=== PATIENT | male | born 1975 | race Two or more races ===

== ENCOUNTER 2020-07-19 11:21 | Outpatient (REF) | payer MEDICARE, MEDICAID, SELFPAY ==
--- NOTE | 2020-07-19 11:26 | XR_ITS ---
EXAMINATION: XR SHOULDER, RIGHT CLINICAL INFORMATION: Right shoulder pain COMPARISON: 06/04/2017 TECHNIQUE: Three views of the right shoulder. FINDINGS: There is no fracture or dislocation. The glenohumeral joint is well aligned. The joint space is maintained. The acromioclavicular joint is intact. The visualized lung is clear. The visualized ribs are intact. IMPRESSION: Normal appearance of the right shoulder.
== END 2020-07-19 11:22 | disposition home or self-care (01) ==
LOC: HO.XRAY 11:21
PROVIDERS: PCP Internal Medicine; Referring Provider Internal Medicine; Visit Provider Orthopaedic Surgery
DX: M25.511 Pain in right shoulder (principal); S43.431A Superior glenoid labrum lesion of right shoulder, initial encounter; M62.511 Muscle wasting and atrophy, not elsewhere classified, right shoulder
CPT/HCPCS: 73030; 99214

== ENCOUNTER 2020-07-30 15:11 | Outpatient (REF) | payer MEDICARE, MEDICAID, SELFPAY ==
--- NOTE | 2020-07-30 | MR_ITS ---
EXAMINATION: MR SHOULDER WITHOUT CONTRAST, RIGHT CLINICAL INFORMATION: Right shoulder muscle wasting and atrophy. COMPARISON: MRI 12/16/2017 TECHNIQUE: MRI of the shoulder without contrast was performed on a high-field scanner. FINDINGS: ROTATOR CUFF: Intact. No muscle atrophy or fatty infiltration. BICEPS: Normal. CORACOACROMIAL ARCH: The undersurface of the acromion is laterally downsloping with no subacromial spur. Moderate acromioclavicular osteoarthritis. Previously demonstrated marrow edema of the distal clavicle has resolved. LABRUM/CAPSULE: The superior labral tear demonstrated on the previous study is less conspicuous, still apparent posterosuperiorly on coronal image 7 and axial image 9. The anterior inferior capsule is slightly thickened and projects into the joint. GLENOHUMERAL JOINT/MARROW: Small degenerative cyst of the anterolateral humeral head. No joint effusion. MR/MR shoulder RT wo con IMPRESSION: No rotator cuff tear. No muscle atrophy or fatty infiltration. Moderate acromioclavicular osteoarthritis. Previously demonstrated superior labral tear is much less conspicuous.
== END 2020-07-30 15:12 | disposition home or self-care (01) ==
LOC: HO.MRI 15:11
PROVIDERS: PCP Internal Medicine; Visit Provider Orthopaedic Surgery
DX: M62.511 Muscle wasting and atrophy, not elsewhere classified, right shoulder (principal)
CPT/HCPCS: 73221

== ENCOUNTER 2020-09-10 08:36 | Outpatient (REF) | payer MEDICARE, MEDICAID, SELFPAY | END 2020-09-10 08:37 | disposition home or self-care (01) | LOC: HO.LAB 08:36 | PROVIDERS: Visit Provider Internal Medicine | DX: Z20.828 Contact with and (suspected) exposure to other viral communicable diseases (principal) | CPT/HCPCS: C9803; U0003 ==

== ENCOUNTER → 2020-10-23 11:34 | Outpatient (BNVA) | payer OTHER, SELFPAY | PROVIDERS: PCP Internal Medicine; Visit Provider Surgery | DX: K43.9 Ventral hernia without obstruction or gangrene (principal) | CPT/HCPCS: 99202 ==

== ENCOUNTER 2020-11-22 13:57 | Outpatient (REF) | payer OTHER, SELFPAY | END 2020-11-22 13:58 | disposition home or self-care (01) | LOC: HO.CT 13:57 | PROVIDERS: Visit Provider Surgery | DX: Z13.89 Encounter for screening for other disorder (principal) ==

== ENCOUNTER 2020-11-27 08:01 | Outpatient (REF) | payer OTHER, SELFPAY ==
--- NOTE | ~2020-11-27 | CT_ITS ---
EXAMINATION: CT ABDOMEN AND PELVIS WITH CONTRAST CLINICAL INFORMATION: Ventral hernia without obstruction or gangrene. COMPARISON: 11/20/2018 CT. TECHNIQUE: Multidetector volumetric images were obtained from the superior aspect of the liver through the pubic symphysis following administration 85 mL of Omnipaque 350 intravenous contrast. Sagittal and coronal reformatted images were obtained on the technologist's workstation. Oral contrast: Yes This CT examination was performed using dose optimization techniques as appropriate, variously including the following: *Automated exposure control *Adjustment of mA and/or kV according to patient size (this includes techniques or standardized protocols for targeted exams where dose is matched to indication/reason for exam; i.e. extremities or head) *Use of iterative reconstruction technique DLP: 599 mGy-cm. FINDINGS: LUNG BASES: The visualized lung bases are unremarkable. LIVER, GALLBLADDER, AND BILIARY TREE: No focal hepatic lesion or biliary ductal dilatation is present. Gallbladder appears unremarkable. PANCREAS: Unremarkable. SPLEEN: Unremarkable. Small splenule present. ADRENAL GLANDS: Unremarkable. KIDNEYS AND URETERS: Stable small hypodense lesion in the right kidney, too small to characterize. No calculi. No hydronephrosis. BLADDER: Unremarkable. GASTROINTESTINAL TRACT: Stomach and small bowel are nondistended. Nonobstructive bowel gas pattern. Colonic diverticulosis without evidence of definite diverticulitis. The large colon is nondistended, with associated limitation in evaluation for wall thickness. No pericolonic inflammatory changes are seen. Appendix is normal. No free fluid. ABDOMINAL WALL: No significant hernia is appreciated. LYMPH NODES: No lymphadenopathy seen. VASCULAR: Normal caliber aorta. Portal vein is enhancing. PELVIC VISCERA: Prostate measures 4.3 cm transverse. OSSEOUS STRUCTURES: No acute or suspicious osseous abnormality. CT/CT abdomen pelvis w con IMPRESSION: 1. No acute findings identified in the abdomen or pelvis. 2. No significant abdominal wall hernia is appreciated. 3. Colonic diverticulosis without diverticulitis.
[2020-11-27] MEDS: iohexoL 350 MG/ML 100 ML INFUS..BTL IV (10:44)
[2020-11-27] MEDS: Barium Sulfate Oral (Berry) 450 ML ORAL.SUSP 900 ML PO (10:44)
== END 2020-11-27 08:02 | disposition home or self-care (01) ==
LOC: HO.CT 08:01
PROVIDERS: Visit Provider Surgery
DX: K43.9 Ventral hernia without obstruction or gangrene (principal)
CPT/HCPCS: 74177; Q9967

== ENCOUNTER → 2020-12-04 13:43 | Outpatient (BNVA) | payer OTHER, SELFPAY | PROVIDERS: PCP Internal Medicine; Visit Provider Surgery | DX: R10.31 Right lower quadrant pain (principal) | CPT/HCPCS: 99212 ==

== ENCOUNTER 2021-02-01 12:01 | Emergency (ER) | payer OTHER, SELFPAY ==
[2021-02-01 12:52] VITALS: BP 125/83; PULSE 81; RESP 18; TEMP 36.4; O2SAT 97; BMI 32.1
--- NOTE | 2021-02-01 14:57 | ED.EYEPROB ---
HPI - Eye Problem General Chief complaint: Eye Problems Stated complaint: eye problem Time Seen by Provider: 02/01/21 14:57 History of Present Illness HPI Narrative: Complains of right eye foreign body sensation after wind blew dust in his eyes yesterday, no vision loss no photophobia no discharge from eye Related Data Home Medications Medication Instructions Recorded Confirmed olanzapine 20 mg tablet 20 mg PO DAILY 07/19/20 02/01/21 oxcarbazepine 600 mg tablet 900 mg PO BID 07/19/20 02/01/21 quetiapine 25 mg tablet 25 mg PO BID 07/19/20 02/01/21 atorvastatin 40 mg tablet 40 mg PO DAILY 09/27/20 02/01/21 Previous Rx's Medication Instructions Recorded erythromycin 0.5 inch OPHTHALMIC (EYE) TID 3 02/01/21 Days #3.5 g Allergies Allergy/AdvReac Type Severity Reaction Status Date / Time lorazepam [From ATIVAN] Allergy Unknown ANAPHYLAXIS Verified 02/01/21 12:52 milk [Milk] Allergy Unknown GI DISTRESS Verified 02/01/21 12:52 pravastatin AdvReac Unknown ?diarrhea? Verified 02/01/21 12:52 Review of Systems Review of Systems: Positive for right eye foreign body Negatives are no fever no chills no dizziness no weakness no headache no ear pain, no vision loss no photophobia no discharge from the eye, no rash Yes all other systems are reviewed and are negative [facility] Past Medical History Source: nursing notes reviewed Medical History Anterior to posterior tear of superior glenoid labrum of right shoulder Anxiety Atrophy of muscle of right shoulder Bipolar disorder Degenerative joint disease of right shoulder Elevated blood pressure reading Irritation of right eye Obesity (BMI 30-39.9) Pure hypercholesterolemia Right inguinal pain Schizophrenia Smoker Surgical History History of cataract removal with insertion of prosthetic lens History of hernia surgery (1998) History of surgery on arm Family History Family History Father Amyloidosis Mother Alive and well Maternal Uncle Prostate cancer Social History Social History Smoking Status: Current every day smoker Tobacco Type: Cigarette Years Smoked: 30yrs Current occupational status: unemployed Physical Exam Vital Signs: Vital Signs: Last Vital Signs Temp 97.6 F 02/01/21 12:52 Pulse 81 02/01/21 12:52 Resp 18 02/01/21 12:52 BP 125/83 02/01/21 12:52 Pulse Ox 97 02/01/21 12:52 Body Mass Index 32.1 General appearance is no acute distress Head is normocephalic atraumatic The eye exam pupils equal round reactive to light, extraocular motions are intact, there is no photophobia there is no discharge there is no redness Shining a light in the eye I did see a very small black speck, staining with dye showed a very small corneal abrasion with minimal dye uptake Vision was 20/30 bilaterally Neck was supple Respiratory no distress Extremities full range of motion x4 Skin no rash Neuro no focal deficit Course Course Course Narrative: After placing tetracaine eye stained with fluorescein the fluorescein showed a very small corneal abrasion As I had seen on a small speck when I examined with normal light I irrigated copiously and after irrigation did not see the spec anymore, I checked under both lids and its possible foreign body was removed with irrigation Patient will follow with eye doctor in 1-2 days if he continues to have any pain or a foreign body sensation Discharge Plan Discharge Clinical Impression: Acute foreign body of right eye Patient Disposition: Home, Self-Care Additional Instructions: I thought I saw a small speck in her eye but then did not see it again I did irrigate and it is possible a small speck came out without me being aware I am not sure if I remove the foreign body, there was also what looked like a very small corneal abrasion so we are putting you on antibiotic Follow with eye doctor tomorrow if sensation of foreign body returns as they have much better skill and equipments for finding small foreign bodies Return to ER any time for discharge, vision loss, worsening eye pain, any worse condition or any concerns Prescriptions: New erythromycin 5 mg/gram (0.5 %) ointment 0.5 inch ophthalmic (eye) TID 3 Days Qty: 3.5 RF: 0 No Action atorvastatin 40 mg tablet 40 mg PO DAILY RF: 0 quetiapine [Seroquel] 25 mg tablet 25 mg PO BID RF: 0 oxcarbazepine [Trileptal] 600 mg tablet 900 mg PO BID RF: 0 olanzapine [Zyprexa] 20 mg tablet 20 mg PO DAILY RF: 0 Referrals: Hulseberg,Michael [Physician] - 2 days (Possible retained foreign body) Interventions: ED Discharge Assessment Last Done: 02/01/21 16:17 Discharge Date/Time: 02/01/21 16:17
[2021-02-01] MEDS: Erythromycin Base 0.5% Oph Oin 1 GM TUBE 1 CM EYE-LEFT (16:08)
[2021-02-01] MEDS: Fluorescein Sodium STRIP 1 STRIP EYE-LEFT (16:08)
[2021-02-01] MEDS: Tetracaine HCl/PF 0.5% Oph Sol 4 ML DROPS 3 DROP EYE-LEFT (16:08)
== END 2021-02-01 16:17 | disposition home or self-care (01) ==
PROVIDERS: Emergency Provider Emergency Medicine; PCP Internal Medicine
DX: T15.01XA Foreign body in cornea, right eye, initial encounter (principal); X58.XXXA Exposure to other specified factors, initial encounter; Y93.01 Activity, walking, marching and hiking; Y92.480 Sidewalk as the place of occurrence of the external cause; Y99.9 Unspecified external cause status; F17.200 Nicotine dependence, unspecified, uncomplicated; F41.9 Anxiety disorder, unspecified; E78.00 Pure hypercholesterolemia, unspecified; Z79.02 Long term (current) use of antithrombotics/antiplatelets; Z79.899 Other long term (current) drug therapy
CPT/HCPCS: 99283

== ENCOUNTER 2021-02-07 06:41 | Outpatient (REF) | payer OTHER, SELFPAY ==
[2021-02-07 08:33] LABS: MANUAL DIFF FLAG NO
[2021-02-07 08:36] LABS: Glucose Urine UA NEG (NEG); Leukocyte Esterase Urine NEG (NEG); Nitrite Urine NEG (NEG); Specific Gravity - Urine >= 1.030 (1.005-1.025); Urine Blood NEG (NEG); Urine Ketones NEG (NEG); Urine Protein NEG (NEG-TRACE)
[2021-02-07 08:39] LABS: Appearance Urine CLEAR; Color Urine YELLOW
[2021-02-07 08:45] LABS: Basophils Percent Auto 0.5 % (0-2); Eosinophils Absolute Auto 0.1 X10*3/uL (0.0-0.4); Eosinophils Percent Auto 2.1 % (0-4); Hematocrit 42.1 % (42-52); Hemoglobin 14.3 g/dl (14.0-18.0); Imm Gran Abs Auto 0.02 X10*3/uL (0.00-0.03); Imm Gran Pct Auto 0.4 % (0.0-0.4); Lymphocytes Absolute Auto 1.4 X10*3/uL (1.2-4.9); Mean Corpuscular Hemoglobin 30.6 pg (27.0-33.0); Mean Platelet Volume 10.4 fL (9.4-12.4); Monocytes Absolute Auto 0.7 X10*3/uL (0.1-1.2); Monocytes Percent Auto 12.6 % (2-11); Neutrophils Absolute Auto 3.4 X10*3/uL (2.0-8.3); Neutrophils Percent Auto 60.4 % (45-73); Platelet Count 281 X10*3/uL (160-400); Red Blood Count 4.68 X10*6/uL (4.60-5.80); Red Cell Distribution Width 12.5 % (11.0-16.0); White Blood Count 5.6 X10*3/uL (4.8-10.8)
[2021-02-07 09:11] LABS: Alanine Aminotransferase 37 U/L (0-40); Albumin Level 4.5 g/dL (3.5-5.0); Alkaline Phosphatase 88 U/L (39-117); Anion Gap 13 (12-20); Aspartate Amino Transferase 50 U/L (5-37); Bilirubin Total 0.6 mg/dL (0.0-1.0); Blood Urea Nitrogen 13 mg/dL (9-16); Calcium 9.6 mg/dL (8.4-10.2); Carbon Dioxide 26 mmol/L (22-29); Chloride 107 mmol/L (96-108); Cholesterol 235 mg/dL; Estimated Glomerular Filt Rate > 60; Glucose Fasting 96 mg/dL (60-99); HDL Cholesterol 39 mg/dL; LDL Cholesterol Calculated 176 mg/dl; Potassium 4.2 mmol/L (3.3-5.1); Sodium 142 mmol/L (135-145); Total Protein 7.3 g/dL (6.5-8.0); Triglycerides 103 mg/dL
[2021-02-07 09:34] LABS: TSH reflex Free T4 1.25 uIU/mL (0.32-4.0)
[2021-02-07 09:43] LABS: Erythrocyte Sedimentation Rate 10 MM/HR (0-15)
== END 2021-02-07 06:42 | disposition home or self-care (01) ==
LOC: HO.LAB 06:41
PROVIDERS: Visit Provider Internal Medicine
DX: Z00.00 Encounter for general adult medical examination without abnormal findings (principal); E78.00 Pure hypercholesterolemia, unspecified; E66.9 Obesity, unspecified; M19.111 Post-traumatic osteoarthritis, right shoulder
CPT/HCPCS: 36415; 80053; 80061; 81003; 84443; 85025; 85652

== ENCOUNTER 2021-02-24 20:48 | Emergency (ER) | payer OTHER, SELFPAY ==
--- NOTE | 2021-02-24 | ECG_ITS ---
Test Reason : CHEST PAIN Blood Pressure : / mmHG Vent. Rate : 078 BPM Atrial Rate : 078 BPM P-R Int : 144 ms QRS Dur : 104 ms QT Int : 370 ms P-R-T Axes : 026 004 036 degrees QTc Int : 421 ms Normal sinus rhythm Normal ECG When compared with ECG of 29-JUL-2017 09:54, Vent. rate has increased BY 29 BPM Referred By: Generic ED Physician Electronically Signed By:YULY SALAZAR
--- NOTE | ~2021-02-24 | XR_ITS ---
EXAMINATION: XR CHEST CLINICAL INFORMATION: Chest pain COMPARISON: Previous chest x-ray most recent June 2019 TECHNIQUE: 2 views of the chest were obtained. FINDINGS: The cardiac and mediastinal contours are stable. The lungs are clear. There is no pleural effusion or pneumothorax. There are degenerative changes of the spine. XR/XR chest 2V IMPRESSION: No evidence for acute disease in the chest.
[2021-02-24 21:24] VITALS: BP 138/89; PULSE 78; RESP 18; TEMP 36.7; O2SAT 97; BMI 29.9
[2021-02-24 22:23] LABS: MANUAL DIFF FLAG NO
[2021-02-24 22:24] LABS: Basophils Percent Auto 0.3 % (0-2); Eosinophils Absolute Auto 0.2 X10*3/uL (0.0-0.4); Eosinophils Percent Auto 1.3 % (0-4); Hematocrit 39.5 % (42-52); Hemoglobin 13.5 g/dl (14.0-18.0); Imm Gran Abs Auto 0.05 X10*3/uL (0.00-0.03); Imm Gran Pct Auto 0.4 % (0.0-0.4); Lymphocytes Absolute Auto 2.3 X10*3/uL (1.2-4.9); Lymphocytes Percent Auto 20.1 % (20-40); Mean Corpuscular HGB Conc 34.2 g/dl (31.0-36.0); Mean Corpuscular Volume 90.8 fL (80-98); Mean Platelet Volume 9.8 fL (9.4-12.4); Monocytes Percent Auto 9.1 % (2-11); Neutrophils Absolute Auto 7.8 X10*3/uL (2.0-8.3); Neutrophils Percent Auto 68.8 % (45-73); Platelet Count 251 X10*3/uL (160-400); Red Blood Count 4.35 X10*6/uL (4.60-5.80); Red Cell Distribution Width 12.3 % (11.0-16.0); White Blood Count 11.4 X10*3/uL (4.8-10.8)
--- NOTE | 2021-02-24 22:36 | ED_ITS ---
HPI - Chest Pain General Chief Complaint: Chest Pain Stated Complaint: Chest pain Time Seen by Provider: 02/24/21 22:36 Source: patient Mode of arrival: ambulatory History of Present Illness HPI narrative: 45-year-old male without significant past medical history states that approximately 3 days ago he was helping a friend clean out an area and that the vacuum bag ?blew up scattering all sorts of unknown particles into the air?. Since that time patient describes left anterior chest wall pain at the superior lateral aspect that increases with deep inspiration otherwise does not radiate anywhere. Patient states that it is a sharp, pinching sensation that comes and goes without association of timing or exertion. He denies any associated shortness of breath, fever, chills, family history of early cardiac . Related Data Home Medications Medication Instructions Recorded Confirmed olanzapine 20 mg tablet 20 mg PO DAILY 07/19/20 02/01/21 oxcarbazepine 600 mg tablet 900 mg PO BID 07/19/20 02/01/21 quetiapine 25 mg tablet 25 mg PO BID 07/19/20 02/01/21 atorvastatin 40 mg tablet 40 mg PO DAILY 09/27/20 02/01/21 Previous Rx's Medication Instructions Recorded erythromycin 0.5 inch OPHTHALMIC (EYE) TID 3 02/01/21 Days #3.5 g Allergies Allergy/AdvReac Type Severity Reaction Status Date / Time lorazepam [From ATIVAN] Allergy Unknown ANAPHYLAXIS Verified 02/01/21 12:52 milk [Milk] Allergy Unknown GI DISTRESS Verified 02/01/21 12:52 pravastatin AdvReac Unknown ?diarrhea? Verified 02/01/21 12:52 Review of Systems Review of Systems: Pertinent positives and negatives as stated in HPI 10 point review of systems otherwise negative. [facility] Past Medical History Source: nursing notes reviewed Medical History Anterior to posterior tear of superior glenoid labrum of right shoulder Anxiety Atrophy of muscle of right shoulder Bipolar disorder Degenerative joint disease of right shoulder Elevated blood pressure reading Irritation of right eye Obesity (BMI 30-39.9) Pure hypercholesterolemia Right inguinal pain Schizophrenia Smoker Surgical History History of cataract removal with insertion of prosthetic lens History of hernia surgery (1998) History of surgery on arm Family History Family History Father Amyloidosis Mother Alive and well Maternal Uncle Prostate cancer Social History Social History Smoking Status: Current every day smoker Tobacco Type: Cigarette Years Smoked: 30yrs Advance Directives: No Advance Directives Information Provided: Yes Current occupational status: unemployed Physical Exam Vital Signs: Vital Signs: Last Vital Signs Temp 98.1 F 02/24/21 21:24 Pulse 78 02/24/21 21:24 Resp 18 02/24/21 21:24 BP 138/89 02/24/21 21:24 Pulse Ox 97 02/24/21 21:24 Body Mass Index 29.9 VITAL SIGNS: Reviewed. GENERAL: Well developed, well nourished, in no acute distress. HEAD: Normocephalic/atraumatic, EYES: PERRLA, EOMI NOSE: Nares patent bilateral OROPHARYNX: no oral lesions noted, posterior pharynx clear NECK: Supple, no adenopathy LUNGS: Normal breath sounds. No adventitious sounds or accessory muscle use. SpO2<97> CHEST WALL: Palpation over the left anterior chest wall positive for pain on palpation especially at left upper outer CARDIOVASCULAR: Regular rate and rhythm without noted murmurs ABDOMEN: Soft, non-tender, non-distended with bowel sounds. NEUROLOGIC: Alert and oriented x 4. Course Course Course Narrative: 45-year-old male with history and clinical presentation consistent with possible particulate exposure but no evidence of acute reaction in the absence of fever, chills. Combination analgesics provided. Review of all investigations negative for significant acute findings from baseline. Importantly no evidence of PE, cardiac ischemia, pneumonia, pneumothorax. Advised by nursing the patient declined combination analgesics. Patient informed of all results and discharged for further follow-up with his primary care provider. MDM - Chest Pain Lab Data Result diagrams: 02/24/21 22:16 02/24/21 22:16 Labs: Lab Results 02/24/21 02/24/21 02/24/21 Range/Units 22:16 22:16 22:16 WBC 11.4 H (4.8-10.8) X10*3/uL RBC 4.35 L (4.60-5.80) X10*6/uL Hgb 13.5 L (14.0-18.0) g/dl Hct 39.5 L (42-52) % MCV 90.8 (80-98) fL MCH 31.0 (27.0-33.0) pg MCHC 34.2 (31.0-36.0) g/dl RDW 12.3 (11.0-16.0) % Plt Count 251 (160-400) X10*3/uL MPV 9.8 (9.4-12.4) fL Immature Gran % (Auto) 0.4 (0.0-0.4) % Neut % (Auto) 68.8 (45-73) % Lymph % (Auto) 20.1 (20-40) % [place] % (Auto) 9.1 (2-11) % Eos % (Auto) 1.3 (0-4) % Baso % (Auto) 0.3 (0-2) % Lymph # (Auto) 2.3 (1.2-4.9) X10*3/uL [place] # (Auto) 1.0 (0.1-1.2) X10*3/uL Eos # (Auto) 0.2 (0.0-0.4) X10*3/uL Baso # (Auto) 0.0 (0.0-0.2) X10*3/uL Abs Immat Gran (auto) 0.05 H (0.00-0.03) X10*3/uL Absolute Neuts (auto) 7.8 (2.0-8.3) X10*3/uL Absolute Nucleated RBC 0.000 (0.0-0.012) X10*3/uL Nucleated RBC % (auto) 0.0 (0.0-0.2) /100WBC D-Dimer < 200 NG/ML Sodium 140 (135-145) mmol/L Potassium 4.0 (3.3-5.1) mmol/L Chloride 105 (96-108) mmol/L Carbon Dioxide 23 (22-29) mmol/L Anion Gap 16 (12-20) BUN 18 H (9-16) mg/dL Creatinine 0.87 (0.5-1.4) mg/dL Estim Creat Clear Calc 129.0 Estimated GFR > 60 Random Glucose 95 (60-115) mg/dL Calcium 9.7 (8.4-10.2) mg/dL Troponin I High Sens (<3.5-35.0) ng/L 02/24/ Range/Units 22:16 WBC (4.8-10.8) X10*3/uL RBC (4.60-5.80) X10*6/uL Hgb (14.0-18.0) g/dl Hct (42-52) % MCV (80-98) fL MCH (27.0-33.0) pg MCHC (31.0-36.0) g/dl RDW (11.0-16.0) % Plt Count (160-400) X10*3/uL MPV (9.4-12.4) fL Immature Gran % (Auto) (0.0-0.4) % Neut % (Auto) (45-73) % Lymph % (Auto) (20-40) % [place] % (Auto) (2-11) % Eos % (Auto) (0-4) % Baso % (Auto) (0-2) % Lymph # (Auto) (1.2-4.9) X10*3/uL [place] # (Auto) (0.1-1.2) X10*3/uL Eos # (Auto) (0.0-0.4) X10*3/uL Baso # (Auto) (0.0-0.2) X10*3/uL Abs Immat Gran (auto) (0.00-0.03) X10*3/uL Absolute Neuts (auto) (2.0-8.3) X10*3/uL Absolute Nucleated RBC (0.0-0.012) X10*3/uL Nucleated RBC % (auto) (0.0-0.2) /100WBC D-Dimer NG/ML Sodium (135-145) mmol/L Potassium (3.3-5.1) mmol/L Chloride (96-108) mmol/L Carbon Dioxide (22-29) mmol/L Anion Gap (12-20) BUN (9-16) mg/dL Creatinine (0.5-1.4) mg/dL Estim Creat Clear Calc Estimated GFR Random Glucose (60-115) mg/dL Calcium (8.4-10.2) mg/dL Troponin I High Sens < 3.5 (<3.5-35.0) ng/L ECG Data ECG #1: Attestation: I personally reviewed and interpreted this ECG as follows: Prior ECG tracings: not available for review Interpretation: Normal sinus rhythm, HR -78, no evidence of acute ischemia, AK/QTC within normal limits. Discharge Plan Discharge Clinical Impression: Atypical chest pain, Muscle strain of anterior chest wall, Costochondritis Patient Disposition: Home, Self-Care Instructions: Muscle Strain (ED), Costochondritis (ED) Additional Instructions: 1. Tylenol 1000 mg, orally, every 6 hours as needed for pain control. Do not exceed 4000 mg within 24 hours. 2. Ibuprofen 400 mg, orally with milk or food, every 6 hours as needed for pain control. 3. Lidocaine patch, these are available [id number], apply to area of maximal pain as directed on the outside packaging. 4. Follow-up with your primary care provider by calling the office in the [facility] [place] [facility] to establish an appointment for re-evaluation and further management of your symptoms. Resume home medications as prescribed. Return to the ER for any acute worsening of your symptoms. Prescriptions: No Action erythromycin 5 mg/gram (0.5 %) ointment 0.5 inch ophthalmic (eye) TID 3 Days Qty: 3.5 RF: 0 atorvastatin 40 mg tablet 40 mg PO DAILY RF: 0 quetiapine [Seroquel] 25 mg tablet 25 mg PO BID RF: 0 oxcarbazepine [Trileptal] 600 mg tablet 900 mg PO BID RF: 0 olanzapine [Zyprexa] 20 mg tablet 20 mg PO DAILY RF: 0 Referrals: Physician,Unknown [Primary Care Provider] - 2 days
[2021-02-24 22:40] LABS: D Dimer < 200 NG/ML
[2021-02-24 22:49] LABS: Anion Gap 16 (12-20); Blood Urea Nitrogen 18 mg/dL (9-16); Calcium 9.7 mg/dL (8.4-10.2); Carbon Dioxide 23 mmol/L (22-29); Chloride 105 mmol/L (96-108); Estimated Glomerular Filt Rate > 60; Glucose Random 95 mg/dL (60-115); Sodium 140 mmol/L (135-145)
[2021-02-24 22:55] LABS: Troponin-I High Sensitivity < 3.5 ng/L (<3.5-35.0)
--- NOTE | 2021-02-24 23:11 | PC.NURSE ---
pt refusing all meds. I'm here because something is my lung is popping. I dont' want any of your bullshit meds. aware.
== END 2021-02-24 23:45 | disposition home or self-care (01) ==
PROVIDERS: Emergency Provider Student in an Organized Health Care Education/Training Program
DX: R07.89 Other chest pain (principal); M94.0 Chondrocostal junction syndrome [Tietze]; F17.210 Nicotine dependence, cigarettes, uncomplicated; Z71.6 Tobacco abuse counseling; Z79.899 Other long term (current) drug therapy
CPT/HCPCS: 36415; 71046; 80048; 84484; 85025; 85379; 93005; 99283

== ENCOUNTER 2021-03-08 08:22 | Outpatient (REF) | payer OTHER, SELFPAY ==
--- NOTE | ~2021-03-08 | XR_ITS ---
EXAMINATION: XR RIBS, LEFT CLINICAL INFORMATION: Chest pain. COMPARISON: None TECHNIQUE: 3 views of the left ribs were obtained. FINDINGS: CHEST: The lungs are well-expanded and clear. The heart size and pulmonary vascularity is normal. LEFT RIBS: Multiple views of left ribs reveal no visible acute fracture or bony abnormality. The soft tissues are normal. XR/XR ribs LT min 3V w CXR1V IMPRESSION: Unremarkable chest exam. No visible left rib fractures seen.
== END 2021-03-08 08:23 | disposition home or self-care (01) ==
LOC: HO.XRAY 08:22
PROVIDERS: PCP Internal Medicine; Visit Provider Internal Medicine
DX: R07.9 Chest pain, unspecified (principal)
CPT/HCPCS: 71101

== ENCOUNTER 2021-04-04 17:02 | Emergency (ER) | payer OTHER, SELFPAY ==
--- NOTE | ~2021-04-04 | CT_ITS ---
EXAMINATION: CT ABDOMEN AND PELVIS WITHOUT CONTRAST CLINICAL INFORMATION: Abdominal pain. Elevated lipase. COMPARISON: Previous CT of the abdomen and pelvis November 2020 TECHNIQUE: Multidetector volumetric imaging was performed from the superior aspect of the liver through the pubic symphysis. Sagittal and coronal reformatted images were obtained on the technologist's workstation. This CT examination was performed using dose optimization techniques as appropriate, variously including the following: *Automated exposure control *Adjustment of mA and/or kV according to patient size (this includes techniques or standardized protocols for targeted exams where dose is matched to indication/reason for exam; i.e. extremities or head) *Use of iterative reconstruction technique DLP: 741 mGy-cm FINDINGS: LUNG BASES: The visualized lung bases are unremarkable. LIVER, GALLBLADDER, AND BILIARY TREE: The liver is normal in size, shape, and attenuation. No focal hepatic lesion or biliary ductal dilatation is present. The gallbladder is unremarkable with no evidence of radiopaque gallstones, gallbladder wall thickening, or obvious pericholecystic inflammatory changes. PANCREAS: Unremarkable. SPLEEN: Unremarkable. ADRENAL GLANDS: Unremarkable. KIDNEYS AND URETERS: The kidneys are normal in size, shape, and attenuation. No hydronephrosis, hydroureter, or calculi seen. No perinephric stranding. BLADDER: Not optimally distended. GASTROINTESTINAL TRACT: There is diverticulosis of the colon. No evidence of diverticulitis is seen. The small and large bowel are otherwise unremarkable. The appendix is unremarkable. ABDOMINAL WALL: No significant hernia is appreciated. LYMPH NODES: Normal. VASCULAR: Unremarkable. PELVIC VISCERA: Unremarkable. OSSEOUS STRUCTURES: Unremarkable. CT/CT abdomen pelvis wo con IMPRESSION: Normal-appearing pancreas. Diverticulosis of the colon. No evidence of diverticulitis.
[2021-04-04 17:27] VITALS: BP 154/90; PULSE 58; RESP 18; TEMP 36.6; O2SAT 98; BMI 29.9
[2021-04-04 18:28] LABS: Hematocrit 38.8 % (42-52); Hemoglobin 13.9 g/dl (14.0-18.0); Mean Corpuscular HGB Conc 35.8 g/dl (31.0-36.0); Mean Corpuscular Hemoglobin 31.2 pg (27.0-33.0); Mean Platelet Volume 9.7 fL (9.4-12.4); Platelet Count 239 X10*3/uL (160-400); Red Blood Count 4.46 X10*6/uL (4.60-5.80); Red Cell Distribution Width 12.3 % (11.0-16.0); White Blood Count 7.3 X10*3/uL (4.8-10.8)
[2021-04-04 18:41] VITALS: BP 131/97; PULSE 77; RESP 16; O2SAT 99
[2021-04-04 18:47] LABS: Glucose Urine UA NEG (NEG); Leukocyte Esterase Urine NEG (NEG); Nitrite Urine NEG (NEG); PH 6.5 (5.0-8.0); Specific Gravity - Urine <= 1.005 (1.005-1.025); Urine Blood NEG (NEG); Urine Ketones NEG (NEG); Urine Protein NEG (NEG-TRACE)
[2021-04-04 18:48] LABS: Appearance Urine CLEAR; Color Urine YELLOW
[2021-04-04 18:53] LABS: RBC Urine 0 /HPF (0); Squamous Epithelial Cell Urine TRACE /LPF; WBC Urine 0 /HPF (0-4)
--- NOTE | 2021-04-04 18:58 | ED_ITS ---
HPI - Abdominal Pain General Chief Complaint: Abdominal Pain Stated Complaint: Abdominap discomfort Time Seen by Provider: 04/04/21 18:58 Source: patient Mode of arrival: ambulatory Limitations: no limitations History of Present Illness HPI narrative: patient history of anxiety schizophrenia complaining chronic abd ominal pain mostly localized to left side for last 2 months was here in November had a CT scan done which was negative been to urgent care last week. No nausea no vomiting no fever no diarrhea normal bowel movements no flank pain no Related Data Home Medications Medication Instructions Recorded Confirmed olanzapine 20 mg tablet 20 mg PO DAILY 07/19/20 03/22/21 oxcarbazepine 600 mg tablet 900 mg PO BID 07/19/20 03/22/21 quetiapine 25 mg tablet 25 mg PO BID 07/19/20 03/22/21 Previous Rx's Medication Instructions Recorded atorvastatin 40 mg tablet 40 mg PO DAILY 90 Days #90 tab 02/25/21 dicyclomine 20 mg PO QID PRN #20 tab 04/04/21 Allergies Allergy/AdvReac Type Severity Reaction Status Date / Time lorazepam [From ATIVAN] Allergy Unknown ANAPHYLAXIS Verified 03/22/21 15:04 milk [Milk] Allergy Unknown GI DISTRESS Verified 03/22/21 15:04 pravastatin AdvReac Unknown ?diarrhea? Verified 03/22/21 15:04 Review of Systems Review of Systems Yes all other systems are reviewed and are negative Physical Exam Vital Signs: Vital Signs: Last Vital Signs Temp 97.8 F 04/04/21 17:27 Pulse 77 04/04/21 18:41 Resp 16 04/04/21 18:41 BP 131/97 H 04/04/21 18:41 Pulse Ox 99 04/04/21 18:41 Body Mass Index 29.9 Appearance: Alert. Oriented X3. No acute distress. Eyes: PERRLA, No Nystagmus ENT: Pharynx normal. Oral Mucosa moist Neck: Normal inspection. Neck supple. CVS: Normal heart rate and rhythm. Pulses normal. Respiratory: No respiratory distress. Equal air entry bilateral, no wheezing/rales/rhonchi Abdomen: Soft mild deep tenderness left-sided no rebound tenderness or guarding Bowel sounds are present, no mass palpable, no CVA tenderness Skin: Skin warm and dry. Normal skin color. Normal skin turgor. Extremities: No lower extremity edema. No calf tenderness Neuro: Oriented X 3. No motor deficit. No sensory deficit.No cerebellar signs , cranial nerves II-XII intact MDM - Abdominal Pain MDM Narrative Medical decision making narrative: patient nonspecific abdominal pain lab work up was normal except lipase was slightly elevated to 216 with normal LFTs etiology not very clear with do CT scan to rule out any pancreatitis CT scan negative for any acute pathology in pancreas will discharge patient home Lab Data Result diagrams: 04/04/21 18:21 04/04/21 18:21 Labs: Lab Results 04/04/21 04/04/21 04/04/21 Range/Units 18:21 18:21 18:39 WBC 7.3 (4.8-10.8) X10*3/uL RBC 4.46 L (4.60-5.80) X10*6/uL Hgb 13.9 L (14.0-18.0) g/dl Hct 38.8 L (42-52) % MCV 87.0 (80-98) fL MCH 31.2 (27.0-33.0) pg MCHC 35.8 (31.0-36.0) g/dl RDW 12.3 (11.0-16.0) % Plt Count 239 (160-400) X10*3/uL MPV 9.7 (9.4-12.4) fL Absolute Nucleated RBC 0.000 (0.0-0.012) X10*3/uL Nucleated RBC % (auto) 0.0 (0.0-0.2) /100WBC Sodium 139 (135-145) mmol/L Potassium 4.1 (3.3-5.1) mmol/L Chloride 104 (96-108) mmol/L Carbon Dioxide 26 (22-29) mmol/L Anion Gap 13 (12-20) BUN 13 (9-16) mg/dL Creatinine 0.84 (0.5-1.4) mg/dL Estim Creat Clear Calc 133.6 Estimated GFR > 60 Random Glucose 95 (60-115) mg/dL Calcium 9.9 (8.4-10.2) mg/dL Lipase 216 H (8-78) U/L Urine Color YELLOW Urine Appearance CLEAR Urine pH 6.5 (5.0-8.0) Ur Specific [place] <= 1.005 (1.005-1.025) Urine Protein NEG (NEG-TRACE) MG/DL Urine Glucose (UA) NEG (NEG) MG/DL Urine Ketones NEG (NEG) MG/DL Urine Blood NEG (NEG) Urine Nitrite NEG (NEG) Ur Leukocyte Esterase NEG (NEG) Urine RBC 0 (0) /HPF Urine WBC 0 (0-4) /HPF Ur Squamous Epith Cells TRACE /LPF Urine Bacteria NONE /LPF Discharge Plan Discharge Clinical Impression: IBS (irritable bowel syndrome) Patient Disposition: Home, Self-Care Instructions: Irritable Bowel Syndrome (ED) Additional Instructions: drink plenty of fluids take medication as prescribed follow with PCP Prescriptions: New dicyclomine 20 mg tablet 20 mg PO QID PRN (Reason: abdominal pain) Qty: 20 RF: 0 No Action atorvastatin 40 mg tablet 40 mg PO DAILY 90 Days Qty: 90 RF: 1 quetiapine [Seroquel] 25 mg tablet 25 mg PO BID RF: 0 oxcarbazepine [Trileptal] 600 mg tablet 900 mg PO BID RF: 0 olanzapine [Zyprexa] 20 mg tablet 20 mg PO DAILY RF: 0 Interventions: ED Discharge Assessment Last Done: 04/04/21 20:54 Discharge Date/Time: 04/04/21 20:55 [facility] Past Medical History Medical History Anterior to posterior tear of superior glenoid labrum of right shoulder Anxiety Atrophy of muscle of right shoulder Bipolar disorder Degenerative joint disease of right shoulder Elevated blood pressure reading Irritation of right eye Left-sided chest pain Obesity (BMI 30-39.9) Overweight (BMI 25.0-29.9) Paresthesia of right upper extremity Pleuritis Polysubstance abuse Pure hypercholesterolemia Right inguinal pain Schizophrenia Smoker Surgical History History of cataract removal with insertion of prosthetic lens History of hernia surgery (1998) History of surgery on arm Family History Family History Father Amyloidosis Mother Alive and well Maternal Uncle Prostate cancer Social History Social History Alcohol intake: current Alcohol intake frequency: holidays/special occasions only Patient Tobacco Use Status: Current everyday Tobacco user Cigarettes Per Day: 2 Years Smoked: 30yrs Advance Directives: No Advance Directives Information Provided: Yes Current occupational status: unemployed
[2021-04-04 19:12] LABS: Anion Gap 13 (12-20); Blood Urea Nitrogen 13 mg/dL (9-16); Calcium 9.9 mg/dL (8.4-10.2); Carbon Dioxide 26 mmol/L (22-29); Chloride 104 mmol/L (96-108); Creatinine Clr Calc Pharmacy 133.6; Estimated Glomerular Filt Rate > 60; Glucose Random 95 mg/dL (60-115); Lipase 216 U/L (8-78); Potassium 4.1 mmol/L (3.3-5.1); Sodium 139 mmol/L (135-145)
== END 2021-04-04 20:55 | disposition home or self-care (01) ==
PROVIDERS: Emergency Provider Internal Medicine; PCP Internal Medicine
DX: K58.9 Irritable bowel syndrome, unspecified (principal)
CPT/HCPCS: 36415; 74176; 80048; 81001; 83690; 85027; 99284

== ENCOUNTER 2021-05-06 11:50 | Outpatient (REF) | payer OTHER, SELFPAY ==
--- NOTE | ~2021-05-06 | XR_ITS ---
EXAMINATION: XR ABDOMEN WITH DECUBITUS VIEWS CLINICAL INDICATION: Abdominal distention COMPARISON: None TECHNIQUE: Supine and upright views of the abdomen and pelvis FINDINGS: The bowel gas pattern is normal. There is no free air. No calcifications are seen. There is increased density in the right upper quadrant in between the right 11th and 12th ribs which when compared with previous CT scan probably represents oral contrast in a diverticulum. Bony structures are unremarkable. XR/XR abdomen w decubitus IMPRESSION: Unremarkable examination.
[2021-05-06 13:17] LABS: MANUAL DIFF FLAG NO
[2021-05-06 13:24] LABS: Basophils Percent Auto 0.5 % (0-2); Eosinophils Absolute Auto 0.1 X10*3/uL (0.0-0.4); Eosinophils Percent Auto 1.7 % (0-4); Hematocrit 42.9 % (42-52); Hemoglobin 14.7 g/dl (14.0-18.0); Imm Gran Abs Auto 0.04 X10*3/uL (0.00-0.03); Imm Gran Pct Auto 0.6 % (0.0-0.4); Lymphocytes Absolute Auto 1.8 X10*3/uL (1.2-4.9); Lymphocytes Percent Auto 27.5 % (20-40); Mean Corpuscular HGB Conc 34.3 g/dl (31.0-36.0); Mean Corpuscular Hemoglobin 30.1 pg (27.0-33.0); Mean Corpuscular Volume 87.9 fL (80-98); Mean Platelet Volume 10.4 fL (9.4-12.4); Monocytes Absolute Auto 0.7 X10*3/uL (0.1-1.2); Monocytes Percent Auto 10.7 % (2-11); Neutrophils Absolute Auto 3.8 X10*3/uL (2.0-8.3); Platelet Count 276 X10*3/uL (160-400); Red Blood Count 4.88 X10*6/uL (4.60-5.80); Red Cell Distribution Width 12.6 % (11.0-16.0); White Blood Count 6.4 X10*3/uL (4.8-10.8)
[2021-05-06 13:50] LABS: Alanine Aminotransferase 26 U/L (0-40); Albumin Level 4.9 g/dL (3.5-5.0); Alkaline Phosphatase 93 U/L (39-117); Anion Gap 13 (12-20); Aspartate Amino Transferase 26 U/L (5-37); Bilirubin Total 0.5 mg/dL (0.0-1.0); Blood Urea Nitrogen 8 mg/dL (9-16); Carbon Dioxide 24 mmol/L (22-29); Chloride 107 mmol/L (96-108); Estimated Glomerular Filt Rate > 60; Glucose Random 91 mg/dL (60-115); Potassium 4.4 mmol/L (3.3-5.1); Sodium 140 mmol/L (135-145); Total Protein 7.9 g/dL (6.5-8.0)
[2021-05-06 14:12] LABS: Erythrocyte Sedimentation Rate 7 MM/HR (0-15)
[2021-05-06 14:49] LABS: Glucose Urine UA NEG (NEG); Leukocyte Esterase Urine NEG (NEG); Nitrite Urine NEG (NEG); Urine Blood NEG (NEG); Urine Ketones NEG (NEG); Urine Protein NEG (NEG-TRACE)
[2021-05-06 14:52] LABS: Appearance Urine CLEAR; Color Urine YELLOW
== END 2021-05-06 11:51 | disposition home or self-care (01) ==
LOC: HO.XRAY 11:50
PROVIDERS: PCP Internal Medicine; Visit Provider Internal Medicine
DX: R07.9 Chest pain, unspecified (principal); R19.5 Other fecal abnormalities; R14.0 Abdominal distension (gaseous)
CPT/HCPCS: 36415; 74021; 80053; 81003; 85025; 85652

== ENCOUNTER 2021-05-07 07:33 | Outpatient (REF) | payer OTHER, SELFPAY ==
[2021-05-07 08:49] LABS: Leukocytes Stool Qualitative NEGATIVE (NEGATIVE)
== END 2021-05-07 07:34 | disposition home or self-care (01) ==
LOC: HO.LNP 07:33
PROVIDERS: Visit Provider Internal Medicine
DX: R14.0 Abdominal distension (gaseous) (principal); R19.5 Other fecal abnormalities
CPT/HCPCS: 87045; 87046; 87177; 87209; 87329; 89055

== ENCOUNTER 2021-07-19 13:28 | Outpatient (REF) | payer OTHER, SELFPAY ==
[2021-07-19 15:30] LABS: Alanine Aminotransferase 75 U/L (0-40); Albumin Level 4.7 g/dL (3.5-5.0); Alkaline Phosphatase 92 U/L (39-117); Amylase 51 U/L (28-100); Aspartate Amino Transferase 46 U/L (5-37); Bilirubin Direct < 0.2 mg/dL (0.0-0.5); Bilirubin Total 0.5 mg/dL (0.0-1.0); Lipase 21 U/L (8-78); Total Protein 7.6 g/dL (6.5-8.0)
== END 2021-07-19 13:29 | disposition home or self-care (01) ==
LOC: HO.LAB 13:28
PROVIDERS: PCP Internal Medicine; Referring Provider Internal Medicine; Visit Provider Nurse Practitioner
DX: K58.0 Irritable bowel syndrome with diarrhea (principal); R74.8 Abnormal levels of other serum enzymes; R10.12 Left upper quadrant pain; F17.210 Nicotine dependence, cigarettes, uncomplicated
CPT/HCPCS: 36415; 80076; 82150; 83690; Q3014

== ENCOUNTER 2021-08-01 13:32 | Outpatient (REF) | payer OTHER, SELFPAY ==
[2021-08-01 13:49] LABS: MANUAL DIFF FLAG NO
[2021-08-01 14:18] LABS: Basophils Percent Auto 0.7 % (0-2); Eosinophils Absolute Auto 0.3 X10*3/uL (0.0-0.4); Eosinophils Percent Auto 4.6 % (0-4); Hematocrit 43.8 % (42-52); Hemoglobin 15.2 g/dl (14.0-18.0); Imm Gran Abs Auto 0.02 X10*3/uL (0.00-0.03); Imm Gran Pct Auto 0.3 % (0.0-0.4); Lymphocytes Absolute Auto 2.1 X10*3/uL (1.2-4.9); Lymphocytes Percent Auto 34.8 % (20-40); Mean Corpuscular HGB Conc 34.7 g/dl (31.0-36.0); Mean Corpuscular Hemoglobin 30.3 pg (27.0-33.0); Mean Corpuscular Volume 87.4 fL (80-98); Mean Platelet Volume 10.1 fL (9.4-12.4); Monocytes Absolute Auto 0.7 X10*3/uL (0.1-1.2); Monocytes Percent Auto 10.9 % (2-11); Neutrophils Percent Auto 48.7 % (45-73); Platelet Count 284 X10*3/uL (160-400); Red Blood Count 5.01 X10*6/uL (4.60-5.80); Red Cell Distribution Width 12.1 % (11.0-16.0); White Blood Count 6.1 X10*3/uL (4.8-10.8)
[2021-08-01 14:54] LABS: Alanine Aminotransferase 33 U/L (0-40); Albumin Level 4.8 g/dL (3.5-5.0); Alkaline Phosphatase 92 U/L (39-117); Anion Gap 12 (12-20); Aspartate Amino Transferase 28 U/L (5-37); Bilirubin Total 0.5 mg/dL (0.0-1.0); Blood Urea Nitrogen 11 mg/dL (9-16); Calcium 9.7 mg/dL (8.4-10.2); Carbon Dioxide 27 mmol/L (22-29); Chloride 105 mmol/L (96-108); Cholesterol 274 mg/dL; Estimated Glomerular Filt Rate > 60; Glucose Fasting 101 mg/dL (60-99); HDL Cholesterol 33 mg/dL; LDL Cholesterol Calculated 193 mg/dl; Potassium 4.1 mmol/L (3.3-5.1); Sodium 140 mmol/L (135-145); Total Protein 7.9 g/dL (6.5-8.0); Triglycerides 240 mg/dL
[2021-08-01 15:30] LABS: Erythrocyte Sedimentation Rate 9 MM/HR (0-15)
== END 2021-08-01 13:33 | disposition home or self-care (01) ==
LOC: HO.LAB 13:32
PROVIDERS: PCP Internal Medicine; Visit Provider Internal Medicine
DX: R07.9 Chest pain, unspecified (principal); E78.00 Pure hypercholesterolemia, unspecified; R14.0 Abdominal distension (gaseous); R19.5 Other fecal abnormalities; D72.829 Elevated white blood cell count, unspecified
CPT/HCPCS: 36415; 80053; 80061; 85025; 85652

== ENCOUNTER → 2021-08-12 13:30 | Outpatient (BNVA) | payer OTHER, SELFPAY | PROVIDERS: PCP Internal Medicine; Referring Provider Internal Medicine; Visit Provider Nurse Practitioner | DX: K58.0 Irritable bowel syndrome with diarrhea (principal); R14.0 Abdominal distension (gaseous) | CPT/HCPCS: 99212 ==

== ENCOUNTER 2021-10-31 13:02 | Outpatient (REF) | payer OTHER, SELFPAY ==
[2021-10-31 13:18] LABS: Binax Internal Control QC Valid; Binax Now Covid-19 Ag Negative (Negative)
== END 2021-10-31 13:03 | disposition home or self-care (01) ==
LOC: HO.LAB 13:02
PROVIDERS: Visit Provider Internal Medicine
DX: Z20.822 Contact with and (suspected) exposure to COVID-19 (principal)
CPT/HCPCS: C9803

== ENCOUNTER 2021-11-06 14:12 | Outpatient (REF) | payer OTHER, SELFPAY ==
--- NOTE | ~2021-11-06 | XR_ITS ---
EXAMINATION: X-RAY CERVICAL SPINE X-RAY THORACIC SPINE CLINICAL INFORMATION: Cervicalgia. Dorsalgia. COMPARISON: None TECHNIQUE: Cervical spine 4 views. Thoracic spine 4 views. FINDINGS: Cervical spine: There is mild reversal of the spinal curvature. Minimal anterolisthesis of C5 on C6. No evidence of acute fracture. Prevertebral soft tissues unremarkable. Cervical spondylosis present. There is moderate C6-7 disc degeneration, with sclerosis in the C6 vertebral body.. Chronic ossifications anterior to the C4-5, C5-6 disc space. Chronic ossification in the posterior soft tissues of the neck. Thoracic spine: Mild rightward curvature. Upper thoracic vertebral bodies are partially obscured on the lateral projection. In the visualized thoracic spine, no evidence of acute fracture. Posterior alignment is maintained. Mild thoracic spondylosis. Visualized lungs are clear. XR/XR cervical spine 3V IMPRESSION: Cervical spine: No evidence of acute fracture. Cervical spondylosis. Moderate C6-7 disc degeneration. Thoracic spine: Mild thoracic spondylosis. No acute fractures seen.
--- NOTE | ~2021-11-06 | XR_ITS ---
EXAMINATION: X-RAY CERVICAL SPINE X-RAY THORACIC SPINE CLINICAL INFORMATION: Cervicalgia. Dorsalgia. COMPARISON: None TECHNIQUE: Cervical spine 4 views. Thoracic spine 4 views. FINDINGS: Cervical spine: There is mild reversal of the spinal curvature. Minimal anterolisthesis of C5 on C6. No evidence of acute fracture. Prevertebral soft tissues unremarkable. Cervical spondylosis present. There is moderate C6-7 disc degeneration, with sclerosis in the C6 vertebral body.. Chronic ossifications anterior to the C4-5, C5-6 disc space. Chronic ossification in the posterior soft tissues of the neck. Thoracic spine: Mild rightward curvature. Upper thoracic vertebral bodies are partially obscured on the lateral projection. In the visualized thoracic spine, no evidence of acute fracture. Posterior alignment is maintained. Mild thoracic spondylosis. Visualized lungs are clear. XR/XR thoracic spine 3V IMPRESSION: Cervical spine: No evidence of acute fracture. Cervical spondylosis. Moderate C6-7 disc degeneration. Thoracic spine: Mild thoracic spondylosis. No acute fractures seen.
== END 2021-11-06 14:13 | disposition home or self-care (01) ==
LOC: HO.XRAY 14:12
PROVIDERS: PCP Internal Medicine; Visit Provider Internal Medicine
DX: M54.2 Cervicalgia (principal); M54.9 Dorsalgia, unspecified; I10 Essential (primary) hypertension; E78.00 Pure hypercholesterolemia, unspecified; E55.9 Vitamin D deficiency, unspecified; Z91.81 History of falling
CPT/HCPCS: 72040; 72072

== ENCOUNTER 2021-12-17 09:46 | Outpatient (REF) | payer OTHER, SELFPAY ==
[2021-12-17 10:07] LABS: MANUAL DIFF FLAG NO
[2021-12-17 10:30] LABS: Basophils Percent Auto 0.5 % (0-2); Eosinophils Absolute Auto 0.3 X10*3/uL (0.0-0.4); Eosinophils Percent Auto 4.4 % (0-4); Hematocrit 40.8 % (42.0-52.0); Hemoglobin 13.8 g/dl (14.0-18.0); Imm Gran Abs Auto 0.07 X10*3/uL (0.00-0.03); Imm Gran Pct Auto 1.1 % (0.0-0.4); Lymphocytes Absolute Auto 2.2 X10*3/uL (1.2-4.9); Lymphocytes Percent Auto 32.8 % (20-40); Mean Corpuscular HGB Conc 33.8 g/dl (31.0-36.0); Mean Corpuscular Hemoglobin 30.4 pg (27.0-33.0); Mean Corpuscular Volume 89.9 fL (80.0-98.0); Mean Platelet Volume 9.6 fL (9.4-12.4); Monocytes Absolute Auto 0.7 X10*3/uL (0.1-1.2); Monocytes Percent Auto 10.6 % (2-11); Neutrophils Absolute Auto 3.3 x10*3/uL (2.0-8.3); Neutrophils Percent Auto 50.6 % (45-73); Platelet Count 249 X10*3/uL (160-400); Red Blood Count 4.54 X10*6/uL (4.60-5.80); Red Cell Distribution Width 12.9 % (11.0-16.0); White Blood Count 6.6 X10*3/uL (4.8-10.8)
[2021-12-17 11:02] LABS: Appearance Urine CLEAR; Color Urine YELLOW; Glucose Urine UA NEG (NEG); Leukocyte Esterase Urine NEG (NEG); Nitrite Urine NEG (NEG); Urine Blood NEG (NEG); Urine Ketones NEG (NEG); Urine Protein NEG (NEG-TRACE)
[2021-12-17 11:18] LABS: Alanine Aminotransferase 68 U/L (0-40); Albumin Level 4.3 g/dL (3.5-5.0); Alkaline Phosphatase 92 U/L (39-117); Anion Gap 12 (12-20); Aspartate Amino Transferase 40 U/L (5-37); Bilirubin Total 0.3 mg/dL (0.0-1.0); Blood Urea Nitrogen 10 mg/dL (9-16); Carbon Dioxide 26 mmol/L (22-29); Chloride 106 mmol/L (96-108); Cholesterol 264 mg/dL; Estimated Glomerular Filt Rate > 60; Glucose Fasting 95 mg/dL (60-99); HDL Cholesterol 47 mg/dL; LDL Cholesterol Calculated 177 mg/dl; Potassium 4.4 mmol/L (3.3-5.1); Sodium 140 mmol/L (135-145); Total Protein 7.1 g/dL (6.5-8.0); Triglycerides 201 mg/dL
[2021-12-17 11:19] LABS: TSH reflex Free T4 2.23 uIU/mL (0.32-4.0); Vitamin D 25-OH Total 18.4 ng/mL (>30)
== END 2021-12-17 09:47 | disposition home or self-care (01) ==
LOC: HO.LAB 09:46
PROVIDERS: PCP Internal Medicine; Visit Provider Internal Medicine
DX: E55.9 Vitamin D deficiency, unspecified (principal); E78.00 Pure hypercholesterolemia, unspecified; I10 Essential (primary) hypertension
CPT/HCPCS: 36415; 80053; 80061; 81003; 82306; 84443; 85025

== ENCOUNTER → 2021-12-23 08:37 | Outpatient (BNVA) | payer OTHER, SELFPAY | PROVIDERS: PCP Internal Medicine; Visit Provider Orthopaedic Surgery | DX: M62.58 Muscle wasting and atrophy, not elsewhere classified, other site (principal); S46.111D Strain of muscle, fascia and tendon of long head of biceps, right arm, subsequent encounter | CPT/HCPCS: 99212 ==

== ENCOUNTER 2022-01-01 12:57 | Day surgery (SDC) | payer OTHER, SELFPAY ==
--- NOTE | 2021-12-31 13:16 | P.CONAN_ITS ---
Documented by User: Miranda Dempsey NP 12/31/21 13:19 HPI - Anesthesia Eval Consult details Narrative: 46yo M for Upper Endoscopy and Colonoscopy [facility] Active Problems Active Problems: All Active Problems (Updated 12/23/21 @ 09:17 by Noé Kelly MD) Atrophy of trapezius muscle (Acute) Labral tear of long head of biceps tendon (Acute) Lipoma (Acute) Benign essential hypertension (Acute) Status post fall (Acute) Back pain (Acute) Neck pain (Acute) Multiple environmental allergies (Acute) LUQ pain (Acute) Elevated lipase (Acute) Irritable bowel syndrome with diarrhea (Acute) Mucus in stool (Acute) Abdominal bloating (Acute) Abdominal pain (Acute) Adult general medical exam (Acute) Left-sided chest pain (Acute) Overweight (BMI 25.0-29.9) (Acute) Paresthesia of right upper extremity (Acute) Pleuritis (Acute) Irritation of right eye (Acute) Smoker (Acute) Anxiety (Acute) Schizophrenia (Acute) Bipolar disorder (Acute) Right inguinal pain (Acute) Obesity (BMI 30-39.9) (Acute) Degenerative joint disease of right shoulder (Acute) Pure hypercholesterolemia (Acute) Atrophy of muscle of right shoulder (Acute) Anterior to posterior tear of superior glenoid labrum of right shoulder (Acute) Past Medical History Medical History Abdominal bloating Anterior to posterior tear of superior glenoid labrum of right shoulder Anxiety Atrophy of muscle of right shoulder Benign essential hypertension Bipolar disorder Degenerative joint disease of right shoulder Irritation of right eye Left-sided chest pain Mucus in stool Obesity (BMI 30-39.9) Overweight (BMI 25.0-29.9) Paresthesia of right upper extremity Pleuritis Polysubstance abuse Pure hypercholesterolemia Right inguinal pain Schizophrenia Smoker Family History Family History Father Amyloidosis Mother Alive and well Maternal Uncle Prostate cancer Surgical History Surgical History History of cataract removal with insertion of prosthetic lens History of hernia surgery (1998) History of surgery on arm Social History Social History Housing: Apartment Alcohol intake: current Alcohol intake frequency: does not drink Patient Tobacco Use Status: Current everyday Tobacco user Cigarettes Per Day: 10 Years Smoked: 30yrs e-Cigarette/Vaping Use: Never Used Second Hand Smoke Exposure: No Advance Directives: No Advance Directives Information Provided: Yes service: No Current occupational status: unemployed Cognitive needs: No Hearing needs: No Vision needs: No Meds Allergies Allergy/AdvReac Type Severity Reaction Status Date / Time lorazepam [From ATIVAN] Allergy Unknown ANAPHYLAXIS Verified 12/26/21 16:01 milk [Milk] Allergy Unknown GI DISTRESS Verified 12/26/21 16:01 pravastatin AdvReac Unknown ?diarrhea? Verified 12/26/21 16:01 Home Medications Medication Instructions Recorded Confirmed Last Taken Type olanzapine 20 mg tablet (Zyprexa) 20 mg PO BEDTIME 07/19/20 12/26/21 Unknown History oxcarbazepine 600 mg tablet 900 mg PO BID 07/19/20 12/26/21 Unknown History (Trileptal) quetiapine 25 mg tablet (Seroquel) 25 mg PO BID 07/19/20 12/26/21 Unknown History Exam Exam Date and Time: December 31, 2021 1316 Narrative Narrative: EKG 2020 Vent. Rate : 078 BPM ? ? Atrial Rate : 078 BPM ?? P-R Int : 144 ms? QRS Dur : 104 ms ? ? QT Int : 370 ms ? ? ? P-R-T Axes : 026 004 036 degrees ?? QTc Int : 421 ms ? Normal sinus rhythm Normal ECG When compared with ECG of 29-JUL-2017 09:54, Vent. rate has increased BY? 29 BPM Assessment and Plan Assessment Anesthesia Assessment: Chart Reviewed Documented by User: Lisa Macedo MD 01/01/22 13:34 PMFSH Past Medical History Medical History Abdominal bloating Anterior to posterior tear of superior glenoid labrum of right shoulder Anxiety Atrophy of muscle of right shoulder Benign essential hypertension Bipolar disorder Degenerative joint disease of right shoulder Irritation of right eye Left-sided chest pain Mucus in stool Obesity (BMI 30-39.9) Overweight (BMI 25.0-29.9) Paresthesia of right upper extremity Pleuritis Polysubstance abuse Pure hypercholesterolemia Right inguinal pain Schizophrenia Smoker Family History Family History Father Amyloidosis Mother Alive and well Maternal Uncle Prostate cancer Family history of problems with anesthesia: No Surgical History Surgical History History of cataract removal with insertion of prosthetic lens History of hernia surgery (1998) History of surgery on arm History of Problems with Anesthesia: No Social History Social History Housing: Apartment Alcohol intake: current Alcohol intake frequency: does not drink Patient Tobacco Use Status: Current everyday Tobacco user Cigarettes Per Day: 10 Years Smoked: 30yrs e-Cigarette/Vaping Use: Never Used Second Hand Smoke Exposure: No Advance Directives: No Advance Directives Information Provided: Yes service: No Current occupational status: unemployed Cognitive needs: No Hearing needs: No Vision needs: No Meds Allergies Allergy/AdvReac Type Severity Reaction Status Date / Time lorazepam [From ATIVAN] Allergy Unknown ANAPHYLAXIS Verified 12/26/21 16:01 milk [Milk] Allergy Unknown GI DISTRESS Verified 12/26/21 16:01 pravastatin AdvReac Unknown ?diarrhea? Verified 12/26/21 16:01 Home Medications Medication Instructions Recorded Confirmed Last Taken Type olanzapine 20 mg tablet (Zyprexa) 20 mg PO BEDTIME 07/19/20 12/26/21 Unknown History oxcarbazepine 600 mg tablet 900 mg PO BID 07/19/20 12/26/21 Unknown History (Trileptal) quetiapine 25 mg tablet (Seroquel) 25 mg PO BID 07/19/20 12/26/21 Unknown History Exam Airway Mallampati Class: II TM Dist: >3cm Neck ROM: Full Partial: Upper Heart: rrr Lungs: cta Assessment and Plan Assessment Anesthesia Assessment: Anesthesia Plan Discussed and Chart Reviewed Final Anesthetic Review Family History of Problems with Anesthesia: No History of Problems with Anesthesia: No NPO: Yes ASA Class: III Final Preanesthetic Review: No Changes in Pt Med Stat, Meds/Allgs Chart Reviewed and Consent Obtained/Reviewed Patient Risk: Intermediate Procedure Risk: Intermediate Anesthetic Plan Anesthetic Plan: MAC: Disposition: Standard PACU
[2022-01-01 13:14] VITALS: BP 136/76; PULSE 67; RESP 18; TEMP 36.6; O2SAT 96; BMI 32.1
--- NOTE | 2022-01-01 13:29 | MHC.SHP ---
Pre-Procedural Eval Section A Date of Service: 01/01/22 Section B Chief Complaint: IBS with diarrhea, Abdominal bloating Details of Present Illness: father with unknown primary cancer Relevant Family History (Specify if Yes): Yes Relevant Social History: Tobacco Use Present Medications: see Short Stay Collaborative assessment Medical History: Significant History (Abdominal bloating Anterior to posterior tear of superior glenoid labrum of right shoulder Anxiety Atrophy of muscle of right shoulder Benign essential hypertension Bipolar disorder Degenerative joint disease of right shoulder Irritation of right eye Left-sided chest pain Mucus in stool Obesity (BMI) History of Previous Operations: Relevant previous surgery/procedure and date(s) (History of cataract removal with insertion of prosthetic lens History of hernia surgery (1998) History of surgery on arm) Allergies: Allergies Allergy/AdvReac Type Severity Reaction Status Date / Time lorazepam [From ATIVAN] Allergy Unknown ANAPHYLAXIS Verified 12/26/21 16:01 milk [Milk] Allergy Unknown GI DISTRESS Verified 12/26/21 16:01 pravastatin AdvReac Unknown ?diarrhea? Verified 12/26/21 16:01 Review of Systems Sugical H&P ROS: Negative: Constitution, Cardiovascular, Respiratory, Neurological, Psychiatric, Hem-Onc, Allergic/Immunologic, Gastrointestinal, Genitourinary, Musculoskeletal, Integumentary, Endocrine and Eyes/Ears/Nose/Throat Exam Surgical H&P Exam: Normal: HEENT, Normal: Heart, Normal: Lungs, Normal: Extremities, Normal: Abdomen, Normal: Skin and Normal: Neurological Plan Diagnosis/Plan: Unchanged I have reviewed the history and physical and performed a pertinent physical examination on my patient. No changes have occurred unless specified.
[2022-01-01] MEDS: Lactated Ringers 1,000 ML 100 ML IVCONT (13:35)
--- NOTE | 2022-01-01 14:07 | PM.OP ---
Brief Operative Note Date of Service: 01/01/22 Pre-op diagnosis: IBS, abdominal bloating Post-op diagnosis: same Procedure: see op note Surgeon: Domi Molina MD Anesthesia: MAC Was an [employer] Machin[employer] used for this Procedure?: No Estimated blood loss (mL): 0 Condition: stable Disposition: PACU
--- NOTE | 2022-01-01 14:08 | W.PM.OPN ---
Operative Note Operative Note Date of Service: 01/01/22 Narrative: Operative Information Procedure Description: EGD, Colonoscopy Indication: IBS with diarrhea and abdominal bloating, symptoms have recently improved Anesthesia: MAC FLEXIBLE TRANSORAL UPPER GASTROINTESTINAL ENDOSCOPY AND COLONOSCOPY PROCEDURE NOTE UPPER ENDOSCOPY Consent: Indications for the procedure and potential complications of bleeding, perforation, reaction to medications and missed diagnosis were discussed with the patient and informed consent was obtained. Instrument: Olympus GIF H 190 J mid size upper endoscope Monitoring: Vital signs and clinical assessment, continuous EKG monitoring, Pulse oximetry, Carbon Dioxide monitoring and blood pressure monitoring were done throughout the procedure. Procedure: The patient was placed in the left lateral decubitis position and pre-procedure medications were administered and a bite block was placed. The endoscope was inserted into the mouth and advanced under direct vision to the third part of duodenum. A careful inspection was made as the upper endoscope was withdrawn including a retroflexed examination of the proximal stomach; Findings and interventions are described below. Findings: Larynx:normal Esophagus: GE junction at 40 cm, diaphragm hiatus at 40 cm, boggy, erythematous GEj, bx taken from gEJ and random esophagus Stomach: Patchy erythema at antrum. Biopsies were obtained. Grade 2 flap valve on retroflexed examination of the cardia. Duodenum: Mild bulbar duodenal erythema, bx taken Intervention: Biopsies as noted above COLONOSCOPY Instrument: Olympus variable stiffness adult scope 190L Colonoscopy Monitoring: Vital signs and clinical assessment, continuous EKG monitoring, Pulse oximetry, Carbon Dioxide monitoring and blood pressure monitoring were done throughout the procedure. Colon withdrawal time was 11 minutes. Procedure: The patient was placed in the left lateral decubitis position and pre-procedure medications were administered. After a digital rectal examination of the ano-rectum, the video colonoscope was inserted into the rectum and advanced through the colon to the cecum/TI. The colonoscope was slowly withdrawn in a retrograde panoramic fashion and the colon mucosa was carefully examined including a retroflexed view of the rectum. Findings and interventions are described below. Procedure Difficulty: easy Findings: Terminal Ileum- mild apatchy erythema, bx taken Cecum:normal, bx taken due to ileal erythema to r/o crohns Ascending Colon: normal, bx taken due to ileal erythema to r/o crohns Transverse Colon -normal Descending Colon:normal Sigmoid Colon: scattered small diverticula with patchy erythema, and mild mucosal edema, bx taken Rectum: Retroflexion with small internal hemorrhoids, grade I Anorectum - normal Colon preparation: [place] Bowel Preparation Scale Right colon; 3 Transverse colon: 3 Left colon; 3 (0 = Unprepared colon segment with mucosa not seen due to solid stool that cannot be cleared. 1 = Portion of mucosa of the colon segment seen, but other areas of the colon segment not well seen due to staining, residual stool and/or opaque liquid. 2 = Minor amount of residual staining, small fragments of stool and/or opaque liquid, but mucosa of colon segment seen well. 3 = Entire mucosa of colon segment seen well with no residual staining, small fragments of stool or opaque liquid) Impression and Post Procedure Diagnosis: Endoscopy Findings: esophagitis duodenitis gastritis Colonoscopy Findings: ileitis mild colitis internal hemorrhoids diverticular disease Plan: Await Pathology results Repeat Colonoscopy in 10 years or earlier if clinically indicated High fiber diet leaflet avoid straining at stool, epsom salts and sitz bath, anusol supps or cream if bx suggest crohns then CTe, check nsaid hx if H pylori pos then treat Above findings were reviewed with the patient and relevant handouts were provided if indicated.
[2022-01-01 14:57] VITALS: BP 126/79; PULSE 68; RESP 16; TEMP 36.1; O2SAT 96
[2022-01-01 15:12] VITALS: BP 130/76; PULSE 67; RESP 18; TEMP 36.1; O2SAT 96
== END 2022-01-01 15:41 ==
LOC: HO.SSS 12:58
PROVIDERS: PCP Internal Medicine; Visit Provider Internal Medicine Gastroenterology
PROC: (CPT 45380; principal; 2022-01-01 14:30)
DX: K52.9 Noninfective gastroenteritis and colitis, unspecified (principal); R14.0 Abdominal distension (gaseous); K57.30 Diverticulosis of large intestine without perforation or abscess without bleeding; K64.0 First degree hemorrhoids; K29.80 Duodenitis without bleeding; K29.50 Unspecified chronic gastritis without bleeding; K20.80 Other esophagitis without bleeding; K44.9 Diaphragmatic hernia without obstruction or gangrene; E66.9 Obesity, unspecified; Z68.31 Body mass index [BMI] 31.0-31.9, adult; E78.00 Pure hypercholesterolemia, unspecified; I10 Essential (primary) hypertension; F20.9 Schizophrenia, unspecified; M19.011 Primary osteoarthritis, right shoulder; Z79.899 Other long term (current) drug therapy; Z88.0 Allergy status to penicillin; F17.210 Nicotine dependence, cigarettes, uncomplicated
CPT/HCPCS: 45380; 43239; 88305; 88342

== ENCOUNTER → 2022-01-17 10:28 | Outpatient (BNVA) | payer OTHER, SELFPAY | PROVIDERS: PCP Internal Medicine; Referring Provider Internal Medicine; Visit Provider Nurse Practitioner | DX: Z12.11 Encounter for screening for malignant neoplasm of colon (principal); K22.70 Barrett's esophagus without dysplasia | CPT/HCPCS: 99212 ==

== ENCOUNTER 2022-02-03 16:39 | Outpatient (RCR) | payer OTHER, SELFPAY | END 2022-03-14 10:35 | disposition home or self-care (01) | LOC: HO.PT 16:39 | PROVIDERS: PCP Internal Medicine; Visit Provider Orthopaedic Surgery | DX: M62.58 Muscle wasting and atrophy, not elsewhere classified, other site (principal); S46.119A Strain of muscle, fascia and tendon of long head of biceps, unspecified arm, initial encounter ==

== ENCOUNTER 2022-04-18 12:37 | Outpatient (REF) | payer OTHER, SELFPAY ==
[2022-04-18 15:11] LABS: Alanine Aminotransferase 51 U/L (0-40); Albumin Level 4.7 g/dL (3.5-5.0); Alkaline Phosphatase 100 U/L (39-117); Anion Gap 14 (12-20); Aspartate Amino Transferase 36 U/L (5-37); Bilirubin Total 0.6 mg/dL (0.0-1.0); Blood Urea Nitrogen 11 mg/dL (9-16); Calcium 9.7 mg/dL (8.4-10.2); Carbon Dioxide 27 mmol/L (22-29); Chloride 105 mmol/L (96-108); Cholesterol 288 mg/dL; Estimated Glomerular Filt Rate > 60; Glucose Fasting 90 mg/dL (60-99); HDL Cholesterol 34 mg/dL; LDL Cholesterol Calculated 209 mg/dl; Potassium 4.6 mmol/L (3.3-5.1); Sodium 141 mmol/L (135-145); Total Protein 7.7 g/dL (6.5-8.0); Triglycerides 227 mg/dL
== END 2022-04-18 12:38 | disposition home or self-care (01) ==
LOC: HO.LAB 12:37
PROVIDERS: PCP Internal Medicine; Visit Provider Internal Medicine
DX: E78.00 Pure hypercholesterolemia, unspecified (principal)
CPT/HCPCS: 36415; 80053; 80061

== ENCOUNTER 2022-04-28 14:21 | Emergency (ER) | payer OTHER, SELFPAY ==
--- NOTE | ~2022-04-28 | CT_ITS ---
EXAMINATION: CT ABDOMEN AND PELVIS WITHOUT CONTRAST CLINICAL INFORMATION: Left flank pain COMPARISON: 04/04/2021 TECHNIQUE: Multidetector volumetric imaging was performed from the superior aspect of the liver through the pubic symphysis. Sagittal and coronal reformatted images were obtained on the technologist's workstation. This CT examination was performed using dose optimization techniques as appropriate, variously including the following: *Automated exposure control *Adjustment of mA and/or kV according to patient size (this includes techniques or standardized protocols for targeted exams where dose is matched to indication/reason for exam; i.e. extremities or head) *Use of iterative reconstruction technique DLP: 842 mGy-cm FINDINGS: LUNG BASES: The visualized lung bases are unremarkable. LIVER, GALLBLADDER, AND BILIARY TREE: The liver is normal in size, shape, and attenuation. No focal hepatic lesion or biliary ductal dilatation is present. The gallbladder is unremarkable with no evidence of radiopaque gallstones, gallbladder wall thickening, or obvious pericholecystic inflammatory changes. PANCREAS: Unremarkable. SPLEEN: Unremarkable. ADRENAL GLANDS: Unremarkable. KIDNEYS AND URETERS: The kidneys are normal in size, shape, and attenuation. No hydronephrosis, hydroureter, or calculi seen. No perinephric stranding. BLADDER: Unremarkable. GASTROINTESTINAL TRACT: The stomach is unremarkable. Normal caliber small bowel. There is no obstruction. Normal appendix. There is diffuse colonic diverticulosis present. No diverticulitis. No free air or free fluid. ABDOMINAL WALL: No significant hernia is appreciated. LYMPH NODES: Normal. VASCULAR: Normal caliber aorta with mild atherosclerotic calcification noted. The mild stranding in the retroperitoneal fat at the level of the superior mesenteric artery is unchanged from previous imaging. PELVIC VISCERA: The prostate and seminal vesicles are unremarkable. OSSEOUS STRUCTURES: No acute or suspicious osseous abnormality. CT/CT abdomen pelvis wo con IMPRESSION: No acute finding in the abdomen or pelvis. Diffuse colonic diverticulosis noted without diverticulitis. No acute inflammatory changes are present. Fleischner guidelines were followed.
--- NOTE | ~2022-04-28 | XR_ITS ---
EXAMINATION: XR CHEST CLINICAL INFORMATION: Lung pain COMPARISON: Prior chest radiograph, most recently 03/08/2021 TECHNIQUE: Frontal view of the chest was obtained. FINDINGS: No significant abnormality is noted involving the heart, lungs, mediastinum, bony thorax or soft tissues. XR/XR chest 1V IMPRESSION: Unremarkable examination.
--- NOTE | 2022-04-28 14:29 | PC.NURSE ---
called to triage no answer
[2022-04-28 14:35] VITALS: BP 131/78; PULSE 72; RESP 18; TEMP 36.1; O2SAT 95; BMI 32.1
--- NOTE | 2022-04-28 14:39 | ECG_ITS ---
Test Reason : chest pain Blood Pressure : / mmHG Vent. Rate : 056 BPM Atrial Rate : 056 BPM P-R Int : 164 ms QRS Dur : 104 ms QT Int : 438 ms P-R-T Axes : 021 005 031 degrees QTc Int : 422 ms Sinus bradycardia Otherwise normal ECG When compared with ECG of 24-FEB-2021 20:54, No significant change was found Referred By: Generic ED Physician Electronically Signed By:YULY SALAZAR
[2022-04-28 15:09] LABS: MANUAL DIFF FLAG NO
[2022-04-28 15:11] LABS: Basophils Percent Auto 0.3 % (0-2); Eosinophils Absolute Auto 0.2 X10*3/uL (0.0-0.4); Eosinophils Percent Auto 2.4 % (0-4); Hematocrit 37.2 % (42.0-52.0); Hemoglobin 12.9 g/dl (14.0-18.0); Imm Gran Abs Auto 0.03 X10*3/uL (0.00-0.03); Imm Gran Pct Auto 0.4 % (0.0-0.4); Lymphocytes Absolute Auto 2.1 X10*3/uL (1.2-4.9); Mean Corpuscular HGB Conc 34.7 g/dl (31.0-36.0); Mean Corpuscular Hemoglobin 30.2 pg (27.0-33.0); Mean Corpuscular Volume 87.1 fL (80.0-98.0); Mean Platelet Volume 9.6 fL (9.4-12.4); Monocytes Absolute Auto 0.5 X10*3/uL (0.1-1.2); Monocytes Percent Auto 7.8 % (2-11); Neutrophils Absolute Auto 3.9 x10*3/uL (2.0-8.3); Neutrophils Percent Auto 58.1 % (45-73); Platelet Count 236 X10*3/uL (160-400); Red Blood Count 4.27 X10*6/uL (4.60-5.80); Red Cell Distribution Width 12.3 % (11.0-16.0); White Blood Count 6.8 X10*3/uL (4.8-10.8)
[2022-04-28 15:29] LABS: Alanine Aminotransferase 25 U/L (0-40); Albumin Level 4.4 g/dL (3.5-5.0); Alkaline Phosphatase 96 U/L (39-117); Anion Gap 11 (12-20); Aspartate Amino Transferase 22 U/L (5-37); Bilirubin Total < 0.2 mg/dL (0.0-1.0); Blood Urea Nitrogen 11 mg/dL (9-16); Calcium 9.3 mg/dL (8.4-10.2); Carbon Dioxide 29 mmol/L (22-29); Chloride 105 mmol/L (96-108); Estimated Glomerular Filt Rate > 60; Glucose Random 109 mg/dL (60-115); Potassium 4.1 mmol/L (3.3-5.1); Sodium 141 mmol/L (135-145); Total Protein 7.2 g/dL (6.5-8.0)
[2022-04-28 15:34] LABS: Troponin-I High Sensitivity < 3.5 ng/L (<3.5-35.0)
--- NOTE | 2022-04-28 20:18 | ED_ITS ---
HPI - General Adult General Chief complaint: Dyspnea Stated complaint: L flank pain Time Seen by Provider: 04/28/22 20:03 Source: patient Mode of arrival: ambulatory Limitations: no limitations History of Present Illness HPI narrative: 46-year-old male came in for evaluation of left flank pain. Pain started about 2 weeks ago described as a dull aching pain constant located in left upper quadrant/left flank area, worsening with movement or bending down nothing improves the pain, patient also been having pinching in the left side of chest, no shortness of breath, no blood in the urine, no history of kidney ston es in the past, patient was seen and evaluated by his PCP suggested could be a pulled muscle but patient is concerned because he did not do any strenuous activity he did not pull his muscle. Patient has no nausea, no vomiting, no diarrhea, no fever, no chills. Related Data Home Medications Medication Instructions Recorded Confirmed olanzapine 20 mg tablet (Zyprexa) 20 mg PO BEDTIME 07/19/20 04/22/22 oxcarbazepine 600 mg tablet 900 mg PO BID 07/19/20 04/22/22 (Trileptal) quetiapine 25 mg tablet (Seroquel) 25 mg PO BID 07/19/20 04/22/22 Previous Rx's Medication Instructions Recorded peg 3350-electrolytes 236 240 ml PO Q10M 1 day #4,000 mL 08/15/21 gram-22.74 gram-6.74 gram-5.86 gram solution (Golytely) atorvastatin 40 mg tablet 40 mg PO DAILY #90 tabs 09/26/21 lisinopril 5 mg tablet 5 mg PO DAILY #90 tabs 11/06/21 dicyclomine 20 mg tablet 20 mg PO QIDACHS abdominal pain 01/15/22 90 days #120 tabs pantoprazole 20 mg tablet,delayed 20 mg PO DAILY #30 tabs 01/17/22 release (Protonix) Allergies Allergy/AdvReac Type Severity Reaction Status Date / Time lorazepam [From ATIVAN] Allergy Unknown ANAPHYLAXIS Verified 04/22/22 14:54 milk [Milk] Allergy Unknown GI DISTRESS Verified 04/22/22 14:54 pravastatin AdvReac Unknown ?diarrhea? Verified 04/22/22 14:54 Review of Systems Review of Systems: All other systems are reviewed and are negative Constitutional: Reports as per HPI and Reports no additional constitutional complaints Eyes: Reports as per HPI and Reports no additional eye complaints Reports system reviewed and no additional complaints, except as documented Cardiovascular: Reports as per HPI and Reports no additional cardiovascular complaints Respiratory: Reports as per HPI and Reports no additional respiratory complaints Gastrointestinal: Reports as per HPI and Reports no additional gastrointestinal complaints Genitourinary: Reports no additional female genitourinary complaints Musculoskeletal: Reports no additional musculoskeletal complaints Skin/Breast: Reports system reviewed and no additional complaints, except as docu Psychiatric: Reports no additional psychiatric complaints Endocrine: Reports no additional endocrine complaints Hematologic/Lymphatic: Reports no additional hematologic/lymphatic complaints Allergic/Immunologic: Reports no additional allergic/immunologic complaints Reports system reviewed and no additional complaints, except as documented and Reports Abnormal speech present [facility] Past Medical History Medical History Abdominal bloating Anterior to posterior tear of superior glenoid labrum of right shoulder Anxiety Atrophy of muscle of right shoulder Benign essential hypertension Bipolar disorder Degenerative joint disease of right shoulder Irritation of right eye Left-sided chest pain Mucus in stool Obesity (BMI 30-39.9) Overweight (BMI 25.0-29.9) Paresthesia of right upper extremity Pleuritis Polysubstance abuse Pure hypercholesterolemia Right inguinal pain Schizophrenia Smoker Surgical History H/O colonoscopy History of cataract removal with insertion of prosthetic lens History of hernia surgery (1998) History of surgery on arm Family History Family History Father Amyloidosis Mother Alive and well Maternal Uncle Prostate cancer Social History Social History Housing: Apartment Alcohol intake: current Alcohol intake frequency: does not drink Patient Tobacco Use Status: Current everyday Tobacco user Tobacco use type: Cigarette Cigarette Packs Per Day: 0.5 Cigarettes Per Day: 10.0 Years Smoked: 30yrs e-Cigarette/Vaping Use: Never Used Second Hand Smoke Exposure: No Advance Directives: No Advance Directives Information Provided: No service: No Current occupational status: unemployed Cognitive needs: No Hearing needs: No Vision needs: No Physical Exam ED Vital Signs: Vital Signs - 24 hr 04/28/22 14:35 Temperature 96.9 F Pulse Rate 72 Respiratory Rate 18 Blood Pressure 131/78 Pulse Oximetry 95 Oxygen Delivery Method Room Air BMI result Body Mass Index 32.1 Vital signs have been reviewed as appeared to be correct. Blood pressure normal. Heart rate normal. Respiration rate normal. Temperature normal. Oxygen saturation normal. Appearance: Alert. Oriented X3. No acute distress. Head: Normal external exam. Normocephalic. Atraumatic. No Alicia signs noted. No raccoon eyes noted Eyes: PERRLA. EOMI. Conjunctiva and sclera normal. Eyelids normal. ENT: TM's Normal. Pharynx normal. Uvula midline. Moist mucous membranes. No trismus noted. No drooling noted. No muffled voice noted. Neck: Normal inspection. Neck supple. FROM. No adenopathy. Thyroid Normal. No meningeal signs. No neck mass noted. CVS: Normal heart rate and rhythm. Heart sound normal. No murmurs noted. Pulses normal throughout. Respiratory: No respiratory distress. Painless inspiration. Breath sounds normal. No wheezes/rales/rhonchi noted. Chest nontender. No accessory muscle usage noted or decreased air movement noted. Abdomen: Soft, left upper quadrant tenderness, no rebound tenderness,. Bowel sounds normal in all 4 quadrants. No distention noted. No organomegaly noted. No visible injury noted. Back: No CVA tenderness. Full range of motion noted. Skin: Skin warm and dry. Normal skin color. Normal skin turgor. No rashes/lesions/lacerations noted. Extremities: No lower extremity edema. Extremities exhibit normal range of motion. Extremities nontender. Neuro: Oriented X 3. Cranial nerve exam: II-XII are grossly intact No motor deficit. No sensory deficit. Reflexes normal. Course Course Course Narrative: Left flank pain for 2 weeks. Labs are unremarkable awaiting for UA/CT/ trop/ d-dimer of the abdomen and pelvis case signed out to Dr. Foss. Expect to be discharged after negative CT abdomen and pelvis and follow-up with PCP. Medical Decision Making Lab Data Lab results reviewed: Yes I reviewed the patient's lab results. Result diagrams: 04/28/22 15:05 04/28/22 15:05 Labs: Lab Results 04/28/22 04/28/22 04/28/22 Range/Units 15:05 15:05 15:05 WBC 6.8 (4.8-10.8) X10*3/uL RBC 4.27 L (4.60-5.80) X10*6/uL Hgb 12.9 L (14.0-18.0) g/dl Hct 37.2 L (42.0-52.0) % MCV 87.1 (80.0-98.0) fL MCH 30.2 (27.0-33.0) pg MCHC 34.7 (31.0-36.0) g/dl RDW 12.3 (11.0-16.0) % Plt Count 236 (160-400) X10*3/uL MPV 9.6 (9.4-12.4) fL Immature Gran % (Auto) 0.4 (0.0-0.4) % Neut % (Auto) 58.1 (45-73) % Lymph % (Auto) 31.0 (20-40) % [place] % (Auto) 7.8 (2-11) % Eos % (Auto) 2.4 (0-4) % Baso % (Auto) 0.3 (0-2) % Lymph # (Auto) 2.1 (1.2-4.9) X10*3/uL [place] # (Auto) 0.5 (0.1-1.2) X10*3/uL Eos # (Auto) 0.2 (0.0-0.4) X10*3/uL Baso # (Auto) 0.0 (0.0-0.2) X10*3/uL Abs Immat Gran (auto) 0.03 (0.00-0.03) X10*3/uL Absolute Neuts (auto) 3.9 (2.0-8.3) x10*3/uL Absolute Nucleated RBC 0.000 (0.0-0.012) X10*3/uL Nucleated RBC % (auto) 0.0 (0.0-0.2) /100WBC Sodium 141 (135-145) mmol/L Potassium 4.1 (3.3-5.1) mmol/L Chloride 105 (96-108) mmol/L Carbon Dioxide 29 (22-29) mmol/L Anion Gap 11 L (12-20) BUN 11 (9-16) mg/dL Creatinine 0.85 (0.5-1.4) mg/dL Estim Creat Clear Calc 135.0 Estimated GFR > 60 Random Glucose 109 (60-115) mg/dL Calcium 9.3 (8.4-10.2) mg/dL Total Bilirubin < 0.2 (0.0-1.0) mg/dL AST 22 (5-37) U/L ALT 25 (0-40) U/L Alkaline Phosphatase 96 (39-117) U/L Troponin I High Sens < 3.5 (<3.5-35.0) ng/L Total Protein 7.2 (6.5-8.0) g/dL Albumin 4.4 (3.5-5.0) g/dL Discharge Plan Discharge Clinical Impression: Abdominal pain Patient Disposition: Still a Patient Instructions: Abdominal Pain (ED) Prescriptions: No Action peg 3350-electrolytes [Golytely] 236-22.74-6.74 -5.86 gram recon soln 240 ml PO Q10M 1 Days Qty: 4000 0RF Rx Instructions: until fecal effluent is clear; do not exceed a total volume of 2,000 mL atorvastatin 40 mg tablet 40 mg PO DAILY Qty: 90 1RF lisinopril 5 mg tablet 5 mg PO DAILY Qty: 90 1RF dicyclomine 20 mg tablet 20 mg PO QIDACHS 90 Days Qty: 120 0RF quetiapine [Seroquel] 25 mg tablet 25 mg PO BID oxcarbazepine [Trileptal] 600 mg tablet 900 mg PO BID olanzapine [Zyprexa] 20 mg tablet 20 mg PO BEDTIME pantoprazole [Protonix] 20 mg tablet,delayed release (DR/EC) 20 mg PO DAILY Qty: 30 6RF Referrals: Gonzalez Roman MD [Primary Care Provider] - Stand Alone Forms: Work/School Release
[2022-04-28 20:36] LABS: Appearance Urine CLEAR; Color Urine YELLOW; Glucose Urine UA NEG (NEG); Leukocyte Esterase Urine NEG (NEG); Nitrite Urine NEG (NEG); Urine Blood NEG (NEG); Urine Ketones NEG (NEG); Urine Protein NEG (NEG-TRACE)
[2022-04-28 20:43] LABS: D Dimer High Sensitivity < 150 NG/ML
[2022-04-28 21:02] LABS: Troponin-I High Sensitivity 3.7 ng/L (<3.5-35.0)
== END 2022-04-28 23:24 | disposition home or self-care (01) ==
PROVIDERS: Emergency Provider Emergency Medicine; PCP Internal Medicine
DX: R07.89 Other chest pain (principal); R06.02 Shortness of breath; R10.9 Unspecified abdominal pain; Z79.899 Other long term (current) drug therapy
CPT/HCPCS: 36415; 71045; 74176; 80053; 81003; 84484; 85025; 85379; 93005; 99283; 99284

== ENCOUNTER → 2022-07-03 13:28 | Outpatient (BNVA) | payer OTHER, SELFPAY | PROVIDERS: PCP Internal Medicine; Visit Provider Orthopaedic Surgery | DX: M24.812 Other specific joint derangements of left shoulder, not elsewhere classified (principal); M62.58 Muscle wasting and atrophy, not elsewhere classified, other site | CPT/HCPCS: 99212 ==

== ENCOUNTER → 2022-08-08 14:45 | Outpatient (BNVA) | payer OTHER, SELFPAY | PROVIDERS: PCP Internal Medicine; Visit Provider Nurse Practitioner | DX: K22.70 Barrett's esophagus without dysplasia (principal) | CPT/HCPCS: 99212 ==

== ENCOUNTER 2022-09-17 16:33 | Outpatient (REF) | payer OTHER, SELFPAY ==
--- NOTE | ~2022-09-17 | XR_ITS ---
EXAMINATION: XR CHEST CLINICAL INFORMATION: Abnormal weight loss. COMPARISON: None TECHNIQUE: 2 views of the chest were obtained. FINDINGS: No significant abnormality is noted involving the heart, lungs, mediastinum, bony thorax or soft tissues. XR/XR chest 2V IMPRESSION: Unremarkable chest examination.
[2022-09-17 16:52] LABS: MANUAL DIFF FLAG NO
[2022-09-17 17:33] LABS: Basophils Percent Auto 0.4 % (0-2); Eosinophils Absolute Auto 0.1 X10*3/uL (0.0-0.4); Eosinophils Percent Auto 1.2 % (0-4); Hematocrit 39.8 % (42.0-52.0); Hemoglobin 13.9 g/dl (14.0-18.0); Imm Gran Abs Auto 0.02 X10*3/uL (0.00-0.03); Imm Gran Pct Auto 0.2 % (0.0-0.4); Lymphocytes Absolute Auto 2.6 X10*3/uL (1.2-4.9); Lymphocytes Percent Auto 28.5 % (20-40); Mean Corpuscular HGB Conc 34.9 g/dl (31.0-36.0); Mean Corpuscular Hemoglobin 30.2 pg (27.0-33.0); Mean Corpuscular Volume 86.5 fL (80.0-98.0); Mean Platelet Volume 10.1 fL (9.4-12.4); Monocytes Absolute Auto 0.9 X10*3/uL (0.1-1.2); Monocytes Percent Auto 9.8 % (2-11); Neutrophils Absolute Auto 5.4 x10*3/uL (2.0-8.3); Neutrophils Percent Auto 59.9 % (45-73); Platelet Count 273 X10*3/uL (160-400); Red Cell Distribution Width 12.2 % (11.0-16.0)
[2022-09-17 18:41] LABS: Alanine Aminotransferase 39 U/L (0-40); Albumin Level 4.9 g/dL (3.5-5.0); Alkaline Phosphatase 97 U/L (39-117); Anion Gap 16 (12-20); Aspartate Amino Transferase 36 U/L (5-37); Bilirubin Total 0.5 mg/dL (0.0-1.0); Blood Urea Nitrogen 17 mg/dL (9-16); Calcium 10.2 mg/dL (8.4-10.2); Carbon Dioxide 27 mmol/L (22-29); Chloride 104 mmol/L (96-108); Cholesterol 198 mg/dL; Estimated Glomerular Filt Rate > 60; Glucose Fasting 93 mg/dL (60-99); Glucose Random 92 mg/dL (60-115); HDL Cholesterol 35 mg/dL; LDL Cholesterol Calculated 143 mg/dl; Potassium 4.7 mmol/L (3.3-5.1); Sodium 142 mmol/L (135-145); TSH reflex Free T4 1.61 uIU/mL (0.32-4.0); Total Protein 7.6 g/dL (6.5-8.0); Triglycerides 102 mg/dL; Vitamin D 25-OH Total 26.7 ng/mL (>30)
== END 2022-09-17 16:34 | disposition home or self-care (01) ==
LOC: HO.LAB 16:33
PROVIDERS: Nurse Practitioner Family; PCP Internal Medicine; Visit Provider Nurse Practitioner
DX: R13.10 Dysphagia, unspecified (principal); R63.4 Abnormal weight loss; E78.00 Pure hypercholesterolemia, unspecified; I10 Essential (primary) hypertension; E55.9 Vitamin D deficiency, unspecified
CPT/HCPCS: 36415; 71046; 80053; 80061; 82306; 84443; 85025; 87070; 99212

== ENCOUNTER → 2022-10-01 09:28 | Outpatient (BNVA) | payer OTHER, SELFPAY | PROVIDERS: PCP Internal Medicine; Visit Provider Nurse Practitioner | DX: R13.10 Dysphagia, unspecified (principal); K22.70 Barrett's esophagus without dysplasia; R06.00 Dyspnea, unspecified; R63.4 Abnormal weight loss; F20.9 Schizophrenia, unspecified | CPT/HCPCS: 99212 ==

== ENCOUNTER 2022-10-03 11:15 | Emergency (ER) | payer OTHER, SELFPAY ==
[2022-10-03 11:22] VITALS: BP 134/86; PULSE 55; RESP 17; TEMP 36.1; O2SAT 99; BMI 30.4
--- NOTE | 2022-10-03 11:23 | ED_ITS ---
HPI - Eye Problem General Chief complaint: Eye Problems <Josseline Allen CNP - Last Filed: 10/03/22 11:25> Stated complaint: FB L Eye <Josseline Allen CNP - Last Filed: 10/03/22 11:25> Time Seen by Provider: 10/03/22 12:29 <Josseline Allen CNP - Last Filed: 10/03/22 11:25> Source: patient <ISSA Seo - Last Filed: 10/03/22 15:14> Mode of arrival: ambulatory <ISSA Seo - Last Filed: 10/03/22 15:14> History of Present Illness HPI Narrative: 47-year-old male with past medical history of anxiety, bipolar, obesity, polysubstance abuse, HLD, schizophrenia, smoker, presenting to the ED c/o sudden onset left eye pain/swelling since 03:00AM, admits awoke with the symptoms, described as feeling like something is behind my eyeball with associated blurry vision. Admits swelling and pain has resolved, now describes blurry vision and seeing silhouette around objects. Was seen at urgent care this morning and sent to the emergency department. Denies wearing glasses or contacts, is supposed to be wearing glasses. Denies eye injury/trauma, pain, vision loss, floaters, black spots, fever, headache <ISSA Seo - Last Filed: 10/03/22 15:14> chief complaint: eye pain and vision change <ISSA Seo - Last Filed: 10/03/22 15:14> Onset (ago): hour(s) <ISSA Seo - Last Filed: 10/03/22 15:14> Onset description: sudden <ISSA Seo Last Filed: 10/03/22 15:14> Duration: constant <ISSA Seo - Last Filed: 10/03/22 15:14> Location: left eye <ISSA Seo - Last Filed: 10/03/22 15:14> Related Data Home medications: Home Medications Medication Instructions Recorded Confirmed oxcarbazepine 600 mg tablet 900 mg PO BID 07/19/20 08/18/22 (Trileptal) lurasidone 20 mg tablet (Latuda) 20 mg PO DAILY PRN 08/08/22 08/18/22 Previous Rx's Medication Instructions Recorded lisinopril 5 mg tablet 5 mg PO DAILY #90 tabs 05/19/22 atorvastatin 40 mg tablet 40 mg PO DAILY #90 tabs 06/02/22 valacyclovir 1 gram tablet 1,000 mg PO BID PRN hsv outbreak 08/27/22 #30 tabs pantoprazole 40 mg tablet,delayed 40 mg PO DAILY 30 days #30 tabs 09/17/22 release (Protonix) cholecalciferol (vitamin D3) 25 25 mcg PO DAILY #90 tabs 09/19/22 mcg (1,000 unit) tablet nystatin 100,000 unit/mL oral 1 ml PO TID #473 mL 10/01/22 suspension <Josseline Allen CNP - Last Filed: 10/03/22 11:25> Allergies/adverse reactions: Allergies Allergy/AdvReac Type Severity Reaction Status Date / Time lorazepam [From ATIVAN] Allergy Unknown ANAPHYLAXIS Verified 10/03/22 09:20 milk [Milk] Allergy Unknown GI DISTRESS Verified 10/03/22 09:20 pravastatin AdvReac Unknown ?diarrhea? Verified 10/03/22 09:20 <Josseline Allen CNP - Last Filed: 10/03/22 11:25> Review of Systems Review of Systems: Constitutional: No Fever, No Chills, No Fatigue, No Malaise ENT/Mouth: No Ear Pain, No Nasal Congestion, No sore throat, No Rhinorrhea, No Swallowing Difficulty Eyes: + Eye Pain (resolved), No Swelling, No Redness, No Foreign Body, No Discharge, + Vision Changes Cardiovascular: No Chest Pain, No SOB, No Palpitations Respiratory: No Cough, No Sputum, No Dyspnea Gastrointestinal: No Nausea, No Vomiting, No Abdominal pain Musculoskeletal: No joint pain, No Myalgias, No Joint Swelling Skin: No Skin Lesions, No rash Neuro: No Weakness, No Numbness, No Dizziness, No Headache <ISSA Seo - Last Filed: 10/03/22 15:14> Yes all other systems are reviewed and are negative <ISSA Seo - Last Filed: 10/03/22 15:14> Constitutional: Constitutional: Reports as per HPI <ISSA Seo - Last Filed: 10/03/22 15:14> [facility] Past Medical History Attestation statement: The following information was validated with the patient. <ISSA Seo - Last Filed: 10/03/22 15:14> Medical History: Medical History Abdominal bloating Anterior to posterior tear of superior glenoid labrum of right shoulder Anxiety Atrophy of muscle of right shoulder Benign essential hypertension Bipolar disorder Degenerative joint disease of right shoulder Irritation of right eye Left-sided chest pain Mucus in stool Obesity (BMI 30-39.9) Overweight (BMI 25.0-29.9) Paresthesia of right upper extremity Pleuritis Polysubstance abuse Pure hypercholesterolemia Right inguinal pain Schizophrenia Smoker <Josseline Allen CNP - Last Filed: 10/03/22 11:25> Surgical History: Surgical History H/O colonoscopy History of cataract removal with insertion of prosthetic lens History of esophagogastroduodenoscopy (EGD) History of hernia surgery (1998) History of surgery on arm <Josseline Allen CNP - Last Filed: 10/03/22 11:25> Family History Family History: Family History Father Amyloidosis Mother Alive and well Maternal Uncle Prostate cancer <Josseline Allen CNP - Last Filed: 10/03/22 11:25> Social History Social History: Social History Housing: Apartment Alcohol intake: current Alcohol intake frequency: does not drink Patient Tobacco Use Status: Current everyday Tobacco user Tobacco use type: Cigarette Cigarette Packs Per Day: 0.5 Cigarettes Per Day: 10.0 Years Smoked: 30yrs e-Cigarette/Vaping Use: Never Used Second Hand Smoke Exposure: No Advance Directives: No Advance Directives Information Provided: No service: No Current occupational status: unemployed Cognitive needs: No Hearing needs: No Vision needs: No <Josseline Allen CNP - Last Filed: 10/03/22 11:25> Physical Exam Vital Signs: Vital Signs: Last Vital Signs Temp 97.0 F 10/03/22 11:22 Pulse 55 10/03/22 11:22 Resp 17 10/03/22 11:22 BP 134/86 10/03/22 11:22 Pulse Ox 99 10/03/22 11:22 O2 Del Method 10/03/22 11:22 BMI result Body Mass Index 30.4 <Josseline Allen CNP - Last Filed: 10/03/22 11:25> Vital Signs: Last Vital Signs Temp 97.0 F 10/03/22 11:22 Pulse 55 10/03/22 11:22 Resp 17 10/03/22 11:22 BP 134/86 10/03/22 11:22 Pulse Ox 99 10/03/22 11:22 O2 Del Method 10/03/22 11:22 BMI result Body Mass Index 30.4 <ISSA Seo - Last Filed: 10/03/22 15:14> Const: General: cooperative, healthy appearing and no acute distress <ISSA Seo - Last Filed: 10/03/22 15:14> Orientation/consciousness: patient oriented x3 <ISSA Seo - Last Filed: 10/03/22 15:14> Limitations: no limitations <ISSA Seo - Last Filed: 10/03/22 15:14> HEENT: Head: Yes normal to inspection and Yes atraumatic <ISSA Seo - Last Filed: 10/03/22 15:14> Ears: hearing grossly normal bilaterally <ISSA Seo - Last Filed: 10/03/22 15:14> General nose exam: Normal external nose present <ISSA Seo - Last Filed: 10/03/22 15:14> Face and sinus: Yes normal facial exam <ISSA Seo - Last Filed: 10/03/22 15:14> Eyes: Other: No fluorescein uptake or appreciable abrasions/ulcerations to left eye. <ISSA Seo - Last Filed: 10/03/22 15:14> General: appearance normal, both eyes and all related structures <ISSA Seo - Last Filed: 10/03/22 15:14> Eyelids: Yes eyelid abnormality (Mild left upper and lower eyelid erythema/puffiness) <Bella Pouljurgent, PA - Last Filed: 10/03/22 15:14> Conjunctivae: conjunctivae normal <Bella Pouliot, PA - Last Filed: 10/03/22 15:14> Sclerae: sclerae normal <Bella Pouliot, PA - Last Filed: 10/03/22 15:14> Corneas: corneas normal and fluorescein used <Bella Pouljurgent, PA - Last Filed: 10/03/22 15:14> Pupils: Equal, round and reactive pupils present <Bella Pouliot, PA - Last Filed: 10/03/22 15:14> EOM: EOMs intact bilaterally (Without pain) <Bella Pouljurgent, PA - Last Filed: 10/03/22 15:14> Direct Ophthalmoscopy: normal light reflex and no photophobia <Bella Pouljurgent, PA - Last Filed: 10/03/22 15:14> Neck: Neck: Yes normal visual inspection and Yes no meningeal signs <Bella Pouljurgent, PA - Last Filed: 10/03/22 15:14> Resp: Effort & Inspection: normal respiratory effort and no respiratory distress <Bella Pouljurgent, PA - Last Filed: 10/03/22 15:14> Cardio: Rate: regular rate <Bella Pouljurgent, PA - Last Filed: 10/03/22 15:14> Skin: Rashes: no rashes <Bella Pouljurgent, PA - Last Filed: 10/03/22 15:14> Wounds: no wounds <Bella Poulankit PA - Last Filed: 10/03/22 15:14> Neuro: General: patient oriented x3, tone normal and no meningeal signs <Bella Pouljurgent, PA - Last Filed: 10/03/22 15:14> Cranial nerves: Yes Equal, round and reactive pupils present <Bella Pouljurgent PA - Last Filed: 10/03/22 15:14> Gait exam (Neuro): Normal gait present <Bella Pouljurgent PA - Last Filed: 10/03/22 15:14> Extrem: General: Yes normal to inspection <Bella Louis PA - Last Filed: 10/03/22 15:14> Course Course Course Narrative: RME: Patient believes something got into his eye last night, uncertain of what. reports 00:00 went to sleep after shower without issue, 03:00 awoke with pain to the left eye, it is very watery. Blurry vision. He presented to Urgent care this morning and was referred to the ED. Denies wearing contact lenses. Denies headache a/w eye pain. Will defer additional HPI, ROS, PE to primary provider. <Josseline Allen CNP - Last Filed: 10/03/22 11:25> Medications Administered Discontinued Medications Generic Name Dose Route Start Last Admin Trade Name Freq PRN Reason Stop Dose Admin Fluorescein Sodium 1 strip 10/03/22 12:32 10/03/22 13:54 Fluorescein Sodium Strip EYE-RIGHT 10/03/22 12:33 1 strip ONCE ONE Administration Tetracaine HCl 3 drop 10/03/22 12:32 10/03/22 13:54 Tetracaine Hcl/Pf 0.5% Oph Payton 4 Ml Drops EYE-BOTH 10/03/22 12:33 3 drop ONCE ONE Administration <Josseline Allen CNP - Last Filed: 10/03/22 11:25> Medications Administered Discontinued Medications Generic Name Dose Route Start Last Admin Trade Name Freq PRN Reason Stop Dose Admin Fluorescein Sodium 1 strip 10/03/22 12:32 10/03/22 13:54 Fluorescein Sodium Strip EYE-RIGHT 10/03/22 12:33 1 strip ONCE ONE Administration Tetracaine HCl 3 drop 10/03/22 12:32 10/03/22 13:54 Tetracaine Hcl/Pf 0.5% Oph Payton 4 Ml Drops EYE-BOTH 10/03/22 12:33 3 drop ONCE ONE Administration <ISSA Seo - Last Filed: 10/03/22 15:14> Medical Decision Making Medical Decision Making MDM Narrative: 47-year-old male with past medical history of anxiety, bipolar, obesity, polysubstance abuse, HLD, schizophrenia, smoker, presenting to the ED c/o sudden onset left eye pain/swelling since 03:00AM, admits awoke with the symptoms, described as feeling like something is behind my eyeball with associated blurry vision. On exam vital signs stable, NAD, nontoxic appearing, physical exam as above, visual acuity 20/50 to affected eye, 20/25 to non affected eye, no appreciable corneal abrasion on staining, on bedside ultrasound no appreciable vitreous hemorrhage or retinal detachment. Low suspicion for retinal detachment/no evidence of ruptured globe Case d/w Dr. Le who also evaluated patient Spoke with Ophthalmology Dr. Isaac as we have no ophthalmology coverage today, recommended patient have close Ophthalmology follow-up next week, no recommended prescriptions at this time <ISSA Seo - Last Filed: 10/03/22 15:14> Differential Diagnosis Differential Diagnoses: The differential diagnosis associated with the presentation includes <ISSA Seo - Last Filed: 10/03/22 15:14> As above <ISSA Seo - Last Filed: 10/03/22 15:14> Discharge Plan Discharge Clinical Impression: Blurred vision <Josseline Allen CNP - Last Filed: 10/03/22 11:25> Patient Disposition: Home, Self-Care <Josseline Allen CNP - Last Filed: 10/03/22 11:25> Instructions: Blurred Vision (ED) <Josseline Allen CNP - Last Filed: 10/03/22 11:25> Additional Instructions: We do not appreciate any scratches on her eye. We spoke with the group program manager who wants to see you in the office early next week If symptoms persist or worsen, he developed pain in her eye, vision loss return to the emergency department. Please call the group program manager today <Josseline Allen CNP - Last Filed: 10/03/22 11:25> Prescriptions: No Action lisinopril 5 mg tablet 5 mg PO DAILY Qty: 90 1RF atorvastatin 40 mg tablet 40 mg PO DAILY Qty: 90 1RF cholecalciferol (vitamin D3) 25 mcg (1,000 unit) tablet 25 mcg PO DAILY Qty: 90 0RF valacyclovir 1 gram tablet 1,000 mg PO BID PRN (Reason: hsv outbreak) Qty: 30 2RF oxcarbazepine [Trileptal] 600 mg tablet 900 mg PO BID Latuda 20 mg tablet 20 mg PO DAILY PRN pantoprazole [Protonix] 40 mg tablet,delayed release (DR/EC) 40 mg PO DAILY 30 Days Qty: 30 1RF nystatin 100,000 unit/mL suspension 1 ml PO TID Qty: 473 2RF Rx Instructions: swish and swallow <Josseline Allen CNP - Last Filed: 10/03/22 11:25> Referrals: Justin Isaac MD [Physician] - (Call to make an appointment for early next year) <Josseline Allen CNP - Last Filed: 10/03/22 11:25> Interventions: ED Discharge Assessment Last Done: 10/03/22 14:38 <Josseline Allen CNP - Last Filed: 10/03/22 11:25> Discharge Date/Time: 10/03/22 14:38 <Josseline Allen CNP - Last Filed: 10/03/22 11:25>
[2022-10-03] MEDS: Fluorescein Sodium STRIP 1 STRIP EYE-RIGHT (13:54)
[2022-10-03] MEDS: Tetracaine HCl/PF 0.5% Oph Sol 4 ML DROPS 3 DROP EYE-BOTH (13:54)
== END 2022-10-03 14:38 | disposition home or self-care (01) ==
PROVIDERS: Emergency Provider Student in an Organized Health Care Education/Training Program; PCP Internal Medicine
DX: H53.8 Other visual disturbances (principal); H57.12 Ocular pain, left eye; F17.210 Nicotine dependence, cigarettes, uncomplicated; Z71.6 Tobacco abuse counseling; Z79.899 Other long term (current) drug therapy
CPT/HCPCS: 99282; 99283

== ENCOUNTER 2022-10-10 07:25 | Outpatient (REF) | payer OTHER, SELFPAY ==
--- NOTE | ~2022-10-10 | CT_ITS ---
EXAMINATION: CT CHEST WITHOUT CONTRAST CLINICAL INFORMATION: Dyspnea COMPARISON: Chest x-ray 09/17/2022 TECHNIQUE: Multidetector volumetric CT imaging of the chest was done. Axial MIP volume rendering provided. Sagittal and coronal reformatted images were obtained. This CT examination was performed using dose optimization techniques as appropriate, variously including the following: *Automated exposure control *Adjustment of mA and/or kV according to patient size (this includes techniques or standardized protocols for targeted exams where dose is matched to indication/reason for exam; i.e. extremities or head) *Use of iterative reconstruction technique DLP: 199 mGy-cm FINDINGS: PLANETARIUM TECHNICIAN: Symmetrically expanded lungs. LUNGS: 6 x 4 mm right upper lobe nodule, image [id number]. 5 x 3 mm polygonal nodule along the right minor fissure in image 238, likely an intrafissural lymph node. Similarly there is a 5 x 3 mm polygonal nodule adjacent the left major fissure in image 298. MEDIASTINUM: The mediastinum is normal. CORONARY ARTERY CALCIFICATION: Three-vessel coronary artery calcifications are present. PLEURA: There is no pleural effusion. No pleural mass or thickening. AXILLA: No lymphadenopathy. UPPER ABDOMEN: No adrenal mass. OSSEOUS STRUCTURES: Unremarkable. CT/CT chest wo IV con IMPRESSION: No acute pulmonary disease. In addition to likely perifissural lymph nodes there is a 6 x 4 mm right upper lobe nodule, nonspecific. According to the UPDATED 2017 Fleischner Society recommendations, the advised follow-up imaging for solid nodules < 6 mm is: LOW RISK PATIENT: No routine follow-up. HIGH RISK PATIENT: Optional CT at 12 months. Three-vessel coronary artery calcifications are present, unusual for the patient's age. Fleischner guidelines were followed.
== END 2022-10-10 07:26 | disposition home or self-care (01) ==
LOC: HO.CT 07:25
PROVIDERS: Visit Provider Nurse Practitioner
DX: R06.00 Dyspnea, unspecified (principal)
CPT/HCPCS: 71250

== ENCOUNTER → 2022-11-06 14:24 | Outpatient (BNVA) | payer OTHER, SELFPAY | PROVIDERS: PCP Internal Medicine; Visit Provider Nurse Practitioner | DX: R13.10 Dysphagia, unspecified (principal); K22.70 Barrett's esophagus without dysplasia; K58.0 Irritable bowel syndrome with diarrhea; R06.00 Dyspnea, unspecified; R63.4 Abnormal weight loss; R91.1 Solitary pulmonary nodule; J31.2 Chronic pharyngitis | CPT/HCPCS: 99212 ==

== ENCOUNTER 2022-11-15 10:40 | Outpatient (REF) | payer OTHER, SELFPAY ==
[2022-11-15 10:49] LABS: MANUAL DIFF FLAG NO
[2022-11-15 11:22] LABS: Basophils Percent Auto 0.6 % (0-2); Eosinophils Absolute Auto 0.2 X10*3/uL (0.0-0.4); Eosinophils Percent Auto 2.9 % (0-4); Hemoglobin 14.2 g/dl (14.0-18.0); Imm Gran Abs Auto 0.03 X10*3/uL (0.00-0.03); Imm Gran Pct Auto 0.5 % (0.0-0.4); Lymphocytes Percent Auto 30.2 % (20-40); Mean Corpuscular HGB Conc 34.6 g/dl (31.0-36.0); Mean Corpuscular Volume 86.5 fL (80.0-98.0); Mean Platelet Volume 9.9 fL (9.4-12.4); Monocytes Absolute Auto 0.7 X10*3/uL (0.1-1.2); Monocytes Percent Auto 11.1 % (2-11); Neutrophils Absolute Auto 3.6 x10*3/uL (2.0-8.3); Neutrophils Percent Auto 54.7 % (45-73); Platelet Count 257 X10*3/uL (160-400); Red Blood Count 4.74 X10*6/uL (4.60-5.80); Red Cell Distribution Width 11.9 % (11.0-16.0); White Blood Count 6.6 X10*3/uL (4.8-10.8)
[2022-11-15 11:54] LABS: Alanine Aminotransferase 53 U/L (0-40); Albumin Level 4.6 g/dL (3.5-5.0); Alkaline Phosphatase 109 U/L (39-117); Anion Gap 14 (12-20); Aspartate Amino Transferase 37 U/L (5-37); Bilirubin Total 0.5 mg/dL (0.0-1.0); Blood Urea Nitrogen 10 mg/dL (9-16); Calcium 9.9 mg/dL (8.4-10.2); Carbon Dioxide 28 mmol/L (22-29); Chloride 104 mmol/L (96-108); Cholesterol 209 mg/dL; Estimated Glomerular Filt Rate > 60; Glucose Fasting 89 mg/dL (60-99); HDL Cholesterol 45 mg/dL; LDL Cholesterol Calculated 137 mg/dl; Potassium 4.8 mmol/L (3.3-5.1); Sodium 141 mmol/L (135-145); Total Protein 7.3 g/dL (6.5-8.0); Triglycerides 139 mg/dL
== END 2022-11-15 10:41 | disposition home or self-care (01) ==
LOC: HO.LAB 10:40
PROVIDERS: PCP Internal Medicine; Visit Provider Internal Medicine
DX: E78.00 Pure hypercholesterolemia, unspecified (principal); I10 Essential (primary) hypertension
CPT/HCPCS: 36415; 80053; 80061; 85025

== ENCOUNTER 2023-02-13 09:29 | Outpatient (REF) | payer OTHER, SELFPAY ==
[2023-02-13 09:52] LABS: MANUAL DIFF FLAG NO
[2023-02-13 10:26] LABS: Appearance Urine Clear; Color Urine Yellow; Glucose Urine UA Negative (Negative); Leukocyte Esterase Urine Negative (Negative); Nitrite Urine Negative (Negative); PH 5.5 (5.0-9.0); Urine Blood Negative (Negative); Urine Ketones Negative (Negative); Urine Protein Negative (Neg-Trace)
[2023-02-13 10:32] LABS: Basophils Absolute Auto 0.1 X10*3/uL (0.0-0.2); Basophils Percent Auto 0.9 % (0-2); Eosinophils Absolute Auto 0.1 X10*3/uL (0.0-0.4); Eosinophils Percent Auto 1.5 % (0-4); Hematocrit 38.4 % (42.0-52.0); Hemoglobin 13.3 g/dl (14.0-18.0); Imm Gran Abs Auto 0.02 X10*3/uL (0.00-0.03); Imm Gran Pct Auto 0.4 % (0.0-0.4); Lymphocytes Absolute Auto 1.8 X10*3/uL (1.2-4.9); Lymphocytes Percent Auto 33.8 % (20-40); Mean Corpuscular HGB Conc 34.6 g/dl (31.0-36.0); Mean Corpuscular Hemoglobin 29.8 pg (27.0-33.0); Mean Corpuscular Volume 86.1 fL (80.0-98.0); Mean Platelet Volume 9.8 fL (9.4-12.4); Monocytes Absolute Auto 0.6 X10*3/uL (0.1-1.2); Monocytes Percent Auto 10.6 % (2-11); Neutrophils Absolute Auto 2.8 x10*3/uL (2.0-8.3); Neutrophils Percent Auto 52.8 % (45-73); Platelet Count 278 X10*3/uL (160-400); Red Blood Count 4.46 X10*6/uL (4.60-5.80); Red Cell Distribution Width 12.5 % (11.0-16.0); White Blood Count 5.3 X10*3/uL (4.8-10.8)
[2023-02-13 11:05] LABS: Alanine Aminotransferase 43 U/L (0-40); Albumin Level 4.6 g/dL (3.5-5.0); Alkaline Phosphatase 100 U/L (39-117); Anion Gap 11 (12-20); Aspartate Amino Transferase 53 U/L (5-37); Blood Urea Nitrogen 15 mg/dL (9-16); Calcium 9.8 mg/dL (8.4-10.2); Carbon Dioxide 29 mmol/L (22-29); Chloride 104 mmol/L (96-108); Cholesterol 189 mg/dL; Estimated Glomerular Filt Rate > 60; Glucose Fasting 88 mg/dL (60-99); HDL Cholesterol 38 mg/dL; LDL Cholesterol Calculated 131 mg/dl; Potassium 4.5 mmol/L (3.3-5.1); Sodium 139 mmol/L (135-145); Total Protein 7.4 g/dL (6.5-8.0); Triglycerides 104 mg/dL
[2023-02-13 11:12] LABS: Vitamin D 25-OH Total 26.1 ng/mL (>30)
== END 2023-02-13 09:30 | disposition home or self-care (01) ==
LOC: HO.LAB 09:29
PROVIDERS: PCP Internal Medicine; Visit Provider Internal Medicine
DX: R30.0 Dysuria (principal); I10 Essential (primary) hypertension; E55.9 Vitamin D deficiency, unspecified; E78.00 Pure hypercholesterolemia, unspecified
CPT/HCPCS: 36415; 80053; 80061; 81003; 82306; 84443; 85025

== ENCOUNTER 2023-03-26 08:25 | Day surgery (SDC) | payer OTHER, SELFPAY ==
[2023-03-23 13:26] VITALS: BMI 32.8
--- NOTE | 2023-03-25 10:21 | HO.ANESPROP2 ---
Documented by User: Miranda Dempsey NP 03/25/23 10:24 HPI - Anesthesia Eval Consult details Narrative: 47yo M for Upper Endoscopy Hx polysub abuse PMFSH Active Problems Active Problems: All Active Problems (Updated 03/06/23 @ 12:28 by VARSHA Roa) Right renal mass (Acute) Lumbar back pain (Acute) Elevated LFTs (Acute) Lower abdominal pain (Acute) Inguinal pain of both sides (Acute) Coronary artery calcification seen on computed tomography (Acute) Pulmonary nodule (Acute) Chronic sore throat (Acute) Foreign body of left eye (Acute) Dyspnea (Acute) Odynophagia (Acute) Weight loss (Acute) Internal derangement of left shoulder (Acute) Toenail fungus (Acute) Low vitamin D level (Acute) Colon cancer screening (Acute) 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 (Acute) Atrophy of trapezius muscle (Acute) Labral tear of long head of biceps tendon (Acute) Lipoma (Acute) Benign essential hypertension (Acute) Status post fall (Acute) Back pain (Acute) Neck pain (Acute) Multiple environmental allergies (Acute) LUQ pain (Acute) Elevated lipase (Acute) Irritable bowel syndrome with diarrhea (Acute) Mucus in stool (Acute) Abdominal bloating (Acute) Abdominal pain (Acute) Adult general medical exam (Acute) Left-sided chest pain (Acute) Overweight (BMI 25.0-29.9) (Acute) Paresthesia of right upper extremity (Acute) Pleuritis (Acute) Irritation of right eye (Acute) Smoker (Acute) Anxiety (Acute) Schizophrenia (Acute) Bipolar disorder (Acute) Right inguinal pain (Acute) Obesity (BMI 30-39.9) (Acute) Degenerative joint disease of right shoulder (Acute) Pure hypercholesterolemia (Acute) Atrophy of muscle of right shoulder (Acute) Anterior to posterior tear of superior glenoid labrum of right shoulder (Acute) Past Medical History Medical History Abdominal bloating Anterior to posterior tear of superior glenoid labrum of right shoulder Anxiety Atrophy of muscle of right shoulder Benign essential hypertension Bipolar disorder Degenerative joint disease of right shoulder Elevated LFTs Irritation of right eye Left-sided chest pain Mucus in stool Obesity (BMI 30-39.9) Overweight (BMI 25.0-29.9) Paresthesia of right upper extremity Pleuritis Polysubstance abuse Pure hypercholesterolemia Right inguinal pain Schizophrenia Smoker Family History Family History Father Amyloidosis Mother Alive and well Maternal Uncle Prostate cancer Family history of problems with anesthesia: No Surgical History Surgical History H/O colonoscopy History of cataract removal with insertion of prosthetic lens History of esophagogastroduodenoscopy (EGD) History of hernia surgery (1998) History of surgery on arm History of Problems with Anesthesia: No Social History Social History Household Members Other:: roomates/friends Housing: Apartment Are you a primary career development coordinator to a significant other at home: No Do you presently have visiting nurse or other home services: No Alcohol intake: current Alcohol intake frequency: does not drink Patient Tobacco Use Status: Former Tobacco user Tobacco use type: Cigarette Cigarette Packs Per Day: 0.5 Cigarettes Per Day: 10.0 Years Smoked: 30yrs, Quit 08/2022. e-Cigarette/Vaping Use: Never Used Second Hand Smoke Exposure: No Use of substances other than those prescribed or required for medical reasons: No Advance Directives: No Advance Directives Information Provided: Yes Advance Directives on File: No Recently lost weight without trying: No Eating poorly because of decreased appetite: No Nutrition Risks: No Nutritional Risk Poor oral hygiene: No service: No Current occupational status: unemployed Cognitive needs: No Hearing needs: No Vision needs: No Meds Allergies Allergy/AdvReac Type Severity Reaction Status Date / Time Peanut Butter Allergy Intermediate sore Verified 02/23/23 16:47 throat, hoarsensss lorazepam [From ATIVAN] Allergy Unknown ANAPHYLAXIS Verified 02/23/23 16:23 milk [Milk] Allergy Unknown GI DISTRESS Verified 02/23/23 16:23 pravastatin AdvReac Unknown ?diarrhea? Verified 02/23/23 16:23 Home Medications Medication Instructions Recorded Confirmed Last Taken Type oxcarbazepine 600 mg tablet 600 mg PO BID 07/19/20 03/23/23 Unknown History (Trileptal) lurasidone 20 mg tablet (Latuda) 20 mg PO DAILY 08/08/22 03/23/23 Unknown History Exam Exam Date and Time: March 25, 2023 1021 Height,Weight and Vital Signs: Height 5 ft 11 in Weight 106.594 kg Pertinent Lab Results Pertinent Lab Results: Laboratory Tests 02/13/23 02/13/23 09:51 09:51 WBC 5.3 Hgb 13.3 L Hct 38.4 L Plt Count 278 Sodium 139 Potassium 4.5 Chloride 104 Carbon Dioxide 29 BUN 15 Creatinine 0.84 Narrative Narrative: EKG 2021 Vent. Rate : 056 BPM ? ? Atrial Rate : 056 BPM ?? P-R Int : 164 ms? QRS Dur : 104 ms ? ? QT Int : 438 ms ? ? ? P-R-T Axes : 021 005 031 degrees ?? QTc Int : 422 ms ? Sinus bradycardia Otherwise normal ECG When compared with ECG of 24-FEB-2021 20:54, No significant change was found Assessment and Plan Assessment Anesthesia Assessment: Chart Reviewed Final Anesthetic Review Family History of Problems with Anesthesia: No History of Problems with Anesthesia: No Documented by User: Geeta Hernandez MD 03/26/23 09:23 PMFSH Past Medical History Medical History Abdominal bloating Anterior to posterior tear of superior glenoid labrum of right shoulder Anxiety Atrophy of muscle of right shoulder Benign essential hypertension Bipolar disorder Degenerative joint disease of right shoulder Elevated LFTs Irritation of right eye Left-sided chest pain Mucus in stool Obesity (BMI 30-39.9) Overweight (BMI 25.0-29.9) Paresthesia of right upper extremity Pleuritis Polysubstance abuse Pure hypercholesterolemia Right inguinal pain Schizophrenia Smoker Family History Family History Father Amyloidosis Mother Alive and well Maternal Uncle Prostate cancer Surgical History Surgical History H/O colonoscopy History of cataract removal with insertion of prosthetic lens History of esophagogastroduodenoscopy (EGD) History of hernia surgery (1998) History of surgery on arm Social History Social History Household Members Other:: roomates/friends Housing: Apartment Are you a primary career development coordinator to a significant other at home: No Do you presently have visiting nurse or other home services: No Alcohol intake: current Alcohol intake frequency: does not drink Patient Tobacco Use Status: Former Tobacco user Tobacco use type: Cigarette Cigarette Packs Per Day: 0.5 Cigarettes Per Day: 10.0 Years Smoked: 30yrs, Quit 08/2022. e-Cigarette/Vaping Use: Never Used Second Hand Smoke Exposure: No Use of substances other than those prescribed or required for medical reasons: No Advance Directives: No Advance Directives Information Provided: Yes Advance Directives on File: No Recently lost weight without trying: No Eating poorly because of decreased appetite: No Nutrition Risks: No Nutritional Risk Poor oral hygiene: No service: No Current occupational status: unemployed Cognitive needs: No Hearing needs: No Vision needs: No Meds Allergies Allergy/AdvReac Type Severity Reaction Status Date / Time Peanut Butter Allergy Intermediate sore Verified 02/23/23 16:47 throat, hoarsensss lorazepam [From ATIVAN] Allergy Unknown ANAPHYLAXIS Verified 02/23/23 16:23 milk [Milk] Allergy Unknown GI DISTRESS Verified 02/23/23 16:23 pravastatin AdvReac Unknown ?diarrhea? Verified 02/23/23 16:23 Home Medications Medication Instructions Recorded Confirmed Last Taken Type oxcarbazepine 600 mg tablet 600 mg PO BID 07/19/20 03/23/23 Unknown History (Trileptal) lurasidone 20 mg tablet (Latuda) 20 mg PO DAILY 08/08/22 03/23/23 Unknown History Exam Airway Mallampati Class: III TM Dist: >3cm Neck ROM: Full Partial: Upper Loose/Missing/Broken Teeth: Yes (missing 2 upper central incisors) Heart: RRR Lungs: CTA Assessment and Plan Assessment Anesthesia Assessment: Anesthesia Plan Discussed Final Anesthetic Review ASA Class: II Final Preanesthetic Review: Meds/Allgs Chart Reviewed, Consent Obtained/Reviewed and Anes Risks/Benef Reviewed Patient Risk: Low Procedure Risk: Intermediate Anesthetic Plan Anesthetic Plan: MAC: Disposition: Standard PACU
--- NOTE | 2023-03-26 08:48 | MHC.SHP ---
Pre-Procedural Eval Section A Date of Service: 03/26/23 Section B Chief Complaint: Vigil's esophagus with dysplasia, dysphagia Details of Present Illness: Difficulty swallowing has in fact resolved, since avoiding peanut butter PMH: Abdominal bloating Anterior to posterior tear of superior glenoid labrum of right shoulder Anxiety Atrophy of muscle of right shoulder Benign essential hypertension Bipolar disorder Degenerative joint disease of right shoulder Irritation of right eye Left-sided chest pain Mucus in stool Obesity (BMI 30-39.9) Overweight (BMI 25.0-29.9) Paresthesia of right upper extremity Pleuritis Polysubstance abuse Pure hypercholesterolemia Right inguinal pain Schizophrenia Smoker Surgical History H/O colonoscopy History of cataract removal with insertion of prosthetic lens History of esophagogastroduodenoscopy (EGD) History of hernia surgery (1998) History of surgery on arm Present Medications: see Short Stay Collaborative assessment Allergies: Allergies Allergy/AdvReac Type Severity Reaction Status Date / Time Peanut Butter Allergy Intermediate sore Verified 02/23/23 16:47 throat, hoarsensss lorazepam [From ATIVAN] Allergy Unknown ANAPHYLAXIS Verified 02/23/23 16:23 milk [Milk] Allergy Unknown GI DISTRESS Verified 02/23/23 16:23 pravastatin AdvReac Unknown ?diarrhea? Verified 02/23/23 16:23 Review of Systems Review of Systems Comment: Ten point ROS negative except as above Exam Exam Comment: Gen appear: No acute distress HEENT: no icterus Chest: No overt resp distress Abd: soft, nontender, nondistended Psych: Stable affect, answering questions appropriately Neuro: A/Ox3 noted to move all extremities spontaneously Ext: no peripheral edema Plan Diagnosis/Plan: Unchanged I have reviewed the history and physical and performed a pertinent physical examination on my patient. No changes have occurred unless specified. Time Spent With Patient Time: Total time managing care of this patient today ____ minutes.
[2023-03-26 08:58] VITALS: BP 147/94; PULSE 59; RESP 16; TEMP 36.2; O2SAT 98
[2023-03-26] MEDS: Lactated Ringers 1,000 ML 100 ML IVCONT (09:03)
--- NOTE | 2023-03-26 09:59 | P.OP_ITS ---
Operative Note Operative Note Date of Service: 03/26/23 Narrative: Procedure: Esophagogastroduodenoscopy Endoscopist: Aminta Stephens MD Indication: Dysphagia, ? alvarado's Anesthesia Provider: Johana Castro CRNA Anesthesia Type: MAC ?? EGD Procedure:?? The procedure, indications, preparation and potential complications were reviewed with the patient, who indicated understanding and gave written informed consent to proceed. A physical exam was performed. The endoscope was introduced through the mouth, and advanced to the second part of duodenum. The mucosa was carefully examined on slow withdrawal of the endoscope. The patient tolerated the procedure well. There were no immediate complications.? ? EGD Findings:? * Esophagus:? Normal mucosa noted in the entire esophagus. The Z line was at 40 and not irregular. No overt stricture or narrowing noted. * Stomach:? Normal mucosa was noted in the stomach. * Duodenum:? Erythema and erosions in the duodenal bulb. Normal mucosa was noted in the remaining duodenum. Biopsies were taken from duodenal bulb. EGD Impressions:? * Normal esophagus * Normal stomach * Bulbar duodenitis (biopsy) ?? Recommendations:?? * Follow biopsy results. Our office will call or send a letter with results within 7-10 days. * Continue PPI therapy. * Avoid NSAIDs. Above has been reviewed with the patient.
[2023-03-26 10:04] VITALS: BP 115/76; PULSE 70; RESP 16; TEMP 36.2; O2SAT 97
[2023-03-26 10:19] VITALS: BP 139/86; PULSE 65; RESP 16; TEMP 522.2; TEMP 972; O2SAT 96
== END 2023-03-26 11:11 | disposition home or self-care (01) ==
PROVIDERS: PCP Internal Medicine; Visit Provider Internal Medicine
PROC: 0DJ08ZZ Inspection of Upper Intestinal Tract, Via Natural or Artificial Opening Endoscopic (ICD-10-PCS; CPT 43235; principal; 2023-03-26 10:00)
DX: K29.80 Duodenitis without bleeding (principal); K22.70 Barrett's esophagus without dysplasia; R14.0 Abdominal distension (gaseous); I10 Essential (primary) hypertension; E78.00 Pure hypercholesterolemia, unspecified; E66.9 Obesity, unspecified; Z68.30 Body mass index [BMI] 30.0-30.9, adult; R91.1 Solitary pulmonary nodule; R06.00 Dyspnea, unspecified; R63.4 Abnormal weight loss; F20.9 Schizophrenia, unspecified; F31.9 Bipolar disorder, unspecified; F19.11 Other psychoactive substance abuse, in remission; Z79.899 Other long term (current) drug therapy; Z88.8 Allergy status to other drugs, medicaments and biological substances; Z87.891 Personal history of nicotine dependence
CPT/HCPCS: 43239; 88305

== ENCOUNTER 2023-04-10 12:40 | Outpatient (AMB) | payer OTHER, SELFPAY ==
--- NOTE | 2023-04-10 12:42 | A.OFFVIS_ITS ---
Intake Vital Signs 04/10/23 12:50 Height 5 ft 11 in Weight 374 lb 12.573 oz BMI 52.3 BP 154/96 H Blood Pressure Location Lt brachial Position Sitting Pulse 99 Intake Visit Reasons: Follow up colo Intake Note: Rajeev presents today for a f/u appointment for colonoscopy. Patient would like to speak with doctor about concerns. 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 HPI Follow up colo HPI Details Assessment & Plan (1) 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: ?Comment: EGD 12/2021 - repeat in 3 years ?Code(s): K22.70 - Vigil's esophagus without dysplasia ?Plan: We reviewed the labs and a chest CT and I find no concerning pathology to explain his symptoms.? Explaining this to him takes a great deal of time in terms of Education and I have to be very careful how I explained things because Rajeev seems to be prone to miss interpretation that borders on delusional and perseverating behavior.? I have done a thorough workup and unless we find a problem on his EGD I believe that his symptoms are attributable more to health anxiety or problem in some other area than to any GI source. He is still c/o the same sx. I will get and EGD to be thorough, but really doubt there is anything other than GERD. He is taking protonix 40mg qd. He has a poor understanding of his SSBE, thinking he needs surgery and that he will inevitably get cancer, and this is not so as long as he takes his PPI and gets his EGD checkups. ROV after EGD (2) Chronic sore throat: ?Code(s): J31.2 - Chronic pharyngitis (3) Irritable bowel syndrome with diarrhea: ?Code(s): K58.0 - Irritable bowel syndrome with diarrhea (4) Schizophrenia: ?Code(s): F20.9 - Schizophrenia, unspecified ?Qualifiers: ?Schizophrenia type:?unspecified? Qualified Code(s):?F20.9 - Schizophrenia, unspecified ? ? ? Medications: Refilled pantoprazole (Prot hailey) 40 mg PO DAILY 30 tabs 6RF 30 days K22.70 - Vigil's esophagus without dysplasia ? EGD 03/26/23 EGD Findings:? * Esophagus:? Normal mucosa noted in the entire esophagus. The Z line was at 40 and not irregular. No overt stricture or narrowing noted. * Stomach:? Normal mucosa was noted in the stomach.? * Duodenum:? Erythema and erosions in the duodenal bulb. Normal mucosa was noted in the remaining duodenum. Biopsies were taken from duodenal bulb. EGD Impressions:? * Normal esophagus * Normal stomach * Bulbar duodenitis (biopsy)?? Recommendations:?? * Follow biopsy results. Our office will call or send a letter with results within 7-10 days. * Continue PPI therapy. * Avoid NSAIDs. Received: 03/26/23 Diagnosis Duodenal bulb, biopsy:? Duodenal mucosa with predominantly preserved villi, reactive changes, and features compatible with non-specific/peptic duodenitis. Laboratory Tests 02/13/23 02/13/23 04/13/23 09:51 09:51 10:28 Plt Count 278 Estimated GFR > 60 Ferritin 182 Total Bilirubin 1.0 GGT 43 AST 53 H ALT 43 H Alkaline Phosphata se 100 TODAY'S VISIT The we review the results and I strongly feel that and once lapse in his pantoprazole therapy has caused his duodenal ulcer. I explained this to him and explained that he is not the kind of personal be able to control his ulcer disease by diet and he really needs lifelong acid reducing therapy.. He has been feeling better on pantoprazole 40 mg daily and he admits that he has been gaining some weight. With this it seems he has had some increasing transaminitis so will get an ultrasound to fully explore this. Will also get basic lab workup to exclude any severe liver pathology in terms of the usual blood work. He definitely did have a problem in his stomach but this did not correlate well to his described symptoms of a funny feeling in his throat. Return office visit after the ultrasound. [facility] Medical History Abdominal bloating Anterior to posterior tear of superior glenoid labrum of right shoulder Anxiety Atrophy of muscle of right shoulder Benign essential hypertension Bipolar disorder Degenerative joint disease of right shoulder Elevated LFTs Irritation of right eye Left-sided chest pain Mucus in stool Obesity (BMI 30-39.9) Overweight (BMI 25.0-29.9) Paresthesia of right upper extremity Pleuritis Polysubstance abuse Pure hypercholesterolemia Right inguinal pain Schizophrenia Smoker Surgical History H/O colonoscopy History of cataract removal with insertion of prosthetic lens History of esophagogastroduodenoscopy (EGD) History of hernia surgery (1998) History of surgery on arm Family History Father Amyloidosis Mother Alive and well Maternal Uncle Prostate cancer Social History Household Members Other:: roomates/friends Housing: Apartment Are you a primary health care aide to a significant other at home: No Do you presently have visiting nurse or other home services: No Alcohol intake: current Alcohol intake frequency: does not drink Patient Tobacco Use Status: Former Tobacco user Tobacco use type: Cigarette Cigarette Packs Per Day: 0.5 Cigarettes Per Day: 10.0 Years Smoked: 30yrs, Quit 08/2022. e-Cigarette/Vaping Use: Never Used Second Hand Smoke Exposure: No service: No Current occupational status: unemployed Cognitive needs: No Hearing needs: No Vision needs: No Review of Systems Const Denies fatigue, Denies fever(s), Denies night sweats, Denies poor appetite, Reports weight gain and Denies weight loss ENT Reports Normal hearing present, Denies dental pain, Denies dysphagia, Denies hearing loss, Denies mouth pain, Denies odynophagia, Denies throat swelling, Denies tongue swelling and Reports other (Dentition adequate) Card Reports no additional complaints Resp Reports no additional complaints GI Details: globus sensation Denies abdominal pain, Denies melena, Denies bloating, Denies hematochezia, Denies constipation, Denies GI cramping, Denies dysphagia, Denies excessive flatus, Denies early satiety, Reports heartburn, Denies diarrhea, Denies nausea, Denies odynophagia, Denies vomiting and Denies hematemesis Skin/Breast Denies pruritus, Denies lesions, Denies rash and Denies jaundice Neuro Reports Normal hearing present and Denies Abnormal speech present Endo Denies fatigue Aller/Immun Denies throat swelling and Denies tongue swelling Physical Exam Vital Signs: Last Vital Signs Pulse 99 04/10/23 12:50 BP 154/96 H 04/10/23 12:50 BMI result Body Mass Index 52.3 Const General: cooperative, no acute distress, well developed and well groomed Nutritional Appearance: well nourished, obese and overweight Orientation/consciousness: oriented to person, oriented to place and oriented to time Limitations: No language barrier, ambulation with cane, ambulation with walker and wheelchair HEENT Head: Yes normocephalic and Yes atraumatic Eyes General: appearance normal, both eyes and all related structures Pupils: Equal, round and reactive pupils present Neck Neck: Yes normal visual inspection and Yes no lymphadenopathy Thyroid: Thyroid normal Resp Effort & Inspection: normal respiratory effort and able to speak in complete sentences Auscultation: clear to auscultation bilaterally Cardio Rate: regular rate Rhythm: regular rhythm Heart sounds: Normal, physiologic split S2 sound present Peripheral pulses: radial pulses present and posterior tibial pulses present GI Inspection: No distended and No Abdominal panniculus present Palpation (GI): Soft to palpation, nontender, no guarding, not rigid, No hepatosplenomegaly present and Hepatosplenomegaly present Percussion: Yes normal to percussion Auscultation: normal bowel sounds Rectal Exam - Male: Yes deferred Skin General skin exam: no rashes or lesions noted, turgor normal, skin not dry, no jaundice, No spider nevi and no striae Rashes: no rashes Nails: normal Neuro General: oriented to person, oriented to place and oriented to time Cranial nerves: Yes Equal, round and reactive pupils present and Yes Normal hearing present Speech: No Abnormal speech present Extrem General: Yes normal to inspection, No clubbing, No cyanosis and No edema Psych Thought process: Normal thought process present and not confabulating Thought content: Normal thought content present Insight: Good insight present (Psych) Judgement: Good judgement present (Psych) Results Reviewed Results Reviewed: EGD 03/26/23 EGD Findings:? * Esophagus:? Normal mucosa noted in the entire esophagus. The Z line was at 40 and not irregular. No overt stricture or narrowing noted. * Stomach:? Normal mucosa was noted in the stomach.? * Duodenum:? Erythema and erosions in the duodenal bulb. Normal mucosa was noted in the remaining duodenum. Biopsies were taken from duodenal bulb. EGD Impressions:? * Normal esophagus * Normal stomach * Bulbar duodenitis (biopsy)?? Recommendations:?? * Follow biopsy results. Our office will call or send a letter with results within 7-10 days. * Continue PPI therapy. * Avoid NSAIDs. Received: 03/26/23 Diagnosis Duodenal bulb, biopsy:? Duodenal mucosa with predominantly preserved villi, reactive changes, and features compatible with non-specific/peptic duodenitis. Laboratory Tests 02/13/23 02/13/23 04/13/23 09:51 09:51 10:28 Plt Count 278 Estimated GFR > 60 Ferritin 182 Total Bilirubin 1.0 GGT 43 AST 53 H ALT 43 H Alkaline Phosphatase 100 Assessment & Plan Assessment & Plan (1) Erosive gastritis: Code(s): K29.60 - Other gastritis without bleeding Plan: The we review the results and I strongly feel that and once lapse in his pantoprazole therapy has caused his duodenal ulcer. I explained this to him and explained that he is not the kind of personal be able to control his ulcer disease by diet and he really needs lifelong acid reducing therapy.. He has been feeling better on pantoprazole 40 mg daily and he admits that he has been gaining some weight. With this it seems he has had some increasing transaminitis so will get an ultrasound to fully explore this. Will also get basic lab workup to exclude any severe liver pathology in terms of the usual blood work. He definitely did have a problem in his stomach but this did not correlate well to his described symptoms of a funny feeling in his throat. Return office visit after the ultrasound. (2) Odynophagia: Code(s): R13.10 - Dysphagia, unspecified (3) 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: Comment: EGD 12/2021 - repeat in 3 years Code(s): K22.70 - Vigil's esophagus without dysplasia (4) Irritable bowel syndrome with diarrhea: Code(s): K58.0 - Irritable bowel syndrome with diarrhea (5) Transaminitis: Code(s): R74.01 - Elevation of levels of liver transaminase levels Orders: Orders TINO Reflex Titer and Pattern 04/13/23 R74.01 - Elevation of levels of liver transaminase levels Ferritin 04/13/23 R74.01 - Elevation of levels of liver transaminase levels Gamma Glutamyl Transpeptidase 04/13/23 R74.01 - Elevation of levels of liver transaminase levels Mitochondrial Antibody 04/13/23 R74.01 - Elevation of levels of liver trans aminase levels Smooth Muscle Antibody 04/13/23 R74.01 - Elevation of levels of liver transaminase levels Hepatitis A,B,C Profile 04/13/23 R74.01 - Elevation of levels of liver transaminase levels HIV Ab/Ag 04/13/23 R74.01 - Elevation of levels of liver transaminase levels Alpha Fetoprotein 04/13/23 R74.01 - Elevation of levels of liver transaminase levels Ceruloplasmin 04/13/23 R74.01 - Elevation of levels of liver transaminase levels Hemoglobin A1c 04/13/23 R74.01 - Elevation of levels of liver transaminase levels US abdomen comp w elastography 04/10/23 R74.01 - Elevation of levels of liver transaminase levels Coding Level of Care Code Est Pt Level 4 (02468) Diagnoses Erosive gastritis K29.60 Odynophagia R13.10 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 K22.70 Irritable bowel syndrome with diarrhea K58.0 Transaminitis R74.01
[2023-04-10 12:50] VITALS: BP 154/96; PULSE 99; BMI 52.3
== END 2023-04-10 13:26 | disposition home or self-care (01) ==
PROVIDERS: PCP Internal Medicine; Visit Provider Nurse Practitioner
DX: K29.60 Other gastritis without bleeding (principal); R13.10 Dysphagia, unspecified; K22.70 Barrett's esophagus without dysplasia; K58.0 Irritable bowel syndrome with diarrhea; R74.01 Elevation of levels of liver transaminase levels
CPT/HCPCS: 99214

== ENCOUNTER → 2023-04-10 12:40 | Outpatient (BNVA) | payer OTHER, SELFPAY | PROVIDERS: PCP Internal Medicine; Visit Provider Nurse Practitioner | DX: K22.70 Barrett's esophagus without dysplasia (principal); R13.10 Dysphagia, unspecified; K58.0 Irritable bowel syndrome with diarrhea; R74.01 Elevation of levels of liver transaminase levels; I10 Essential (primary) hypertension; E78.00 Pure hypercholesterolemia, unspecified; E55.9 Vitamin D deficiency, unspecified; Z68.43 Body mass index [BMI] 50.0-59.9, adult | CPT/HCPCS: 99212 ==

== ENCOUNTER 2023-04-13 10:12 | Outpatient (REF) | payer OTHER, SELFPAY ==
[2023-04-16 16:58] LABS: Mitochondrial Antibodies NEGATIVE (NEGATIVE)
[2023-04-17 11:57] LABS: Ceruloplasmin 21 mg/dL (18-36)
[2023-04-17 13:13] LABS: Alpha Fetoprotein 3.4 ng/mL (<6.1)
[2023-04-18 04:13] LABS: Smooth Muscle Antibody <20 U (<20)
[2023-04-19 14:32] LABS: Anti Nuclear Antibody Screen NEGATIVE (NEGATIVE)
== END 2023-04-13 10:13 | disposition home or self-care (01) ==
LOC: HO.LAB 10:12
PROVIDERS: Absent Provider Nurse Practitioner; PCP Internal Medicine; Visit Provider Internal Medicine
DX: Z11.4 Encounter for screening for human immunodeficiency virus [HIV] (principal); R74.01 Elevation of levels of liver transaminase levels; K75.81 Nonalcoholic steatohepatitis (NASH)
CPT/HCPCS: 36415; 82105; 82390; 82728; 82977; 83036; 86015; 86038; 86255; 86256; 86704; 86706; 86709; 86803; 87340; 87389

== ENCOUNTER 2023-04-30 05:57 | Outpatient (REF) | payer OTHER, SELFPAY ==
--- NOTE | ~2023-04-30 | CT_ITS ---
EXAMINATION: CT ABDOMEN AND PELVIS WITH CONTRAST CLINICAL INFORMATION: Right lower quadrant pain COMPARISON: Multiple prior studies including CT abdomen and pelvis with contrast 11/27/[address] examinations 04/04/2021 and 04/28/2022 TECHNIQUE: Multidetector volumetric images were obtained from the superior aspect of the liver through the pubic symphysis following administration 85 mL of Omnipaque 350 intravenous contrast. Sagittal and coronal reformatted images were obtained on the technologist's workstation. Oral contrast: Administered This CT examination was performed using dose optimization techniques as appropriate, variously including the following: *Automated exposure control *Adjustment of mA and/or kV according to patient size (this includes techniques or standardized protocols for targeted exams where dose is matched to indication/reason for exam; i.e. extremities or head) *Use of iterative reconstruction technique DLP: 651 mGy-cm FINDINGS: LUNG BASES: The visualized lung bases are unremarkable. LIVER, GALLBLADDER, AND BILIARY TREE: The liver is normal in size, shape, and attenuation. No focal hepatic lesion or biliary ductal dilatation is present. The gallbladder is unremarkable with no evidence of radiopaque gallstones, gallbladder wall thickening, or obvious pericholecystic inflammatory changes. PANCREAS: Unremarkable. SPLEEN: The spleen is normal in appearance with a small accessory splenule identified. ADRENAL GLANDS: Unremarkable. KIDNEYS AND URETERS: A slightly lobular low attenuating masslike region is seen in the interpolar region of the right kidney laterally measuring approximately 2.6 x 2.7 x 3.4 cm in size. This finding has become more obvious compared to prior. No right calculus or right hydronephrosis. The left kidney is normal in appearance. BLADDER: Decompressed and unremarkable. GASTROINTESTINAL TRACT: Nonobstructive bowel gas pattern. Diverticulosis is seen in the colon without CT signs of diverticulitis. The terminal ileum is normal in appearance. The appendix is normal in appearance without evidence of appendicitis. ABDOMINAL WALL: No significant hernia is appreciated. LYMPH NODES: Normal. VASCULAR: Unremarkable. PELVIC VISCERA: The prostate is mildly enlarged. OSSEOUS STRUCTURES: No acute osseous abnormalities seen. CT/CT abdomen pelvis w IV con IMPRESSION: 1. Small lobular masslike region is seen in the interpolar region of the right kidney. In the presence of pain, this could reflect pyelonephritis. However, this area of abnormality has become more prominent when compared to prior and a small renal cell neoplasm is a consideration. Consider evaluation of the urine for infection. An MRI of the kidneys is suggested without and with contrast for further evaluation. 2. No evidence of bowel obstruction. No evidence of appendicitis or other acute findings to explain the patient's symptomatology.
[2023-04-30 06:27] LABS: MANUAL DIFF FLAG NO
[2023-04-30 07:30] LABS: Basophils Percent Auto 0.5 % (0-2); Eosinophils Absolute Auto 0.1 X10*3/uL (0.0-0.4); Eosinophils Percent Auto 1.8 % (0-4); Hematocrit 38.4 % (42.0-52.0); Hemoglobin 13.1 g/dl (14.0-18.0); Imm Gran Abs Auto 0.02 X10*3/uL (0.00-0.03); Imm Gran Pct Auto 0.4 % (0.0-0.4); Lymphocytes Absolute Auto 1.7 X10*3/uL (1.2-4.9); Lymphocytes Percent Auto 29.9 % (20-40); Mean Corpuscular HGB Conc 34.1 g/dl (31.0-36.0); Mean Corpuscular Hemoglobin 29.5 pg (27.0-33.0); Mean Corpuscular Volume 86.5 fL (80.0-98.0); Mean Platelet Volume 9.8 fL (9.4-12.4); Monocytes Absolute Auto 0.6 X10*3/uL (0.1-1.2); Monocytes Percent Auto 10.8 % (2-11); Neutrophils Absolute Auto 3.1 x10*3/uL (2.0-8.3); Neutrophils Percent Auto 56.6 % (45-73); Platelet Count 262 X10*3/uL (160-400); Red Blood Count 4.44 X10*6/uL (4.60-5.80); Red Cell Distribution Width 12.2 % (11.0-16.0); White Blood Count 5.6 X10*3/uL (4.8-10.8)
[2023-04-30 07:46] LABS: Appearance Urine Clear; Color Urine Yellow; Glucose Urine UA Negative (Negative); Leukocyte Esterase Urine Negative (Negative); Nitrite Urine Negative (Negative); PH 5.5 (5.0-9.0); Specific Gravity - Urine 1.025 (1.005-1.025); Urine Blood Negative (Negative); Urine Ketones Negative (Negative); Urine Protein Negative (Neg-Trace)
[2023-04-30 08:24] LABS: Alanine Aminotransferase 87 U/L (0-40); Albumin Level 4.4 g/dL (3.5-5.0); Alkaline Phosphatase 89 U/L (39-117); Anion Gap 15 (12-20); Aspartate Amino Transferase 267 U/L (5-37); Bilirubin Total 0.7 mg/dL (0.0-1.0); Blood Urea Nitrogen 11 mg/dL (9-16); Calcium 9.6 mg/dL (8.4-10.2); Carbon Dioxide 24 mmol/L (22-29); Chloride 105 mmol/L (96-108); Cholesterol 168 mg/dL; Estimated Glomerular Filt Rate > 60; Glucose Fasting 97 mg/dL (60-99); HDL Cholesterol 38 mg/dL; LDL Cholesterol Calculated 109 mg/dl; Sodium 140 mmol/L (135-145); Total Protein 7.4 g/dL (6.5-8.0); Triglycerides 107 mg/dL
[2023-04-30] MEDS: iohexoL 350 MG/ML 100 ML INFUS..BTL 85 ML IV (08:39)
[2023-04-30 08:44] LABS: Vitamin D 25-OH Total 31.8 ng/mL (>30)
[2023-04-30] MEDS: Barium Sulfate Oral (Mocha) 450 ML ORAL.SUSP 900 ML PO (08:59)
== END 2023-04-30 05:58 | disposition home or self-care (01) ==
LOC: HO.CT 05:57
PROVIDERS: PCP Internal Medicine; Visit Provider Internal Medicine
DX: R10.31 Right lower quadrant pain (principal); R10.32 Left lower quadrant pain; I10 Essential (primary) hypertension; R30.0 Dysuria; E78.00 Pure hypercholesterolemia, unspecified; E55.9 Vitamin D deficiency, unspecified
CPT/HCPCS: 36415; 74177; 80053; 80061; 81003; 82306; 84443; 85025; Q9967

== ENCOUNTER 2023-05-12 08:07 | Outpatient (REF) | payer OTHER, SELFPAY ==
--- NOTE | ~2023-05-12 | US_ITS ---
EXAMINATION: US COMPLETE ABDOMEN WITH LIVER ELASTOGRAPHY CLINICAL INFORMATION: Elevated liver transaminase COMPARISON: Previous CT of the abdomen and pelvis most recent April 2023 TECHNIQUE: Real-time imaging of the abdominal viscera. Noninvasive ultrasound liver fibrosis assessment is performed using Jame ElastPQ point quantification shear wave elastography (2D-SWE) with a C5-2 MHz transducer. Multiple elastography samples are obtained. FINDINGS: PANCREAS: Normal. The visualized pancreatic head and body are normal in appearance. ABDOMINAL AORTA: The proximal abdominal aorta is not well visualized due to bowel gas. The middle, and distal aortic segments are normal in caliber. INFERIOR VENA CAVA: Visualized portions are normal. LIVER: Echogenic liver suggestive of fatty infiltration. Focal fatty sparing adjacent to the gallbladder. The liver is normal in size and contour. No focal lesion or intrahepatic biliary duct dilatation. The right lobe measures 15 cm in length. The left lobe measures 10 cm in length. Portal flow is normal/hepatopedal Shear wave liver elastography median stiffness is 1.7 m/s (reference: normal median stiffness is 1.3 m/s or less). IQR/median stiffness to assess sampling precision is 0.1 (reference: good quality data set is IQR/median stiffness of 0.15 or less). GALLBLADDER: Normal. The gallbladder is physiologically distended without evidence of stones, sludge, polyps, wall thickening or pericholecystic fluid. COMMON BILE DUCT: Normal in caliber measuring 0.3 cm in diameter. RIGHT KIDNEY: There is a 2.5 x 2.4 x 2.5 cm isoechoic mass midpole of the right kidney. This demonstrates some vascularity. Appearance is concerning for a neoplasm. Is similar to recent CT of the abdomen and pelvis 04/30/2023. No hydronephrosis. No renal calculi or focal parenchymal lesions. The kidney measures 13 cm in maximum dimension. LEFT KIDNEY: Normal. No hydronephrosis. No renal calculi or focal parenchymal lesions. The kidney measures 13.6 cm in maximum dimension. SPLEEN: Normal. The spleen measures 10 cm in maximum dimension. FREE FLUID: None. US/US abdomen comp w elastography IMPRESSION: 1. Impression: Echogenic liver suggestive of fatty infiltration. 2.5 cm right renal mass suspicious for neoplasm. Urology consultation recommended. Nonvisualization of the upper abdominal aorta. 2. Liver elastography: Adequate liver sampling. Borderline elevated liver stiffness. REFERENCE: Society of Radiologists in Ultrasound Liver Stiffness Thresholds (2020): LIVER STIFFNESS THRESHOLDS: *Liver Stiffness equal or less than 1.3 m/s: High probability of being normal. *Liver Stiffness less than 1.7 m/s: In the absence of other known clinical signs, rules out compensated advanced chronic liver disease. *Liver Stiffness 1.7-2.1 m/s: *Liver Stiffness over 2.1 m/s: Rules in compensated advanced chronic liver disease. *Liver Stiffness over 2.4 m/s: Suggestive of clinically significant portal hypertension. QUALITY OF DATA SET: *IQR/Median value equal or less than 0.15 implies a quality data set. *IQR/Median value over 0.15 implies a poor quality data set. SIGNIFICANT CHANGE FROM PRIOR EXAM: Significant change if liver stiffness measurement is 10% or greater from prior exam. OTHER CONSIDERATIONS: The stage of liver fibrosis may be overestimated in the setting of acute hepatitis, liver inflammation, elevated liver function tests, hepatic vascular congestion, obstructive cholestasis, non-fasting state, and infiltrative diseases such as amyloidosis and lymphoma. In some patients with NAFLD, the liver stiffness thresholds for compensated advanced chronic liver disease may be lower. In causes other than viral hepatitis and NAFLD, liver stiffness thresholds are not well established.
== END 2023-05-12 08:08 | disposition home or self-care (01) ==
LOC: HO.US 08:07
PROVIDERS: PCP Internal Medicine; Visit Provider Nurse Practitioner
DX: R74.01 Elevation of levels of liver transaminase levels (principal)
CPT/HCPCS: 76705; 76981

== ENCOUNTER 2023-05-12 10:53 | Outpatient (AMB) | payer OTHER, SELFPAY ==
--- NOTE | 2023-05-12 11:37 | MHC.OFFWIV ---
Intake Vital Signs 05/12/23 11:40 Height 5 ft 11 in BP 132/72 Blood Pressure Location Rt brachial Position Sitting Pulse 68 Pulse Source Pulse Oximeter Temp 97.7 F Temp Source Temporal Artery Scan Pulse Oximetry (%) 97 Oxygen Delivery Method Room Air Intake Visit Reasons: EST/left ankle pain on going months Intake Note: Pt is here c/o left ankle pain. Pt states he has had pain in his ankle for months now. Pt states no falls or injuries. Patient Tobacco Use Status: Former Tobacco user Allergies Peanut Butter Allergy (Intermediate, Verified 05/12/23 11:55) sore throat, hoarsensss lorazepam [From ATIVAN] Allergy (Unknown, Verified 05/12/23 11:55) ANAPHYLAXIS milk [Milk] Allergy (Unknown, Verified 05/12/23 11:55) GI DISTRESS pravastatin Adverse Reaction (Unknown, Verified 05/12/23 11:55) ?diarrhea? Medication List - Last Reconciled 05/12/23 by Joe Montes MD atorvastatin 40 mg PO DAILY cholecalciferol (vitamin D3) 25 mcg PO DAILY 90 days lisinopril 5 mg PO DAILY lurasidone (Latuda) 20 mg PO DAILY oxcarbazepine (Trileptal) 600 mg PO BID pantoprazole 40 mg PO DAILY Do you need a note to return to daycare/school/sports/work: No HPI EST/left ankle pain on going months HPI Details 47-year-old male presents to the office for a sick visit. Patient is complaining of pain in the ankle for the past few months. Does not recall any fall or injury. Pain is specifically behind in the tendon. He is able to walk but with pain. PFSH Medical History Abdominal bloating Anterior to posterior tear of superior glenoid labrum of right shoulder Anxiety Atrophy of muscle of right shoulder Benign essential hypertension Bipolar disorder Degenerative joint disease of right shoulder Elevated LFTs Irritation of right eye Left-sided chest pain Mucus in stool Obesity (BMI 30-39.9) Overweight (BMI 25.0-29.9) Paresthesia of right upper extremity Pleuritis Polysubstance abuse Pure hypercholesterolemia Right inguinal pain Schizophrenia Smoker Surgical History H/O colonoscopy History of cataract removal with insertion of prosthetic lens History of esophagogastroduodenoscopy (EGD) History of hernia surgery (1998) History of surgery on arm Family History Father Amyloidosis Mother Alive and well Maternal Uncle Prostate cancer Social History Household Members Other:: roomates/friends Housing: Apartment Are you a primary childcare center director to a significant other at home: No Do you presently have visiting nurse or other home services: No Alcohol intake: current Alcohol intake frequency: does not drink Patient Tobacco Use Status: Former Tobacco user Tobacco use type: Cigarette Cigarette Packs Per Day: 0.5 Cigarettes Per Day: 10.0 Years Smoked: 30yrs, Quit 08/2022. e-Cigarette/Vaping Use: Never Used Second Hand Smoke Exposure: No service: No Current occupational status: unemployed Cognitive needs: No Hearing needs: No Vision needs: No Physical Exam Vital Signs: Last Vital Signs Temp 97.7 F 05/12/23 11:40 Pulse 68 05/12/23 11:40 BP 132/72 05/12/23 11:40 Pulse Ox 97 05/12/23 11:40 Oxygen Delivery Method Room Air 05/12/23 11:40 Extrem Other: Left ankle: Mild discomfort over the tendo calcaneus. Full range of flexion and extension. Patient is able to stand on his toes and heels. Assessment & Plan Assessment & Plan (1) Tendinitis: Code(s): M77.9 - Enthesopathy, unspecified Plan X-ray images were reviewed by me. Most likely patient has mild tendinitis. Patient was instructed to follow-up with his primary care provider. He would benefit from an evaluation by sports physician. Orders: Orders XR ankle LT min 3V Today S93.402A - Sprain of unspecified ligament of left ankle, initial encounter Coding Level of Care Code Est Pt Level 4 (67526) Diagnoses Tendinitis M77.9
[2023-05-12 11:40] VITALS: BP 132/72; PULSE 68; TEMP 36.5; O2SAT 97
== END 2023-05-12 12:56 | disposition home or self-care (01) ==
PROVIDERS: PCP Internal Medicine; Visit Provider Internal Medicine
DX: M77.9 Enthesopathy, unspecified (principal)
CPT/HCPCS: 99214

== ENCOUNTER 2023-05-12 11:52 | Outpatient (REF) | payer OTHER, SELFPAY ==
--- NOTE | ~2023-05-12 | XR_ITS ---
EXAMINATION: XR ANKLE, LEFT CLINICAL INFORMATION: Sprain of unspecified ligament of left ankle, initial encounter COMPARISON: None available. TECHNIQUE: AP, lateral, and mortise views of the left ankle. FINDINGS: No fracture. Alignment is anatomic. No erosions. Joint spaces are maintained. Minimal soft tissue swelling over the lateral malleolus. XR/XR ankle LT min 3V IMPRESSION: No acute bony abnormality.
== END 2023-05-12 11:53 | disposition home or self-care (01) ==
LOC: HO.HMGCX 11:52
PROVIDERS: PCP Internal Medicine; Visit Provider Internal Medicine
DX: S93.402A Sprain of unspecified ligament of left ankle, initial encounter (principal); X58.XXXA Exposure to other specified factors, initial encounter; Y93.9 Activity, unspecified; Y92.9 Unspecified place or not applicable; Y99.9 Unspecified external cause status
CPT/HCPCS: 73610

== ENCOUNTER 2023-05-18 15:41 | Outpatient (AMB) | payer OTHER, SELFPAY ==
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
[2023-05-18 15:43] VITALS: BP 132/80; PULSE 87; O2SAT 98; BMI 33.1
== END 2023-05-18 16:38 | disposition home or self-care (01) ==
PROVIDERS: Visit Provider Internal Medicine
DX: I10 Essential (primary) hypertension (principal); K22.70 Barrett's esophagus without dysplasia; F31.30 Bipolar disorder, current episode depressed, mild or moderate severity, unspecified; F41.9 Anxiety disorder, unspecified; C64.1 Malignant neoplasm of right kidney, except renal pelvis; R79.89 Other specified abnormal findings of blood chemistry; E78.00 Pure hypercholesterolemia, unspecified; I25.10 Atherosclerotic heart disease of native coronary artery without angina pectoris; R91.1 Solitary pulmonary nodule; M54.2 Cervicalgia; M54.6 Pain in thoracic spine; M19.111 Post-traumatic osteoarthritis, right shoulder
CPT/HCPCS: 99214

== ENCOUNTER 2023-05-27 12:01 | Outpatient (REF) | payer OTHER, SELFPAY ==
[2023-05-27 12:16] LABS: MANUAL DIFF FLAG NO
[2023-05-27 12:27] LABS: Basophils Percent Auto 0.6 % (0-2); Eosinophils Absolute Auto 0.1 X10*3/uL (0.0-0.4); Eosinophils Percent Auto 2.3 % (0-4); Hematocrit 38.9 % (42.0-52.0); Hemoglobin 13.7 g/dl (14.0-18.0); Imm Gran Abs Auto 0.01 X10*3/uL (0.00-0.03); Imm Gran Pct Auto 0.2 % (0.0-0.4); Lymphocytes Absolute Auto 1.9 X10*3/uL (1.2-4.9); Lymphocytes Percent Auto 35.2 % (20-40); Mean Corpuscular HGB Conc 35.2 g/dl (31.0-36.0); Mean Corpuscular Volume 85.3 fL (80.0-98.0); Mean Platelet Volume 9.5 fL (9.4-12.4); Monocytes Absolute Auto 0.6 X10*3/uL (0.1-1.2); Monocytes Percent Auto 10.8 % (2-11); Neutrophils Absolute Auto 2.7 x10*3/uL (2.0-8.3); Neutrophils Percent Auto 50.9 % (45-73); Platelet Count 261 X10*3/uL (160-400); Red Blood Count 4.56 X10*6/uL (4.60-5.80); Red Cell Distribution Width 12.5 % (11.0-16.0); White Blood Count 5.3 X10*3/uL (4.8-10.8)
[2023-05-27 13:10] LABS: Alanine Aminotransferase 40 U/L (0-40); Albumin Level 4.7 g/dL (3.5-5.0); Alkaline Phosphatase 96 U/L (39-117); Anion Gap 12 (12-20); Aspartate Amino Transferase 45 U/L (5-37); Bilirubin Total 0.5 mg/dL (0.0-1.0); Blood Urea Nitrogen 14 mg/dL (9-16); Calcium 10.3 mg/dL (8.4-10.2); Carbon Dioxide 28 mmol/L (22-29); Chloride 105 mmol/L (96-108); Cholesterol 238 mg/dL (<200); Estimated Glomerular Filt Rate > 60; Glucose Fasting 94 mg/dL (60-99); HDL Cholesterol 42 mg/dL (>40); LDL Cholesterol Calculated 169 mg/dL (<100); Potassium 4.4 mmol/L (3.3-5.1); Sodium 141 mmol/L (135-145); Triglycerides 138 mg/dL (<150)
[2023-05-27 13:31] LABS: Vitamin D 25-OH Total 33.5 ng/mL (>30)
== END 2023-05-27 12:02 | disposition home or self-care (01) ==
LOC: HO.LAB 12:01
PROVIDERS: Nurse Practitioner Family; PCP Internal Medicine; Visit Provider Internal Medicine
DX: C64.9 Malignant neoplasm of unspecified kidney, except renal pelvis (principal); E78.00 Pure hypercholesterolemia, unspecified; E55.9 Vitamin D deficiency, unspecified
CPT/HCPCS: 36415; 80053; 80061; 82306; 85025

== ENCOUNTER 2023-07-20 10:37 | Outpatient (AMB) | payer OTHER, SELFPAY ==
[2023-07-20 10:50] VITALS: BP 142/86; PULSE 71; O2SAT 99; BMI 33.1
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
== END 2023-07-20 11:33 | disposition home or self-care (01) ==
PROVIDERS: PCP Internal Medicine; Visit Provider Internal Medicine
DX: Z23 Encounter for immunization (principal)
CPT/HCPCS: 90471; 90686; 99214

== ENCOUNTER 2023-10-29 10:21 | Outpatient (AMB) | payer OTHER, SELFPAY ==
[2023-10-29 10:25] VITALS: BP 134/88; PULSE 58; O2SAT 99; BMI 32.3
--- NOTE | 2023-10-29 10:25 | A.OFFPC_ITS ---
Vital Signs 10/29/23 10:25 Height 5 ft 11 in Weight 231 lb 6 oz BMI 32.3 BP 134/88 Blood Pressure Location Lt brachial Position Sitting Pulse 58 Pulse Source Pulse Oximeter Pulse Oximetry (%) 99 Oxygen Delivery Method Room Air Intake Visit Reasons: hyperlipidemia Stenotype Operator Required: No Accompanied by: Self / Same As Patient Allergies Peanut Butter Allergy (Intermediate, Verified 10/29/23 11:19) sore throat, hoarsensss lorazepam [From ATIVAN] Allergy (Unknown, Verified 10/29/23 11:19) ANAPHYLAXIS milk [Milk] Allergy (Unknown, Verified 10/29/23 11:19) GI DISTRESS pravastatin Adverse Reaction (Unknown, Verified 10/29/23 11:19) ?diarrhea? Medication List - Last Reconciled 10/29/23 by Gonzalez Roman MD atorvastatin 40 mg PO DAILY cholecalciferol (vitamin D3) 25 mcg PO DAILY 90 days lisinopril 5 mg PO DAILY lurasidone (Latuda) 20 mg PO DAILY oxcarbazepine (Trileptal) 600 mg PO BID pantoprazole 40 mg PO DAILY Tobacco use date assessed: 10/29/23 Dental Screening Dental Screen Date: 10/29/23 Did you have a dental visit in the last 12 months?: Yes Did you have a dental problem in the last 6 months where you did not have access to dental care?: No Was dental information given to patient?: Patient has dentist HPI hyperlipidemia HPI Details Patient comes in today for his follow up visit States that he has multiple issues that he is currently concerned about Reports that he has been spitting up some blood in his mucus at times Is concerned about the pulmonary nodules that were seen in imaging last year and he would like to get a repeat chest CT done to follow up on these He also had a laparoscopic partial nephrectomy done a couple of months ago for his renal cell cancer and is worried that he still has on and off pain his flank area as well as his abdomen States that he had a repeat renal US done last month on 09/22/2023 at [facility] and is wondering if it shows any recurrence of his cancer He denies any fever, headaches or dizziness Denies any chest pains, no shortness of breath No nausea/ vomiting and no change in bowel habits noted Adds that he has a thick and discolored toenail on his right big toe that he would like to have checked out and addressed Patient had some previous orders for labs that he was not able to get done yet - states that he will try to get them [facility] Medical History (Updated 10/30/23 @ 05:48 by Gonzalez Roman MD) Thoracic spondylosis Cervical spondylosis Renal cell carcinoma of right kidney Elevated LFTs Benign essential hypertension Mucus in stool Abdominal bloating Left-sided chest pain Overweight (BMI 25.0-29.9) Paresthesia of right upper extremity Pleuritis Polysubstance abuse Irritation of right eye Smoker Anxiety Schizophrenia Bipolar disorder Right inguinal pain Obesity (BMI 30-39.9) Degenerative joint disease of right shoulder Pure hypercholesterolemia Atrophy of muscle of right shoulder Anterior to posterior tear of superior glenoid labrum of right shoulder Surgical History History of esophagogastroduodenoscopy (EGD) H/O colonoscopy History of surgery on arm History of cataract removal with insertion of prosthetic lens History of hernia surgery (1998) Family History Father Amyloidosis Mother Alive and well Maternal Uncle Prostate cancer Social History Household Members Other:: roomates/friends Housing: Apartment Are you a primary healthcare administration intern to a significant other at home: No Do you presently have visiting nurse or other home services: No Alcohol intake: current Alcohol intake frequency: does not drink Patient Tobacco Use Status: Former Tobacco user Tobacco use type: Cigarette Cigarette Packs Per Day: 0.5 Cigarettes Per Day: 10.0 Years Smoked: 30yrs, Quit 08/2022. e-Cigarette/Vaping Use: Never Used Second Hand Smoke Exposure: No service: No Current occupational status: unemployed Cognitive needs: No Hearing needs: No Vision needs: No Questionnaire PHQ-9 Over the last 2 weeks, how often have you been bothered by any of the following problems? 1. Little interest or pleasure in doing things: not at all 2. Feeling down, depressed, or hopeless: not at all 3. Trouble falling or staying asleep, or sleeping too much: not at all 4. Feeling tired or having little energy: not at all 5. Poor appetite or overeating: not at all 6. Feeling bad about yourself - or that you are a failure or have let yourself or your family down: not at all 7. Trouble concentrating on things, such as reading the newspaper or watching television: not at all 8. Moving or speaking so slowly that other people could have noticed. Or the opposite - being so fidgety or restless that you have been moving around a lot more than usual: not at all 9. Thoughts that you would be better off or of hurting yourself in some way: not at all Total score: 0 Depression Screening Interpretation: Negative (is on Rx) Depression Screening Done: Yes 27250 - PHQ-9 Billing: Yes Source: Developed by Drs. Jp Oropeza, Poly Infante, Brayden De La Fuente and colleagues, with an educational sera from [employer]. Thrive Questionnaire Date Thrive assessed: 10/29/23 I am a: Patient What is your living situation today?: I have a steady place to live Within the past 12 months, did the food you bought not last and you didn't have the money to get more?: Never true Within the past 12 months, did you worry whether your food would run out before you got money to buy more?: Never true Do you have trouble paying for medicines?: No Do you have trouble getting transportation to medical appointments?: No Do you have trouble paying your heating and electricity bill?: No Do you have trouble taking care of your child, family member or friend?: No Do you have trouble with day-to-day activities such as bathing, preparing meals, shopping, managing finances, etc.?: No Are you currently unemployed and looking for a job?: No Are you interested in more education?: No Please select the resources that you would like help with: None Currently or been in a relationship where the following occur: no concerns reported THRIVE Score: 0 AUDIT C Alcohol Use Questionnaire (AUDIT-C) 1. How often do you have a drink containing alcohol?: Never 3. How often do you have six or more drinks on one occasion?: Never Total Score: 0 Score Reviewed/Action Taken: Yes PORTER-7 AMB Questionnaire PORTER-7 Date PORTER - 7 assessed: 10/29/23 Feeling nervous, anxious, or on edge: 0 = Not at all Not being able to stop or control worryin = Not at all Worrying too much about different things: 0 = Not at all Trouble relaxin = Not at all Being so restless that it is hard to sit still: 0 = Not at all Becoming easily annoyed or irritable: 0 = Not at all Feeling afraid as if something awful might happen: 0 = Not at all Total PORTER-7 score (0-4 normal; 5-9 mild; 10-14 moderate; 15-21 severe): 0 Source: Developed by Drs. Jp Oropeza, Poly Infante, Brayden De La Fuente and colleagues, with an educational sera from [employer]. Review of Systems Const Denies chills, Reports fatigue, Denies fever(s) and Denies headache(s) ENT Denies dysphagia, Denies dizziness, Denies otalgia, Denies headache(s), Denies hoarseness, Denies neck pain, Denies odynophagia and Denies sore throat Card Denies chest pain, Denies palpitations and Denies dyspnea Resp Denies cough, Reports hemoptysis (occasionally, per patient), Denies dyspnea and Denies wheezing GI Reports abdominal pain (soreness over the abdomen diffusely), Denies constipation, Denies dysphagia, Denies heartburn, Denies diarrhea, Denies nausea, Denies odynophagia and Denies vomiting Denies dysuria, Denies nocturia and Denies urinary frequency Musc Reports arthralgias (right shoulder, on and off) and Denies neck pain Skin/Breast Details: (+) thick, discolored and disfigured toenail on the right big toe Denies rash Neuro Denies dizziness and Denies headache(s) Psych Reports anxiety Endo Reports fatigue and Denies palpitations Aller/Immun Denies wheezing Physical exam (Primary Care) Vital Signs: Last Vital Signs Pulse 58 10/29/23 10:25 BP 134/88 10/29/23 10:25 Pulse Ox 99 10/29/23 10:25 Oxygen Delivery Method Room Air 10/29/23 10:25 BMI result Body Mass Index 32.3 Tobacco/Smoking Status: Tobacco use Status Tobacco use date assessed 10/29/23 10/29/23 10:26 Patient Tobacco Use Status Former Tobacco user 10/29/23 10:26 Tobacco use type Cigarette 10/29/23 10:26 e-Cigarette/Vaping Use Never Used 10/29/23 10:26 PHQ-9: PHQ-9 Score PHQ-9: Total score 0 10/30/23 00:05 Depression Screening Interpretation: Negative (is on Rx) Thrive Assessment: Date of Thrive Assessment Date Thrive assessed 10/29/23 10/29/23 10:26 Currently or been in a relationship where the following occur: no concerns reported Const General: no acute distress and alert HENMT Ears: TM's normal bilaterally and EAC's normal Throat: Yes posterior oropharynx normal and Yes tonsils normal (no TP congestion) Neck Neck: Yes no lymphadenopathy and Yes supple Resp Auscultation: clear to auscultation bilaterally, no rales and no wheezes Cardio Rate: regular rate Rhythm: regular rhythm Heart sounds: no murmurs GI Other: (+) multiple healed small incisional wounds over the abdomen (S/P right laparoscopic nephrectomy a few weeks ago) Palpation (GI): Tenderness to palpation present (GI) (mild, diffusely), no guarding and No Rebound tenderness present Auscultation: normal bowel sounds General: Yes CVA tenderness (mild) on the right Back/Spine/Pelvis Back: CVA tenderness (mild) Skin Other: (+) onycholysis of the right big toenail Rashes: no rashes Extrem General: Yes no clubbing, cyanosis or edema Assessment and Plan Assessment & Plan (1) Renal cell carcinoma of right kidney: Code(s): C64.1 - Malignant neoplasm of right kidney, except renal pelvis Plan: A right renal mass was seen incidentally on abdominal CT done last year; abdominal MRI done confirmed renal cell carcinoma of the right kidney Patient recently has nuclear imaging/whole body bone scan done that showed no evidence of osteoblastic metastatic disease S/P laparoscopic right partial nephrectomy by urology (Dr. Paez) a couple of months ago at [facility] Is advised that most of his current abdominal pain and right flank pain are likely residual post-op pain related to his recent surgery Follow up with urology as scheduled for continuing management (2) Elevated LFTs: Code(s): R79.89 - Other specified abnormal findings of blood chemistry Plan: His LFTs last done in May 2023 have improved significantly from a month before Abdominal US with liver elastography done back on 05/12/23 revealed (+) echogenic liver suggestive of fatty infiltration and borderline elevated liver stiffness Patient states that he does not drink alcohol; is reminded to avoid taking medications containing Tylenol or Acetaminophen (3) Pure hypercholesterolemia: Code(s): E78.00 - Pure hypercholesterolemia, unspecified Plan: Reinforced low-cholesterol diet He was taken off Atorvastatin last year when his LFTs went up significantly and his total cholesterol increased to 238 mg/dl and LDL cholesterol to 169 mg/dl when last checked in late May 2023 He was not able to get his follow up labs done prior to his appointment today - states that he will try to get them done [facility] (4) Coronary artery calcification seen on computed tomography: Code(s): I25.10 - Atherosclerotic heart disease of [place] coronary artery without angina pectoris Plan: Three-vessel coronary artery calcifications were noted on his chest CT done last year, which (per cardiology) was unusual for his age Reinforced that he should continue working on lowering his cholesterol level and reducing his risks for cardiac disease May need additional cardiac workup if he starts experiencing symptoms of recurrent dyspnea and/or chest pains Follow up with cardiology as scheduled (5) Benign essential hypertension: Code(s): I10 - Essential (primary) hypertension Plan: Reinforced low sodium diet - goal is systolic BP of at least 120 mm or less Continue Lisinopril 5 mg QD (6) Pulmonary nodule: Code(s): R91.1 - Solitary pulmonary nodule Plan: His chest CT done in October 2022 revealed a 5 x 3 mm polyclonal nodule along the right minor fissure - is likely an intra fissural lymph node; chest CT is otherwise normal with no acute pulmonary disease According to the updated 2017 Fleischner Society recommendations, due to patient's significant history of smoking, optional CT can be done in 12 months for follow-up and he requests to have this ordered [facility] He did have a repeat chest CT done back on 05/04/2023 that showed the presence of bilateral nonspecific pulmonary nodules measuring up to 5 mm with no adenopathy in the chest Follow-up with pulmonary as scheduled (7) 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: Comment: EGD 12/2021 - repeat in 3 years Code(s): K22.70 - Vigil's esophagus without dysplasia Plan: Dietary restrictions reinforced Continue Pantoprazole 40 mg QD Follow up with GI as scheduled for continuing surveillance - will need repeat EGD in 2 to 3 years (2024) (8) Cervical spondylosis: Code(s): M47.812 - Spondylosis without myelopathy or radiculopathy, cervical region Plan: Cervical spine x-rays done last year in November 2021 revealed (+) cervical spondylosis with moderate C6-C7 disc degeneration Will refer to pain management and/or physical therapy if his neck symptoms get worse (9) Thoracic spondylosis: Code(s): M47.814 - Spondylosis without myelopathy or radiculopathy, thoracic region Plan: Thoracic spine x-rays done back in November 2021 revealed (+) mild thoracic spondylosis Will consider referral to physical therapy if his back pain gets worse (10) Degenerative joint disease of right shoulder: Comment: MRI of the shoulder done in July 2020 revealed (+) moderate acromioclavicular osteoarthritis; the previously demostrated superior labral tear is much less conspicuous on this MRI Code(s): M19.011 - Primary osteoarthritis, right shoulder Qualifiers: Osteoarthritis type: post-traumatic Qualified Code(s): M19.111 - Post- traumatic osteoarthritis, right shoulder Plan: Advised again that we will consider referring him to orthopedics for further evaluation and management if his shoulder symptoms get worse Patient states that his shoulder pains have been mostly tolerable and his shoulder ROM is grossly normal - would like to continue to hold off on referral at this time or any surgical intervention for his shoulder (11) Toenail fungus: Code(s): B35.1 - Tinea unguium Plan: Will refer to podiatry for further evaluation and management (12) Anxiety: Code(s): F41.9 - Anxiety disorder, unspecified Plan: Continue Latuda 20 mg QD and Hydroxyzine 25 mg TID PRN (13) Bipolar disorder: Code(s): F31.9 - Bipolar disorder, unspecified Qualifiers: Active/Remission status: currently active Current bipolar episode type: depressed Current episode severity: unspecified Qualified Code(s): F31.30 - Bipolar disorder, current episode depressed, mild or moderate severity, unspecified Plan: Continue Latuda 20 mg QD and Oxcarbazepine 600 mg BID Follow up with psychiatry as scheduled (14) Obesity (BMI 30-39.9): Code(s): E66.9 - Obesity, unspecified Plan: Reinforced diet/exercise as tolerated/lose weight Plan Follow up in 3 months Orders: Orders TSH reflex Free T4 10/29/23 E78.00 - Pure hypercholesterolemia, unspecified UA CC w/rflx Micro + Cult 10/29/23 R30.0 - Dysuria CT chest wo IV con 10/29/23 C64.1 - Malignant neoplasm of right kidney, except renal pelvis, R04.2 - Hemoptysis, R91.1 - Solitary pulmonary nodule Complete Blood Count Auto Diff 10/29/23 D64.9 - Anemia, unspecified Referrals Podiatry Referral B35.1 - Tinea unguium Coding Level of Care Code Est Pt Level 4 (49597) Diagnoses Renal cell carcinoma of right kidney C64.1 Elevated LFTs R79.89 Pure hypercholesterolemia E78.00 Coronary artery calcification seen on computed tomography I25.10 Benign essential hypertension I10 Pulmonary nodule R91.1 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 K22.70 Cervical spondylosis M47.812 Thoracic spondylosis M47.814 Post-traumatic osteoarthritis of right shoulder M19.111 Osteoarthritis type: post-traumatic Toenail fungus B35.1 Anxiety F41.9 Bipolar affective disorder, current episode depressed, current episode severity unspecified F31.30 Active/Remission status: currently active Current bipolar episode type: depressed Current episode severity: unspecified Obesity (BMI 30-39.9) E66.9
== END 2023-10-29 11:42 | disposition home or self-care (01) ==
PROVIDERS: PCP Internal Medicine; Visit Provider Internal Medicine
DX: E78.00 Pure hypercholesterolemia, unspecified (principal); C64.1 Malignant neoplasm of right kidney, except renal pelvis; F31.30 Bipolar disorder, current episode depressed, mild or moderate severity, unspecified; R79.89 Other specified abnormal findings of blood chemistry; I25.10 Atherosclerotic heart disease of native coronary artery without angina pectoris; I10 Essential (primary) hypertension; R91.1 Solitary pulmonary nodule; K22.70 Barrett's esophagus without dysplasia; M47.812 Spondylosis without myelopathy or radiculopathy, cervical region; M47.814 Spondylosis without myelopathy or radiculopathy, thoracic region; M19.111 Post-traumatic osteoarthritis, right shoulder; B35.1 Tinea unguium
CPT/HCPCS: 99214

== ENCOUNTER 2023-11-09 09:17 | Outpatient (REF) | payer OTHER, SELFPAY ==
[2023-11-09 09:36] LABS: MANUAL DIFF FLAG NO
[2023-11-09 10:10] LABS: Appearance Urine Clear; Color Urine Yellow; Glucose Urine UA Negative (Negative); Leukocyte Esterase Urine Negative (Negative); Nitrite Urine Negative (Negative); PH 5.5 (5.0-9.0); Urine Blood Negative (Negative); Urine Ketones Negative (Negative); Urine Protein Negative (Neg-Trace)
[2023-11-09 10:18] LABS: Basophils Percent Auto 0.7 % (0-2); Eosinophils Absolute Auto 0.1 X10*3/uL (0.0-0.4); Eosinophils Percent Auto 1.8 % (0-4); Hematocrit 39.6 % (42.0-52.0); Hemoglobin 13.9 g/dl (14.0-18.0); Imm Gran Abs Auto 0.04 X10*3/uL (0.00-0.03); Imm Gran Pct Auto 0.7 % (0.0-0.4); Lymphocytes Absolute Auto 1.6 X10*3/uL (1.2-4.9); Lymphocytes Percent Auto 26.1 % (20-40); Mean Corpuscular HGB Conc 35.1 g/dl (31.0-36.0); Mean Corpuscular Volume 82.5 fL (80.0-98.0); Mean Platelet Volume 9.7 fL (9.4-12.4); Monocytes Absolute Auto 0.6 X10*3/uL (0.1-1.2); Monocytes Percent Auto 9.2 % (2-11); Neutrophils Absolute Auto 3.8 x10*3/uL (2.0-8.3); Neutrophils Percent Auto 61.5 % (45-73); Platelet Count 271 X10*3/uL (160-400); Red Cell Distribution Width 12.5 % (11.0-16.0); White Blood Count 6.1 X10*3/uL (4.8-10.8)
[2023-11-09 10:56] LABS: Alanine Aminotransferase 27 U/L (0-40); Albumin Level 4.5 g/dL (3.5-5.0); Alkaline Phosphatase 109 U/L (39-117); Anion Gap 13 (12-20); Aspartate Amino Transferase 25 U/L (5-37); Bilirubin Total 0.3 mg/dL (0.0-1.0); Blood Urea Nitrogen 17 mg/dL (9-16); Calcium 9.6 mg/dL (8.4-10.2); Carbon Dioxide 24 mmol/L (22-29); Chloride 105 mmol/L (96-108); Cholesterol 269 mg/dL (<200); Estimated Glomerular Filt Rate > 60; Glucose Fasting 95 mg/dL (60-99); HDL Cholesterol 49 mg/dL (>40); LDL Cholesterol Calculated 200 mg/dL (<100); Potassium 4.2 mmol/L (3.3-5.1); Sodium 138 mmol/L (135-145); Total Protein 8.1 g/dL (6.5-8.0); Triglycerides 103 mg/dL (<150)
[2023-11-09 11:11] LABS: TSH reflex Free T4 3.79 uIU/mL (0.32-4.0)
== END 2023-11-09 09:18 | disposition home or self-care (01) ==
LOC: HO.LAB 09:17
PROVIDERS: PCP Internal Medicine; Visit Provider Internal Medicine
DX: R39.9 Unspecified symptoms and signs involving the genitourinary system (principal); E78.00 Pure hypercholesterolemia, unspecified; D64.9 Anemia, unspecified
CPT/HCPCS: 36415; 80053; 80061; 81003; 84443; 85025

== ENCOUNTER 2023-11-16 11:38 | Outpatient (REF) | payer OTHER, SELFPAY ==
[2023-11-16 13:46] LABS: Appearance Urine Clear; Color Urine Yellow; Glucose Urine UA Negative (Negative); Leukocyte Esterase Urine Negative (Negative); Nitrite Urine Negative (Negative); Urine Blood Negative (Negative); Urine Ketones Negative (Negative); Urine Protein Trace mg/dL (Neg-Trace)
[2023-11-18 10:38] LABS: Prot Elec - Albumin 4.7 g/dL (3.8-4.8); Prot Elec - Alpha1 0.3 g/dL (0.2-0.3); Prot Elec - Alpha2 0.6 g/dL (0.5-0.9); Prot Elec - Beta 1 0.5 g/dL (0.4-0.6); Prot Elec - Beta 2 0.4 g/dL (0.2-0.5); Prot Elec - Gamma 1.1 g/dL (0.8-1.7); Prot Elec - Total Protein 7.5 g/dL (6.1-8.1)
== END 2023-11-16 11:39 | disposition home or self-care (01) ==
LOC: HO.LAB 11:38
PROVIDERS: PCP Internal Medicine; Visit Provider Internal Medicine
DX: N28.89 Other specified disorders of kidney and ureter (principal); R30.0 Dysuria; R53.83 Other fatigue; K44.9 Diaphragmatic hernia without obstruction or gangrene; K29.60 Other gastritis without bleeding
CPT/HCPCS: 36415; 81003; 84165

== ENCOUNTER 2023-12-08 07:31 | Outpatient (REF) | payer OTHER, SELFPAY ==
[2023-12-10 09:54] LABS: PEU-Protein Creat Ratio Rand 0.077 (0.025-0.148); PEU-Rand. Prot/Creat Ratio 77 mg/g creat (25-148); PEU-Random Ur. Gamma Globulin 0 %; PEU-Random Urine A1 Globulin 0 %; PEU-Random Urine A2 Globulin 0 %; PEU-Random Urine Albumin 100 %; PEU-Random Urine Beta Globulin 0 %; PEU-Random Urine Creatinine 156 mg/dL (20-320); PEU-Random Urine Protein 12 mg/dL (5-25)
== END 2023-12-08 07:32 | disposition home or self-care (01) ==
LOC: HO.LAB 07:31
PROVIDERS: PCP Internal Medicine; Visit Provider Internal Medicine
DX: N28.89 Other specified disorders of kidney and ureter (principal); R53.83 Other fatigue; C64.1 Malignant neoplasm of right kidney, except renal pelvis
CPT/HCPCS: 82570; 84156; 84166

== ENCOUNTER 2023-12-29 15:17 | Outpatient (AMB) | payer OTHER, SELFPAY ==
--- NOTE | 2023-12-29 15:18 | HO.NEPHOV ---
Vital Signs 12/29/23 15:20 Height 5 ft 11 in Weight 239 lb 2 oz BMI 33.3 BP 140/100 H Blood Pressure Location Lt brachial Position Sitting Pulse 71 Pulse Source Pulse Oximeter Pulse Oximetry (%) 97 Oxygen Delivery Method Room Air Intake Visit Reasons: Partial Nephrectomy /Second opinion/ No answer Coupling Machine Operator Required: No Accompanied by: Self / Same As Patient Allergies Peanut Butter Allergy (Intermediate, Verified 12/29/23 15:23) sore throat, hoarsensss lorazepam [From ATIVAN] Allergy (Unknown, Verified 12/29/23 15:23) ANAPHYLAXIS milk [Milk] Allergy (Unknown, Verified 12/29/23 15:23) GI DISTRESS pravastatin Adverse Reaction (Unknown, Verified 12/29/23 15:23) ?diarrhea? HPI Comments Details: I had the privilege of seeing Rajeev in consultation for H/O renal cell cancer . He has H/O hypertension. He is on ACEI. He has been having on and off flank pain which he thinks could be his renal cell cancer. He is concerned about the pulmonary nodules that were seen in imaging last year and he would like to get a repeat chest CT done as he thinks it could be associated with his renal cell cancer. He had a laparoscopic partial nephrectomy done in the past for his renal cell cancer and is worried that he still has on and off pain his flank area as well as his abdomen. He had a repeat renal US done on 09/22/2023 at [facility]. He denies any fever, headaches or dizziness, night sweats, weight loss, fever, hematuria, chest pains, no shortness of breath, nausea/ vomiting. He has no PND, orthopnea, pedal edema or orthostatic symptoms. He has no new bone or back pain. He takes Trileptal. He avoids excessive NSAID's and tries to maintain good hydration. He has H/O cocaine use but claims that he has not used it for a few years. [facility] Medical History (Updated 10/30/23 @ 05:48 by Gonzalez Roman MD) Thoracic spondylosis Cervical spondylosis Renal cell carcinoma of right kidney Elevated LFTs Benign essential hypertension Mucus in stool Abdominal bloating Left-sided chest pain Overweight (BMI 25.0-29.9) Paresthesia of right upper extremity Pleuritis Polysubstance abuse Irritation of right eye Smoker Anxiety Schizophrenia Bipolar disorder Right inguinal pain Obesity (BMI 30-39.9) Degenerative joint disease of right shoulder Pure hypercholesterolemia Atrophy of muscle of right shoulder Anterior to posterior tear of superior glenoid labrum of right shoulder Surgical History (Updated 12/29/23 @ 15:30 by Pamella Gan MA) History of partial nephrectomy History of esophagogastroduodenoscopy (EGD) H/O colonoscopy History of surgery on arm History of cataract removal with insertion of prosthetic lens History of hernia surgery (1998) Family History Father Amyloidosis Mother Alive and well Maternal Uncle Prostate cancer Social History Household Members Other:: roomates/friends Housing: Apartment Are you a primary neonatal intensive care nurse to a significant other at home: No Do you presently have visiting nurse or other home services: No Alcohol intake: current Alcohol intake frequency: does not drink Patient Tobacco Use Status: Former Tobacco user Tobacco use type: Cigarette Cigarette Packs Per Day: 0.5 Cigarettes Per Day: 10.0 Years Smoked: 30yrs, Quit 08/2022. e-Cigarette/Vaping Use: Never Used Second Hand Smoke Exposure: No service: No Current occupational status: unemployed Cognitive needs: No Hearing needs: No Vision needs: No Physical Exam Vital Signs: Last Vital Signs Pulse 71 12/29/23 15:20 BP 140/100 H 12/29/23 15:20 Pulse Ox 97 12/29/23 15:20 Oxygen Delivery Method Room Air 12/29/23 15:20 BMI result Body Mass Index 33.3 Const General: comfortable and no acute distress Orientation/consciousness: patient oriented x3 HEENT Head: Yes normocephalic Mouth: Normal oral and palatal mucosa present Eyes EOM: EOMs intact bilaterally Neck Neck: Yes supple Resp Auscultation: clear to auscultation bilaterally Cardio Jugular venous distension: no JVD Rate: regular rate GI Palpation (GI): Soft to palpation Auscultation: normal bowel sounds General: Yes no CVA tenderness Back/Spine/Pelvis Back: no CVA tenderness Skin General skin exam: no rashes or lesions noted Neuro General: patient oriented x3 and moves all extremities Extrem General: Yes no pedal edema Results Reviewed Nephrology Results: Hgb 13.9 g/dl (14.0-18.0) L 11/09/23 WBC 6.1 X10*3/uL (4.8-10.8) 11/09/23 Plt Count 271 X10*3/uL (160-400) 11/09/23 Sodium 138 mmol/L (135-145) 11/09/23 Potassium 4.2 mmol/L (3.3-5.1) 11/09/23 Chloride 105 mmol/L (96-108) 11/09/23 Carbon Dioxide 24 mmol/L (22-29) 11/09/23 BUN 17 mg/dL (9-16) H 11/09/23 Creatinine 0.91 mg/dL (0.5-1.4) 11/09/23 Calcium 9.6 mg/dL (8.4-10.2) 11/09/23 Urine Protein Trace mg/dL (Neg-Trace) 11/16/23 Protein/Creatinin Ratio 77 mg/g creat (25-148) 12/08/23 Assessment & Plan Assessment & Plan (1) Benign essential hypertension: Code(s): I10 - Essential (primary) hypertension Category: Medical (2) Renal cell carcinoma of right kidney: Code(s): C64.1 - Malignant neoplasm of right kidney, except renal pelvis Category: Medical Plan His renal functions are at baseline. He had H/O partial nephrectomy and had follow up USS / CT. He has no hematuria, night sweats , fever or weight loss. He has no significant proteinuria. His BP has been at goal. He is tolerating ACEI. He should avoid NSAID's and maintain good hydration. He claims that he has not used any cocaine for couple of years. He takes PPI regularly. He needs regular follow up with Urology. More than 50 % of time during this visit was utilized to discuss about the above medical issues. Follow up labs ordered. Answered all questions. Follow up appointment given. Orders: Orders Creatinine 12/29/23 I10 - Essential (primary) hypertension Blood Urea Nitrogen 12/29/23 I10 - Essential (primary) hypertension Electrolytes 12/29/23 I10 - Essential (primary) hypertension Calcium 12/29/23 I10 - Essential (primary) hypertension UA and rflx microscopic 12/29/23 I10 - Essential (primary) hypertension Protein Creatinine Ratio, Ur 12/29/23 I10 - Essential (primary) hypertension
[2023-12-29 15:20] VITALS: BP 140/100; PULSE 71; O2SAT 97; BMI 33.3
== END 2023-12-29 16:05 | disposition home or self-care (01) ==
PROVIDERS: PCP Internal Medicine; Visit Provider Internal Medicine Nephrology
DX: I10 Essential (primary) hypertension (principal); C64.1 Malignant neoplasm of right kidney, except renal pelvis
CPT/HCPCS: 99204

== ENCOUNTER → 2023-12-29 15:17 | Outpatient (BNVA) | payer OTHER, SELFPAY | PROVIDERS: PCP Internal Medicine; Visit Provider Internal Medicine Nephrology | DX: C64.1 Malignant neoplasm of right kidney, except renal pelvis (principal); I10 Essential (primary) hypertension | CPT/HCPCS: 99202 ==

== ENCOUNTER 2024-01-14 10:49 | Outpatient (REF) | payer OTHER, SELFPAY ==
--- NOTE | ~2024-01-14 | CT_ITS ---
EXAMINATION: CT CHEST WITH CONTRAST CLINICAL INFORMATION: Solitary pulmonary nodule. COMPARISON: 10/10/2022 TECHNIQUE: Multidetector volumetric CT imaging of the chest was obtained after the administration of 65 mL of Omnipaque 350 intravenous contrast without immediate adverse reactions. Axial MIP volume rendering provided. Sagittal and coronal reformatted images were obtained. This CT examination was performed using dose optimization techniques as appropriate, variously including the following: *Automated exposure control *Adjustment of mA and/or kV according to patient size (this includes techniques or standardized protocols for targeted exams where dose is matched to indication/reason for exam; i.e. extremities or head) *Use of iterative reconstruction technique DLP: 183 mGy-cm FINDINGS: LUNGS: 5 mm nodule right upper lobe on image 45. 5 mm nodule along the right minor fissure on image 82. 5 mm subpleural nodule left lower lobe on image 92. No focal consolidation. Central airways are patent. MEDIASTINUM: No bulky axillary, hilar or mediastinal lymphadenopathy. Great vessels are of normal caliber. This is normal. No pericardial effusion. Moderate coronary artery calcifications. PLEURA: No pleural effusion. UPPER ABDOMEN:. Hepatic steatosis. No adrenal mass. OSSEOUS STRUCTURES: No destructive bone lesions. CT/CT chest w IV con IMPRESSION: Stable bilateral pulmonary nodules measuring up to 5 mm. These nodules have been stable since 10/10/2022. No new or enlarging pulmonary nodules.
[2024-01-14] MEDS: iohexoL 350 MG/ML 100 ML INFUS..BTL 65 ML IV (11:56)
== END 2024-01-14 10:50 | disposition home or self-care (01) ==
LOC: HO.CT 10:49
PROVIDERS: PCP Internal Medicine; Visit Provider Internal Medicine
DX: R91.1 Solitary pulmonary nodule (principal); C64.1 Malignant neoplasm of right kidney, except renal pelvis; R04.2 Hemoptysis
CPT/HCPCS: 71260; Q9967

== ENCOUNTER 2024-01-19 08:31 | Outpatient (REF) | payer OTHER, SELFPAY ==
--- NOTE | ~2024-01-19 | FL_ITS ---
EXAMINATION: XR FLUOROSCOPY UPPER GI WITH AIR CLINICAL INFORMATION: Reflux. History of Vigil's esophagus COMPARISON: None TECHNIQUE: Fluoroscopic air contrast upper GI examination was performed utilizing standard techniques with thin and thick barium and effervescent granules. Numerous spot images were obtained. FINDINGS: Dual and single contrast images of the esophagus demonstrate normal caliber, contour, and mucosal pattern. No evidence of stricture, mass, or ulcerations identified. Esophageal peristalsis is mildly disorganized. No evidence of hiatus hernia identified. No significant gastroesophageal reflux was seen during the course of the examination and on reflux views. Dual contrast and single contrast images of the stomach demonstrated normal contour and mucosal pattern without evidence of mass, ulceration, or other abnormality. Contrast freely passed into the gastric antrum and duodenal bulb without delay. Single and air-contrast images of the duodenal bulb demonstrate no abnormality. The duodenal sweep has a normal appearance, course, and mucosal fold appearance. No malrotation. The imaged proximal jejunum has a normal fold pattern and caliber. FLUOROSCOPY TIME: 3 minutes 22 seconds Number of Spot Images: 11 Number of Cine: 11 DOSE AREA PRODUCT: [id number] uGy-m2 (microgray-meter squared) FL/FL upper GI series IMPRESSION: 1. Mildly disorganized esophageal peristalsis. No esophageal mucosal abnormality appreciated. 2. No evidence of hiatus hernia, and no definite reflux seen during the course of the exam. 3. Normal stomach, and duodenum. This procedure was performed by Surinder Nelson PA-C, and supervised by Dr. Cabral
== END 2024-01-19 08:32 | disposition home or self-care (01) ==
LOC: HO.XRAY 08:31
PROVIDERS: PCP Internal Medicine; Visit Provider Internal Medicine
DX: K44.9 Diaphragmatic hernia without obstruction or gangrene (principal); K29.60 Other gastritis without bleeding
CPT/HCPCS: 74240

== ENCOUNTER → 2024-01-19 08:31 | Outpatient (BNV) | payer OTHER, SELFPAY | PROVIDERS: PCP Internal Medicine; Visit Provider Physician Assistant Surgical | DX: K22.70 Barrett's esophagus without dysplasia (principal); K44.9 Diaphragmatic hernia without obstruction or gangrene | CPT/HCPCS: 74246 ==

== ENCOUNTER 2024-02-04 10:41 | Outpatient (AMB) | payer OTHER, SELFPAY ==
[2024-02-04 10:42] VITALS: BP 138/96; PULSE 69; O2SAT 96; BMI 32.6
--- NOTE | 2024-02-04 10:42 | A.OFFPC_ITS ---
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 Medication List - Last Reconciled 02/04/24 by Gonzalez Roman MD lisinopril 5 mg PO DAILY lurasidone (Latuda) 20 mg PO DAILY oxcarbazepine (Trileptal) 600 mg PO BID pantoprazole 40 mg PO DAILY Tobacco use date assessed: 02/04/24 Dental Screening Dental Screen Date: 10/29/23 HPI hyperlipidemia, renal cell carcinoma, gastritis HPI Details Patient comes in today for his follow up visit He continues to complain of increased pain all over, including over his lower back and flank areas bilaterally - is concerned that his back pain may be from his kidneys and he is concerned about his renal cell cancer recurring and is requesting to get some imaging studies done [facility] He also still has on and off joint pains and continues to worry about his pulmonary nodules, for which he just had chest CT done last month (January 2024) that showed stable nodules since October 2022 He recalls that his father was diagnosed with amyloidosis but by the time he was diagnosed, the disease has spread all over and it was too late to do anything for him and he somehow now thinks that he also has amyloidosis due to majority of the symptoms and problems that he's had and is insisting that he be checked for this, including testing for [place] We have discussed with him before that for testing for amyloidosis to be done, we have to have a definite organ or tissue to start with as we will likely need to have a tissue biopsy done to perform the testing for amyloidosis on but he just kept repeating and rambling on and on about his symptoms and insists that he needs to be checked and it is difficult to otherwise get to talk to him and explain things to him as he tends to keep talking over me and interrupting me while I am in the process of explaining things to him States that he has mentioned this to his other doctors but they all just seem to ignore him and trivialize / minimalize his symptoms and that he keeps being told that a lot of these are due to his anxiety, which he adamantly disagrees with even though his symptoms are typically what one would see in patients with poorly-controlled anxiety He is also requesting for a referral to see a different urologist for his kidneys (Hx of renal cell carcinoma) - states that he was seeing Dr. Justin Interiano in [place] before but feels that Dr. Interiano is arrogant and does not listen to his complaints Dr. Interiano has reached out to me over the phone a few months ago and indicated that he has the same issues during the patient's visit as what we are going through today - that he has a hard time explaining things to patient and felt that it was impossible to get any word in as patient kept on rambling on and on about his issues and refused to listen to anything other than what he wanted or was asking for He denies any recent headaches or dizziness Denies any chest pains, no increased SOB No nausea/vomiting, no abdominal pain No change in bowel habits noted [facility] Medical History (Updated 02/08/24 @ 04:10 by Gonzalez Roman MD) Thoracic spondylosis Cervical spondylosis Renal cell carcinoma of right kidney Elevated LFTs Benign essential hypertension Mucus in stool Abdominal bloating Left-sided chest pain Overweight (BMI 25.0-29.9) Paresthesia of right upper extremity Pleuritis Polysubstance abuse Irritation of right eye Smoker Anxiety Schizophrenia Bipolar disorder Right inguinal pain Obesity (BMI 30-39.9) Degenerative joint disease of right shoulder Pure hypercholesterolemia Atrophy of muscle of right shoulder Anterior to posterior tear of superior glenoid labrum of right shoulder Surgical History (Updated 02/08/24 @ 03:54 by Gonzalez Roman MD) History of partial nephrectomy History of esophagogastroduodenoscopy (EGD) H/O colonoscopy History of surgery on arm History of cataract removal with insertion of prosthetic lens History of hernia surgery (1998) Family History Father Amyloidosis Mother Alive and well Maternal Uncle Prostate cancer Social History Household Members Other:: roomates/friends Housing: Apartment Are you a primary pet care worker to a significant other at home: No Do you presently have visiting nurse or other home services: No Alcohol intake: current Alcohol intake frequency: does not drink Patient Tobacco Use Status: Former Tobacco user Tobacco use type: Cigarette Cigarette Packs Per Day: 0.5 Cigarettes Per Day: 10.0 Years Smoked: 30yrs, Quit 08/2022. e-Cigarette/Vaping Use: Never Used Second Hand Smoke Exposure: No service: No Current occupational status: unemployed Cognitive needs: No Hearing needs: No Vision needs: No Questionnaire Thrive Questionnaire Date Thrive assessed: 10/29/23 I am a: Patient What is your living situation today?: I have a steady place to live Within the past 12 months, did the food you bought not last and you didn't have the money to get more?: Never true Within the past 12 months, did you worry whether your food would run out before you got money to buy more?: Never true Do you have trouble paying for medicines?: No Do you have trouble getting transportation to medical appointments?: No Do you have trouble paying your heating and electricity bill?: No Do you have trouble taking care of your child, family member or friend?: No Do you have trouble with day-to-day activities such as bathing, preparing meals, shopping, managing finances, etc.?: No Are you currently unemployed and looking for a job?: No Are you interested in more education?: No Please select the resources that you would like help with: None Currently or been in a relationship where the following occur: no concerns reported THRIVE Score: 0 AUDIT C Alcohol Use Questionnaire (AUDIT-C) 1. How often do you have a drink containing alcohol?: Never 3. How often do you have six or more drinks on one occasion?: Never Total Score: 0 Score Reviewed/Action Taken: Yes PORTER-7 AMB Questionnaire PORTER-7 Date PORTER - 7 assessed: 10/29/23 Source: Developed by Drs. Jp Oropeza, Poly BBrayden Jones and colleagues, with an educational sera from [employer]. Review of Systems Const Denies chills, Reports fatigue, Denies fever(s) and Denies headache(s) ENT Denies dysphagia, Denies dizziness, Denies otalgia, Denies headache(s), Denies neck pain, Denies odynophagia and Denies sore throat Card Denies chest pain, Denies palpitations and Denies dyspnea Resp Denies cough, Reports hemoptysis (occasionally, per patient), Denies dyspnea and Denies wheezing GI Denies abdominal pain, Denies constipation, Denies dysphagia, Denies heartburn, Denies diarrhea, Denies nausea, Denies odynophagia and Denies vomiting Denies dysuria, Denies nocturia and Denies urinary frequency Musc Reports back pain (over his lower back and bilateral flank areas), Reports arthralgias (right shoulder, on and off) and Denies neck pain Skin/Breast Denies rash Neuro Denies dizziness and Denies headache(s) Psych Reports anxiety Endo Reports fatigue and Denies palpitations Aller/Immun Denies wheezing Physical exam (Primary Care) Vital Signs: Last Vital Signs Pulse 69 02/04/24 10:42 BP 138/96 H 02/04/24 10:42 Pulse Ox 96 02/04/24 10:42 Oxygen Delivery Method Room Air 02/04/24 10:42 BMI result Body Mass Index 32.6 Tobacco/Smoking Status: Tobacco use Status Tobacco use date assessed 02/04/24 02/04/24 10:43 Patient Tobacco Use Status Former Tobacco user 02/04/24 10:43 Tobacco use type Cigarette 02/04/24 10:43 e-Cigarette/Vaping Use Never Used 02/04/24 10:43 Thrive Assessment: Date of Thrive Assessment Date Thrive assessed 10/29/23 02/04/24 10:43 Currently or been in a relationship where the following occur: no concerns reported Const General: no acute distress, alert and anxious HENMT Throat: Yes posterior oropharynx normal and Yes tonsils normal (no TP congestion) Neck Neck: Yes no lymphadenopathy and Yes supple Thyroid: Thyroid normal Resp Auscultation: clear to auscultation bilaterally, no rales and no wheezes Cardio Rate: regular rate Rhythm: regular rhythm Heart sounds: no murmurs GI Other: (+) multiple healed small incisional wounds over the abdomen (S/P right laparoscopic nephrectomy) Palpation (GI): Soft to palpation, nontender and no guarding Auscultation: normal bowel sounds General: Yes CVA tenderness (mild) bilateral Back/Spine/Pelvis Back: CVA tenderness (mild) Thoracic/Lumbar Spine: lumbar spinal tenderness Skin Rashes: no rashes Extrem General: Yes no clubbing, cyanosis or edema Assessment and Plan Assessment & Plan (1) Renal cell carcinoma of right kidney: Code(s): C64.1 - Malignant neoplasm of right kidney, except renal pelvis Plan: S/P laparoscopic right partial nephrectomy by urology (Dr. Paez) at [facility] in August 2023 Patient had nuclear imaging/whole body bone scan done prior to his surgery that revealed NO evidence of osteoblastic metastatic disease He has been experiencing increased pain over his lower back and bilateral flank areas lately and is concerned about his symptoms - is requesting for some imaging studies to be done to look into this Bilateral renal US ordered for further evaluation, per request He used to see urology in [place] but is now requesting for a referral to see another urology group as he felt that the current urologist he is seeing is arrogant and does not listen to his complaints (see HPI for details) States that he does NOT want to go to [facility] U[facility] as well Urology referral done to Dr. Mario Alberto Johansen in [place], per patient's request (2) Low back pain: Code(s): M54.50 - Low back pain, unspecified Qualifiers: Chronicity: unspecified Back pain laterality: bilateral Sciatica presence: without sciatica Qualified Code(s): M54.50 - Low back pain, unspecified Plan: Due to his recent low back pain and flank pains, will send him as well for lumbar spine x-rays for further evaluation (3) Elevated LFTs: Code(s): R79.89 - Other specified abnormal findings of blood chemistry Plan: His LFTs were elevated in the past although they were back to normal when last checked in November 2023 Abdominal US with liver elastography done back on 05/12/23 revealed (+) echogenic liver suggestive of fatty infiltration and borderline elevated liver stiffness Patient states that he does not drink alcohol; is again reminded to avoid taking medications containing Tylenol or Acetaminophen Will recheck his LFTs and labs [facility] for follow up (4) Pure hypercholesterolemia: Code(s): E78.00 - Pure hypercholesterolemia, unspecified Plan: Reinforced low-cholesterol diet He was taken off Atorvastatin last year when his LFTs went up significantly and his total cholesterol increased to 238 mg/dl and LDL cholesterol to 169 mg/dl when last checked in late May 2023 He was not able to get his follow up labs done prior to his appointment today - states that he will try to get them done [facility] Advised that if his cholesterol levels are still elevated and his LFTs remain normal, will consider starting him on Rosuvastatin instead (5) Coronary artery calcification seen on computed tomography: Code(s): I25.10 - Atherosclerotic heart disease of [place] coronary artery without angina pectoris Plan: Three-vessel coronary artery calcifications were noted on his chest CT done last year, which (per cardiology) was unusual for his age Reinforced that he should continue working on lowering his cholesterol level and reducing his risks for cardiac disease May need additional cardiac workup if he starts experiencing symptoms of recurrent dyspnea and/or chest pains Follow up with cardiology as scheduled (6) Benign essential hypertension: Code(s): I10 - Essential (primary) hypertension Plan: Reinforced low sodium diet - goal is systolic BP of at least 120 mm or less Continue Lisinopril 5 mg QD (7) Pulmonary nodule: Code(s): R91.1 - Solitary pulmonary nodule Plan: His chest CT done in October 2022 revealed a 5 x 3 mm polyclonal nodule along the right minor fissure - is likely an intra fissural lymph node; chest CT is otherwise normal with no acute pulmonary disease According to the updated 2017 Fleischner Society recommendations, due to patient's significant history of smoking, optional CT can be done in 12 months for follow-up and he requests to have this ordered [facility] He did have a repeat chest CT done back on 05/04/2023 that showed the presence of bilateral nonspecific pulmonary nodules measuring up to 5 mm with no adenopathy in the chest Chest CT was again repeated last month (January 2024)m which showed stable pulmonary nodules with no significant interval change Follow-up with pulmonary as scheduled (8) 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: Comment: EGD 12/2021 - repeat in 3 years Code(s): K22.70 - Vigil's esophagus without dysplasia Plan: Dietary restrictions reinforced Continue Pantoprazole 40 mg QD Follow up with GI as scheduled for continuing surveillance - will need repeat EGD in 2 to 3 years (2024) (9) Family history of amyloidosis: Code(s): Z83.49 - Family history of other endocrine, nutritional and metabolic diseases Plan: Patient has expressed his concerns/fears that a lot of his recent symptoms (back pain, joint pains) as well as his renal cell carcinoma last year are due to amyloidosis and he is requesting testing for this, including specifying that he wants Congo Red staining done on his tests He recalls that his father was diagnosed with amyloidosis years ago but by the time he was diagnosed, the disease has spread all over and it was too late to do anything for him He is somehow now convinced that he also has amyloidosis due to majority of the symptoms and is insisting that he be checked for this States that I do not want to wait until it gets worse. No one found amyloidosis in my father until he was . I do not want that to be me We have discussed with him before and are now repeating and explaining again to him that for testing for amyloidosis to be done, we have to have a particular organ or tissue to start with as we will likely need to have a tissue biopsy done to perform the testing for amyloidosis on and it is not something as simple as just ordering a blood test or imaging study but patient just kept repeating and rambling on and on about his symptoms and insists that he needs to be checked and it is difficult to otherwise get a word in and talk to him as he t ends to keep talking over me and interrupting me while I am in the process of explaining things to him I have advised him to get the previously ordered labs done first - these included both serum and urine electrophoresis and if they at least show any abnormalities, then we can have some reason to start looking into his requested tests We have also tried to refer him to oncology but was advised that they do not see patients for the referred reason (10) Cervical spondylosis: Code(s): M47.812 - Spondylosis without myelopathy or radiculopathy, cervical region Plan: Cervical spine x-rays done last year in November 2021 revealed (+) cervical spondylosis with moderate C6-C7 disc degeneration Will refer to pain management and/or physical therapy if his neck symptoms get worse (11) Thoracic spondylosis: Code(s): M47.814 - Spondylosis without myelopathy or radiculopathy, thoracic region Plan: Thoracic spine x-rays done back in November 2021 revealed (+) mild thoracic spondylosis Will consider referral to physical therapy if his back pain gets worse (12) Degenerative joint disease of right shoulder: Comment: MRI of the shoulder done in July 2020 revealed (+) moderate acromioclavicular osteoarthritis; the previously demostrated superior labral tear is much less conspicuous on this MRI Code(s): M19.011 - Primary osteoarthritis, right shoulder Qualifiers: Osteoarthritis type: post-traumatic Qualified Code(s): M19.111 - Post- traumatic osteoarthritis, right shoulder Plan: Advised again that we will consider referring him to orthopedics for further evaluation and management if his shoulder symptoms get worse Patient states that his shoulder pains have been mostly tolerable and his shoul shaun ROM is grossly normal - would like to continue to hold off on referral at this time or any surgical intervention for his shoulder (13) Anxiety: Code(s): F41.9 - Anxiety disorder, unspecified Plan: Continue Latuda 20 mg QD and Hydroxyzine 25 mg TID PRN (14) Bipolar disorder: Code(s): F31.9 - Bipolar disorder, unspecified Qualifiers: Active/Remission status: currently active Current bipolar episode type: depressed Current episode severity: unspecified Qualified Code(s): F31.30 - Bipolar disorder, current episode depressed, mild or moderate severity, unspecified Plan: Continue Latuda 20 mg QD and Oxcarbazepine 600 mg BID Follow up with psychiatry as scheduled (15) Obesity (BMI 30-39.9): Code(s): E66.9 - Obesity, unspecified Plan: Reinforced diet/exercise as tolerated/lose weight Plan Follow up in 4 months Orders: Orders Comprehensive [place]. Panel Fast 02/05/24 E78.00 - Pure hypercholesterolemia, unspecified Lipid Panel 02/05/24 E78.00 - Pure hypercholesterolemia, unspecified US renal BI 02/04/24 R10.9 - Unspecified abdominal pain, Z85.528 - Personal history of other malignant neoplasm of kidney XR lumbar spine 2-3V 02/04/24 M54.50 - Low back pain, unspecified Complete Blood Count Auto Diff 02/05/24 D64.9 - Anemia, unspecified Referrals Urology Referral Z83.49 - Family history of other endocrine, nutritional and metabolic diseases, Z85.528 - Personal history of other malignant neoplasm of kidney Coding Level of Care Code Est Pt Level 4 (25772) Diagnoses Renal cell carcinoma of right kidney C64.1 Bilateral low back pain without sciatica, unspecified chronicity M54.50 Chronicity: unspecified Back pain laterality: bilateral Sciatica presence: without sciatica Elevated LFTs R79.89 Pure hypercholesterolemia E78.00 Coronary artery calcification seen on computed tomography I25.10 Benign essential hypertension I10 Pulmonary nodule R91.1 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 K22.70 Family history of amyloidosis Z83.49 Cervical spondylosis M47.812 Thoracic spondylosis M47.814 Post-traumatic osteoarthritis of right shoulder M19.111 Osteoarthritis type: post-traumatic Anxiety F41.9 Bipolar affective disorder, current episode depressed, current episode severity unspecified F31.30 Active/Remission status: currently active Current bipolar episode type: depressed Current episode severity: unspecified Obesity (BMI 30-39.9) E66.9
== END 2024-02-04 11:43 | disposition home or self-care (01) ==
LOC: HO.HMGH 10:41
PROVIDERS: PCP Internal Medicine; Visit Provider Internal Medicine
DX: C64.1 Malignant neoplasm of right kidney, except renal pelvis (principal); M54.50 Low back pain, unspecified; R79.89 Other specified abnormal findings of blood chemistry; E78.00 Pure hypercholesterolemia, unspecified; I25.10 Atherosclerotic heart disease of native coronary artery without angina pectoris; I10 Essential (primary) hypertension; R91.1 Solitary pulmonary nodule; K22.70 Barrett's esophagus without dysplasia; Z83.49 Family history of other endocrine, nutritional and metabolic diseases; M47.812 Spondylosis without myelopathy or radiculopathy, cervical region; M47.814 Spondylosis without myelopathy or radiculopathy, thoracic region; M19.111 Post-traumatic osteoarthritis, right shoulder
CPT/HCPCS: 99214

== ENCOUNTER 2024-02-05 08:28 | Outpatient (REF) | payer OTHER, SELFPAY ==
[2024-02-05 08:43] LABS: MANUAL DIFF FLAG NO
[2024-02-05 09:14] LABS: Basophils Percent Auto 0.4 % (0-2); Eosinophils Absolute Auto 0.1 X10*3/uL (0.0-0.4); Hematocrit 38.8 % (42.0-52.0); Hemoglobin 13.5 g/dl (14.0-18.0); Imm Gran Abs Auto 0.02 X10*3/uL (0.00-0.03); Imm Gran Pct Auto 0.4 % (0.0-0.4); Lymphocytes Absolute Auto 1.4 X10*3/uL (1.2-4.9); Lymphocytes Percent Auto 30.9 % (20-40); Mean Corpuscular HGB Conc 34.8 g/dl (31.0-36.0); Mean Corpuscular Hemoglobin 29.5 pg (27.0-33.0); Mean Corpuscular Volume 84.9 fL (80.0-98.0); Mean Platelet Volume 9.5 fL (9.4-12.4); Monocytes Absolute Auto 0.4 X10*3/uL (0.1-1.2); Monocytes Percent Auto 8.5 % (2-11); Neutrophils Absolute Auto 2.7 x10*3/uL (2.0-8.3); Neutrophils Percent Auto 57.8 % (45-73); Platelet Count 250 X10*3/uL (160-400); Red Blood Count 4.57 X10*6/uL (4.60-5.80); Red Cell Distribution Width 12.6 % (11.0-16.0); White Blood Count 4.6 X10*3/uL (4.8-10.8)
[2024-02-05 09:54] LABS: Alanine Aminotransferase 40 U/L (0-40); Albumin Level 4.5 g/dL (3.5-5.0); Alkaline Phosphatase 75 U/L (39-117); Anion Gap 13 (12-20); Aspartate Amino Transferase 35 U/L (5-37); Bilirubin Total 0.4 mg/dL (0.0-1.0); Blood Urea Nitrogen 18 mg/dL (9-16); Calcium 10.2 mg/dL (8.4-10.2); Carbon Dioxide 25 mmol/L (22-29); Chloride 106 mmol/L (96-108); Cholesterol 263 mg/dL (<200); Estimated Glomerular Filt Rate > 60; Glucose Fasting 98 mg/dL (60-99); Glucose Random 99 mg/dL (60-115); HDL Cholesterol 45 mg/dL (>40); LDL Cholesterol Calculated 196 mg/dL (<100); Potassium 3.9 mmol/L (3.3-5.1); Sodium 140 mmol/L (135-145); Total Protein 7.9 g/dL (6.5-8.0); Triglycerides 114 mg/dL (<150)
== END 2024-02-05 08:29 | disposition home or self-care (01) ==
LOC: HO.LAB 08:28
PROVIDERS: PCP Internal Medicine; Visit Provider Internal Medicine
DX: D64.9 Anemia, unspecified (principal); E78.00 Pure hypercholesterolemia, unspecified
CPT/HCPCS: 36415; 80048; 80053; 80061; 85025

== ENCOUNTER 2024-02-12 15:17 | Outpatient (REF) | payer OTHER, SELFPAY ==
--- NOTE | ~2024-02-12 | US_ITS ---
EXAMINATION: US RETROPERITONEAL LIMITED (RENAL ONLY) CLINICAL INFORMATION: Unspecified abdominal pain. COMPARISON: Ultrasound abdomen complete 05/12/2023. CT abdomen and pelvis 04/30/2023. X-ray abdomen 05/06/2021. Ultrasound abdomen limited and x-ray KUB 06/14/2016. TECHNIQUE: Real-time imaging of the kidneys. FINDINGS: RIGHT KIDNEY: 12.6 x 5.2 x 5.1 cm (SAG x AP x TRV). The kidney is normal in size, contour, and echogenicity. Mild cortical irregularity involving the midpole of the right kidney with adjacent poorly visualized 1.8 cm hypoechoic lesion, nonspecific. No renal calculi or hydronephrosis LEFT KIDNEY: 12.6 x 5.5 x 5.0 cm (SAG x AP x TRV). The kidney is normal in size, contour, and echogenicity. Renal cortical thickness is normal. No calculi or focal parenchymal lesions. No hydronephrosis. US/US renal BI IMPRESSION: 1. No renal calculi or hydronephrosis of either kidney. 2. Mild cortical irregularity involving the midpole of the right kidney with adjacent 1.8 cm hypoechoic lesion, nonspecific. Symmetrically represent postoperative changes, however, an underlying mass is also be within the differential. Further evaluation can be obtained with cross-sectional imaging, preferably MRI without and with gadolinium.
== END 2024-02-12 15:18 | disposition home or self-care (01) ==
LOC: HO.US 15:17
PROVIDERS: PCP Internal Medicine; Visit Provider Internal Medicine
DX: R10.9 Unspecified abdominal pain (principal); Z85.528 Personal history of other malignant neoplasm of kidney
CPT/HCPCS: 76775

== ENCOUNTER 2024-03-09 12:05 | Outpatient (REF) | payer OTHER, SELFPAY ==
--- NOTE | ~2024-03-09 | XR_ITS ---
EXAMINATION: XR lumbar spine 2-3V CLINICAL INFORMATION: Reason for Exam M54.50 - Low back pain, unspecified COMPARISON: None TECHNIQUE: 3 views of the lumbar spine FINDINGS: 5 nonrib-bearing lumbar-type vertebral bodies. Vertebral body heights are maintained. Alignment is maintained. Minimal degenerative change and small anterior disc osteophyte complexes. Disc space heights are maintained. Paravertebral soft tissues are unremarkable. XR/XR lumbar spine 2-3V IMPRESSION: Mild spondylosis of the lumbar spine, as above detailed.
== END 2024-03-09 12:06 | disposition home or self-care (01) ==
LOC: HO.XRAY 12:05
PROVIDERS: PCP Internal Medicine; Visit Provider Internal Medicine
DX: M54.50 Low back pain, unspecified (principal)
CPT/HCPCS: 72100

== ENCOUNTER 2024-03-28 13:25 | Outpatient (REF) | payer OTHER, SELFPAY ==
--- NOTE | ~2024-03-28 | MR_ITS ---
EXAMINATION: MR ABDOMEN WITHOUT AND WITH CONTRAST CLINICAL INFORMATION: Prior abnormal imaging. COMPARISON: Renal ultrasound 02/12/2024 CT abdomen/pelvis 04/30/2023 TECHNIQUE: MR abdomen was performed without and with use of 10 mL intravenous Gadavist gadolinium contrast. Postcontrast images are performed in multiphase dynamic sequences. Imaging was performed in 3 planes. FINDINGS: LUNG BASES: No pleural or pericardial effusion. LIVER, GALLBLADDER, AND BILIARY TREE: The liver is normal in size and contour. Hepatic steatosis. No focal hepatic lesion or biliary ductal dilatation is present. The gallbladder is contracted. PANCREAS: No ductal dilatation. SPLEEN: Not enlarged. ADRENAL GLANDS: No adrenal mass. KIDNEYS AND URETERS: Status post right partial nephrectomy with expected postsurgical changes/scarring at the midpole. No evidence of abnormal enhancement or soft tissue mass. GASTROINTESTINAL TRACT: No bowel obstruction. No ascites or fluid collection. LYMPH NODES: No bulky lymphadenopathy. VASCULAR: Normal caliber abdominal aorta. MR/MR abdomen wo/w con IMPRESSION: Status post partial right nephrectomy with expected postsurgical changes. There is no evidence of recurrent/residual disease. Hepatic steatosis.
[2024-03-28] MEDS: gadobutroL 10 ML VIAL IVPUSH (15:07)
== END 2024-03-28 13:26 | disposition home or self-care (01) ==
LOC: HO.MRI 13:25
PROVIDERS: PCP Internal Medicine; Visit Provider Internal Medicine Nephrology
DX: N28.89 Other specified disorders of kidney and ureter (principal)
CPT/HCPCS: 74183; A9585

== ENCOUNTER 2024-03-29 14:34 | Outpatient (AMB) | payer OTHER, SELFPAY ==
--- NOTE | 2024-03-29 14:50 | HO.NEPHOV_ITS ---
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 HPI Comments Details: I had the privilege of seeing Rajeev in follow up for H/O renal cell cancer . He has been having flank pain and had MRI yesterday, results of which is pending. He has been having on and off flank pain which he thinks could be his renal cell cancer. He has H/O hypertension. He is on ACEI. He is concerned about the pulmonary nodules that were seen in imaging last year and he would like to get a repeat chest CT done as he thinks it could be associated with his renal cell cancer. He had a laparoscopic partial nephrectomy done in the past for his renal cell cancer and is worried that he still has on and off pain his flank area as well as his abdomen. He denies any fever, headaches or dizziness, night sweats, weight loss, fever, hematuria, chest pains, no shortness of breath, nausea/ vomiting. He has no PND, orthopnea, pedal edema or orthostatic symptoms. He has no new bone or back pain. He takes Trileptal. He avoids excessive NSAID's and tries to maintain good hydration. He has H/O cocaine use but claims that he has not used it for a few years. He had USS last month which showed mild cortical irregularity involving the midpole of the right kidney with adjacent 1.8 cm hypoechoic lesion, nonspecific. Symmetrically represent postoperative changes, however, an underlying nmass is also be within the differential. So he underwent MRI yesterday, results of which are pending. PFSH Medical History (Updated 03/23/24 @ 11:23 by Jamey Cadena MD) Thoracic spondylosis Cervical spondylosis Renal cell carcinoma of right kidney Elevated LFTs Benign essential hypertension Mucus in stool Abdominal bloating Left-sided chest pain Overweight (BMI 25.0-29.9) Paresthesia of right upper extremity Pleuritis Polysubstance abuse Irritation of right eye Smoker Anxiety Schizophrenia Bipolar disorder Right inguinal pain Obesity (BMI 30-39.9) Degenerative joint disease of right shoulder Pure hypercholesterolemia Atrophy of muscle of right shoulder Anterior to posterior tear of superior glenoid labrum of right shoulder Surgical History History of partial nephrectomy History of esophagogastroduodenoscopy (EGD) H/O colonoscopy History of surgery on arm History of cataract removal with insertion of prosthetic lens History of hernia surgery (1998) Family History Father Amyloidosis Mother Alive and well Maternal Uncle Prostate cancer Social History Household Members Other:: roomates/friends Housing: Apartment Are you a primary respiratory care assistant to a significant other at home: No Do you presently have visiting nurse or other home services: No Alcohol intake: current Alcohol intake frequency: does not drink Patient Tobacco Use Status: Former Tobacco user Tobacco use type: Cigarette Cigarette Packs Per Day: 0.5 Cigarettes Per Day: 10.0 Years Smoked: 30yrs, Quit 08/2022. e-Cigarette/Vaping Use: Never Used Second Hand Smoke Exposure: No service: No Current occupational status: unemployed Cognitive needs: No Hearing needs: No Vision needs: No Physical Exam Vital Signs: Last Vital Signs Pulse 67 03/29/24 14:51 BP 130/86 03/29/24 14:51 Pulse Ox 98 03/29/24 14:51 Oxygen Delivery Method Room Air 03/29/24 14:51 BMI result Body Mass Index 32.4 Const General: comfortable and no acute distress Orientation/consciousness: patient oriented x3 HEENT Head: Yes normocephalic Mouth: Normal oral and palatal mucosa present Eyes EOM: EOMs intact bilaterally Neck Neck: Yes supple Resp Auscultation: clear to auscultation bilaterally Cardio Jugular venous distension: no JVD Rate: regular rate GI Palpation (GI): Soft to palpation Auscultation: normal bowel sounds General: Yes no CVA tenderness Back/Spine/Pelvis Back: no CVA tenderness Skin General skin exam: no rashes or lesions noted Neuro General: patient oriented x3 and moves all extremities Extrem General: Yes no pedal edema Results Reviewed Nephrology Results: Hgb 13.5 g/dl (14.0-18.0) L 02/05/24 WBC 4.6 X10*3/uL (4.8-10.8) L 02/05/24 Plt Count 250 X10*3/uL (160-400) 02/05/24 Sodium 140 mmol/L (135-145) 02/05/24 Potassium 3.9 mmol/L (3.3-5.1) 02/05/24 Chloride 106 mmol/L (96-108) 02/05/24 Carbon Dioxide 25 mmol/L (22-29) 02/05/24 BUN 18 mg/dL (9-16) H 02/05/24 Creatinine 0.92 mg/dL (0.5-1.4) 02/05/24 Calcium 10.2 mg/dL (8.4-10.2) 02/05/24 Urine Protein Trace mg/dL (Neg-Trace) 11/16/23 Protein/Creatinin Ratio 77 mg/g creat (25-148) 12/08/23 Renal US 02/12/24 Assessment & Plan Assessment & Plan (1) Benign essential hypertension: Code(s): I10 - Essential (primary) hypertension Category: Medical Plan His renal functions are at baseline. He had H/O partial nephrectomy and had follow up USS / CT. He has no hematuria, night sweats , fever or weight loss. He has no significant proteinuria. His BP has been at goal. He is tolerating ACEI. He should avoid NSAID's and maintain good hydration. He claims that he has not used any cocaine for couple of years. He takes PPI regularly. He needs regular follow up with Urology. Had MRI , results of which is pending. Follow up labs ordered. Answered all questions. Follow up appointment given. Coding Level of Care Code Est Pt Level 4 (23283) Diagnoses Benign essential hypertension I10
[2024-03-29 14:51] VITALS: BP 130/86; PULSE 67; O2SAT 98; BMI 32.4
== END 2024-03-29 15:14 | disposition home or self-care (01) ==
PROVIDERS: PCP Internal Medicine; Visit Provider Internal Medicine Nephrology
DX: I10 Essential (primary) hypertension (principal)
CPT/HCPCS: 99214

== ENCOUNTER → 2024-03-29 14:34 | Outpatient (BNVA) | payer OTHER, SELFPAY | PROVIDERS: PCP Internal Medicine; Visit Provider Internal Medicine Nephrology | DX: I10 Essential (primary) hypertension (principal) | CPT/HCPCS: 99212 ==

== ENCOUNTER 2024-04-06 14:43 | Outpatient (AMB) | payer OTHER, SELFPAY ==
[2024-04-06 14:45] VITALS: BMI 32.4
--- NOTE | 2024-04-06 14:45 | MHC.OFFVIS ---
Vital Signs 04/06/24 14:45 Height 5 ft 11 in Weight 232 lb 6.016 oz BMI 32.4 Intake Visit Reasons: hernia around belly button Intake Note: This patient presents for an assessment for periumbilical hernia. Patient c/o; reducible, bulge navel, reports several weeks ago had lower back pain and he felt a bulge in his navel which he pushed back in and his back pain went away. Occupational Therapy Co Director Required: No Accompanied by: Self / Same As Patient Allergies Peanut Butter Allergy (Intermediate, Verified 04/06/24 15:05) sore throat, hoarsensss lorazepam [From ATIVAN] Allergy (Unknown, Verified 04/06/24 15:05) ANAPHYLAXIS milk [Milk] Allergy (Unknown, Verified 04/06/24 15:05) GI DISTRESS atorvastatin Adverse Reaction (Severe, Verified 04/06/24 15:05) elevated LFTs pravastatin Adverse Reaction (Unknown, Verified 04/06/24 15:05) ?diarrhea? Medication List - Last Reconciled 04/06/24 by Sonido Paulino MD lisinopril 5 mg PO DAILY lurasidone (Latuda) 20 mg PO DAILY oxcarbazepine (Trileptal) 600 mg PO BID pantoprazole 40 mg PO DAILY HPI HPI hernia around belly button: Details: 48-year-old male referred for a periumbilical hernia. He has noticed this reducible lump on the area just above his umbilicus for several months. He says that he has been becoming increasingly uncomfortable with pain as well. The lump reduces on its own He did have laparoscopic partial nephrectomy for kidney cancer on the right side in August,. One of the port sites appeared to be on this same area of the hernia. This was because of renal cell carcinoma of the right kidney. He denies significant GI complaints. He says he feels well overall. He says he has remained active and is into martial arts. [facility], [facility] Medical History (Updated 04/06/24 @ 15:22 by Sonido Paulino MD) Supraumbilical hernia Thoracic spondylosis Cervical spondylosis Renal cell carcinoma of right kidney Elevated LFTs Benign essential hypertension Mucus in stool Abdominal bloating Left-sided chest pain Overweight (BMI 25.0-29.9) Paresthesia of right upper extremity Pleuritis Polysubstance abuse Irritation of right eye Smoker Anxiety Schizophrenia Bipolar disorder Right inguinal pain Obesity (BMI 30-39.9) Degenerative joint disease of right shoulder Pure hypercholesterolemia Atrophy of muscle of right shoulder Anterior to posterior tear of superior glenoid labrum of right shoulder Surgical History History of partial nephrectomy History of esophagogastroduodenoscopy (EGD) H/O colonoscopy History of surgery on arm History of cataract removal with insertion of prosthetic lens History of hernia surgery (1998) Family History Father Amyloidosis Mother Alive and well Maternal Uncle Prostate cancer Social History Household Members Other:: roomates/friends Housing: Apartment Are you a primary healthcare applications analyst to a significant other at home: No Do you presently have visiting nurse or other home services: No Alcohol intake: current Alcohol intake frequency: does not drink Patient Tobacco Use Status: Former Tobacco user Tobacco use type: Cigarette Cigarette Packs Per Day: 0.5 Cigarettes Per Day: 10.0 Years Smoked: 30yrs, Quit 08/2022. e-Cigarette/Vaping Use: Never Used Second Hand Smoke Exposure: No service: No Current occupational status: unemployed Cognitive needs: No Hearing needs: No Vision needs: No Review of Systems Const Denies chills and Denies fever(s) Card Denies chest pain, Denies dyspnea and Denies dyspnea on exertion Resp Denies cough, Denies dyspnea and Denies dyspnea on exertion GI Denies hematochezia and Denies change in bowel habits Denies hematuria and Denies difficulty urinating Musc Denies back pain and Denies limited range of motion Neuro Denies focal weakness and Denies convulsions Psych Details: Admits to anxiety Denies depression and Denies mood swings Physical Exam Vital Signs: BMI result Body Mass Index 32.4 Const General: comfortable and no acute distress Orientation/consciousness: patient oriented x3 Neck Neck: Yes no lymphadenopathy Resp Auscultation: clear to auscultation bilaterally Cardio Rhythm: regular rhythm GI Other: On the supraumbilical area on a port site is reducible mass, as seen especially with Valsalva with some tenderness, about 1.5 cm in diameter Palpation (GI): Soft to palpation, nontender and no guarding Neuro General: patient oriented x3 Assessment & Plan Assessment & Plan (1) Supraumbilical hernia: Code(s): K43.9 - Ventral hernia without obstruction or gangrene Category: Medical Plan He has this reducible mass on the supraumbilical area from a likely previous port site consistent with a supraumbilical hernia. He describes discomfort and pain. He wants this repaired. I had a long discussion with him about the technique of repair of this supra umbilical hernia with possible mesh placement. I explained the risks including but not limited to bleeding, infections, injury to other organs including bowel, recurrence, postop pain, as well as the benefits and alternatives. I also explained to him what to expect postoperatively. He wants to proceed with surgery. Coding Level of Care Code New Pt Level 3 (76545) Diagnoses Supraumbilical hernia K43.9
== END 2024-04-06 15:18 | disposition home or self-care (01) ==
PROVIDERS: PCP Internal Medicine; Visit Provider Surgery
DX: K43.9 Ventral hernia without obstruction or gangrene (principal)
CPT/HCPCS: 99204

== ENCOUNTER → 2024-04-06 14:43 | Outpatient (BNVA) | payer OTHER, SELFPAY | PROVIDERS: PCP Internal Medicine; Visit Provider Surgery | DX: K43.9 Ventral hernia without obstruction or gangrene (principal) | CPT/HCPCS: 99202 ==

== ENCOUNTER 2024-04-23 12:20 | Outpatient (AMB) | payer OTHER, SELFPAY ==
[2024-04-23 12:28] VITALS: BP 130/90; PULSE 62; TEMP 36.7; O2SAT 98; BMI 33.5
--- NOTE | 2024-04-23 12:28 | MHC.OFFWIV ---
Intake Vital Signs 04/23/24 12:28 Height 5 ft 11 in Weight 240 lb BMI 33.5 BP 130/90 H Blood Pressure Location Rt brachial Position Sitting Pulse 62 Pulse Source Pulse Oximeter Temp 98.0 F Temp Source Oral Pulse Oximetry (%) 98 Oxygen Delivery Method Room Air Intake Visit Reasons: EP rt arm inner elbow pain Intake Note: Pt is here today c/o Lt and Rt forearm and bicep pain Patient Tobacco Use Status: Former Tobacco user Allergies Peanut Butter Allergy (Intermediate, Verified 04/23/24 12:38) sore throat, hoarsensss lorazepam [From ATIVAN] Allergy (Unknown, Verified 04/23/24 12:38) ANAPHYLAXIS milk [Milk] Allergy (Unknown, Verified 04/23/24 12:38) GI DISTRESS atorvastatin Adverse Reaction (Severe, Verified 04/23/24 12:38) elevated LFTs pravastatin Adverse Reaction (Unknown, Verified 04/23/24 12:38) ?diarrhea? Medication List - Last Reconciled 04/23/24 by Jayna Kown, [facility]- lisinopril 5 mg PO DAILY lurasidone (Latuda) 20 mg PO DAILY oxcarbazepine (Trileptal) 600 mg PO BID pantoprazole 40 mg PO DAILY HPI HPI Comments History of Present Illness Details 48-year-old male here today with bilat arm pain that started on the 05 of April. He reports that he went to the emergency room for this and he was not evaluated as he knew the physicians from the streets and therefore there was a conflict of interest so he left. Be that as it may he denies any overt injury. Does admit to lifting boxes however he is active in martial arts and other gym activities regularly. He has not been able to work out because of this pain. He reports that the pain is in the crease of his arms bilat. He reports a history of cancer that is in remission along with a concern for blood clots. He also reports he has had reconstructive surgery of his left forearm and he wonders if there is a complication there ?if something came loose . ?I am here for some imaging. Mentioned several times that he is not here for pain medications. Mentions pain medications even when the question I am asking him is not about pain medication. 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 Reports he has been using some topical analgesic that is more natural that has not provided him any relief. Physical exam Bilat upper extremities are neurovascularly intact, strong regular pulses bilaterally, well-healed surgical scar to left forearm, skin is intact without rashes, no erythema, no edema. Complains of pain with active and passive bending of arm, reports the pain is in the AC region bilat. Worse on the left I attemped to review ED records but i could not find any from 04/2024. Plan He was adamant on imaging when he 1st arrived. Made aware I only have access to x-ray of which could be done today. Asked several questions related to x-ray. Mentioned concern today again about blood clots. Advised unlikely to be a blood clot given that he has great neurovascular exam bilaterally. Requesting an ultrasound. Made aware that we do not have ultrasound. Then asked for a CT scan or something like that. Advised again that I do not have access to this at a walk-in clinic. He was upset, grabbed his things and said he did not want to waste this time. I apologized that I was unable to meet his needs today and advised that he should follow up with his primary care provider. I will send this note to the primary care provider to have him follow up. This note is constructed using voice recognition software. While every effort has been made to ensure accuracy in upholstered goods crafter, still errors may have been included Sometimes, these errors may affect the content or meaning of the given sentence . Total time spent caring for the patient today was 30 minutes. This includes time spent before the visit reviewing the chart, time spent during the visit, and time spent after the visit on documentation FOR[facility]LY [facility] Medical History (Updated 04/23/24 @ 12:50 by Jayna Kwon, [facility]) Bilateral arm pain Supraumbilical hernia Thoracic spondylosis Cervical spondylosis Renal cell carcinoma of right kidney Elevated LFTs Benign essential hypertension Mucus in stool Abdominal bloating Left-sided chest pain Overweight (BMI 25.0-29.9) Paresthesia of right upper extremity Pleuritis Polysubstance abuse Irritation of right eye Smoker Anxiety Schizophrenia Bipolar disorder Right inguinal pain Obesity (BMI 30-39.9) Degenerative joint disease of right shoulder Pure hypercholesterolemia Atrophy of muscle of right shoulder Anterior to posterior tear of superior glenoid labrum of right shoulder Surgical History (Updated 04/18/24 @ 11:38 by Fe Ramires, [facility]) H/O hand surgery History of partial nephrectomy History of esophagogastroduodenoscopy (EGD) H/O colonoscopy History of surgery on arm History of cataract removal with insertion of prosthetic lens History of hernia surgery (1998) Family History Father Amyloidosis Mother Alive and well Maternal Uncle Prostate cancer Social History (Updated 04/18/24 @ 16:33 by Fe Ramires, RN) Household Members: Friend(s) Household Members Other:: roomates/friends Housing: Apartment Are you a primary manager medicare to a significant other at home: No Do you presently have visiting nurse or other home services: No Alcohol intake: current Alcohol intake frequency: does not drink Patient Tobacco Use Status: Former Tobacco user Tobacco use type: Cigarette Cigarette Packs Per Day: 0.5 Cigarettes Per Day: 10.0 Years Smoked: 30yrs, Quit 08/2022. e-Cigarette/Vaping Use: Never Used Second Hand Smoke Exposure: No service: No Current occupational status: unemployed Cognitive needs: No Hearing needs: No Vision needs: No Physical Exam Vital Signs: Last Vital Signs Temp 98.0 F 04/23/24 12:28 Pulse 62 04/23/24 12:28 BP 130/90 H 04/23/24 12:28 Pulse Ox 98 04/23/24 12:28 Oxygen Delivery Method Room Air 04/23/24 12:28 BMI result Body Mass Index 33.5 Assessment & Plan Assessment & Plan (1) Bilateral arm pain: Code(s): M79.601 - Pain in right arm; M79.602 - Pain in left arm Plan: . Coding Level of Care Code Est Pt Level 4 (88920) Diagnoses Bilateral arm pain M79.601; M79.602
== END 2024-04-23 12:58 | disposition home or self-care (01) ==
PROVIDERS: PCP Internal Medicine; Visit Provider Nurse Practitioner Family
DX: M79.601 Pain in right arm (principal); M79.602 Pain in left arm
CPT/HCPCS: 99214

== ENCOUNTER 2024-04-25 10:31 | Outpatient (AMB) | payer OTHER, SELFPAY ==
--- NOTE | 2024-04-25 10:40 | MHC.PC.OV ---
Vital Signs 04/25/24 10:41 Height 5 ft 11 in Weight 237 lb 8 oz BMI 33.1 BP 130/74 Blood Pressure Location Rt brachial Position Sitting Pulse 61 Pulse Source Pulse Oximeter Pulse Oximetry (%) 98 Oxygen Delivery Method Room Air Intake Visit Reasons: Arm pain Intake Note: Patient is here to follow up on Both arm pain. Crutch Maker Required: No Nursing Service Director: Not Required per policy Accompanied by: Self / Same As Patient Allergies Peanut Butter Allergy (Intermediate, Verified 04/25/24 12:21) sore throat, hoarsensss lorazepam [From ATIVAN] Allergy (Unknown, Verified 04/25/24 12:21) ANAPHYLAXIS milk [Milk] Allergy (Unknown, Verified 04/25/24 12:21) GI DISTRESS atorvastatin Adverse Reaction (Severe, Verified 04/25/24 12:21) elevated LFTs pravastatin Adverse Reaction (Unknown, Verified 04/25/24 12:21) ?diarrhea? Medication List - Last Reconciled 04/25/24 by Gonzalez Roman MD lisinopril 5 mg PO DAILY lurasidone (Latuda) 20 mg PO DAILY oxcarbazepine (Trileptal) 600 mg PO BID pantoprazole 40 mg PO DAILY Tobacco use date assessed: 04/25/24 Dental Screening Dental Screen Date: 10/29/23 HPI Arm pain HPI Details Patient comes in today for further evaluation of bilateral elbow and left forearm pain, which he states have been bothering him for over a month now He went to the ER earlier this month for the same complaints but states that they did not even do any tests to look into his elbow issues He went to the walk-in clinic at [place] but as he supposedly wanted something more than a x-ray to be done on his elbows, he eventually left as he did not want to waste his time there States that he started doing some martial arts and training a couple of months ago and thinks that this is the main reason for his current symptoms but is concerned as to whether he has blood clots in his arms or some significant injury to his tendons and that is why he is looking for some ultrasound or CT/MRI for his upper extremities He denies any weakness of his hands or arms No other acute complaints or symptoms are noted [facility] Medical History (Updated 04/25/24 @ 11:36 by Gonzalez Roman MD) Bilateral arm pain Supraumbilical hernia Thoracic spondylosis Cervical spondylosis Renal cell carcinoma of right kidney Elevated LFTs Benign essential hypertension Mucus in stool Abdominal bloating Left-sided chest pain Overweight (BMI 25.0-29.9) Paresthesia of right upper extremity Pleuritis Polysubstance abuse Irritation of right eye Smoker Anxiety Schizophrenia Bipolar disorder Right inguinal pain Obesity (BMI 30-39.9) Degenerative joint disease of right shoulder Pure hypercholesterolemia Atrophy of muscle of right shoulder Anterior to posterior tear of superior glenoid labrum of right shoulder Surgical History H/O hand surgery History of partial nephrectomy History of esophagogastroduodenoscopy (EGD) H/O colonoscopy History of surgery on arm History of cataract removal with insertion of prosthetic lens History of hernia surgery (1998) Family History Father Amyloidosis Mother Alive and well Maternal Uncle Prostate cancer Social History Household Members: Friend(s) Household Members Other:: roomates/friends Housing: Apartment Are you a primary child care attendant school to a significant other at home: No Do you presently have visiting nurse or other home services: No Alcohol intake: current Alcohol intake frequency: does not drink Patient Tobacco Use Status: Former Tobacco user Tobacco use type: Cigarette Cigarette Packs Per Day: 0.5 Cigarettes Per Day: 10.0 Years Smoked: 30yrs, Quit 08/2022. e-Cigarette/Vaping Use: Never Used Second Hand Smoke Exposure: No service: No Current occupational status: unemployed Cognitive needs: No Hearing needs: No Vision needs: No Questionnaire Thrive Questionnaire Date Thrive assessed: 10/29/23 PORTER-7 AMB Questionnaire PORTER-7 Date PORTER - 7 assessed: 10/29/23 Source: Developed by Drs. Jp Oropeza, Poly Infante, Brayden De La Fuente and colleagues, with an educational sera from [employer]. Review of Systems Const Denies chills, Reports fatigue, Denies fever(s) and Denies headache(s) ENT Denies dysphagia, Denies dizziness, Denies otalgia, Denies headache(s), Denies neck pain, Denies odynophagia and Denies sore throat Card Denies chest pain, Denies palpitations and Denies dyspnea Resp Denies cough, Denies dyspnea and Denies wheezing GI Denies abdominal pain, Denies constipation, Denies dysphagia, Denies heartburn, Denies diarrhea, Denies nausea, Denies odynophagia and Denies vomiting Denies dysuria, Denies nocturia and Denies urinary frequency Musc Reports back pain (over his lower back and bilateral flank areas), Reports arthralgias (right shoulder, on and off; over both elbows and left forearm lately) and Denies neck pain Skin/Breast Denies rash Neuro Denies dizziness and Denies headache(s) Psych Reports anxiety Endo Reports fatigue and Denies palpitations Aller/Immun Denies wheezing Physical exam (Primary Care) Vital Signs: Last Vital Signs Pulse 61 04/25/24 10:41 BP 130/74 04/25/24 10:41 Pulse Ox 98 04/25/24 10:41 Oxygen Delivery Method Room Air 04/25/24 10:41 BMI result Body Mass Index 33.1 Tobacco/Smoking Status: Tobacco use Status Tobacco use date assessed 04/25/24 04/25/24 10:46 Patient Tobacco Use Status Former Tobacco user 04/25/24 10:46 Tobacco use type Cigarette 04/25/24 10:46 e-Cigarette/Vaping Use Never Used 04/25/24 10:46 Thrive Assessment: Date of Thrive Assessment Date Thrive assessed 10/29/23 04/25/24 10:46 Const General: no acute distress, alert and anxious HENMT Throat: Yes posterior oropharynx normal and Yes tonsils normal (no TP congestion) Neck Neck: Yes no lymphadenopathy and Yes supple Thyroid: Thyroid normal Resp Auscultation: clear to auscultation bilaterally, no rales and no wheezes Cardio Rate: regular rate Rhythm: regular rhythm Heart sounds: no murmurs GI Palpation (GI): Soft to palpation, nontender and no guarding Auscultation: normal bowel sounds General: Yes CVA tenderness (mild) bilateral Back/Spine/Pelvis Back: CVA tenderness (mild) Thoracic/Lumbar Spine: lumbar spinal tenderness Skin Rashes: no rashes Extrem General: Yes no clubbing, cyanosis or edema Results Reviewed Results Reviewed: Laboratory Tests 11/09/23 02/05/24 09:36 08:42 WBC 4.6 L Hgb 13.5 L Hct 38.8 L Plt Count 250 Sodium 140 Potassium 3.9 Creatinine 0.92 Estimated GFR > 60 Fasting Glucose 98 Calcium 10.2 D AST 35 ALT 40 Triglycerides 103 114 Cholesterol 269 H 263 H LDL Cholesterol, Calc 200 H 196 H HDL Cholesterol 49 45 Assessment and Plan Assessment & Plan (1) Pain of both elbows: Code(s): M25.521 - Pain in right elbow; M25.522 - Pain in left elbow Plan: Will send him for x-rays of both elbows for further evaluation (2) Left forearm pain: Code(s): M79.632 - Pain in left forearm Plan: Will send him for x-rays of the left forearm for further evaluation (3) Low back pain: Code(s): M54.50 - Low back pain, unspecified Qualifiers: Chronicity: unspecified Back pain laterality: bilateral Sciatica presence: without sciatica Qualified Code(s): M54.50 - Low back pain, unspecified Plan: Lumbar spine x-rays done last month (March 2024) revealed (+) mild spondylosis of the lumbar spine, similar to findings in his cervical and thoracic spine previously Will consider referring him to PT if his back pain progresses or persists (4) Renal cell carcinoma of right kidney: Code(s): C64.1 - Malignant neoplasm of right kidney, except renal pelvis Plan: S/P laparoscopic right partial nephrectomy by urology (Dr. Paez) at [facility] in August 2023 Patient had nuclear imaging/whole body bone scan done prior to his surgery that revealed NO evidence of osteoblastic metastatic disease He has been experiencing increased pain over his lower back and bilateral flank areas lately and is concerned about his symptoms - is requesting for some imaging studies to be done to look into this Bilateral renal US ordered for further evaluation, per request He used to see urology in [place] but is now requesting for a referral to see another urology group as he felt that the current urologist he is seeing is arrogant and does not listen to his complaints (see HPI for details) States that he does NOT want to go to [facility] as well Urology referral was done to Dr. Mario Alberto Johansen in [place] previously, per patient's request (5) Elevated LFTs: Code(s): R79.89 - Other specified abnormal findings of blood chemistry Plan: His LFTs were elevated in the past although they were back to normal when last checked in November 2023 Abdominal US with liver elastography done back on 05/12/23 revealed (+) echogenic liver suggestive of fatty infiltration and borderline elevated liver stiffness Patient states that he does not drink alcohol; is again reminded to avoid taking medications containing Tylenol or Acetaminophen Will recheck his LFTs and labs in a couple of months for follow up (6) Pure hypercholesterolemia: Code(s): E78.00 - Pure hypercholesterolemia, unspecified Plan: Reinforced low-cholesterol diet He was taken off Atorvastatin last year when his LFTs went up significantly and his total cholesterol increased to 238 mg/dl and LDL cholesterol to 169 mg/dl when last checked in late May 2023 Will have patient recheck his labs and fasting lipids in a couple of months for follow up Advised that if his cholesterol levels are still elevated and his LFTs remain normal, will consider starting him on Rosuvastatin instead (7) Coronary artery calcification seen on computed tomography: Code(s): I25.10 - Atherosclerotic heart disease of [place] coronary artery without angina pectoris Plan: Three-vessel coronary artery calcifications were noted on his chest CT done last year, which (per cardiology) was unusual for his age Reinforced that he should continue working on lowering his cholesterol level and reducing his risks for cardiac disease May need additional cardiac workup if he starts experiencing symptoms of recurrent dyspnea and/or chest pains Follow up with cardiology as scheduled (8) Benign essential hypertension: Code(s): I10 - Essential (primary) hypertension Plan: Reinforced low sodium diet - goal is systolic BP of at least 120 mm or less Continue Lisinopril 5 mg QD (9) Pulmonary nodule: Code(s): R91.1 - Solitary pulmonary nodule Plan: His chest CT done in October 2022 revealed a 5 x 3 mm polyclonal nodule along the right minor fissure - is likely an intra fissural lymph node; chest CT is otherwise normal with no acute pulmonary disease According to the updated 2017 Fleischner Society recommendations, due to patient's significant history of smoking, optional CT can be done in 12 months for follow-up and he requests to have this ordered [facility] He did have a repeat chest CT done back on 05/04/2023 that showed the presence of bilateral nonspecific pulmonary nodules measuring up to 5 mm with no adenopathy in the chest Chest CT was again repeated in January 2024, which showed stable pulmonary nodules with no significant interval change Follow-up with pulmonary as scheduled (10) 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: Comment: EGD 12/2021 - repeat in 3 years Code(s): K22.70 - Vigil's esophagus without dysplasia Plan: Dietary restrictions reinforced Continue Pantoprazole 40 mg QD Follow up with GI as scheduled for continuing surveillance - will need repeat EGD in 2 to 3 years (2024) (11) Cervical spondylosis: Code(s): M47.812 - Spondylosis without myelopathy or radiculopathy, cervical region Plan: Cervical spine x-rays done last year in November 2021 revealed (+) cervical spondylosis with moderate C6-C7 disc degeneration Will refer to pain management and/or physical therapy if his neck symptoms get worse (12) Thoracic spondylosis: Code(s): M47.814 - Spondylosis without myelopathy or radiculopathy, thoracic region Plan: Thoracic spine x-rays done back in November 2021 revealed (+) mild thoracic spondylosis Will consider referral to physical therapy if his back pain gets worse (13) Degenerative joint disease of right shoulder: Comment: MRI of the shoulder done in July 2020 revealed (+) moderate acromioclavicular osteoarthritis; the previously demostrated superior labral tear is much less conspicuous on this MRI Code(s): M19.011 - Primary osteoarthritis, right shoulder Qualifiers: Osteoarthritis type: post-traumatic Qualified Code(s): M19.111 - Post-traumatic osteoarthritis, right shoulder Plan: Advised again that we will consider referring him to orthopedics for further evaluation and management if his shoulder symptoms get worse Patient states that his shoulder pains have been mostly tolerable and his shoulder ROM is grossly normal - would like to continue to hold off on referral at this time or any surgical intervention for his shoulder (14) Anxiety: Code(s): F41.9 - Anxiety disorder, unspecified Plan: Continue Latuda 20 mg QD and Hydroxyzine 25 mg TID PRN (15) Bipolar disorder: Code(s): F31.9 - Bipolar disorder, unspecified Qualifiers: Active/Remission status: currently active Current bipolar episode type: depressed Current episode severity: unspecified Qualified Code(s): F31.30 - Bipolar disorder, current episode depressed, mild or moderate severity, unspecified Plan: Continue Latuda 20 mg QD and Oxcarbazepine 600 mg BID Follow up with psychiatry as scheduled (16) Obesity (BMI 30-39.9): Code(s): E66.9 - Obesity, unspecified Plan: Reinforced diet/exercise as tolerated/lose weight Plan Follow up as scheduled in June 2024 Orders: Orders XR forearm LT 2V 04/27/24 M25.521 - Pain in right elbow, M25.522 - Pain in left elbow, M79.632 - Pain in left forearm Comprehensive [place]. Panel Fast 06/05/24 E78.00 - Pure hypercholesterolemia, unspecified Lipid Panel 06/05/24 E78.00 - Pure hypercholesterolemia, unspecified UA CC w/rflx Micro + Cult 06/05/24 R30.0 - Dysuria XR elbow LT min 3V 04/27/24 M25.521 - Pain in right elbow, M25.522 - Pain in left elbow, M79.632 - Pain in left forearm XR elbow RT min 3V 04/27/24 M25.521 - Pain in right elbow, M25.522 - Pain in left elbow, M79.632 - Pain in left forearm Complete Blood Count Auto Diff 06/05/24 D64.9 - Anemia, unspecified TSH reflex Free T4 06/05/24 E78.00 - Pure hypercholesterolemia, unspecified Coding Level of Care Code Est Pt Level 4 (62614) Diagnoses Pain of both elbows M25.521; M25.522 Left forearm pain M79.632 Bilateral low back pain without sciatica, unspecified chronicity M54.50 Chronicity: unspecified Back pain laterality: bilateral Sciatica presence: without sciatica Renal cell carcinoma of right kidney C64.1 Elevated LFTs R79.89 Pure hypercholesterolemia E78.00 Coronary artery calcification seen on computed tomography I25.10 Benign essential hypertension I10 Pulmonary nodule R91.1 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 K22.70 Cervical spondylosis M47.812 Thoracic spondylosis M47.814 Post-traumatic osteoarthritis of right shoulder M19.111 Osteoarthritis type: post-traumatic Anxiety F41.9 Bipolar affective disorder, current episode depressed, current episode severity unspecified F31.30 Active/Remission status: currently active Current bipolar episode type: depressed Current episode severity: unspecified Obesity (BMI 30-39.9) E66.9
[2024-04-25 10:41] VITALS: BP 130/74; PULSE 61; O2SAT 98; BMI 33.1
== END 2024-04-25 11:42 | disposition home or self-care (01) ==
PROVIDERS: PCP Internal Medicine; Visit Provider Internal Medicine
DX: M25.521 Pain in right elbow (principal); M25.522 Pain in left elbow; M79.632 Pain in left forearm; M54.50 Low back pain, unspecified; R79.89 Other specified abnormal findings of blood chemistry; E78.00 Pure hypercholesterolemia, unspecified; I25.10 Atherosclerotic heart disease of native coronary artery without angina pectoris; I10 Essential (primary) hypertension; R91.1 Solitary pulmonary nodule; K22.70 Barrett's esophagus without dysplasia; M47.812 Spondylosis without myelopathy or radiculopathy, cervical region; M47.814 Spondylosis without myelopathy or radiculopathy, thoracic region; M19.111 Post-traumatic osteoarthritis, right shoulder; F41.9 Anxiety disorder, unspecified; E66.9 Obesity, unspecified
CPT/HCPCS: 99214

== ENCOUNTER 2024-04-27 15:49 | Outpatient (REF) | payer OTHER, SELFPAY ==
--- NOTE | ~2024-04-27 | XR_ITS ---
EXAMINATION: XR ELBOW, LEFT CLINICAL INFORMATION: Right elbow pain. COMPARISON: Left forearm x-rays of 09/15/2013. TECHNIQUE: AP, lateral, and oblique views of the left elbow. FINDINGS: There is no evidence of acute fracture or dislocation. No elbow joint effusion. Osseous mineralization is normal. Minimal olecranon hypertrophic spurring is a stable finding. Small calcification is noted at the superior aspect of the olecranon process. The bones are otherwise unremarkable. XR/XR elbow LT min 3V IMPRESSION: A small calcification at the superior aspect of the olecranon process may reflect changes of calcific tendinitis or bursitis. No acute or other significant osseous abnormality noted.
--- NOTE | ~2024-04-27 | XR_ITS ---
EXAMINATION: XR ELBOW, RIGHT CLINICAL INFORMATION: Right elbow pain. COMPARISON: None available. TECHNIQUE: AP, lateral, and oblique views of the right elbow. FINDINGS: Normal osseous mineralization. No evidence of acute fracture or dislocation. No joint effusion. Small hypertrophic spurring is noted from the olecranon process with small calcification at the superior aspect of the olecranon process. The bones are otherwise unremarkable. XR/XR elbow RT min 3V IMPRESSION: No acute osseous abnormality. Minimal right olecranon hypertrophic spurring. Small calcification at the superior aspect of the olecranon process may reflect changes of calcific tendinitis or bursitis.
--- NOTE | ~2024-04-27 | XR_ITS ---
EXAMINATION: XR FOREARM, LEFT CLINICAL INFORMATION: Left forearm pain and pain in the left elbow. COMPARISON: Left elbow x-rays of 04/27/2024, left forearm x-rays of 09/15/2013. TECHNIQUE: AP and lateral views of the left forearm were obtained. FINDINGS: Elbow joint and wrist joint alignments are maintained. There is no evidence of acute fracture or dislocation. Surgical clips in the soft tissues of the distal forearm on the anterior and ulnar aspect are again noted. Small olecranon spur and adjacent small calcification are again noted. XR/XR forearm LT 2V IMPRESSION: No acute osseous abnormality. Small calcification adjacent to the olecranon process may reflect sequela of calcific tendinitis or bursitis.
== END 2024-04-27 15:50 | disposition home or self-care (01) ==
LOC: HO.XRAY 15:49
PROVIDERS: PCP Internal Medicine; Visit Provider Internal Medicine
DX: M25.521 Pain in right elbow (principal); M25.522 Pain in left elbow; M79.632 Pain in left forearm
CPT/HCPCS: 73080; 73090

== ENCOUNTER 2024-05-06 09:00 | Day surgery (SDC) | payer OTHER, SELFPAY ==
[2024-04-18 11:39] VITALS: BMI 32.1
[2024-04-18 16:34] VITALS: BMI 32.1
[2024-05-06] VITALS (7 sets, daily range): BP systolic 135–151; BP diastolic 79–92; PULSE 52–63; RESP 14–18; TEMP 36.4–36.8; O2SAT 96–99; BMI 32.7
--- NOTE | 2024-05-06 10:00 | P.CONAN_ITS ---
Documented by User: Miranda Dempsey NP 05/04/24 14:32 HPI - Anesthesia Eval Consult details Narrative: 48yo M for Supraumbilical Hernia Repair,with possible mesh Renal ca s/p partial nephrectomy PMFSH Active Problems Active Problems: All Active Problems Bilateral arm pain (Acute) Renal mass (Acute) Low back pain (Acute) Family history of amyloidosis (Acute) History of transitional cell carcinoma of kidney (Acute) Flank pain (Acute) Tendinitis (Acute) Transaminitis (Acute) Erosive gastritis (Acute) Right renal mass (Acute) Lumbar back pain (Acute) Lower abdominal pain (Acute) Inguinal pain of both sides (Acute) Coronary artery calcification seen on computed tomography (Acute) Pulmonary nodule (Acute) Chronic sore throat (Acute) Foreign body of left eye (Acute) Dyspnea (Acute) Odynophagia (Acute) Weight loss (Acute) Internal derangement of left shoulder (Acute) Toenail fungus (Acute) Low vitamin D level (Acute) Colon cancer screening (Acute) 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 (Acute) Atrophy of trapezius muscle (Acute) Labral tear of long head of biceps tendon (Acute) Lipoma (Acute) Status post fall (Acute) Back pain (Acute) Neck pain (Acute) Multiple environmental allergies (Acute) LUQ pain (Acute) Elevated lipase (Acute) Irritable bowel syndrome with diarrhea (Acute) Abdominal pain (Acute) Adult general medical exam (Acute) Supraumbilical hernia (Acute) Thoracic spondylosis (Acute) Cervical spondylosis (Acute) Renal cell carcinoma of right kidney (Acute) Elevated LFTs (Acute) Benign essential hypertension (Acute) Mucus in stool (Acute) Abdominal bloating (Acute) Left-sided chest pain (Acute) Overweight (BMI 25.0-29.9) (Acute) Paresthesia of right upper extremity (Acute) Pleuritis (Acute) Irritation of right eye (Acute) Smoker (Acute) Anxiety (Acute) Schizophrenia (Acute) Bipolar disorder (Acute) Right inguinal pain (Acute) Obesity (BMI 30-39.9) (Acute) Degenerative joint disease of right shoulder (Acute) Pure hypercholesterolemia (Acute) Atrophy of muscle of right shoulder (Acute) Anterior to posterior tear of superior glenoid labrum of right shoulder (Acute) Past Medical History Medical History (Updated 04/25/24 @ 11:36 by Gonzalez Roman MD) Bilateral arm pain Supraumbilical hernia Thoracic spondylosis Cervical spondylosis Renal cell carcinoma of right kidney Elevated LFTs Benign essential hypertension Mucus in stool Abdominal bloating Left-sided chest pain Overweight (BMI 25.0-29.9) Paresthesia of right upper extremity Pleuritis Polysubstance abuse Irritation of right eye Smoker Anxiety Schizophrenia Bipolar disorder Right inguinal pain Obesity (BMI 30-39.9) Degenerative joint disease of right shoulder Pure hypercholesterolemia Atrophy of muscle of right shoulder Anterior to posterior tear of superior glenoid labrum of right shoulder Family History Family History Father Amyloidosis Mother Alive and well Maternal Uncle Prostate cancer Family history of problems with anesthesia: No Surgical History Surgical History H/O hand surgery History of partial nephrectomy History of esophagogastroduodenoscopy (EGD) H/O colonoscopy History of surgery on arm History of cataract removal with insertion of prosthetic lens History of hernia surgery (1998) History of Problems with Anesthesia: No Social History Social History Household Members: Friend(s) Household Members Other:: roomates/friends Housing: Apartment Are you a primary home care and home health aides teacher to a significant other at home: No Do you presently have visiting nurse or other home services: No Alcohol intake: current Alcohol intake frequency: does not drink Patient Tobacco Use Status: Former Tobacco user Tobacco use type: Cigarette Cigarette Packs Per Day: 0.5 Cigarettes Per Day: 10.0 Years Smoked: 30yrs, Quit 08/2022. Smoked in Last 30 Days: No e-Cigarette/Vaping Use: Never Used Second Hand Smoke Exposure: No Substance Use Type Other:: last used cocaine 3 years ago Other Past Substance Use Problem:: last used cocaine 2020 Have you been hit, kicked, punched, or otherwise hurt by someone within the past year? If so, by whom?: No Are you DNR?: No Advance Directives: No Advance Directives Information Provided: Yes Advance Directives on File: No Recently lost weight without trying: No service: No Current occupational status: unemployed Cognitive needs: No Hearing needs: No Vision needs: No Meds Allergies Allergy/AdvReac Type Severity Reaction Status Date / Time lorazepam [From ATIVAN] Allergy Severe ANAPHYLAXIS Verified 05/06/24 09:31 milk [Milk] Allergy Intermediate GI DISTRESS Verified 05/06/24 09:31 Peanut Butter Allergy Intermediate sore Verified 05/06/24 09:31 throat, hoarsensss atorvastatin AdvReac Severe elevated Verified 05/06/24 09:31 LFTs pravastatin AdvReac Intermediate ?diarrhea? Verified 05/06/24 09:31 Home Medications ?Medication ?Instructions ?Recorded ?Confirmed ?Last Taken ?Type oxcarbazepine 600 mg tablet 600 mg PO BID 07/19/20 05/06/24 05/05/24 History (Trileptal) lurasidone 20 mg tablet (Latuda) 20 mg PO DAILY 08/08/22 05/06/24 05/05/24 History Exam Height,Weight and Vital Signs: Height 5 ft 11 in Weight 104.326 kg Pertinent Lab Results Pertinent Lab Results: Laboratory Tests 02/05/24 08:42 WBC 4.6 L Hgb 13.5 L Hct 38.8 L Plt Count 250 Sodium 140 Potassium 3.9 Chloride 106 Carbon Dioxide 25 BUN 18 H Creatinine 0.92 Assessment and Plan Assessment Anesthesia Assessment: Chart Reviewed Final Anesthetic Review Family History of Problems with Anesthesia: No History of Problems with Anesthesia: No Documented by User: Kaylie Desouza DO 05/06/24 10:21 [facility] Past Medical History Medical History (Updated 04/25/24 @ 11:36 by Gonzalez Roman MD) Bilateral arm pain Supraumbilical hernia Thoracic spondylosis Cervical spondylosis Renal cell carcinoma of right kidney Elevated LFTs Benign essential hypertension Mucus in stool Abdominal bloating Left-sided chest pain Overweight (BMI 25.0-29.9) Paresthesia of right upper extremity Pleuritis Polysubstance abuse Irritation of right eye Smoker Anxiety Schizophrenia Bipolar disorder Right inguinal pain Obesity (BMI 30-39.9) Degenerative joint disease of right shoulder Pure hypercholesterolemia Atrophy of muscle of right shoulder Anterior to posterior tear of superior glenoid labrum of right shoulder Family History Family History Father Amyloidosis Mother Alive and well Maternal Uncle Prostate cancer Family history of problems with anesthesia: No Surgical History Surgical History H/O hand surgery History of partial nephrectomy History of esophagogastroduodenoscopy (EGD) H/O colonoscopy History of surgery on arm History of cataract removal with insertion of prosthetic lens History of hernia surgery (1998) History of Problems with Anesthesia: No Social History Social History Household Members: Friend(s) Household Members Other:: roomates/friends Housing: Apartment Are you a primary home care and home health aides teacher to a significant other at home: No Do you presently have visiting nurse or other home services: No Alcohol intake: current Alcohol intake frequency: does not drink Patient Tobacco Use Status: Former Tobacco user Tobacco use type: Cigarette Cigarette Packs Per Day: 0.5 Cigarettes Per Day: 10.0 Years Smoked: 30yrs, Quit 08/2022. Smoked in Last 30 Days: No e-Cigarette/Vaping Use: Never Used Second Hand Smoke Exposure: No Substance Use Type Other:: last used cocaine 3 years ago Other Past Substance Use Problem:: last used cocaine 2020 Have you been hit, kicked, punched, or otherwise hurt by someone within the past year? If so, by whom?: No Are you DNR?: No Advance Directives: No Advance Directives Information Provided: Yes Advance Directives on File: No Recently lost weight without trying: No service: No Current occupational status: unemployed Cognitive needs: No Hearing needs: No Vision needs: No Meds Allergies Allergy/AdvReac Type Severity Reaction Status Date / Time lorazepam [From ATIVAN] Allergy Severe ANAPHYLAXIS Verified 05/06/24 09:31 milk [Milk] Allergy Intermediate GI DISTRESS Verified 05/06/24 09:31 Peanut Butter Allergy Intermediate sore Verified 05/06/24 09:31 throat, hoarsensss atorvastatin AdvReac Severe elevated Verified 05/06/24 09:31 LFTs pravastatin AdvReac Intermediate ?diarrhea? Verified 05/06/24 09:31 Home Medications ?Medication ?Instructions ?Recorded ?Confirmed ?Last Taken ?Type oxcarbazepine 600 mg tablet 600 mg PO BID 07/19/20 05/06/24 05/05/24 History (Trileptal) lurasidone 20 mg tablet (Latuda) 20 mg PO DAILY 08/08/22 05/06/24 05/05/24 History Exam Exam Date and Time: May 06, 2024 1000 Height,Weight and Vital Signs: Height 5 ft 11 in Weight 104.326 kg Vital Signs Temperature 97.7 F 05/06/24 09:35 Pulse Rate 59 05/06/24 09:35 Respiratory Rate 16 05/06/24 09:35 Blood Pressure 149/86 H 05/06/24 09:35 Pulse Oximetry 97 05/06/24 09:35 Oxygen Delivery Method Room Air 05/06/24 09:35 Temperature 97.7 F 05/06/24 09:35 Pulse Rate 59 05/06/24 09:35 Respiratory Rate 16 05/06/24 09:35 Blood Pressure 149/86 H 05/06/24 09:35 Pulse Oximetry 97 05/06/24 09:35 Oxygen Delivery Method Room Air 05/06/24 09:35 Airway Mallampati Class: I TM Dist: >3cm Neck ROM: Full Partial: Upper Heart: S1S2 Lungs: CTAB Assessment and Plan Assessment Anesthesia Assessment: Anesthesia Plan Discussed and Chart Reviewed Final Anesthetic Review Family History of Problems with Anesthesia: No History of Problems with Anesthesia: No NPO: Yes ASA Class: III Final Preanesthetic Review: No Changes in Pt Med Stat, Meds/Allgs Chart Reviewed, Consent Obtained/Reviewed and Anes Risks/Benef Reviewed Patient Risk: Low Procedure Risk: Low Anesthetic Plan Anesthetic Plan: GA and Agree w/ Assess. and Plan Disposition: Standard PACU
[2024-05-06] MEDS: Lactated Ringers 1,000 ML 100 ML IVCONT (10:05)
--- NOTE | 2024-05-06 10:33 | MHC.SHP ---
Pre-Procedural Eval Section A - 24 Hr Update-Section A only Date of Service: 05/06/24 Section B - Complete if H&P > 30 days Chief Complaint: Ventral hernia without obstruction or gangrene Details of Present Illness: Has supraumbilical hernia, reducible Relevant Family History (Specify if Yes): No Relevant Social History: None Present Medications: see Short Stay Collaborative assessment Medical History: Significant History (History of transitional cell cancer of the kidney, Vigil's esophagus, chronic back pain) History of Previous Operations: No relevant previous surgery Allergies: Allergies Allergy/AdvReac Type Severity Reaction Status Date / Time lorazepam [From ATIVAN] Allergy Severe ANAPHYLAXIS Verified 05/06/24 09:31 milk [Milk] Allergy Intermediate GI DISTRESS Verified 05/06/24 09:31 Peanut Butter Allergy Intermediate sore Verified 05/06/24 09:31 throat, hoarsensss atorvastatin AdvReac Severe elevated Verified 05/06/24 09:31 LFTs pravastatin AdvReac Intermediate ?diarrhea? Verified 05/06/24 09:31 Review of Systems Sugical H&P ROS: Negative: Constitution, Cardiovascular, Respiratory, Neurological, Psychiatric, Hem-Onc, Allergic/Immunologic, Gastrointestinal, Genitourinary, Musculoskeletal, Integumentary, Endocrine and Eyes/Ears/Nose/Throat Exam Surgical H&P Exam: Normal: HEENT, Normal: Heart, Normal: Lungs, Normal: Extremities, Normal: Abdomen, Normal: Skin and Normal: Neurological Exam Comment: Supraumbilical hernia Plan Diagnosis/Plan: Unchanged I have reviewed the history and physical and performed a pertinent physical examination on my patient. No changes have occurred unless specified. Time Spent With Patient Time: Total time managing care of this patient today ____ minutes.
--- NOTE | 2024-05-06 11:22 | W.PM.OPN ---
Operative Note Operative Note Date of Service: 05/06/24 Narrative: Preop Diagnosis: Supraumbilical hernia Postop diagnosis: Supraumbilical hernia, about 7 mm in defect Procedure: Repair of umbilical hernia Surgeon: Sonido Paulino MD commercial lending assistant: ISSA Alas Patient is a 48 male with note of reducible mass on the area above the umbilicus consistent with a supraumbilical hernia. He wanted to proceed with repair in view of symptoms. He understood the technique of the planned procedure as well as the risks, benefits, and alternatives He was brought to the operating room he was placed supine under general anesthesia via laryngeal mask airway. The abdomen was prepped draped in the usual sterile fashion. A surgical time-out was done. The patient received cefazolin 2 g IV preoperatively I infiltrated the planned line of incision with lidocaine 1%. I made a short incision on the skin overlying the hernia using blade 15. This carried down through the full-thickness of the skin subcutaneous fat with electrocautery. I then proceeded to blunt dissection of the thick subcutaneous fat. I expose the fascia. Eventually was able to identify the hernia just above the umbilicus. I sharp dissected the hernia contents off of the fascial defect with Metzenbaum scissors until was able to reduce this completely. The fascial defect measured about 7 mm in diameter. In view of the very small size, I decided to repair this primarily without mesh I closed this fascial defect with a [id number] Maxon 1 stitch. I made sure that there were no bowel loops 80 fascial edge The deep subcutaneous layer was reapposed with Polysorb 3-0 interrupted sutures. Skin closure was achieved with Polysorb 4-0 subcuticular running stitch The area was infiltrated with Marcaine 5% postop analgesia. Dressings were applied. The procedure was completed The patient tolerated the procedure well. There were no immediate complications. Initial and final counts of sponges and instruments correct. Estimated blood loss about 5 cc. The patient was extubated without difficulty and transferred to the recovery room with stable vital signs.
== END 2024-05-06 12:55 | disposition home or self-care (01) ==
PROVIDERS: PCP Internal Medicine; Visit Provider Surgery
PROC: (CPT 49591; principal; 2024-05-06 10:50)
DX: K43.9 Ventral hernia without obstruction or gangrene (principal); Z90.5 Acquired absence of kidney; Z85.528 Personal history of other malignant neoplasm of kidney; I10 Essential (primary) hypertension; E78.00 Pure hypercholesterolemia, unspecified; R79.89 Other specified abnormal findings of blood chemistry; E66.9 Obesity, unspecified; Z68.32 Body mass index [BMI] 32.0-32.9, adult; F20.9 Schizophrenia, unspecified; F31.9 Bipolar disorder, unspecified; F19.11 Other psychoactive substance abuse, in remission; Z79.1 Long term (current) use of non-steroidal anti-inflammatories (NSAID); Z79.899 Other long term (current) drug therapy; Z88.8 Allergy status to other drugs, medicaments and biological substances; Z98.890 Other specified postprocedural states; Z91.011 Allergy to milk products; Z91.010 Allergy to peanuts; Z87.891 Personal history of nicotine dependence; Z56.0 Unemployment, unspecified
CPT/HCPCS: 49591; J0690; J2704; J2795; J3010

== ENCOUNTER → 2024-05-06 09:00 | Outpatient (BNV) | payer OTHER, SELFPAY | PROVIDERS: PCP Internal Medicine; Visit Provider Surgery | DX: K43.9 Ventral hernia without obstruction or gangrene (principal) | CPT/HCPCS: 49591 ==

== ENCOUNTER 2024-05-12 13:41 | Outpatient (AMB) | payer OTHER, SELFPAY ==
--- NOTE | 2024-05-12 13:56 | A.OFFVIS_ITS ---
Intake Visit Reasons: check incision (pt req) Intake Note: This patient presents or incision check. Patient c/o: reports no complaints. 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 HPI HPI check incision (pt req): Details: He had undergone repair of a small supraumbilical hernia mesh last 05/06/2024. He was worried about some induration on the incision so he called to have a wound check He denies significant pain. Otherwise he says he feels well [facility] Medical History Bilateral arm pain Supraumbilical hernia Thoracic spondylosis Cervical spondylosis Renal cell carcinoma of right kidney Elevated LFTs Benign essential hypertension Mucus in stool Abdominal bloating Left-sided chest pain Overweight (BMI 25.0-29.9) Paresthesia of right upper extremity Pleuritis Polysubstance abuse Irritation of right eye Smoker Anxiety Schizophrenia Bipolar disorder Right inguinal pain Obesity (BMI 30-39.9) Degenerative joint disease of right shoulder Pure hypercholesterolemia Atrophy of muscle of right shoulder Anterior to posterior tear of superior glenoid labrum of right shoulder Surgical History H/O hand surgery History of partial nephrectomy History of esophagogastroduodenoscopy (EGD) H/O colonoscopy History of surgery on arm History of cataract removal with insertion of prosthetic lens History of hernia surgery (1998) Family History Father Amyloidosis Mother Alive and well Maternal Uncle Prostate cancer Social History Household Members: Friend(s) Household Members Other:: roomates/friends Housing: Apartment Are you a primary field care coordinator to a significant other at home: No Do you presently have visiting nurse or other home services: No Alcohol intake: current Alcohol intake frequency: does not drink Patient Tobacco Use Status: Former Tobacco user Tobacco use type: Cigarette Cigarette Packs Per Day: 0.5 Cigarettes Per Day: 10.0 Years Smoked: 30yrs, Quit 08/2022. e-Cigarette/Vaping Use: Never Used Second Hand Smoke Exposure: No service: No Current occupational status: unemployed Cognitive needs: No Hearing needs: No Vision needs: No Review of Systems Const Denies chills and Denies fever(s) Card Denies chest pain, Denies dyspnea and Denies dyspnea on exertion Resp Denies cough, Denies dyspnea and Denies dyspnea on exertion GI Denies hematochezia and Denies change in bowel habits Denies hematuria and Denies difficulty urinating Musc Denies back pain and Denies limited range of motion Neuro Denies focal weakness and Denies convulsions Psych Denies depression and Denies mood swings Physical Exam Const General: comfortable and no acute distress Resp Effort & Inspection: normal respiratory effort GI Other: Supraumbilical incision is dry, well healing, not infected, induration along the incision itself from immediate postop changes Palpation (GI): Soft to palpation, not firm and nontender Assessment & Plan Assessment & Plan (1) Supraumbilical hernia: Code(s): K43.9 - Ventral hernia without obstruction or gangrene Category: Medical Plan: Status post repair without mesh. He is doing well actually. The incision is healing well. I assured him that the induration that he feels is likely just from postop changes with edema. I expect this to resolve with time I will see him again in the office on his follow-up next week. I advised him to avoid lifting more than 20 lb. Coding Level of Care Code Global (46876) Diagnoses Supraumbilical hernia K43.9
== END 2024-05-12 13:59 | disposition home or self-care (01) ==
PROVIDERS: PCP Internal Medicine; Visit Provider Surgery
DX: K43.9 Ventral hernia without obstruction or gangrene (principal)
CPT/HCPCS: 99212

== ENCOUNTER → 2024-05-12 13:41 | Outpatient (BNVA) | payer OTHER, SELFPAY | PROVIDERS: PCP Internal Medicine; Visit Provider Surgery | DX: K43.9 Ventral hernia without obstruction or gangrene (principal) | CPT/HCPCS: 99212 ==

== ENCOUNTER 2024-05-30 15:15 | Outpatient (AMB) | payer OTHER, SELFPAY ==
--- NOTE | 2024-05-30 15:25 | MHC.OFFVIS ---
Intake Visit Reasons: s/p supraumbilical hernia repair Intake Note: This patient presents for a follow-up assessment status post supraumbilical hernia repair. Pt c/o;reports no complaints. 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 HPI HPI s/p supraumbilical hernia repair: Details: He is here for follow-up after repair of a supraumbilical hernia last 05/06/2024 He feels well. He denies any complaints at this time. He denies any pain. [facility] Medical History Bilateral arm pain Supraumbilical hernia Thoracic spondylosis Cervical spondylosis Renal cell carcinoma of right kidney Elevated LFTs Benign essential hypertension Mucus in stool Abdominal bloating Left-sided chest pain Overweight (BMI 25.0-29.9) Paresthesia of right upper extremity Pleuritis Polysubstance abuse Irritation of right eye Smoker Anxiety Schizophrenia Bipolar disorder Right inguinal pain Obesity (BMI 30-39.9) Degenerative joint disease of right shoulder Pure hypercholesterolemia Atrophy of muscle of right shoulder Anterior to posterior tear of superior glenoid labrum of right shoulder Surgical History History of umbilical hernia repair (~05/06/24) H/O hand surgery History of partial nephrectomy History of esophagogastroduodenoscopy (EGD) H/O colonoscopy History of surgery on arm History of cataract removal with insertion of prosthetic lens History of hernia surgery (1998) Family History Father Amyloidosis Mother Alive and well Maternal Uncle Prostate cancer Social History Household Members: Friend(s) Household Members Other:: roomates/friends Housing: Apartment Are you a primary pharmacy customer care specialist to a significant other at home: No Do you presently have visiting nurse or other home services: No Alcohol intake: current Alcohol intake frequency: does not drink Patient Tobacco Use Status: Former Tobacco user Tobacco use type: Cigarette Cigarette Packs Per Day: 0.5 Cigarettes Per Day: 10.0 Years Smoked: 30yrs, Quit 08/2022. e-Cigarette/Vaping Use: Never Used Second Hand Smoke Exposure: No service: No Current occupational status: unemployed Cognitive needs: No Hearing needs: No Vision needs: No Review of Systems Const Denies chills and Denies fever(s) Card Denies chest pain, Denies dyspnea and Denies dyspnea on exertion Resp Denies cough, Denies dyspnea and Denies dyspnea on exertion GI Denies hematochezia and Denies change in bowel habits Denies hematuria and Denies difficulty urinating Musc Denies back pain and Denies limited range of motion Neuro Denies focal weakness and Denies convulsions Psych Denies depression and Denies mood swings Physical Exam Const General: comfortable and no acute distress Resp Effort & Inspection: normal respiratory effort GI Other: Supraumbilical hernia repair site is well healed, not infected, repair intact Palpation (GI): Soft to palpation, not firm and nontender Assessment & Plan Assessment & Plan (1) Supraumbilical hernia: Code(s): K43.9 - Ventral hernia without obstruction or gangrene Category: Medical Plan: Status post repair. He is doing very well. The incision is well healed. I advised him to avoid lifting anything more than 20 lb for about 2 more weeks. Can otherwise follow up on a p.r.n. basis. Coding Level of Care Code Global (63663) Diagnoses Supraumbilical hernia K43.9
== END 2024-05-30 15:40 | disposition home or self-care (01) ==
PROVIDERS: PCP Internal Medicine; Visit Provider Surgery
DX: K43.9 Ventral hernia without obstruction or gangrene (principal); Z09 Encounter for follow-up examination after completed treatment for conditions other than malignant neoplasm
CPT/HCPCS: 99212

== ENCOUNTER → 2024-05-30 15:15 | Outpatient (BNVA) | payer OTHER, SELFPAY | PROVIDERS: PCP Internal Medicine; Visit Provider Surgery | DX: Z09 Encounter for follow-up examination after completed treatment for conditions other than malignant neoplasm (principal); K43.9 Ventral hernia without obstruction or gangrene | CPT/HCPCS: 99212 ==

== ENCOUNTER 2024-06-04 10:28 | Outpatient (REF) | payer OTHER, SELFPAY ==
[2024-06-04 11:16] LABS: MANUAL DIFF FLAG NO
[2024-06-04 11:33] LABS: Basophils Percent Auto 0.5 % (0-2); Eosinophils Absolute Auto 0.1 X10*3/uL (0.0-0.4); Imm Gran Abs Auto 0.03 X10*3/uL (0.00-0.03); Imm Gran Pct Auto 0.5 % (0.0-0.4); Lymphocytes Absolute Auto 1.9 X10*3/uL (1.2-4.9); Lymphocytes Percent Auto 34.2 % (20-40); Mean Corpuscular HGB Conc 35.9 g/dl (31.0-36.0); Mean Corpuscular Hemoglobin 29.8 pg (27.0-33.0); Mean Platelet Volume 9.4 fL (9.4-12.4); Monocytes Absolute Auto 0.6 X10*3/uL (0.1-1.2); Monocytes Percent Auto 10.5 % (2-11); Neutrophils Absolute Auto 2.9 x10*3/uL (2.0-8.3); Neutrophils Percent Auto 52.3 % (45-73); Platelet Count 245 X10*3/uL (160-400); Red Cell Distribution Width 12.4 % (11.0-16.0); White Blood Count 5.5 X10*3/uL (4.8-10.8)
[2024-06-04 11:43] LABS: Appearance Urine Clear; Color Urine Yellow; Glucose Urine UA Negative (Negative); Leukocyte Esterase Urine Negative (Negative); Nitrite Urine Negative (Negative); PH 5.5 (5.0-9.0); Urine Blood Negative (Negative); Urine Ketones Negative (Negative); Urine Protein Negative (Neg-Trace)
[2024-06-04 12:09] LABS: Alanine Aminotransferase 37 U/L (0-40); Albumin Level 4.4 g/dL (3.5-5.0); Alkaline Phosphatase 84 U/L (39-117); Anion Gap 13 (12-20); Aspartate Amino Transferase 26 U/L (5-37); Bilirubin Total 0.4 mg/dL (0.0-1.0); Blood Urea Nitrogen 16 mg/dL (9-16); Calcium 9.9 mg/dL (8.4-10.2); Carbon Dioxide 26 mmol/L (22-29); Chloride 108 mmol/L (96-108); Cholesterol 285 mg/dL (<200); Estimated Glomerular Filt Rate > 60; Glucose Fasting 92 mg/dL (60-99); HDL Cholesterol 48 mg/dL (>40); LDL Cholesterol Calculated 208 mg/dL (<100); Potassium 3.9 mmol/L (3.3-5.1); Sodium 143 mmol/L (135-145); Total Protein 7.6 g/dL (6.5-8.0); Triglycerides 146 mg/dL (<150)
[2024-06-04 12:25] LABS: TSH reflex Free T4 2.25 uIU/mL (0.32-4.0)
== END 2024-06-04 10:29 | disposition home or self-care (01) ==
LOC: HO.LAB 10:28
PROVIDERS: PCP Internal Medicine; Visit Provider Internal Medicine
DX: E78.00 Pure hypercholesterolemia, unspecified (principal); R30.0 Dysuria; D64.9 Anemia, unspecified
CPT/HCPCS: 36415; 80053; 80061; 81003; 84443; 85025

== ENCOUNTER 2024-06-13 14:00 | Outpatient (AMB) | payer OTHER, SELFPAY ==
[2024-06-13 14:07] VITALS: BP 136/82; PULSE 79; O2SAT 97; BMI 33.1
--- NOTE | 2024-06-13 14:07 | MHC.PC.OV ---
Vital Signs 06/13/24 14:07 Height 5 ft 11 in Weight 237 lb BMI 33.1 BP 136/82 Blood Pressure Location Lt brachial Position Sitting Pulse 79 Pulse Source Pulse Oximeter Pulse Oximetry (%) 97 Oxygen Delivery Method Room Air Intake Visit Reasons: [facility] f/u Occupational Rehabilitation Aide Required: No Accompanied by: Self / Same As Patient Allergies lorazepam [From ATIVAN] Allergy (Severe, Verified 06/13/24 14:37) ANAPHYLAXIS milk [Milk] Allergy (Intermediate, Verified 06/13/24 14:37) GI DISTRESS Peanut Butter Allergy (Intermediate, Verified 06/13/24 14:37) sore throat, hoarsensss atorvastatin Adverse Reaction (Severe, Verified 06/13/24 14:37) elevated LFTs pravastatin Adverse Reaction (Intermediate, Verified 06/13/24 14:37) ?diarrhea? Medication List - Last Reconciled 06/13/24 by Gonzalez Roman MD lisinopril 5 mg PO DAILY lurasidone (Latuda) 20 mg PO DAILY oxcarbazepine (Trileptal) 600 mg PO BID pantoprazole 40 mg PO DAILY Tobacco use date assessed: 06/13/24 Dental Screening Dental Screen Date: 06/13/24 Did you have a dental visit in the last 12 months?: Yes Did you have a dental problem in the last 6 months where you did not have access to dental care?: No Was dental information given to patient?: Patient has dentist HPI [facility] f/u HPI Details Patient comes in today for his follow up visit States that he currently has a metallic taste in mouth despite having some dental work done recently States that he feels okay otherwise Still has anxiety but he has been trying to manage it by staying active and thinking positive States that he is starting to go back to the gym again and trying to get back to exercising regularly He denies any headaches or dizziness Denies any chest pains, no SOB No nausea/vomiting, no abdominal pain No change in bowel habits noted Thinks that he will be needing to update his tetanus booster again soon, if not now - have advised him that he will be due for his booster dose next year (2024) He had his follow up labs done about a week ago - to discuss his results He would also like to go over his MRI report done in March 2024 and wants to be sure that his scans came out clean with no evidence of recurrence of his kidney cancer [facility] Medical History Bilateral arm pain Supraumbilical hernia Thoracic spondylosis Cervical spondylosis Renal cell carcinoma of right kidney Elevated LFTs Benign essential hypertension Mucus in stool Abdominal bloating Left-sided chest pain Overweight (BMI 25.0-29.9) Paresthesia of right upper extremity Pleuritis Polysubstance abuse Irritation of right eye Smoker Anxiety Schizophrenia Bipolar disorder Right inguinal pain Obesity (BMI 30-39.9) Degenerative joint disease of right shoulder Pure hypercholesterolemia Atrophy of muscle of right shoulder Anterior to posterior tear of superior glenoid labrum of right shoulder Surgical History History of umbilical hernia repair (~05/06/24) H/O hand surgery History of partial nephrectomy History of esophagogastroduodenoscopy (EGD) H/O colonoscopy History of surgery on arm History of cataract removal with insertion of prosthetic lens History of hernia surgery (1998) Family History Father Amyloidosis Mother Alive and well Maternal Uncle Prostate cancer Social History Household Members: Friend(s) Household Members Other:: roomates/friends Housing: Apartment Are you a primary career development counselor to a significant other at home: No Do you presently have visiting nurse or other home services: No Alcohol intake: current Alcohol intake frequency: does not drink Patient Tobacco Use Status: Former Tobacco user Tobacco use type: Cigarette Cigarette Packs Per Day: 0.5 Cigarettes Per Day: 10.0 Years Smoked: 30yrs, Quit 08/2022. e-Cigarette/Vaping Use: Never Used Second Hand Smoke Exposure: No service: No Current occupational status: unemployed Cognitive needs: No Hearing needs: No Vision needs: No Questionnaire PHQ-9 Over the last 2 weeks, how often have you been bothered by any of the following problems? 1. Little interest or pleasure in doing things: not at all 2. Feeling down, depressed, or hopeless: not at all 3. Trouble falling or staying asleep, or sleeping too much: not at all 4. Feeling tired or having little energy: not at all 5. Poor appetite or overeating: not at all 6. Feeling bad about yourself - or that you are a failure or have let yourself or your family down: not at all 7. Trouble concentrating on things, such as reading the newspaper or watching television: not at all 8. Moving or speaking so slowly that other people could have noticed. Or the opposite - being so fidgety or restless that you have been moving around a lot more than usual: not at all 9. Thoughts that you would be better off or of hurting yourself in some way: not at all Total score: 0 Depression Screening Interpretation: Negative (is on Rx) Depression Screening Done: Yes 43644 - PHQ-9 Billing: Yes Source: Developed by Drs. Jp Oropeza, Poly Infante, Brayden De La Fuente and colleagues, with an educational sera from [employer]. Thrive Questionnaire Date Thrive assessed: 06/13/24 I am a: Patient What is your living situation today?: I have a steady place to live Within the past 12 months, did the food you bought not last and you didn't have the money to get more?: Never true Within the past 12 months, did you worry whether your food would run out before you got money to buy more?: Never true Do you have trouble paying for medicines?: No Do you have trouble getting transportation to medical appointments?: No Do you have trouble paying your heating and electricity bill?: No Do you have trouble taking care of your child, family member or friend?: No Do you have trouble with day-to-day activities such as bathing, preparing meals, shopping, managing finances, etc.?: No Are you currently unemployed and looking for a job?: No Are you interested in more education?: No Please select the resources that you would like help with: None Currently or been in a relationship where the following occur: No concerns reported THRIVE Score: 0 AUDIT C Alcohol Use Questionnaire (AUDIT-C) 1. How often do you have a drink containing alcohol?: Never 3. How often do you have six or more drinks on one occasion?: Never Total Score: 0 Score Reviewed/Action Taken: Yes PORTER-7 AMB Questionnaire PORTER-7 Date PORTER - 7 assessed: 06/13/24 Feeling nervous, anxious, or on edge: 0 = Not at all Not being able to stop or control worryin = Not at all Worrying too much about different things: 0 = Not at all Trouble relaxin = Not at all Being so restless that it is hard to sit still: 0 = Not at all Becoming easily annoyed or irritable: 0 = Not at all Feeling afraid as if something awful might happen: 0 = Not at all Total PORTER-7 score (0-4 normal; 5-9 mild; 10-14 moderate; 15-21 severe): 0 Source: Developed by Drs. Jp Oropeza, Poly Infante, Brayden De La Fuente and colleagues, with an educational sera from [employer]. Review of Systems Const Denies chills, Denies fatigue, Denies fever(s) and Denies headache(s) ENT Reports as per HPI, Denies dysphagia, Denies dizziness, Denies otalgia, Denies headache(s), Denies neck pain, Denies odynophagia and Denies sore throat Card Denies chest pain, Denies palpitations and Denies dyspnea Resp Denies cough, Denies dyspnea and Denies wheezing GI Denies abdominal pain, Denies constipation, Denies dysphagia, Denies heartburn, Denies diarrhea, Denies nausea, Denies odynophagia and Denies vomiting Denies dysuria, Denies nocturia and Denies urinary frequency Musc Reports back pain (over his lower back and bilateral flank areas), Reports arthralgias (right shoulder, on and off; over both elbows and left forearm ) and Denies neck pain Skin/Breast Denies rash Neuro Denies dizziness and Denies headache(s) Psych Reports anxiety Endo Denies fatigue and Denies palpitations Aller/Immun Denies wheezing Physical exam (Primary Care) Vital Signs: Last Vital Signs Pulse 79 06/13/24 14:07 BP 136/82 06/13/24 14:07 Pulse Ox 97 06/13/24 14:07 Oxygen Delivery Method Room Air 06/13/24 14:07 BMI result Body Mass Index 33.1 Tobacco/Smoking Status: Tobacco use Status Tobacco use date assessed 06/13/24 06/13/24 14:16 Patient Tobacco Use Status Former Tobacco user 06/13/24 14:16 Tobacco use type Cigarette 06/13/24 14:16 e-Cigarette/Vaping Use Never Used 06/13/24 14:16 PHQ-9: PHQ-9 Score PHQ-9: Total score 0 06/13/24 14:41 Depression Screening Interpretation: Negative (is on Rx) Thrive Assessment: Date of Thrive Assessment Date Thrive assessed 06/13/24 06/13/24 14:16 Currently or been in a relationship where the following occur: No concerns reported Const General: no acute distress, alert and anxious HENMT Ears: TM's normal bilaterally and EAC's normal Throat: Yes posterior oropharynx normal and Yes tonsils normal (no TP congestion) Neck Neck: Yes no lymphadenopathy and Yes supple Thyroid: Thyroid normal Resp Auscultation: clear to auscultation bilaterally, no rales and no wheezes Cardio Rate: regular rate Rhythm: regular rhythm Heart sounds: no murmurs GI Palpation (GI): Soft to palpation, nontender and no guarding Auscultation: normal bowel sounds General: Yes CVA tenderness (mild) bilateral Back/Spine/Pelvis Back: CVA tenderness (mild) Thoracic/Lumbar Spine: lumbar spinal tenderness Skin Rashes: no rashes Extrem General: Yes no clubbing, cyanosis or edema Results Reviewed Results Reviewed: Laboratory Tests 06/04/24 11:11 WBC 5.5 Hgb 14.0 Hct 39.0 L Plt Count 245 Sodium 143 Potassium 3.9 Creatinine 0.88 Estimated GFR > 60 Fasting Glucose 92 AST 26 ALT 37 Triglycerides 146 Cholesterol 285 H LDL Cholesterol, Calc 208 H HDL Cholesterol 48 TSH 2.25 Ur Specific [place] 1.020 Urine Protein Negative Urine Glucose (UA) Negative Urine Blood Negative Urine Nitrite Negative Ur Leukocyte Esterase Negative Assessment and Plan Assessment & Plan (1) Renal cell carcinoma of right kidney: Code(s): C64.1 - Malignant neoplasm of right kidney, except renal pelvis Plan: S/P laparoscopic right partial nephrectomy by urology (Dr. Paez) at [facility] in August 2023 Patient had nuclear imaging/whole body bone scan done prior to his surgery that revealed NO evidence of osteoblastic metastatic disease He used to see urology in [place] but has since requested for a referral to go to another urology group as he felt that the urologist he used to see was arrogant and will not listen to his complaints He has stated that he also does NOT want to go [place] [facility] A urology referral was done to Dr. Mario Alberto Johansen in [place] previously, per patient's request, and he was eventually seen by one of his colleagues, Dr. Soto, who patient will now be following up with Have also discussed with patient his most recent abdominal MRI findings and have again reassured him that his cancer was cured by his previous surgery and he currently has no evidence of any recurrence or metastasis, to which patient expressed significant relief (2) Pure hypercholesterolemia: Code(s): E78.00 - Pure hypercholesterolemia, unspecified Plan: Results of his labs done about a week ago reviewed and discussed with patient - have advised him again that his cholesterol levels are significantly elevated, with his total cholesterol at 285 mg/dl and his LDL cholesterol now at 208 mg/dl Have advised him that these have increased slightly from his previous numbers in February 2024, which were 263 mg/dl and 196 mg/dl respectively Reinforced low-cholesterol diet He was taken off Atorvastatin last year when his LFTs went up significantly and he currently still does not wish to be started on any other cholesterol-lowering medication yet States that he would like one more shot at getting his numbers down with diet and exercise and if he is not able to do so over the next few months, then he will agree to try taking some Rx again Will have him recheck his labs and fasting lipids in 3 months for follow up (3) Coronary artery calcification seen on computed tomography: Code(s): I25.10 - Atherosclerotic heart disease of [place] coronary artery without angina pectoris Plan: Three-vessel coronary artery calcifications were noted on his chest CT done last year, which (per cardiology) was unusual for his age Reinforced that he should continue working on lowering his cholesterol level and reducing his risks for cardiac disease He may need additional cardiac workup if he starts experiencing symptoms of recurrent dyspnea and/or chest pains Follow up with cardiology as scheduled (4) Elevated LFTs: Code(s): R79.89 - Other specified abnormal findings of blood chemistry Plan: His LFTs were elevated in the past although they have been back to normal since November 2023 and have remained normal on his recent labs Abdominal US with liver elastography done back on 05/12/23 revealed (+) echogenic liver suggestive of fatty infiltration and borderline elevated liver stiffness Patient states that he does not drink alcohol; is again reminded to avoid taking medications containing Tylenol or Acetaminophen Will continue to monitor his LFTs regularly (5) Benign essential hypertension: Code(s): I10 - Essential (primary) hypertension Plan: Reinforced low sodium diet - goal is systolic BP of at least 120 mm or less Continue Lisinopril 5 mg QD (6) 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: Comment: EGD 12/2021 - repeat in 3 years Code(s): K22.70 - Vigil's esophagus without dysplasia Plan: Dietary restrictions reinforced Continue Pantoprazole 40 mg QD Follow up with GI as scheduled for continuing surveillance - will need repeat EGD in 2 to 3 years (2024) for follow up (7) Pulmonary nodule: Code(s): R91.1 - Solitary pulmonary nodule Plan: His chest CT done in October 2022 revealed a 5 x 3 mm polyclonal nodule along the right minor fissure - this was likely an intra fissural lymph node Chest CT was otherwise normal with no acute pulmonary disease According to the updated 2017 Fleischner Society recommendations, due to patient's significant history of smoking, optional CT can be done in 12 months for follow-up and he requests to have this ordered He did have a repeat chest CT done back on 05/04/2023 that showed the presence of bilateral nonspecific pulmonary nodules measuring up to 5 mm with no adenopathy in the chest Chest CT was again repeated in January 2024, which showed stable pulmonary nodules with no significant interval change Follow-up with pulmonary as scheduled (8) Pain of both elbows: Code(s): M25.521 - Pain in right elbow; M25.522 - Pain in left elbow Plan: X-rays of both elbows done back in April 2024 revealed (+) findings suggestive of calcific tendinitis or bursitis in BOTH elbow. There is also minimal right olecranon hypertrophics spurring seen in x-rays of the right elbow Patient states that his elbow symptoms have actually calmed down a lot recently Will consder referral to orthopedics if his elbows continue to bother him His left forearm x-rays came back normal (9) Low back pain: Code(s): M54.50 - Low back pain, unspecified Qualifiers: Back pain laterality: bilateral Chronicity: unspecified Sciatica presence: without sciatica Qualified Code(s): M54.50 - Low back pain, unspecified Plan: Lumbar spine x-rays done in March 2024 revealed (+) mild spondylosis of the lumbar spine, similar to findings in his cervical and thoracic spine previously Will consider referring him to PT if his back pain progresses or persists (10) Cervical spondylosis: Code(s): M47.812 - Spondylosis without myelopathy or radiculopathy, cervical region Plan: Cervical spine x-rays done in November 2021 revealed (+) cervical spondylosis with moderate C6-C7 disc degeneration Will refer him to pain management and/or physical therapy if his neck symptoms get worse (11) Thoracic spondylosis: Code(s): M47.814 - Spondylosis without myelopathy or radiculopathy, thoracic region Plan: Thoracic spine x-rays done back in November 2021 revealed (+) mild thoracic spondylosis Will consider referral to physical therapy if his back pain gets worse (12) Degenerative joint disease of right shoulder: Comment: MRI of the shoulder done in July 2020 revealed (+) moderate acromioclavicular osteoarthritis; the previously demostrated superior labral tear is much less conspicuous on this MRI Code(s): M19.011 - Primary osteoarthritis, right shoulder Qualifiers: Osteoarthritis type: post-traumatic Qualified Code(s): M19.111 - Post-traumatic osteoarthritis, right shoulder Plan: Advised again that we will consider referring him to orthopedics for further evaluation and management if his shoulder symptoms get worse Patient states that his shoulder pains have been mostly tolerable and his shoulder ROM is grossly normal - he would like to continue to hold off on referral or any surgical intervention for his shoulder at this time (13) Anxiety: Code(s): F41.9 - Anxiety disorder, unspecified Plan: Continue Latuda 20 mg QD and Hydroxyzine 25 mg TID PRN (14) Bipolar disorder: Code(s): F31.9 - Bipolar disorder, unspecified Qualifiers: Active/Remission status: currently active Current bipolar episode type: depressed Current episode severity: unspecified Qualified Code(s): F31.30 - Bipolar disorder, current episode depressed, mild or moderate severity, unspecified Plan: Continue Latuda 20 mg QD and Oxcarbazepine 600 mg BID Follow up with psychiatry as scheduled (15) Obesity (BMI 30-39.9): Code(s): E66.9 - Obesity, unspecified Plan: Reinforced diet/exercise as tolerated/lose weight Plan Follow up in 3 months Orders: Orders Lipid Panel 3 Months E78.00 - Pure hypercholesterolemia, unspecified Comprehensive [place]. Panel Fast 3 Months E78.00 - Pure hypercholesterolemia, unspecified Complete Blood Count Auto Diff 3 Months D64.9 - Anemia, unspecified Coding Level of Care Code Est Pt Level 4 (03153) Complex EM visit Add On G2211 Diagnoses Renal cell carcinoma of right kidney C64.1 Pure hypercholesterolemia E78.00 Coronary artery calcification seen on computed tomography I25.10 Elevated LFTs R79.89 Benign essential hypertension I10 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 K22.70 Pulmonary nodule R91.1 Pain of both elbows M25.521; M25.522 Bilateral low back pain without sciatica, unspecified chronicity M54.50 Back pain laterality: bilateral Chronicity: unspecified Sciatica presence: without sciatica Cervical spondylosis M47.812 Thoracic spondylosis M47.814 Post-traumatic osteoarthritis of right shoulder M19.111 Osteoarthritis type: post-traumatic Anxiety F41.9 Bipolar affective disorder, current episode depressed, current episode severity unspecified F31.30 Active/Remission status: currently active Current bipolar episode type: depressed Current episode severity: unspecified Obesity (BMI 30-39.9) E66.9
== END 2024-06-13 14:51 | disposition home or self-care (01) ==
PROVIDERS: PCP Internal Medicine; Visit Provider Internal Medicine
DX: C64.1 Malignant neoplasm of right kidney, except renal pelvis (principal); F31.30 Bipolar disorder, current episode depressed, mild or moderate severity, unspecified; E78.00 Pure hypercholesterolemia, unspecified; I25.10 Atherosclerotic heart disease of native coronary artery without angina pectoris; R79.89 Other specified abnormal findings of blood chemistry; I10 Essential (primary) hypertension; K22.70 Barrett's esophagus without dysplasia; R91.1 Solitary pulmonary nodule; M25.521 Pain in right elbow; M25.522 Pain in left elbow; M54.50 Low back pain, unspecified; M47.812 Spondylosis without myelopathy or radiculopathy, cervical region
CPT/HCPCS: 99214; G2211

== ENCOUNTER 2024-09-21 09:47 | Outpatient (AMB) | payer OTHER, SELFPAY ==
--- NOTE | 2024-09-21 10:05 | HO.NEPHOV_ITS ---
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 HPI Comments Details: Rajeev in follow up for H/O renal cell cancer . His last MRI did not show any malignancy. He has not seen an Oncologist and has not had a PET sacn. He has H/O hypertension. He is on ACEI. He is concerned about the pulmonary nodules that were seen in imaging last year and he would like to get a repeat chest CT done as he thinks it could be associated with his renal cell cancer. He had a laparoscopic partial nephrectomy done in the past for his renal cell cancer . He denies any fever, headaches or dizziness, night sweats, weight loss, fever, hematuria, chest pains, no shortness of breath, nausea/ vomiting. He has no PND, orthopnea, pedal edema or orthostatic symptoms. He has no new bone or back pain. He takes Trileptal. He avoids excessive NSAID's and tries to maintain good hydration. He has H/O cocaine use but claims that he has not used it for a few years. His renal functions are normal [facility] Medical History Bilateral arm pain Supraumbilical hernia Thoracic spondylosis Cervical spondylosis Renal cell carcinoma of right kidney Elevated LFTs Benign essential hypertension Mucus in stool Abdominal bloating Left-sided chest pain Overweight (BMI 25.0-29.9) Paresthesia of right upper extremity Pleuritis Polysubstance abuse Irritation of right eye Smoker Anxiety Schizophrenia Bipolar disorder Right inguinal pain Obesity (BMI 30-39.9) Degenerative joint disease of right shoulder Pure hypercholesterolemia Atrophy of muscle of right shoulder Anterior to posterior tear of superior glenoid labrum of right shoulder Surgical History History of umbilical hernia repair (~05/06/24) H/O hand surgery History of partial nephrectomy History of esophagogastroduodenoscopy (EGD) H/O colonoscopy History of surgery on arm History of cataract removal with insertion of prosthetic lens History of hernia surgery (1998) Family History Father Amyloidosis Mother Alive and well Maternal Uncle Prostate cancer Social History Household Members: Friend(s) Household Members Other:: roomates/friends Housing: Apartment Are you a primary ostomy care nurse to a significant other at home: No Do you presently have visiting nurse or other home services: No Alcohol intake: current Alcohol intake frequency: does not drink Patient Tobacco Use Status: Former Tobacco user Tobacco use type: Cigarette Cigarette Packs Per Day: 0.5 Cigarettes Per Day: 10.0 Years Smoked: 30yrs, Quit 08/2022. e-Cigarette/Vaping Use: Never Used Second Hand Smoke Exposure: No service: No Current occupational status: unemployed Cognitive needs: No Hearing needs: No Vision needs: No Review of Systems Const All systems reviewed & are unremarkable except as noted in HPI and below Physical Exam Vital Signs: Last Vital Signs Pulse 60 09/21/24 10:07 BP 130/90 H 09/21/24 10:07 Pulse Ox 98 09/21/24 10:07 Oxygen Delivery Method Room Air 09/21/24 10:07 BMI result Body Mass Index 32.8 Const General: comfortable and no acute distress Orientation/consciousness: patient oriented x3 HEENT Head: Yes normocephalic Mouth: Normal oral and palatal mucosa present Eyes EOM: EOMs intact bilaterally Neck Neck: Yes supple Resp Auscultation: clear to auscultation bilaterally Cardio Jugular venous distension: no JVD Rate: regular rate GI Palpation (GI): Soft to palpation Auscultation: normal bowel sounds General: Yes no CVA tenderness Back/Spine/Pelvis Back: no CVA tenderness Skin General skin exam: no rashes or lesions noted Neuro General: patient oriented x3 and moves all extremities Extrem General: Yes no pedal edema Results Reviewed Nephrology Results: Hgb 14.0 g/dl (14.0-18.0) 06/04/24 WBC 5.5 X10*3/uL (4.8-10.8) 06/04/24 Plt Count 245 X10*3/uL (160-400) 06/04/24 Sodium 143 mmol/L (135-145) 06/04/24 Potassium 3.9 mmol/L (3.3-5.1) 06/04/24 Chloride 108 mmol/L (96-108) 06/04/24 Carbon Dioxide 26 mmol/L (22-29) 06/04/24 BUN 16 mg/dL (9-16) 06/04/24 Creatinine 0.88 mg/dL (0.5-1.4) 06/04/24 Calcium 9.9 mg/dL (8.4-10.2) 06/04/24 Urine Protein Negative mg/dL (Neg-Trace) 06/04/24 Assessment & Plan Assessment & Plan (1) Benign essential hypertension: Code(s): I10 - Essential (primary) hypertension Category: Medical (2) Renal cell carcinoma of right kidney: Code(s): C64.1 - Malignant neoplasm of right kidney, except renal pelvis Category: Medical Plan His renal functions are at baseline. He had H/O partial nephrectomy and had follow up USS / CT/ MRI. He has no hematuria, night sweats , fever or weight loss. He has no significant proteinuria. His BP has been at goal. He is tolerating ACEI. He should avoid NSAID's and maintain good hydration. He claims that he has not used any cocaine for couple of years. He takes PPI regularly. He needs regular follow up with Urology. He wants to see an Oncologist and PET scan.Answered all questions. Orders: Orders Protein Creatinine Ratio, Ur 7 Months C64.1 - Malignant neoplasm of right kidney, except renal pelvis, I10 - Essential (primary) hypertension Electrolytes 7 Months C64.1 - Malignant neoplasm of right kidney, except renal pelvis, I10 - Essential (primary) hypertension Calcium 7 Months C64.1 - Malignant neoplasm of right kidney, except renal pelvis, I10 - Essential (primary) hypertension Creatinine 7 Months C64.1 - Malignant neoplasm of right kidney, except renal pelvis, I10 - Essential (primary) hypertension Blood Urea Nitrogen 7 Months C64.1 - Malignant neoplasm of right kidney, except renal pelvis, I10 - Essential (primary) hypertension Referrals Hematology & Oncology Referral C64.1 - Malignant neoplasm of right kidney, except renal pelvis, I10 - Essential (primary) hypertension Coding Level of Care Code Est Pt Level 4 (88610) Diagnoses Benign essential hypertension I10 Renal cell carcinoma of right kidney C64.1
[2024-09-21 10:07] VITALS: BP 130/80; PULSE 60; O2SAT 98; BMI 32.8
== END 2024-09-21 10:43 | disposition home or self-care (01) ==
PROVIDERS: PCP Internal Medicine; Visit Provider Internal Medicine Nephrology
DX: I10 Essential (primary) hypertension (principal); C64.1 Malignant neoplasm of right kidney, except renal pelvis
CPT/HCPCS: 99214

== ENCOUNTER → 2024-09-21 09:47 | Outpatient (BNVA) | payer OTHER, SELFPAY | PROVIDERS: PCP Internal Medicine; Visit Provider Internal Medicine Nephrology | DX: C64.1 Malignant neoplasm of right kidney, except renal pelvis (principal); I10 Essential (primary) hypertension | CPT/HCPCS: 99212 ==

== ENCOUNTER 2024-10-03 10:10 | Outpatient (REF) | payer OTHER, SELFPAY ==
[2024-10-03 10:34] LABS: MANUAL DIFF FLAG NO
[2024-10-03 10:50] LABS: Basophils Percent Auto 0.4 % (0-2); Eosinophils Absolute Auto 0.2 X10*3/uL (0.0-0.4); Hematocrit 39.8 % (42.0-52.0); Hemoglobin 13.9 g/dl (14.0-18.0); Imm Gran Abs Auto 0.01 X10*3/uL (0.00-0.03); Imm Gran Pct Auto 0.2 % (0.0-0.4); Lymphocytes Absolute Auto 1.6 X10*3/uL (1.2-4.9); Lymphocytes Percent Auto 31.3 % (20-40); Mean Corpuscular HGB Conc 34.9 g/dl (31.0-36.0); Mean Corpuscular Hemoglobin 29.2 pg (27.0-33.0); Mean Corpuscular Volume 83.6 fL (80.0-98.0); Mean Platelet Volume 9.3 fL (9.4-12.4); Monocytes Absolute Auto 0.5 X10*3/uL (0.1-1.2); Monocytes Percent Auto 10.3 % (2-11); Neutrophils Absolute Auto 2.8 x10*3/uL (2.0-8.3); Neutrophils Percent Auto 54.8 % (45-73); Platelet Count 242 X10*3/uL (160-400); Red Blood Count 4.76 X10*6/uL (4.60-5.80); Red Cell Distribution Width 12.3 % (11.0-16.0); White Blood Count 5.1 X10*3/uL (4.8-10.8)
[2024-10-03 11:20] LABS: Alanine Aminotransferase 47 U/L (0-40); Albumin Level 4.4 g/dL (3.5-5.0); Alkaline Phosphatase 85 U/L (39-117); Anion Gap 10 (12-20); Aspartate Amino Transferase 45 U/L (5-37); Bilirubin Total 0.4 mg/dL (0.0-1.0); Blood Urea Nitrogen 16 mg/dL (9-16); Carbon Dioxide 22 mmol/L (22-29); Chloride 107 mmol/L (96-108); Cholesterol 270 mg/dL (<200); Estimated Glomerular Filt Rate > 60; Glucose Fasting 99 mg/dL (60-99); HDL Cholesterol 42 mg/dL (>40); LDL Cholesterol Calculated 199 mg/dL (<100); Potassium 4.2 mmol/L (3.3-5.1); Sodium 135 mmol/L (135-145); Total Protein 7.5 g/dL (6.5-8.0); Triglycerides 146 mg/dL (<150)
== END 2024-10-03 10:11 | disposition home or self-care (01) ==
LOC: HO.LAB 10:10
PROVIDERS: PCP Internal Medicine; Visit Provider Internal Medicine
DX: E78.00 Pure hypercholesterolemia, unspecified (principal); D64.9 Anemia, unspecified
CPT/HCPCS: 36415; 80053; 80061; 85025

== ENCOUNTER 2025-01-06 09:48 | Outpatient (AMB) | payer OTHER, SELFPAY ==
--- NOTE | 2025-01-06 09:49 | A.OFFVIS_ITS ---
Vital Signs 01/06/25 09:50 Height 5 ft 11 in Weight 264 lb 1.82 oz BMI 36.8 BP 160/104 H Blood Pressure Location Lt brachial Position Sitting Intake Visit Reasons: Vigil's esophagus r/s from 11/04 Intake Note: Patient in office today for Barett's esophagus. CC: Patient reports epigastric burning sometimes. Denies having other GI symptoms. 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 HPI HPI Vigil's esophagus r/s from 11/04: Details: Assessment & Plan (1) Erosive gastritis: Code(s): K29.60 - Other gastritis without bleeding Plan: The we review the results and I strongly feel that and once lapse in his pantoprazole therapy has caused his duodenal ulcer. I explained this to him and explained that he is not the kind of personal be able to control his ulcer disease by diet and he really needs lifelong acid reducing therapy.. He has been feeling better on pantoprazole 40 mg daily and he admits that he has been gaining some weight. With this it seems he has had some increasing transaminitis so will get an ultrasound to fully explore this. Will also get basic lab workup to exclude any severe liver pathology in terms of the usual blood work. He definitely did have a problem in his stomach but this did not correlate well to his described symptoms of a funny feeling in his throat. Return office visit after the ultrasound. (2) Odynophagia: Code(s): R13.10 - Dysphagia, unspecified (3) 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: Comment: EGD 12/2021 - repeat in 3 years Code(s): K22.70 - Vigil's esophagus without dysplasia (4) Irritable bowel syndrome with diarrhea: Code(s): K58.0 - Irritable bowel syndrome with diarrhea (5) Transaminitis: Code(s): R74.01 - Elevation of levels of liver transaminase levels Orders: Orders TINO Reflex Titer and Pattern 04/13/23 R7. - Elevation of levels of liver transaminase levels Ferritin 04/13/23 R74. - Elevation of levels of liver transaminase levels Gamma Glutamyl Transpeptidase 04/13/23 R74. - Elevation of levels of liver transaminase levels Mitochondrial Antibody 04/13/23 R74.01 - Elevation of levels of liver transaminase levels Smooth Muscle Antibody 04/13/23 R74. - Elevation of levels of liver transaminase levels Hepatitis A,B,C Profile 04/13/23 R74. - Elevation of levels of liver transaminase levels HIV Ab/Ag 04/13/23 R7. - Elevation of levels of liver transaminase levels Alpha Fetoprotein 04/13/23. - Elevation of levels of liver transaminase levels Ceruloplasmin 04/13/23 R7. - Elevation of levels of liver transaminase levels Hemoglobin A1c 04/13/23 R74. - Elevation of levels of liver transaminase levels US abdomen comp w elastography 04/10/23. - Elevation of levels of liver transaminase levels LABS: Laboratory Tests 04/13/23 10:28 TINO Screen NEGATIVE Anti-Mitochondrial Ab NEGATIVE Anti-Smooth Muscle Ab <20 Hepatitis A IgM Ab Nonreactive Hep Bs Antigen Negative Hep Bs Antibody NONREACTIVE Hep B Core Total Ab Nonreactive Hepatitis C Ab (EIA) Nonreactive HIV 1&2 Ab/P24 Ag 4thGn Nonreactive THE FERRITIN, CERULOPLASMIN, AND HEMOGLOBIN A1C WERE NOT PERFORMED. ULTRASOUND OF THE ABDOMEN WITH ELASTOGRAPHY 05/12/2023 (F0-F1) FINDINGS: PANCREAS: Normal. The visualized pancreatic head and body are normal in appearance. ABDOMINAL AORTA: The proximal abdominal aorta is not well visualized due to bowel gas. The middle, and distal aortic segments are normal in caliber. INFERIOR VENA CAVA: Visualized portions are normal. LIVER: Echogenic liver suggestive of fatty infiltration. Focal fatty sparing adjacent to the gallbladder. The liver is normal in size and contour. No focal lesion or intrahepatic biliary duct dilatation. The right lobe measures 15 cm in length. The left lobe measures 10 cm in length. Portal flow is normal/hepatopedal Shear wave liver elastography median stiffness is 1.7 m/s (reference: normal median stiffness is 1.3 m/s or less). IQR/median stiffness to assess sampling precision is 0.1 (reference: good quality data set is IQR/median stiffness of 0.15 or less). GALLBLADDER: Normal. The gallbladder is physiologically distended without evidence of stones, sludge, polyps, wall thickening or pericholecystic fluid. COMMON BILE DUCT: Normal in caliber measuring 0.3 cm in diameter. RIGHT KIDNEY: There is a 2.5 x 2.4 x 2.5 cm isoechoic mass midpole of the right kidney. This demonstrates some vascularity. Appearance is concerning for a neoplasm. Is similar to recent CT of the abdomen and pelvis 04/30/2023. No hydronephrosis. No renal calculi or focal parenchymal lesions. The kidney measures 13 cm in maximum dimension. LEFT KIDNEY: Normal. No hydronephrosis. No renal calculi or focal parenchymal lesions. The kidney measures 13.6 cm in maximum dimension. SPLEEN: Normal. The spleen measures 10 cm in maximum dimension. FREE FLUID: None. US/US abdomen comp w elastography IMPRESSION: 1. Impression: Echogenic liver suggestive of fatty infiltration. 2.5 cm right renal mass suspicious for neoplasm. Urology consultation recommended. Nonvisualization of the upper abdominal aorta. 2. Liver elastography: Adequate liver sampling. Borderline elevated liver stiffness. TODAY'S VISIT The patient has been lost to follow-up since 04/2023 He has not follow-up because he was battling with renal cancer! He had to have surgery and then chemotherapy. Fortunately he has come out of this extremely well, he has gained weight, goes to the gym regularly and has found that his energy has returned to him. 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 He says he has 60 lb overweight but he also works out an this is a combination of both fat and muscle. I reviewed the liver labs since he had some elevated transaminases last time I saw him fortunately does not appear to have autoimmune liver disease or any hepatitis. However there was some labs not obtained so I will get a ferritin and try to get a hemoglobin A1c. We will also get another ultrasound to monitor this condition. He was educated that slow steady weight loss and/or avoiding severe weight gain as he ages will best protect his liver. He asks about taking baking soda as an adjunct to his pantoprazole and I tell him this is absolutely fine. He is agreeable to a repeat EGD for surveillance of his Barretts esophagus. He admits that he sometimes forgets take his pantoprazole and when he does he will have a globus sensation and a feeling like his throat is closing. He also tells me that an ear nose throat doctor recently said he had cobblestoning in his throat and that should be checked by Gastroenterology. There are no prior problems with anesthesia or sedation. He denies any cardiac or respiratory problems. There are no infectious disease problems. Return office visit in 3 months and of course after the EGD [facility] Medical History (Updated 01/06/25 @ 10:26 by CRUZITO Allan) Pain of both elbows Renal mass Low back pain Lumbar back pain Lower abdominal pain Odynophagia Status post fall Back pain Neck pain LUQ pain Abdominal pain Mucus in stool Irritation of right eye Right inguinal pain Pleuritis Left-sided chest pain Abdominal bloating Elevated LFTs Foreign body of left eye Right renal mass Tendinitis Family history of amyloidosis History of transitional cell carcinoma of kidney Adult general medical exam Bilateral arm pain Supraumbilical hernia Thoracic spondylosis Cervical spondylosis Renal cell carcinoma of right kidney Benign essential hypertension Overweight (BMI 25.0-29.9) Paresthesia of right upper extremity Polysubstance abuse Smoker Anxiety Schizophrenia Bipolar disorder Obesity (BMI 30-39.9) Degenerative joint disease of right shoulder Pure hypercholesterolemia Atrophy of muscle of right shoulder Anterior to posterior tear of superior glenoid labrum of right shoulder Surgical History History of umbilical hernia repair (~05/06/24) H/O hand surgery History of partial nephrectomy History of esophagogastroduodenoscopy (EGD) H/O colonoscopy History of surgery on arm History of cataract removal with insertion of prosthetic lens History of hernia surgery (1998) Family History Father Amyloidosis Mother Alive and well Maternal Uncle Prostate cancer Social History Household Members: Friend(s) Household Members Other:: roomates/friends Housing: Apartment Are you a primary patient care director to a significant other at home: No Do you presently have visiting nurse or other home services: No Alcohol intake: current Alcohol intake frequency: does not drink Patient Tobacco Use Status: Former Tobacco user Tobacco use type: Cigarette Cigarette Packs Per Day: 0.5 Cigarettes Per Day: 10.0 Years Smoked: 30yrs, Quit 08/2022. e-Cigarette/Vaping Use: Never Used Second Hand Smoke Exposure: No service: No Current occupational status: unemployed Cognitive needs: No Hearing needs: No Vision needs: No Review of Systems Const Denies fatigue, Denies fever(s), Denies night sweats, Denies poor appetite, Reports weight gain and Denies weight loss ENT Reports Normal hearing present, Denies dental pain, Denies dysphagia, Denies hearing loss, Denies mouth pain, Denies odynophagia, Denies throat swelling, Denies tongue swelling and Reports other (Dentition adequate) Card Reports no additional complaints Resp Reports no additional complaints GI Details: Denies abdominal pain, Denies melena, Denies bloating, Denies hematochezia, Denies constipation, Denies GI cramping, Denies dysphagia, Denies excessive flatus, Denies early satiety, Reports heartburn, Denies diarrhea, Denies nausea, Denies odynophagia, Denies vomiting and Denies hematemesis Musc Reports arthralgias (Shoulders) Skin/Breast Denies pruritus, Denies lesions, Denies rash and Denies jaundice Neuro Reports Normal hearing present and Denies Abnormal speech present Endo Denies fatigue Aller/Immun Denies throat swelling and Denies tongue swelling Physical Exam Vital Signs: Last Vital Signs BP 160/104 H 01/06/25 09:50 BMI result Body Mass Index 36.8 Const General: cooperative, no acute distress, well developed and well groomed Nutritional Appearance: well nourished and overweight Orientation/consciousness: oriented to person, oriented to place and oriented to time Limitations: No language barrier and other limitations HEENT Head: Yes normocephalic and Yes atraumatic Eyes General: appearance normal, both eyes and all related structures Pupils: Equal, round and reactive pupils present Neck Neck: Yes normal visual inspection and Yes no lymphadenopathy Thyroid: Thyroid normal Resp Effort & Inspection: normal respiratory effort and able to speak in complete sentences Auscultation: clear to auscultation bilaterally Cardio Rate: regular rate Rhythm: regular rhythm Heart sounds: Normal, physiologic split S2 sound present Peripheral pulses: radial pulses present and posterior tibial pulses present GI Inspection: No distended, No Abdominal panniculus present and Yes obesity Palpation (GI): Soft to palpation, nontender, no guarding, not rigid and No hepatosplenomegaly present Percussion: Yes normal to percussion Auscultation: normal bowel sounds Rectal Exam - Male: Yes deferred Skin General skin exam: no rashes or lesions noted, turgor normal, skin not dry, no jaundice, No spider nevi and no striae Rashes: no rashes Nails: normal Neuro General: oriented to person, oriented to place and oriented to time Cranial nerves: Yes Equal, round and reactive pupils present and Yes Normal hearing present Speech: No Abnormal speech present Extrem General: Yes normal to inspection, No clubbing, No cyanosis and No edema Psych Appearance: grossly normal and well kempt Mental Status: mental status grossly normal Speech and movement: Pressured speech present Affect: Animated affect present Attitude: cooperative Thought process: Normal thought process present and not confabulating Thought content: Normal thought content present Insight: Limited insight present (Psych) Judgement: Limited judgement present (Psych) Results Reviewed Results Reviewed: Laboratory Tests 04/13/23 10:28 TINO Screen NEGATIVE Anti-Mitochondrial Ab NEGATIVE Anti-Smooth Muscle Ab <20 Hepatitis A IgM Ab Nonreactive Hep Bs Antigen Negative Hep Bs Antibody NONREACTIVE Hep B Core Total Ab Nonreactive Hepatitis C Ab (EIA) Nonreactive HIV 1&2 Ab/P24 Ag 4thGn Nonreactive THE FERRITIN, CERULOPLASMIN, AND HEMOGLOBIN A1C WERE NOT PERFORMED. ULTRASOUND OF THE ABDOMEN WITH ELASTOGRAPHY 05/12/2023 (F0-F1) FINDINGS: PANCREAS: Normal. The visualized pancreatic head and body are normal in appearance. ABDOMINAL AORTA: The proximal abdominal aorta is not well visualized due to bowel gas. The middle, and distal aortic segments are normal in caliber. INFERIOR VENA CAVA: Visualized portions are normal. LIVER: Echogenic liver suggestive of fatty infiltration. Focal fatty sparing adjacent to the gallbladder. The liver is normal in size and contour. No focal lesion or intrahepatic biliary duct dilatation. The right lobe measures 15 cm in length. The left lobe measures 10 cm in length. Portal flow is normal/hepatopedal Shear wave liver elastography median stiffness is 1.7 m/s (reference: normal median stiffness is 1.3 m/s or less). IQR/median stiffness to assess sampling precision is 0.1 (reference: good quality data set is IQR/median stiffness of 0.15 or less). GALLBLADDER: Normal. The gallbladder is physiologically distended without evidence of stones, sludge, polyps, wall thickening or pericholecystic fluid. COMMON BILE DUCT: Normal in caliber measuring 0.3 cm in diameter. RIGHT KIDNEY: There is a 2.5 x 2.4 x 2.5 cm isoechoic mass midpole of the right kidney. This demonstrates some vascularity. Appearance is concerning for a neoplasm. Is similar to recent CT of the abdomen and pelvis 04/30/2023. No hydronephrosis. No renal calculi or focal parenchymal lesions. The kidney measures 13 cm in maximum dimension. LEFT KIDNEY: Normal. No hydronephrosis. No renal calculi or focal parenchymal lesions. The kidney measures 13.6 cm in maximum dimension. SPLEEN: Normal. The spleen measures 10 cm in maximum dimension. FREE FLUID: None. US/US abdomen comp w elastography IMPRESSION: 1. Impression: Echogenic liver suggestive of fatty infiltration. 2.5 cm right renal mass suspicious for neoplasm. Urology consultation recommended. Nonvisualization of the upper abdominal aorta. 2. Liver elastography: Adequate liver sampling. Borderline elevated liver stiffness. Assessment & Plan Assessment & Plan (1) Erosive gastritis: Code(s): K29.60 - Other gastritis without bleeding Category: Medical (2) 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: Comment: EGD 12/2021 - repeat in 3 years Code(s): K22.70 - Vigil's esophagus without dysplasia Category: Medical (3) Irritable bowel syndrome with diarrhea: Code(s): K58.0 - Irritable bowel syndrome with diarrhea Category: Medical (4) Transaminitis: Code(s): R74.01 - Elevation of levels of liver transaminase levels Category: Medical (5) Pre-op examination: Code(s): Z01.818 - Encounter for other preprocedural examination Category: Medical Plan The patient has been lost to follow-up since 04/2023 He has not follow-up because he was battling with renal cancer! He had to have surgery and then chemotherapy. Fortunately he has come out of this extremely well, he has gained weight, goes to the gym regularly and has found that his energy has returned to him. 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 He says he has 60 lb overweight but he also works out an this is a combination of both fat and muscle. I reviewed the liver labs since he had some elevated transaminases last time I saw him fortunately does not appear to have autoimmune liver disease or any hepatitis. However there was some labs not obtained so I will get a ferritin and try to get a hemoglobin A1c. We will also get another ultrasound to monitor this condition. He was educated that slow steady weight loss and/or avoiding severe weight gain as he ages will best protect his liver. He asks about taking baking soda as an adjunct to his pantoprazole and I tell him this is absolutely fine. He is agreeable to a repeat EGD for surveillance of his Barretts esophagus. He admits that he sometimes forgets take his pantoprazole and when he does he will have a globus sensation and a feeling like his throat is closing. He also tells me that an ear nose throat doctor recently said he had cobblestoning in his throat and that should be checked by Gastroenterology. There are no prior problems with anesthesia or sedation. He denies any cardiac or respiratory problems. There are no infectious disease problems. Return office visit in 3 months and of course after the EGD Orders: Orders Comprehensive Met. Panel Today R74.01 - Elevation of levels of liver transaminase levels, Z01.818 - Encounter for other preprocedural examination Hemoglobin A1c Today R74.01 - Elevation of levels of liver transaminase levels, Z01.818 - Encounter for other preprocedural examination US abdomen complete Today R74.01 - Elevation of levels of liver transaminase levels, Z01.818 - Encounter for other preprocedural examination Complete Blood Count Auto Diff Today R74.01 - Elevation of levels of liver t ransaminase levels, Z01.818 - Encounter for other preprocedural examination Ferritin Today R74.01 - Elevation of levels of liver transaminase levels, Z01.818 - Encounter for other preprocedural examination EGD - GI Use Only Today K22.70 - Vigil's esophagus without dysplasia, R74.01 - Elevation of levels of liver transaminase levels, Z01.818 - Encounter for other preprocedural examination Medications: Refilled pantoprazole 40 mg PO DAILY 90 tabs 2RF K22.70 - Vigil's esophagus without dysplasia Coding Level of Care Code Est Pt Level 4 (11333) Diagnoses Erosive gastritis K29.60 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 K22.70 Irritable bowel syndrome with diarrhea K58.0 Transaminitis R74.01 Pre-op examination Z01.818 Time Spent (min) 38
[2025-01-06 09:50] VITALS: BP 160/104; BMI 36.8
--- OUTSIDE RECORDS SUMMARY | 2025-01-06 10:58 | XMS_ITS | Continuity of Care Document ---
Author Organization [place] - [facility], [facility] Address [address] [place] [address] Care Team Providers Care Emergency Detail Driver Name Role Phone CONY HAIR Primary Care Provider [phone] Assessment Encounter Date Assessment Date Assessment LastModified by Organization Details LastModified Time 01/05/2025 01/05/2025 49 year old male with phantom smell of cigarette smoke for the past month. No polyps or purulence on nasal endoscopy. I have ordered MRI brain with contrast for further evaluation. Discussed that he may benefit from smell retraining therapy in the future. [email or web address] Not available 01/05/2025 12:16:00 Plan of Treatment Reminders Order Date Submit Date Provider Last Modified By Organization Details Last Modified Time Details Appointments None recorded. Lab None recorded. Referral None recorded. Procedures None recorded. Surgeries None recorded. Imaging MRI, brain, w/wo contrast 2024 025 [email or web address] [facility] ([facility]), [address] [place], [address], 5 15:52:06 Medication Orders None recorded. Patient TargetsNo targets recorded. Patient InstructionsNo instructions recorded. Reason for Referral None Reported. 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 Procedures Surgical History Date Name Laterality Status Provider Name and Address Organization Details Recorded Time 01/05/2025 NasalEndos copy_DP completed HANDY HWANG PA-C [address] [facility],[place] [address], [place], [address], [facility] 01/05/2025 12:12:00 Imaging Results None recorded. Procedure Notes None recorded. Medical Equipment None Reported. Medications Name Sig Start Date Stop Date Status Note LastModified by Organization Details LastModified Time atorvasta tin 40 mg tablet 01/05 completed Medicati on ID: [id number] B rand Name: atorvast atin Sen d Method: E-Prescr ibed Sub s Allowed: subs OK Medic ationGen ericName : atorvast atin Not Available Not Available Not Available methocarb lupe 500 mg tablet 01/05 completed Medicati on ID: [id number] B rand Name: methocar bamol Se nd Method: E-Prescr ibed Sub s Allowed: subs OK Medic ationGen ericName : methocar bamol Not Available Not Available Not Available nystatin 100,000 unit/mL oral suspensio n 01/05 completed Medicati on ID: [id number] B rand Name: nystatin Send Method: E-Prescr ibed Sub s Allowed: subs OK Medic ationGen ericName : nystatin Not Available Not Available Not Available valacyclo vir 1 gram tablet 01/05 completed Medicati on ID: [id number] B rand Name: valacycl ovir Sen d Method: E-Prescr ibed Sub s Allowed: subs OK Medic ationGen ericName : valacycl ovir Not Available Not Available Not Available amoxicill in 500 mg tablet TAKE 1 TABLET BY MOUTH EVERY 8 HOURS FOR 7 DAYS active Not Available Not Available No t Available pantopraz ole 20 mg tablet,de layed release active Medicati on ID: [id number] B rand Name: pantopra zole Sen d Method: E-Prescr ibed Sub s Allowed: subs OK Medic ationGen ericName : pantopra zole Not Available Not Available Not Available amoxicill in 875 mg tablet 01/05 completed Medicati on ID: [id number] B rand Name: amoxicil gayla Send Method: E-Prescr ibed Sub s Allowed: subs OK Medic ationGen ericName : amoxicil gayla Not Available Not Available Not Available prednisol one acetate 1 % eye drops,mellissa pension 01/05 completed Medicati on ID: [id number] B rand Name: predniso lone acetate Send Method: E-Prescr ibed Sub s Allowed: subs OK Medic ationGen ericName : predniso lone acetate Not Available Not Available Not Available tamsulosi n 0.4 mg capsule TAKE 1 CAPSULE BY MOUTH EVERY DAY active Not Available Not Available No t Available pantopraz ole 40 mg tablet,de layed release TAKE 1 TABLET BY MOUTH EVERY DAY active Not Available Not Available No t Available prednison e 50 mg tablet 01/05 completed Medicati on ID: [id number] B rand Name: predniso ne Send Method: E-Prescr ibed Sub s Allowed: subs OK Medic ationGen ericName : predniso ne Not Available Not Available Not Available oxcarbaze pine 600 mg tablet TAKE 1 TABLET BY MOUTH EVERYDAY AT BEDTIME active Not Available Not Available No t Available hydroxyzi ne HCl 25 mg tablet 01/05 completed Medicati on ID: [id number] B rand Name: hydroxyz ine HCl Send Method: E-Prescr ibed Sub s Allowed: subs OK Medic ationGen ericName : hydroxyz ine HCl Not Available Not Available Not Available lisinopri l 5 mg tablet TAKE 1 TABLET BY MOUTH EVERY DAY active Not Available Not Available No t Available mupirocin 2 % topical ointment Apply 1 a small amount twice a day 01/05 completed Medicati on ID: [id number] D uration Value: 14 Brand Name: mupiroci n Send Method: E-Prescr ibed Sub s Allowed: subs OK Medic ationGen ericName : mupiroci n Not Available Not Available Not Available olanzapin e 20 mg tablet 01/05 completed Medicati on ID: [id number] B rand Name: olanzapi ne Send Method: E-Prescr ibed Sub s Allowed: subs OK Medic ationGen ericName : olanzapi ne Not Available Not Available Not Available amoxicill in 875 mg-potass ium clavulana te 125 mg tablet 01/05 completed Medicati on ID: [id number] B rand Name: amoxicil gayla-pot clavulan ate Send Method: E-Prescr ibed Sub s Allowed: subs OK Medic ationGen ericName : amoxicil gayla-pot clavulan ate Not Available Not Available Not Available cholecalc iferol (vitamin D3) 25 mcg (1,000 unit) tablet 01/05 completed Medicati on ID: [id number] B rand Name: cholecal ciferol (vitamin D3) Send Method: E-Prescr ibed Sub s Allowed: subs OK Medic ationGen ericName : cholecal ciferol (vitamin D3) Not Available Not Available Not Available lurasidon e 20 mg tablet TAKE 1 TABLET BY MOUTH EVERY MORNING AFTER A MEAL active Not Available Not Available No t Available Vitals Date Recorded Body height Body mass index (BMI) Body weight Provider Name and Address Organization Details Last Updated DateTime 01/05/2025 180.34 cm 33.5 kg/m2 236858.17 g Winnie Gutierrez [place] - [facility] 01/05/2025 11:08:35 Social History None recorded. Functional Status None recorded. Mental Status None recorded. Family History Nothing Reported. Medical History No medical history recorded. Past Encounters Encounter ID Performer Location Encounter Start Date Encounter Closed Date Diagnosis/Indication Diagnosis SNOMED-CT Code Diagnosis ICD10 Code Diagnosis Note [id number] ONOFRE WAN MD [facility] on [address] [place] [address] 01/05/2025 09:44:26 01/05/2025 15:52:05 Unusual smell in nose 730035993 R43.1 Health Concerns Section Related Observation LastModified by Organization Detai ls LastModified Time None Recorded Concern Status LastModified by Organization Details LastModified Time None Recorded Payers None recorded. Notes Date Note Type Note Provider Name and Address Organization Details Recorded Time 01/05/2025 text/html 49 year old male presents with altered sense of smell. He reports that for the past month he has constantly been smelling cigarette smoke that other people do not smell. He feels that his sense of smell is otherwise intact. No recent loss of smell or Covid infection. He reports one episode of Covid in July 2024. He report that about a year ago he had a metallic taste in his mouth that resolved on its own. ONOFRE WAN MD [address] [place] [address], [address], [facility] - [facility] 01/05/2025 16:36:06
--- OUTSIDE RECORDS SUMMARY | 2025-01-06 10:58 | XMS_ITS | Data Portability ---
Author Organization [place] - [facility], Allergy Address [address] [address] Care Team Providers Care Certified Nurses Aide Name Role Phone CONY HAIR Primary Care Provider [phone] Assessment Encounter Date Assessment Date Assessment LastModified [...] MRI, brain, w/wo contrast 2024 025 [email or web address] [facility] ([facility]), [address] [place], [address], 15:52:06 Medication Orders None recorded. Patient TargetsNo targets recorded. Patient InstructionsNo instructions recorded. Reason for Referral None Reported. Problems Name Problem SNOMED Code Status Onset Date Resolution Date Notes Provider Name and Address Organization Details Recorded Time Gastroeso phageal reflux disease without esophagit is 764538807 Active 2022 Gastro-eso phageal reflux disease without esophagiti s; Note: Date Diagnosed: 04/20/2023 3:00 PM (K21.9) Not Available [facility] 4 03:27:51 Somatofor m disorder 37054188 Active 2022 Psychogeni c dysphagia, including 'globus hystericus '; Note: Date Diagnosed: 04/20/2023 3:00 PM (F45.8) Not Available [facility] 4 03:27:50 Bleeding from nose 438460569 Active 2022 [facility]; Note: Date Diagnosed: 04/20/2023 3:00 PM (R04.0) Not Available [facility] 4 03:27:50 Unusual smell in nose 492216126 Active 2024 HANDY HWANG PA-C [address] [facility],[place] [address], [place], [address] , [facility] 12:04:16 Problem Notes None recorded. Procedures Surgical History Date Name Laterality Status Provider Name and Address Organization Details Recorded Time 01/05/2025 NasalEndos copy_DP completed HANDY HWANG PA-C [address] [facility],[place] [address], [place], [address], [facility] 01/05/2025 12:12:00 Imaging Results None recorded. Procedure Notes None recorded. Medical Equipment None Reported. Medications Name Sig Start Date Stop Date Status Note LastModified by Organization Details LastModified Time atorvasta tin 40 mg tablet 01/05 completed Medicati on ID: [id number] B rand Name: atorvast atin Sen d Method: E-Prescr ibed Sub s Allowed: subs OK Medic ationGen ericName : atorvast atin Not Available Not Available Not Available methocarb lupe 500 mg tablet 01/05 completed Medicati on ID: [id number] B rand Name: methocar bamol Se nd Method: E-Prescr ibed Sub s Allowed: subs OK Medic ationGen ericName : methocar bamol Not Available Not Available Not Available nystatin 100,000 unit/mL oral suspensio n 01/05 completed Medicati on ID: [id number] B rand Name: nystatin Send Method: E-Prescr ibed Sub s Allowed: subs OK Medic ationGen ericName : nystatin Not Available Not Available Not Available valacyclo vir 1 gram tablet 01/05 completed Medicati on ID: [id number] B rand Name: valacycl ovir Sen d Method: E-Prescr ibed Sub s Allowed: subs OK Medic ationGen ericName : valacycl ovir Not Available Not Available Not Available amoxicill in 500 mg tablet TAKE 1 TABLET BY MOUTH EVERY 8 HOURS FOR 7 DAYS active Not Available Not Available No t Available pantopraz ole 20 mg tablet,de layed release active Medicati on ID: [id number] B rand Name: pantopra zole Sen d Method: E-Prescr ibed Sub s Allowed: subs OK Medic ationGen ericName : pantopra zole Not Available Not Available Not Available amoxicill in 875 mg tablet 01/05 completed Medicati on ID: [id number] B rand Name: amoxicil gayla Send Method: E-Prescr ibed Sub s Allowed: subs OK Medic ationGen ericName : amoxicil gayla Not Available Not Available Not Available prednisol one acetate 1 % eye drops,mellissa pension 01/05 completed Medicati on ID: [id number] B rand Name: predniso lone acetate Send [...] mg tablet 01/05 completed Medicati on ID: [id number] B rand Name: predniso ne Send Method: E-Prescr ibed Sub s Allowed: subs OK Medic ationGen ericName : predniso ne Not Available Not Available Not Available oxcarbaze pine 600 mg tablet TAKE 1 TABLET BY MOUTH EVERYDAY AT BEDTIME active Not Available Not Available No t Available hydroxyzi ne HCl 25 mg tablet 01/05 completed Medicati on ID: [id number] B rand Name: hydroxyz ine HCl Send [...] a day 01/05 completed Medicati on ID: [id number] D uration Value: 14 Brand Name: mupiroci n Send Method: E-Prescr ibed Sub s Allowed: subs OK Medic ationGen ericName : mupiroci n Not Available Not Available Not Available olanzapin e 20 mg tablet 01/05 completed Medicati on ID: [id number] B rand Name: olanzapi ne Send Method: E-Prescr ibed Sub s Allowed: subs OK Medic ationGen ericName : olanzapi ne Not Available Not Available Not Available amoxicill in 875 mg-potass ium clavulana te 125 mg tablet 01/05 completed Medicati on ID: [id number] B rand Name: amoxicil gayla-pot clavulan ate Send Method: E-Prescr ibed Sub s Allowed: subs OK Medic ationGen ericName : amoxicil gayla-pot clavulan ate Not Available Not Available Not Available cholecalc iferol (vitamin D3) 25 mcg (1,000 unit) tablet 01/05 completed Medicati on ID: [id number] B rand Name: cholecal ciferol (vitamin D3) [...] Updated DateTime 01/05/2025 180.34 cm 33.5 kg/m2 067405.17 g Winnie Gutierrez [place] - [facility] 01/05/2025 11:08:35 Social History None recorded. Functional Status None recorded. Mental Status None recorded. Family History Nothing Reported. Medical History No medical history recorded. Past Encounters Encounter ID Performer Location Encounter Start Date Encounter Closed Date Diagnosis/Indication Diagnosis SNOMED-CT Code Diagnosis ICD10 Code Diagnosis Note [id number] ONOFRE WAN MD [facility] [address] [address] 01/05/2025 09:44:26 01/05/2025 15:52:05 Unusual smell in nose [id number] R43.1 Health Concerns Section Related Observation LastModified by Organization Detai ls LastModified Time None Recorded Concern Status LastModified by Organization Details LastModified Time None Recorded Advance Directives Directive None Recorded Payers None recorded. Notes Date [...] resolved on its own. ONOFRE WAN MD [address] [place] [address], [phone], [facility] - [facility] 01/05/2025 16:36:06
== END 2025-01-06 10:37 | disposition home or self-care (01) ==
LOC: HO.HGI 09:48
PROVIDERS: PCP Internal Medicine; Visit Provider Nurse Practitioner
DX: K22.70 Barrett's esophagus without dysplasia (principal); K29.60 Other gastritis without bleeding; K58.0 Irritable bowel syndrome with diarrhea; R74.01 Elevation of levels of liver transaminase levels
CPT/HCPCS: 99214

== ENCOUNTER → 2025-01-06 09:48 | Outpatient (BNVA) | payer OTHER, SELFPAY | PROVIDERS: PCP Internal Medicine; Visit Provider Nurse Practitioner | DX: Z01.818 Encounter for other preprocedural examination (principal); K22.70 Barrett's esophagus without dysplasia; K58.0 Irritable bowel syndrome with diarrhea; K29.60 Other gastritis without bleeding; R74.01 Elevation of levels of liver transaminase levels | CPT/HCPCS: 99212 ==

== ENCOUNTER 2025-01-25 14:51 | Outpatient (AMB) | payer OTHER, SELFPAY ==
[2025-01-25 14:59] VITALS: BP 110/70; PULSE 71; O2SAT 97; BMI 33.1
--- NOTE | 2025-01-25 14:59 | MHC.PC.OV ---
Vital Signs 01/25/25 14:59 Height 5 ft 11 in Weight 237 lb 6 oz BMI 33.1 BP 110/70 Blood Pressure Location Lt brachial Position Sitting Pulse 71 Pulse Source Pulse Oximeter Pulse Oximetry (%) 97 Oxygen Delivery Method Room Air Intake Visit Reasons: 4 month follow up Accompanied by: Self / Same As Patient Allergies lorazepam [From ATIVAN] Allergy (Severe, Verified 01/25/25 15:33) ANAPHYLAXIS milk [Milk] Allergy (Intermediate, Verified 01/25/25 15:33) GI DISTRESS Peanut Butter Allergy (Intermediate, Verified 01/25/25 15:33) sore throat, hoarsensss atorvastatin Adverse Reaction (Severe, Verified 01/25/25 15:33) elevated LFTs pravastatin Adverse Reaction (Intermediate, Verified 01/25/25 15:33) ?diarrhea? Medication List - Last Reconciled 01/25/25 by Gonzalez Roman MD lisinopril 5 mg PO DAILY lurasidone (Latuda) 20 mg PO DAILY oxcarbazepine (Trileptal) 600 mg PO BID pantoprazole 40 mg PO DAILY Tobacco use date assessed: 01/25/25 Dental Screening Dental Screen Date: 01/25/25 Did you have a dental visit in the last 12 months?: No Did you have a dental problem in the last 6 months where you did not have access to dental care?: No Was dental information given to patient?: Patient has dentist HPI 4 month follow up HPI Details Patient comes in today for his follow up visit He continues to have a persistent metallic taste in mouth, which he states has been going on for months now He is still quite fixated on the possibility that he may have amyloidosis as he keeps repeating that his father also had some vague symptoms that kept being dismissed by all of his doctors until he was finally diagnosed with amyloidosis a few years ago He is wondering if he can now be sent for a [place] Red test, which is what he said was done on his father that came back positive, consistent with amyloidosis States that he just had an MRI done at [place] ([facility]) recently (ordered by ENT) and he is currently awaiting his results He reports on and off nosebleeds lately, especially from his right nostril He has also been reportedly breaking out in recurrent nasal sores and experiencing on and off headaches Denies any dizziness Denies any chest pains, no increased SOB No nausea.vomiting, no abdominal pain Patient adds that he has been experiencing increased constipation lately Reports experiencing pain and mild swelling of his legs and he is concerned that these symptoms may be due to potential recurrence of his renal cell cancer He has no follow up labs done recently [facility] Medical History (Updated 01/29/25 @ 21:05 by Gonzalez Roman MD) Elevated LFTs Lumbar spondylosis Pain of both elbows Renal mass Low back pain Lumbar back pain Lower abdominal pain Odynophagia Status post fall Back pain Neck pain LUQ pain Abdominal pain Mucus in stool Irritation of right eye Right inguinal pain Pleuritis Left-sided chest pain Abdominal bloating Foreign body of left eye Right renal mass Tendinitis Family history of amyloidosis History of transitional cell carcinoma of kidney Adult general medical exam Bilateral arm pain Supraumbilical hernia Thoracic spondylosis Cervical spondylosis Renal cell carcinoma of right kidney Benign essential hypertension Overweight (BMI 25.0-29.9) Paresthesia of right upper extremity Polysubstance abuse Smoker Anxiety Schizophrenia Bipolar disorder Obesity (BMI 30-39.9) Degenerative joint disease of right shoulder Pure hypercholesterolemia Atrophy of muscle of right shoulder Anterior to posterior tear of superior glenoid labrum of right shoulder Surgical History History of umbilical hernia repair (~05/06/24) H/O hand surgery History of partial nephrectomy History of esophagogastroduodenoscopy (EGD) H/O colonoscopy History of surgery on arm History of cataract removal with insertion of prosthetic lens History of hernia surgery (1998) Family History Father Amyloidosis Mother Alive and well Maternal Uncle Prostate cancer Social History Household Members: Friend(s) Household Members Other:: roomates/friends Housing: Apartment Are you a primary child care to a significant other at home: No Do you presently have visiting nurse or other home services: No Alcohol intake: current Alcohol intake frequency: does not drink Patient Tobacco Use Status: Former Tobacco user Tobacco use type: Cigarette Cigarette Packs Per Day: 0.5 Cigarettes Per Day: 10.0 Years Smoked: 30yrs, Quit 08/2022. e-Cigarette/Vaping Use: Never Used Second Hand Smoke Exposure: No service: No Current occupational status: unemployed Cognitive needs: No Hearing needs: No Vision needs: No Questionnaire PHQ-9 Over the last 2 weeks, how often have you been bothered by any of the following problems? 1. Little interest or pleasure in doing things: not at all 2. Feeling down, depressed, or hopeless: not at all 3. Trouble falling or staying asleep, or sleeping too much: not at all 4. Feeling tired or having little energy: not at all 5. Poor appetite or overeating: not at all 6. Feeling bad about yourself - or that you are a failure or have let yourself or your family down: not at all 7. Trouble concentrating on things, such as reading the newspaper or watching television: not at all 8. Moving or speaking so slowly that other people could have noticed. Or the opposite - being so fidgety or restless that you have been moving around a lot more than usual: not at all 9. Thoughts that you would be better off or of hurting yourself in some way: not at all Total score: 0 Depression Screening Interpretation: Negative (is on Rx) Depression Screening Done: Yes 52571 - PHQ-9 Billing: Yes Source: Developed by Drs. Jp Oropeza, Poly Infante, Brayden De La Fuente and colleagues, with an educational sera from [employer]. Thrive Questionnaire Date Thrive assessed: 01/25/25 I am a: Patient What is your living situation today?: I have a steady place to live Within the past 12 months, did the food you bought not last and you didn't have the money to get more?: Never true Within the past 12 months, did you worry whether your food would run out before you got money to buy more?: Never true Do you have trouble paying for medicines?: No Do you have trouble getting transportation to medical appointments?: No Do you have trouble paying your heating and electricity bill?: No Do you have trouble taking care of your child, family member or friend?: No Do you have trouble with day-to-day activities such as bathing, preparing meals, shopping, managing finances, etc.?: No Are you currently unemployed and looking for a job?: No Are you interested in more education?: No Please select the resources that you would like help with: None Currently or been in a relationship where the following occur: No concerns reported THRIVE Score: 0 AUDIT C Alcohol Use Questionnaire (AUDIT-C) 1. How often do you have a drink containing alcohol?: Never 3. How often do you have six or more drinks on one occasion?: Never Total Score: 0 Score Reviewed/Action Taken: Yes PORTER-7 AMB Questionnaire PORTER-7 Date PORTER - 7 assessed: 01/25/25 Feeling nervous, anxious, or on edge: 0 = Not at all Not being able to stop or control worryin = Not at all Worrying too much about different things: 0 = Not at all Trouble relaxin = Not at all Being so restless that it is hard to sit still: 0 = Not at all Becoming easily annoyed or irritable: 0 = Not at all Feeling afraid as if something awful might happen: 0 = Not at all Total PORTER-7 score (0-4 normal; 5-9 mild; 10-14 moderate; 15-21 severe): 0 Source: Developed by Drs. Jp Oropeza, Poly Infante, Brayden De La Fuente and colleagues, with an educational sera from [employer]. Review of Systems Const Denies chills, Reports fatigue, Denies fever(s) and Reports headache(s) (on and off) ENT Details: (+) recurrent painful nasal sores Reports as per HPI, Denies dysphagia, Denies dizziness, Denies otalgia, Reports headache(s) (on and off), Reports epistaxis (especially from the right nostril), Denies neck pain, Denies odynophagia and Denies sore throat Card Denies chest pain, Denies palpitations and Denies dyspnea Resp Denies chest congestion, Denies cough and Denies dyspnea GI Denies abdominal pain, Reports constipation (increased lately), Denies dysphagia, Denies heartburn, Denies diarrhea, Denies nausea, Denies odynophagia and Denies vomiting Denies difficulty urinating, Denies dysuria, Denies nocturia and Denies urinary frequency Musc Reports back pain (over his lower back and bilateral flank areas), Reports arthralgias (right shoulder, on and off; over both elbows and left forearm ) and Denies neck pain Skin/Breast Denies rash Neuro Denies dizziness and Reports headache(s) (on and off) Psych Reports anxiety Endo Reports fatigue and Denies palpitations Physical exam (Primary Care) Vital Signs: Last Vital Signs Pulse 71 01/25/25 14:59 BP 110/70 01/25/25 14:59 Pulse Ox 97 01/25/25 14:59 Oxygen Delivery Method Room Air 01/25/25 14:59 BMI result Body Mass Index 33.1 Tobacco/Smoking Status: Tobacco use Status Tobacco use date assessed 01/25/25 01/25/25 15:10 Patient Tobacco Use Status Former Tobacco user 01/25/25 15:10 Tobacco use type Cigarette 01/25/25 15:10 e-Cigarette/Vaping Use Never Used 01/25/25 15:10 PHQ-9: PHQ-9 Score PHQ-9: Total score 0 01/25/25 15:37 Depression Screening Interpretation: Negative (is on Rx) Thrive Assessment: Date of Thrive Assessment Date Thrive assessed 01/25/25 01/25/25 15:10 Currently or been in a relationship where the following occur: No concerns reported Const General: no acute distress, alert and anxious HENMT Ears: TM's normal bilaterally and EAC's normal Throat: Yes posterior oropharynx normal and Yes tonsils normal (no TP congestion) Neck Neck: Yes no lymphadenopathy and Yes supple Thyroid: Thyroid normal Resp Auscultation: clear to auscultation bilaterally, no rales and no wheezes Cardio Rate: regular rate Rhythm: regular rhythm Heart sounds: no murmurs GI Palpation (GI): Soft to palpation, nontender and no guarding Auscultation: normal bowel sounds General: Yes CVA tenderness (mild) bilateral Back/Spine/Pelvis Back: CVA tenderness (mild) Thoracic/Lumbar Spine: lumbar spinal tenderness Skin Rashes: no rashes Extrem General: Yes no clubbing, cyanosis or edema Coding Level of Care Code Est Pt Level 4 (93656) Diagnoses Renal cell carcinoma of right kidney C64.1 Pure hypercholesterolemia E78.00 Coronary artery calcification seen on computed tomography I25.10 Elevated LFTs R79.89 Benign essential hypertension I10 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 K22.70 Metallic taste R43.8 Pulmonary nodule R91.1 Constipation, unspecified constipation type K59.00 Constipation type: unspecified constipation type Bilateral elbow joint pain M25.521; M25.522 Lumbar spondylosis M47.816 Cervical spondylosis M47.812 Thoracic spondylosis M47.814 Post-traumatic osteoarthritis of right shoulder M19.111 Osteoarthritis type: post-traumatic Anxiety F41.9 Bipolar affective disorder, current episode depressed, current episode severity unspecified F31.30 Active/Remission status: currently active Current bipolar episode type: depressed Current episode severity: unspecified Obesity (BMI 30-39.9) E66.9 Additional Codes PHQ-9 - 46444 - PHQ-9 Billing: Yes ([id number]) Assessment & Plan Assessment & Plan (1) Renal cell carcinoma of right kidney: Code(s): C64.1 - Malignant neoplasm of right kidney, except renal pelvis Category: Medical Plan: S/P laparoscopic right partial nephrectomy by urology (Dr. Paez) at [facility] in August 2023 Patient had nuclear imaging/whole body bone scan done prior to his surgery that revealed NO evidence of osteoblastic metastatic disease He used to see urology in [place] but has since requested for a referral to go to another urology group as he felt that the urologist he used to see was arrogant and will not listen to his complaints He has stated that he also does NOT want to go to [facility] A urology referral was done to Dr. Mario Alberto Johansen in [place] previously, per patient's request, and he was eventually seen by one of his colleagues, Dr. Soto, who patient is following up with since Have also discussed with patient his most recent abdominal MRI findings and have again reassured him that his cancer was cured by his previous surgery and he currently has no evidence of any recurrence or metastasis, to which patient expressed significant relief (2) Pure hypercholesterolemia: Code(s): E78.00 - Pure hypercholesterolemia, unspecified Category: Medical Plan: His cholesterol numbers were still high when they were last checked in September 2024, with his total cholesterol at 270 mg/dl and LDL cholesterol at 199 mg/dl Reinforced low-cholesterol diet He was taken off Atorvastatin last year when his LFTs went up significantly and he currently still does not wish to be started on any other cholesterol-lowering medication yet States that he would like ro continue trying to get his numbers down with diet and exercise Will have him recheck his labs and fasting lipids [facility] for follow up (3) Coronary artery calcification seen on computed tomography: Code(s): I25.10 - Atherosclerotic heart disease of [place] coronary artery without angina pectoris Category: Medical Plan: Three-vessel coronary artery calcifications were noted on his chest CT done last year, which (per cardiology) was unusual for his age Reinforced that he should continue working on lowering his cholesterol level and reducing his risks for cardiac disease He may need additional cardiac workup if he starts experiencing symptoms of recurrent dyspnea and/or chest pains Follow up with cardiology as scheduled (4) Elevated LFTs: Code(s): R79.89 - Other specified abnormal findings of blood chemistry Category: Medical Plan: His LFTs were elevated in the past although they have been back to normal since November 2023 but were slightly elevated again on his labs done back in September 2024 Abdominal US with liver elastography done back on 05/12/23 revealed (+) echogenic liver suggestive of fatty infiltration and borderline elevated liver stiffness Patient states that he does not drink alcohol; is again reminded to avoid taking medications containing Tylenol or Acetaminophen Will continue to monitor his LFTs regularly (5) Benign essential hypertension: Code(s): I10 - Essential (primary) hypertension Category: Medical Plan: Reinforced low sodium diet - goal is systolic BP of at least 120 mm or less Continue Lisinopril 5 mg QD (6) 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: Comment: EGD 12/2021 - repeat in 3 years Code(s): K22.70 - Vigil's esophagus without dysplasia Category: Medical Plan: Dietary restrictions reinforced Continue Pantoprazole 40 mg QD Follow up with GI as scheduled for continuing surveillance - will need repeat EGD in 2 to 3 years (which is now) for follow up (7) Metallic taste: Code(s): R43.8 - Other disturbances of smell and taste Category: Medical Plan: Have advised patient we would recommend he see ENT for further evaluation of the persistent metallic taste in his mouth Patient declined referral - thinks that he has already seen ENT but they could not find anything wrong with him He remains convinced that this is suggestive of amyloidosis and is asking for further testing Have advised patient that testing for amyloidosis typically would require tissue biopsy, which may be from abdominal fat, bone marrow, organ biopsy or rectal biopsy and without a more likely reason that is supported by evidence, his insurance is not going to cover the procedure Advised patient that I will send him for some additional labs for further evaluation and if these labs show any unusual results, then we will allow us to proceed further with his investigation; otherwise, if these come back normal, then an inflammatory or abnormal condition like amyloidosis will be less likely (8) Pulmonary nodule: Code(s): R91.1 - Solitary pulmonary nodule Category: Medical Plan: His chest CT done in October 2022 revealed a 5 x 3 mm polyclonal nodule along the right minor fissure - this was likely an intra fissural lymph node Chest CT was otherwise normal with no acute pulmonary disease According to the updated 2017 Fleischner Society recommendations, due to patient's significant history of smoking, optional CT can be done in 12 months for follow-up and he requests to have this ordered He did have a repeat chest CT done back on 05/04/2023 that showed the presence of bilateral nonspecific pulmonary nodules measuring up to 5 mm with no adenopathy in the chest Chest CT was again repeated in January 2024, which showed stable pulmonary nodules with no significant interval change Follow-up with pulmonary as scheduled (9) Constipation: Code(s): K59.00 - Constipation, unspecified Category: Medical Qualifiers: Constipation type: unspecified constipation type Qualified Code(s): K59.00 - Constipation, unspecified Plan: Patient is advised to increase his oral fluid and dietary fiber intake Will start him on Colace 100 mg QD PRN (10) Bilateral elbow joint pain: Code(s): M25.521 - Pain in right elbow; M25.522 - Pain in left elbow Category: Medical Plan: X-rays of both elbows done back in April 2024 revealed (+) findings suggestive of calcific tendinitis or bursitis in BOTH elbow. There is also minimal right olecranon hypertrophics spurring seen in x-rays of the right elbow Patient states that his elbow symptoms have actually calmed down a lot recently Will consder referral to orthopedics if his elbows continue to bother him His left forearm x-rays came back normal (11) Lumbar spondylosis: Code(s): M47.816 - Spondylosis without myelopathy or radiculopathy, lumbar region Category: Medical Plan: Lumbar spine x-rays done in March 2024 revealed (+) mild spondylosis of the lumbar spine, similar to findings in his cervical and thoracic spine previously Will consider referring him to PT if his back pain progresses or persists (12) Cervical spondylosis: Code(s): M47.812 - Spondylosis without myelopathy or radiculopathy, cervical region Category: Medical Plan: Cervical spine x-rays done in November 2021 revealed (+) cervical spondylosis with moderate C6-C7 disc degeneration Will refer him to pain management and/or physical therapy if his neck symptoms get worse (13) Thoracic spondylosis: Code(s): M47.814 - Spondylosis without myelopathy or radiculopathy, thoracic region Category: Medical Plan: Thoracic spine x-rays done back in November 2021 revealed (+) mild thoracic spondylosis Will consider referral to physical therapy if his back pain gets worse (14) Degenerative joint disease of right shoulder: Comment: MRI of the shoulder done in July 2020 revealed (+) moderate acromioclavicular osteoarthritis; the previously demostrated superior labral tear is much less conspicuous on this MRI Code(s): M19.011 - Primary osteoarthritis, right shoulder Category: Medical Qualifiers: Osteoarthritis type: post-traumatic Qualified Code(s): M19.111 - Post-traumatic osteoarthritis, right shoulder Plan: Patient is advised again that we will consider referring him to orthopedics for further evaluation and management if his shoulder symptoms get worse Patient states that his shoulder pains have been mostly tolerable and his shoulder ROM is grossly normal - he would like to continue to hold off on referral or any surgical intervention for his shoulder at this time (15) Anxiety: Code(s): F41.9 - Anxiety disorder, unspecified Category: Medical Plan: Continue Latuda 20 mg QD and Hydroxyzine 25 mg TID PRN (16) Bipolar disorder: Code(s): F31.9 - Bipolar disorder, unspecified Category: Medical Qualifiers: Active/Remission status: currently active Current bipolar episode type: depressed Current episode severity: unspecified Qualified Code(s): F31.30 - Bipolar disorder, current episode depressed, mild or moderate severity, unspecified Plan: Continue Latuda 20 mg QD and Oxcarbazepine 600 mg BID Follow up with psychiatry as scheduled (17) Obesity (BMI 30-39.9): Code(s): E66.9 - Obesity, unspecified Category: Medical Plan: Reinforced diet/exercise as tolerated/lose weight Plan Follow up in 4 months Orders: Orders Lipid Panel 01/25/25 E78.00 - Pure hypercholesterolemia, unspecified Comprehensive [place]. Panel Fast 01/25/25 E78.00 - Pure hypercholesterolemia, unspecified TSH reflex Free T4 01/25/25 E78.00 - Pure hypercholesterolemia, unspecified UA CC w/rflx Micro + Cult 01/25/25 R30.0 - Dysuria Vitamin D 25-OH Total 01/25/25 E55.9 - Vitamin D deficiency, unspecified Protein Electrophoresis, Serum 01/25/25 R77.8 - Other specified abnormalities of plasma proteins C Reactive Protein 01/25/25 M25.50 - Pain in unspecified joint TINO Reflex Titer and Pattern 01/25/25 M25.50 - Pain in unspecified joint Complete Blood Count Auto Diff 01/25/25 D64.9 - Anemia, unspecified Erythrocyte Sedimentation Rate 01/25/25 M25.50 - Pain in unspecified joint Rheumatoid Factor 01/25/25 M25.50 - Pain in unspecified joint Medications: New docusate sodium 100 mg PO DAILY 30 days PRN 30 caps 5RF constipation
--- OUTSIDE RECORDS SUMMARY | 2025-01-25 17:43 | XMS_ITS ---
Author Name [facility] Organization Unknown Encounters Encounter Type Encounter Reason Primary Diagnosis Location Date Ambulatory [facility] [place] 12/16/2024
== END 2025-01-25 15:53 | disposition home or self-care (01) ==
LOC: HO.HMCH 14:52
PROVIDERS: PCP Internal Medicine; Visit Provider Internal Medicine
DX: C64.1 Malignant neoplasm of right kidney, except renal pelvis (principal); E78.00 Pure hypercholesterolemia, unspecified; I25.10 Atherosclerotic heart disease of native coronary artery without angina pectoris; R79.89 Other specified abnormal findings of blood chemistry; I10 Essential (primary) hypertension; K22.70 Barrett's esophagus without dysplasia; R43.8 Other disturbances of smell and taste; R91.1 Solitary pulmonary nodule; K59.00 Constipation, unspecified; M25.521 Pain in right elbow; M25.522 Pain in left elbow; F31.30 Bipolar disorder, current episode depressed, mild or moderate severity, unspecified; M47.816 Spondylosis without myelopathy or radiculopathy, lumbar region; M47.812 Spondylosis without myelopathy or radiculopathy, cervical region; M47.814 Spondylosis without myelopathy or radiculopathy, thoracic region; M19.111 Post-traumatic osteoarthritis, right shoulder; F41.9 Anxiety disorder, unspecified; E66.9 Obesity, unspecified

== ENCOUNTER → 2025-01-25 14:51 | Outpatient (BNVA) | payer OTHER, SELFPAY | PROVIDERS: PCP Internal Medicine; Visit Provider Internal Medicine | DX: C64.1 Malignant neoplasm of right kidney, except renal pelvis (principal); E78.00 Pure hypercholesterolemia, unspecified; I25.10 Atherosclerotic heart disease of native coronary artery without angina pectoris; R79.89 Other specified abnormal findings of blood chemistry; I10 Essential (primary) hypertension; K22.70 Barrett's esophagus without dysplasia; R43.8 Other disturbances of smell and taste; R91.1 Solitary pulmonary nodule; K59.00 Constipation, unspecified; M25.521 Pain in right elbow; M25.522 Pain in left elbow; M47.816 Spondylosis without myelopathy or radiculopathy, lumbar region; M47.812 Spondylosis without myelopathy or radiculopathy, cervical region; M47.814 Spondylosis without myelopathy or radiculopathy, thoracic region; M19.111 Post-traumatic osteoarthritis, right shoulder; F31.30 Bipolar disorder, current episode depressed, mild or moderate severity, unspecified; F41.9 Anxiety disorder, unspecified; E66.9 Obesity, unspecified; Z68.33 Body mass index [BMI] 33.0-33.9, adult | CPT/HCPCS: 96127; 99212 ==

== ENCOUNTER 2025-02-21 09:30 | Outpatient (REF) | payer OTHER, SELFPAY ==
--- NOTE | ~2025-02-21 | US_ITS ---
CLINICAL HISTORY: Z01.818 - Encounter for other preprocedural examination US abdomen complete Comparison: 05/12/2023 Findings: Gallbladder unremarkable, no stone formation or wall thickening. Common duct measures not measured. No sonographic Mohan sign. Fatty infiltration of the liver without focal abnormality. Main portal vein patent with normal direction of flow. Pancreas is obscured. Aorta and IVC patent and normal in caliber. The right kidney is normal, 13.0 cm in length. No focal abnormality or hydronephrosis. Scarring noted midpole site of prior surgery. The left kidney is normal, 13.7 cm in length. No focal abnormality or hydronephrosis. The spleen is normal, 11.2 cm in length. No focal abnormality. Impression: No significant abnormalities. This document has been electronically signed by: Reg Love MD on 02/21/2025 22:41:35
--- OUTSIDE RECORDS SUMMARY | 2025-02-21 10:26 | XMS_ITS | Data Portability ---
Author Organization [place] - [facility], Allergy Address [address] [address] Care Team Providers Care Information Security Consultant Name Role Phone CONY HAIR Primary Care Provider Assessment Encounter Date Assessment Date Assessment LastModified [...] Imaging MRI, brain, w/wo contrast 2024 025 [id number] [facility] ([facility]), [address], [place], [address], 14:37:06 Medication Orders None recorded. Patient TargetsNo targets recorded. Patient InstructionsNo instructions recorded. Reason for Referral None Reported. Results Created Date Observation Date Name Description Value Unit Range Abnormal Flag Note LastModifiedBy Organization Detail LastModifiedTime 01/21/20 25 01/17/2025 MRI, brain , w/wo contr ast No observ ation record ed. BARCODE [facility] ([facility]) [address], [place], [address], 01/20/2025 15:26:08 Result Notes None recorded. Problems Name Problem SNOMED Code Status Onset Date Resolution Date Notes Provider Name and Address Organization Details Recorded Time Gastroeso phageal reflux disease without esophagit is 148373371 Active 2022 Gastro-eso phageal reflux disease without esophagiti s; Note: Date Diagnosed: 04/20/2023 3:00 PM (K21.9) Not Available Formerly [facility], 1928–1983 4 03:27:51 Somatofor m disorder 39130513 Active 2022 Psychogeni c dysphagia, including 'globus hystericus '; Note: Date Diagnosed: 04/20/2023 3:00 PM (F45.8) Not Available Formerly [facility], [facility]–1983 4 03:27:50 Bleeding from nose 211839676 Active 2022 Epistaxis; Note: Date Diagnosed: 04/20/2023 3:00 PM (R04.0) Not Available Formerly [facility], [facility] 4 03:27:50 Unusual smell in nose 485718851 Active 2024 HANDY HWANG PA-C [address] [place] [address], [place], [address] , [facility] 5 12:04:16 Problem Notes None recorded. Procedures Surgical History Date Name Laterality Status Provider Name and Address Organization Details Recorded Time 01/05/2025 NasalEndos copy_DP completed HANDY HWANG PA-C [address] [place] [address], [place], [address], [facility] 01/05/2025 12:12:00 Imaging Results Imaging Date Name Status LastModified by Organiz ation Details LastModified Time 01/17/2025 MRI, brain, w/wo contrast completed [facility] ([facility]) [address] [place], [address], 01/20/2025 15:26:08 Procedure Notes None recorded. Medical Equipment None Reported. Medications Name Sig Start Date Stop Date Status Note LastModified by Organization Details LastModified Time atorvasta tin 40 mg tablet 01/05 completed Medicati on ID: [id number] B rand Name: atorvast atin Willis cobian Method: E-Prescr ibed Sub s Allowed: subs OK Medic ationGen ericName : atorvast atin Not Available Not Available Not Available methocarb lupe 500 mg tablet 01/05 completed Medicati on ID: [id number] B rand Name: methocar bamol Se nd Method: E-Prescr ibed Sub s Allowed: subs OK Medic ationGen ericName : methocar bamol Not Available Not Available Not Available nystatin 100,000 unit/mL oral suspensio n 01/05 completed Medicati on ID: [id number] B rand Name: nystatin Send Method: E-Prescr ibed Sub s Allowed: subs OK Medic ationGen ericName : nystatin Not Available Not Available Not Available valacyclo vir 1 gram tablet 01/05 completed Medicati on ID: [id number] B rand Name: valacycl ovir Sen d Method: E-Prescr ibed Sub s Allowed: subs OK Medic ationGen ericName : valacycl ovir Not Available Not Available Not Available amoxicill in 500 mg tablet TAKE 1 TABLET BY MOUTH EVERY 8 HOURS FOR 7 DAYS active Not Available Not Available No t Available pantopraz ole 20 mg tablet,de layed release active Medicati on ID: [id number] B rand Name: pantopra zole Sen d Method: E-Prescr ibed Sub s Allowed: subs OK Medic ationGen ericName : pantopra zole Not Available Not Available Not Available amoxicill in 875 mg tablet 01/05 completed Medicati on ID: [id number] B rand Name: amoxicil gayla Send Method: E-Prescr ibed Sub s Allowed: subs OK Medic ationGen ericName : amoxicil gayla Not Available Not Available Not Available prednisol one acetate 1 % eye drops,mellissa pension 01/05 completed Medicati on ID: [id number] B rand Name: predniso lone acetate Send [...] t Available prednison e 50 mg tablet 04/03 /2025 completed Medicati on ID: [id number] B rand Name: predniso ne Send Method: E-Prescr ibed Sub s Allowed: subs OK Medic ationGen ericName : predniso ne Not Available Not Available Not Available oxcarbaze pine 600 mg tablet TAKE 1 TABLET BY MOUTH EVERYDAY AT BEDTIME active Not Available Not Available No t Available hydroxyzi ne HCl 25 mg tablet 01/05 completed Medicati on ID: [id number] B rand Name: hydroxyz ine HCl Send [...] a day 01/05 completed Medicati on ID: [id number] D uration Value: 14 Brand Name: mupiroci n Send Method: E-Prescr ibed Sub s Allowed: subs OK Medic ationGen ericName : mupiroci n Not Available Not Available Not Available olanzapin e 20 mg tablet 01/05 completed Medicati on ID: [id number] B rand Name: olanzapi ne Send Method: E-Prescr ibed Sub s Allowed: subs OK Medic ationGen ericName : olanzapi ne Not Available Not Available Not Available amoxicill in 875 mg-potass ium clavulana te 125 mg tablet 01/05 completed Medicati on ID: [id number] B rand Name: amoxicil gayla-pot clavulan ate Send Method: E-Prescr ibed Sub s Allowed: subs OK Medic ationGen ericName : amoxicil gayla-pot clavulan ate Not Available Not Available Not Available cholecalc iferol (vitamin D3) 25 mcg (1,000 unit) tablet 01/05 completed Medicati on ID: [id number] B rand Name: cholecal ciferol (vitamin D3) [...] Updated DateTime 01/05/2025 180.34 cm 33.5 kg/m2 781584.17 g Winnie Gutierrez [place] - [facility] 01/05/2025 11:08:35 Social History None recorded. Functional Status None recorded. Mental Status None recorded. Family History Nothing Reported. Medical History No medical history recorded. Past Encounters Encounter ID Performer Location Encounter Start Date Encounter Closed Date Diagnosis/Indication Diagnosis SNOMED-CT Code Diagnosis ICD10 Code Diagnosis Note [id number] HANDY HWANG PA-C [facility] on [address] [place] [address] 01/05/2025 09:44:26 01/05/2025 15:52:05 Unusual smell in nose [id number] R43.1 Health Concerns Section Related Observation LastModified by Organization Detai ls LastModified Time None Recorded Concern Status LastModified by Organization Details LastModified Time None Recorded Advance Directives Directive None Recorded Payers Insurance Date Sequence Insurance Name Policy Number Policy Brian Covered Member ID Brian Member ID Guarantor Name 02/13/2025 1 [employer] - [facility] [place] ([place]PLAC[place]/AD VANTAGE - HMO) Rajeev Davies Jr [id number] Rajeev Davies Jr 01/16/2025 2 [place] [employer] Rajeev Davies Jr [id number] Rajeev Davies Jr 02/13/2025 1 [facility] - DOS ON OR AFTER 2023 - ONE [employer] (MEDICARE REPLACEMENT/AD VANTAGE - HMO) Rajeev Davies Jr [id number] Rajeev Davies Jr Notes Date Note Type Note Provider Name [...] resolved on its own. ONOFRE WAN MD [address] [place] [address], [address], [place] - [facility] 01/05/2025 16:36:06
== END 2025-02-21 09:31 | disposition home or self-care (01) ==
LOC: HO.US 09:30
PROVIDERS: PCP Internal Medicine; Visit Provider Nurse Practitioner
DX: Z01.818 Encounter for other preprocedural examination (principal); R74.01 Elevation of levels of liver transaminase levels
CPT/HCPCS: 76700

== ENCOUNTER → 2025-02-21 09:32 | Outpatient (BNV) | payer OTHER, SELFPAY | PROVIDERS: PCP Internal Medicine; Visit Provider Radiology Diagnostic Radiology | DX: Z01.818 Encounter for other preprocedural examination (principal) | CPT/HCPCS: 76700 ==

== ENCOUNTER 2025-06-01 15:43 | Outpatient (AMB) | payer OTHER, SELFPAY ==
--- NOTE | 2025-06-01 15:46 | MHC.OFFVIS ---
Vital Signs 06/01/25 15:48 Height 5 ft 11 in Weight 244 lb BMI 34.0 BP 140/78 H Blood Pressure Location Lt brachial Position Sitting Pulse 64 Pulse Source Pulse Oximeter Pulse Oximetry (%) 97 Oxygen Delivery Method Room Air Intake Visit Reasons: Baretts esophagus Intake Note: Est pt for mgmt of Vigil's esophagus. CC; Pt denies any GI sx or concerns at this time. Confirms that current therapies are OK. [place] Technician Required: No Accompanied by: Self / Same As Patient Allergies lorazepam (From ATIVAN) Allergy (Severe, Verified 06/01/25 15:47) ANAPHYLAXIS milk (Milk) Allergy (Intermediate, Verified 06/01/25 15:47) GI DISTRESS Peanut Butter Allergy (Intermediate, Verified 06/01/25 15:47) sore throat, hoarsensss atorvastatin Adverse Reaction (Severe, Verified 06/01/25 15:47) elevated LFTs pravastatin Adverse Reaction (Intermediate, Verified 06/01/25 15:47) ?diarrhea? HPI HPI Baretts esophagus: Details: Assessment & Plan (1) Erosive gastritis: Code(s): K29.60 - Other gastritis without bleeding Category: Medical (2) 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: Comment: EGD 12/2021 - repeat in 3 years Code(s): K22.70 - Vigil's esophagus without dysplasia Category: Medical (3) Irritable bowel syndrome with diarrhea: Code(s): K58.0 - Irritable bowel syndrome with diarrhea Category: Medical (4) Transaminitis: Code(s): R74.01 - Elevation of levels of liver transaminase levels Category: Medical (5) Pre-op examination: Code(s): Z01.818 - Encounter for other preprocedural examination Category: Medical Plan The patient has been lost to follow-up since 04/2023 He has not follow-up because he was battling with renal cancer! He had to have surgery and then chemotherapy. Fortunately he has come out of this extremely well, he has gained weight, goes to the gym regularly and has found that his energy has returned to him. 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 He says he has 60 lb overweight but he also works out an this is a combination of both fat and muscle. I reviewed the liver labs since he had some elevated transaminases last time I saw him fortunately does not appear to have autoimmune liver disease or any hepatitis. However there was some labs not obtained so I will get a ferritin and try to get a hemoglobin A1c. We will also get another ultrasound to monitor this condition. He was educated that slow steady weight loss and/or avoiding severe weight gain as he ages will best protect his liver. He asks about taking baking soda as an adjunct to his pantoprazole and I tell him this is absolutely fine. He is agreeable to a repeat EGD for surveillance of his Barretts esophagus. He admits that he sometimes forgets take his pantoprazole and when he does he will have a globus sensation and a feeling like his throat is closing. He also tells me that an ear nose throat doctor recently said he had cobblestoning in his throat and that should be checked by Gastroenterology. There are no prior problems with anesthesia or sedation. He denies any cardiac or respiratory problems. There are no infectious disease problems. Return office visit in 3 months and of course after the EGD Orders: Orders Comprehensive Met. Panel Today R74.01 - Elevation of levels of liver transaminase levels, Z01.818 - Encounter for other preprocedural examination Hemoglobin A1c Today R74.01 - Elevation of levels of liver transaminase levels, Z01.818 - Encounter for other preprocedural examination US abdomen complete Today R74.01 - Elevation of levels of liver transaminase levels, Z01.818 - Encounter for other preprocedural examination Complete Blood Count Auto Diff Today R74.01 - Elevation of levels of liver transaminase levels, Z01.818 - Encounter for other preprocedural examination Ferritin Today R74.01 - Elevation of levels of liver transaminase levels, Z01.818 - Encounter for other preprocedural examination EGD - GI Use Only Today K22.70 - Vigil's esophagus without dysplasia, R74.01 - Elevation of levels of liver transaminase levels, Z01.818 - Encounter for other preprocedural examination Medications: Refilled pantoprazole 40 mg PO DAILY 90 tabs 2RF K22.70 - Vigil's esophagus without dysplasia LABS Not obtained US [facility] 02/21/2025 Findings: Gallbladder unremarkable, no stone formation or wall thickening. Common duct measures not measured. No sonographic Mohan sign. Fatty infiltration of the liver without focal abnormality. Main portal vein patent with normal direction of flow. Pancreas is obscured. Aorta and IVC patent and normal in caliber. The right kidney is normal, 13.0 cm in length. No focal abnormality or hydronephrosis. Scarring noted midpole site of prior surgery. The left kidney is normal, 13.7 cm in length. No focal abnormality or hydronephrosis. The spleen is normal, 11.2 cm in length. No focal abnormality. Impression: No significant abnormalities. EGD BIOPSY TODAYS VISIT He continues on pantorpazole qd. [facility] Medical History (Updated 06/01/25 @ 16:50 by CRUZITO Allan) Left forearm pain Bilateral arm pain Flank pain Irritable bowel syndrome with diarrhea Elevated LFTs Lumbar spondylosis Pain of both elbows Renal mass Low back pain Lumbar back pain Lower abdominal pain Odynophagia Status post fall Back pain Neck pain LUQ pain Abdominal pain Mucus in stool Irritation of right eye Right inguinal pain Pleuritis Left-sided chest pain Abdominal bloating Foreign body of left eye Right renal mass Tendinitis Family history of amyloidosis History of transitional cell carcinoma of kidney Adult general medical exam Supraumbilical hernia Thoracic spondylosis Cervical spondylosis Renal cell carcinoma of right kidney Benign essential hypertension Overweight (BMI 25.0-29.9) Paresthesia of right upper extremity Polysubstance abuse Smoker Anxiety Schizophrenia Bipolar disorder Obesity (BMI 30-39.9) Degenerative joint disease of right shoulder Pure hypercholesterolemia Atrophy of muscle of right shoulder Anterior to posterior tear of superior glenoid labrum of right shoulder Surgical History History of umbilical hernia repair (~05/06/24) H/O hand surgery History of partial nephrectomy History of esophagogastroduodenoscopy (EGD) H/O colonoscopy History of surgery on arm History of cataract removal with insertion of prosthetic lens History of hernia surgery (1998) Family History Father Amyloidosis Mother Alive and well Maternal Uncle Prostate cancer Social History Household Members: Friend(s) Household Members Other:: roomates/friends Housing: Apartment Are you a primary career representative to a significant other at home: No Do you presently have visiting nurse or other home services: No Alcohol intake: current Alcohol intake frequency: does not drink Patient Tobacco Use Status: Former Tobacco user Tobacco use type: Cigarette Cigarette Packs Per Day: 0.5 Cigarettes Per Day: 10.0 Years Smoked: 30yrs, Quit 08/2022. e-Cigarette/Vaping Use: Never Used Second Hand Smoke Exposure: No service: No Current occupational status: unemployed Cognitive needs: No Hearing needs: No Vision needs: No Review of Systems Const Denies fatigue, Denies fever(s), Denies night sweats, Denies poor appetite and Denies weight loss ENT Reports Normal hearing present, Denies dental pain, Denies dysphagia, Denies hearing loss, Denies mouth pain, Denies odynophagia, Reports sore throat, Denies throat swelling, Denies tongue swelling and Reports other (Dentition adequate) Card Reports no additional complaints Resp Reports no additional complaints GI Details: Denies abdominal pain, Denies melena, Denies bloating, Denies hematochezia, Denies constipation, Denies GI cramping, Denies dysphagia, Denies excessive flatus, Denies early satiety, Reports heartburn, Denies diarrhea, Denies nausea, Denies odynophagia, Denies vomiting and Denies hematemesis Musc Reports myalgias and Reports arthralgias Skin/Breast Denies pruritus, Denies lesions, Denies rash and Denies jaundice Neuro Reports Normal hearing present and Denies Abnormal speech present Endo Denies fatigue Aller/Immun Denies throat swelling and Denies tongue swelling Physical Exam Vital Signs: Last Vital Signs Pulse 64 06/01/25 15:48 BP 140/78 H 06/01/25 15:48 Pulse Ox 97 06/01/25 15:48 Oxygen Delivery Method Room Air 06/01/25 15:48 BMI result Body Mass Index 34.0 Const General: cooperative, no acute distress, well developed and well groomed Nutritional Appearance: well nourished and overweight Orientation/consciousness: oriented to person, oriented to place and oriented to time Limitations: No language barrier HEENT Head: Yes normocephalic and Yes atraumatic Eyes General: appearance normal, both eyes and all related structures Pupils: Equal, round and reactive pupils present Neck Neck: Yes normal visual inspection and Yes no lymphadenopathy Thyroid: Thyroid normal Resp Effort & Inspection: normal respiratory effort and able to speak in complete sentences Auscultation: clear to auscultation bilaterally Cardio Rate: regular rate Rhythm: regular rhythm Heart sounds: Normal, physiologic split S2 sound present Peripheral pulses: radial pulses present and posterior tibial pulses present GI Inspection: No distended, No Abdominal panniculus present and Yes obesity Palpation (GI): Soft to palpation, nontender, no guarding, not rigid and No hepatosplenomegaly present Percussion: Yes normal to percussion Auscultation: normal bowel sounds Rectal Exam - Male: Yes deferred Skin General skin exam: no rashes or lesions noted, turgor normal, skin not dry, no jaundice, No spider nevi and no striae Rashes: no rashes Nails: normal Neuro General: oriented to person, oriented to place and oriented to time Cranial nerves: Yes Equal, round and reactive pupils present and Yes Normal hearing present Speech: No Abnormal speech present Extrem General: Yes normal to inspection, No clubbing, No cyanosis and No edema Psych Appearance: grossly normal and well kempt Mental Status: mental status grossly normal Speech and movement: Normal speech and movement present Affect: normal affect Attitude: cooperative Thought process: Normal thought process present and not confabulating Thought content: Normal thought content present Insight: Fair insight present (Psych) and Limited insight present (Psych) Judgement: Fair judgement present (Psych) and Limited judgement present (Psych) Assessment & Plan Assessment & Plan (1) 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: Comment: EGD 12/2021 - repeat in 3 years Code(s): K22.70 - Vigil's esophagus without dysplasia Category: Medical (2) Erosive gastritis: Code(s): K29.60 - Other gastritis without bleeding Category: Medical (3) Transaminitis: Code(s): R74.01 - Elevation of levels of liver transaminase levels Category: Medical (4) Schizophrenia: Code(s): F20.9 - Schizophrenia, unspecified Category: Medical Qualifiers: Schizophrenia type: unspecified Qualified Code(s): F20.9 - Schizophrenia, unspecified Plan He is doing well and doing better trying to remember to take his pantoprazole consistently. This has been a long course educating him that he needs to take it every day so that is Barretts esophagus will not turn into esophageal cancer. He says he does forget occasionally but he is doing better overall with this. 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 He says he follows up with Nephrology yearly. I reviewed the ultrasound and everything looks okay on his liver, but I encouraged him to do the lab work which he admits he forgot to going do. He admits to doing this before our next treatment. He has not yet been contacted but I have ordered his repeat EGD for Vigil's surveillance that is due this year. He mentions that he has been sober and free of drugs and alcohol for a few years now. He says that this has drastically improved his health especially with his past problems with diarrhea and generalized abdominal pain. He is currently committed to going to the gym and body building /weightlifting as a hobby and to further protect his health. Return office visit in 6 months Medications: Refilled pantoprazole 40 mg PO DAILY 90 tabs 2RF K22.70 - Vigil's esophagus without dysplasia Coding Level of Care Code Est Pt Level 3 (93289) Diagnoses 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 K22.70 Erosive gastritis K29.60 Transaminitis R74.01 Schizophrenia, unspecified type F20.9 Schizophrenia type: unspecified
[2025-06-01 15:48] VITALS: BP 140/78; PULSE 64; O2SAT 97; BMI 34.0
--- OUTSIDE RECORDS SUMMARY | 2025-06-01 16:02 | XMS_ITS | Clinical Summary ---
Author Organization [facility] Address [address] [address] Phone Care Team Providers Care Utility Assembler Name Role Phone Pcp, Unknown Primary Care Provider Unavailabl e Pcp, Unknown Unavailable Unavailable Allergies Active Allergy Reactions Criticality Noted Date Comments Lorazepam Anaphylaxis High 06/03/2024 Lorazepam Swelling High 06/21/2015 Medications lurasidone (LATUDA) 20 mg tablet TAKE 1 TABLET BY MOUTH EVERY MORNING AFTER A MEAL 5 Active OXcarbazepine (TRILEPTAL) 600 MG IMMEDIATE release tablet take 1 tablet by mouth everyday at bedtime 5 Active pantoprazole (PROTONIX) 40 MG tablet 5 Active albuterol 90 mcg/actuation inhaler Inhale 2 puffs into the lungs every 6 (six) hours as needed for wheezing. 18 g 5 Active L.acidoph-L.bu lg-B.bif-S.the rm (BACID) 1 billion cell- 250 mg Tab See instructions on your after visit summary as to how to take the probiotic. 60 tablet 5 Active azithromycin (ZITHROMAX Z-LARA) 250 MG tablet Take 2 tablets on day 1, and take 1 tablet on days 2 through 5 for a total of 5 days. 6 tablet 5 05/02/20 25 Active Problems No known active problems Encounters Date Type Department Care Team Description 05/02/2025 1:15 PM EDT Occupational Health [facility] at [address] [address] Darci Arboleda PA-C 04/27/2025 12:30 PM EDT Office Visit [facility] at [address] [place] [address] Whitney Cody, Aidee Goetz PA-C Acute bronchitis, unspecified organism (Primary Dx); Mild intermittent reactive airway disease without complication from Last 3 Months Social History Tobacco Use Types Packs/Day Years Used Date Smoking Tobacco: Never Assessed Education Answer Date Recorded Are you interested in more education? Not on sarah e 04/27/2025 Are you concerned about learning? Not on file 04/27/2025 No 04/27/2025 No 04/27/2025 Digital Access Answer Date Recorded No 04/27/2025 No 04/27/2025 Reliable internet access at home? Not on file 04/27/2025 Device with a working camera? Not on file Intimate Partner Violence Answer Date R ecorded Are you denied basic needs s uch as food, clothing, or medical care? No 06/03/2024 In the past 12 months have y ou been in a relationship with a person who hurts, threatens, or tries to control you? No 06/03/2024 Are you denied basic needs s uch as food, clothing, or medical care? No 06/03/2024 In the past 12 months have y ou been in a relationship with a person who hurts, threatens, or tries to control you? No 06/03/2024 Sex and Gender Information Value Date Recorded Sex Assigned at Not on file Legal Sex Male 12:27 PM EDT Gender Identity Not on file Sexual Orientation Not on file Last Filed Vital Signs Vital Sign Reading Time Taken Comments Blood Pressure 148/95 04/27/2025 12:50 PM EDT Pulse 86 04/27/2025 12:50 PM EDT Temperature 36.7 C (98.1 F) 04/27/2025 12:50 PM EDT Respiratory Rate 18 06/03/2024 12:03 PM EDT Oxygen Saturation 98% 04/27/2025 12:50 PM EDT Inhaled Oxygen Concentration - - Weight 108 kg (238 lb) 06/03/2024 11:13 AM EDT Height 180.3 cm (5' 11 ) 06/03/2024 11:13 AM EDT Body Mass Index 33.19 06/03/2024 11:13 AM EDT Plan of Treatment Health Maintenance Due Date Last Done Comments LIPID PANEL 1976 DEPRESSION SCREENING 1988 SMOKING Hx and SMOKELESS TOBACCO SCREENING 1989 HEPATITIS C SCREENING 1994 HIV ONE-TIME SCREENING (18-6 5 YEARS) 1994 SCREENING FOR DIABETES 2011 COLOGUARD 2021 COLONOSCOPY 2021 COLORECTAL CANCER SCREENING 2021 FIT TEST 2021 FOBT 2021 SIGMOIDOSCOPY 2021 VIRTUAL COLONOSCOPY 2021 COVID-19 VACCINE (2 - 2023-2 5 season) 2024 02/03/2021 Adult Td,Tdap Booster 07/04/2026 07/04/2016 , 08/09/2015 HEPATITIS A VACCINES Aged Out No long er eligible based on patient's age to complete this topic HIB VACCINES Aged Out No longer eligi ble based on patient's age to complete this topic MENINGOCOCCAL VACCINES (ACWY) Aged Out No longer eligible based on patient's age to complete this topic MENINGOCOCCAL VACCINES (B) Aged Out N o longer eligible based on patient's age to complete this topic PNEUMOCOCCAL VACCINES (0-49 years) Aged Out No longer eligible b ased on patient's age to complete this topic Medical Devices Not on file Procedures Procedure Name Priority Date/Time Associated Diagnosis Comments POCT COVID-19 RT-PCR/INFLUENZA A & B/RSV CEPHEID Routine 04/27/2025 12:46 PM EDT from Last 3 Months Results * POCT COVID-19 RT-PCR/Influenza A & B/RSV (Cepheid) (04/27/2025 12:46 PM EDT) [facility] RSV PCR Negative Negative [facility] SARS-CoV-2 (COVID-19) Negative Negative [facility] POC Influenza A PCR Negative Negative [facility] POC Influenza B PCR Negative Negative [facility] 04/27/2025 12:4 6 PM EDT 04/27/2025 1:26 PM EDT us Aidee Perez PA-C POINT OF CARE TEST ORDERABL ES Final Result [facility] [place] [address], [place] from Last 3 Months Insurance [facility] REPL[facility]EMENT [facility] [address] Care Teams Utility Assembler Relationship Specialty Start Date End Date Pcp, Unknown PCP - General 04/27/25 Pcp, Unknown 04/27/25 Additional Source Comments The information contained in this document represents components of the legal health record. It is not the complete legal health record.[facility]
--- OUTSIDE RECORDS SUMMARY | 2025-06-01 16:02 | XMS_ITS ---
Author Name [facility] Organization Unknown Encounters Encounter Type Encounter Reason Primary Diagnosis Location Date Ambulatory [facility] 12/16/2024
--- OUTSIDE RECORDS SUMMARY | 2025-06-01 16:02 | XMS_ITS | Patient Health Record ---
Author Organization [facility] Address [address] [place] [address] Care Team Providers Care Senior Medical Technologist Name Role Phone Jp Pelletier Unavailable [phone] Reason For Referral No Information Plan Of Treatment No Information
== END 2025-06-01 16:17 | disposition home or self-care (01) ==
LOC: HO.HGI 15:43
PROVIDERS: PCP Internal Medicine; Visit Provider Nurse Practitioner
DX: K22.70 Barrett's esophagus without dysplasia (principal); K29.60 Other gastritis without bleeding; R74.01 Elevation of levels of liver transaminase levels; F20.9 Schizophrenia, unspecified
CPT/HCPCS: 99213

== ENCOUNTER → 2025-06-01 15:43 | Outpatient (BNVA) | payer OTHER, SELFPAY | PROVIDERS: PCP Internal Medicine; Visit Provider Nurse Practitioner | DX: K22.70 Barrett's esophagus without dysplasia (principal); K29.60 Other gastritis without bleeding; R74.01 Elevation of levels of liver transaminase levels; F20.9 Schizophrenia, unspecified | CPT/HCPCS: 99212 ==

== ENCOUNTER 2025-06-02 08:49 | Outpatient (REF) | payer OTHER, SELFPAY ==
[2025-06-02 09:15] LABS: Appearance Urine Clear; Glucose Urine UA Negative (Negative); PH 6.0 (5.0-9.0); Specific Gravity - Urine 1.020 (1.005-1.025)
[2025-06-02 09:19] LABS: MANUAL DIFF FLAG NO
--- OUTSIDE RECORDS SUMMARY | 2025-06-02 09:43 | XMS_ITS | Clinical Summary ---
Author Organization [facility] Address [address] [address] Phone Care Team Providers Care Senior Net Architect Name Role Phone Pcp, Unknown Primary Care [...] needed for wheezing. 18 g 5 Active L.acidoph-L.bul g-B.bif-S.therm (BACID) 1 billion cell- 250 mg Tab See instructions on your after visit summary as to how to take the probiotic. 60 tablet 5 Active Active Problems No known active problems Encounters Date Type Department Care Team Description 05/02/2025 1:15 PM EDT Occupational Health [facility] at [address] [address] Darci Arboleda PA-C 04/27/2025 12:30 PM EDT Office Visit [facility] at [address] [address] Whitney Cody, Aidee Goetz PA-C Acute bronchitis, [...] & B/RSV (Cepheid) (04/27/2025 12:46 PM EDT) RSV PCR Negative Negative [facility] SARS-CoV-2 (COVID-19) Negative Negative [facility] POC Influenza A PCR Negative Negative [facility] Influenza B PCR Negative Negative [facility] 04/27/2025 12:4 6 PM EDT 04/27/2025 1:26 PM EDT us Aidee Perez PA-C POINT OF CARE TEST ORDERABL ES Final Result [facility] [place] [address], [facility] from Last 3 Months Insurance [facility] MEDIC[facility] REPLACEMENT Care Teams Senior Net Architect Relationship Specialty Start Date End Date Pcp, Unknown PCP - General 04/27/25 Pcp, Unknown 04/27/25 Additional Source Comments The information contained in this document represents components of the legal health record. It is not the complete legal health record.[facility]
--- OUTSIDE RECORDS SUMMARY | 2025-06-02 09:43 | XMS_ITS | Patient Health Record ---
Author Organization [facility] Address [address] [place] [address] Care Team Providers Care Computer Support Specialist Name Role Phone Jp Pelletier Unavailable [phone] Reason For Referral No Information Plan Of Treatment No Information
[2025-06-02 09:46] LABS: Hematocrit 37.2 % (42.0-52.0); Hemoglobin 13.4 g/dl (14.0-18.0); Imm Gran Abs Auto 0.03 X10*3/uL (0.00-0.03); Imm Gran Pct Auto 0.6 % (0.0-0.4); Lymphocytes Absolute Auto 1.6 X10*3/uL (1.2-4.9); Mean Corpuscular HGB Conc 36.0 g/dl (31.0-36.0); Mean Corpuscular Hemoglobin 29.9 pg (27.0-33.0); Mean Corpuscular Volume 83.0 fL (80.0-98.0); NRBC Abs Auto 0.000 X10*3/uL (0.0-0.012); NRBC Pct Auto 0.0 /100WBC (0.0-0.2); Platelet Count 233 X10*3/uL (160-400); Red Blood Count 4.48 X10*6/uL (4.60-5.80); White Blood Count 5.1 X10*3/uL (4.8-10.8)
[2025-06-02 09:48] LABS: Protein/Creatinine Ratio, Ur 0.06 (<0.2); Total Protein Urine Random 12 mg/dL (<12)
[2025-06-02 10:22] LABS: Alanine Aminotransferase 46 U/L (0-40); Albumin Level 4.7 g/dL (3.5-5.0); Alkaline Phosphatase 79 U/L (39-117); Anion Gap 11 (12-20); Aspartate Amino Transferase 39 U/L (5-37); Blood Urea Nitrogen 12 mg/dL (9-16); Calcium 9.1 mg/dL (8.4-10.2); Carbon Dioxide 25 mmol/L (22-29); Chloride 109 mmol/L (96-108); Cholesterol 252 mg/dL (<200); Estimated Glomerular Filt Rate > 60; HDL Cholesterol 37 mg/dL (>40); Potassium 4.0 mmol/L (3.3-5.1); Sodium 141 mmol/L (135-145); Total Protein 7.6 g/dL (6.5-8.0); Triglycerides 141 mg/dL (<150)
[2025-06-02 10:26] LABS: Anion Gap 11 (12-20); Blood Urea Nitrogen 12 mg/dL (9-16); Calcium 9.3 mg/dL (8.4-10.2); Carbon Dioxide 26 mmol/L (22-29); Chloride 108 mmol/L (96-108); Estimated Glomerular Filt Rate > 60; Potassium 4.1 mmol/L (3.3-5.1); Sodium 141 mmol/L (135-145)
[2025-06-02 10:33] LABS: Total Hemoglobin (HGBA1C) 3494.6314 umol/L
[2025-06-02 10:34] LABS: Ferritin 81 ng/mL (20-250)
[2025-06-02 14:50] LABS: Erythrocyte Sedimentation Rate 8 MM/HR (0-15)
[2025-06-05 20:35] LABS: Prot Elec - Albumin 4.6 g/dL (3.8-4.8); Prot Elec - Alpha1 0.3 g/dL (0.2-0.3); Prot Elec - Alpha2 0.6 g/dL (0.5-0.9); Prot Elec - Beta 1 0.5 g/dL (0.4-0.6); Prot Elec - Beta 2 0.4 g/dL (0.2-0.5); Prot Elec - Gamma 1.1 g/dL (0.8-1.7); Prot Elec - Total Protein 7.4 g/dL (6.1-8.1)
[2025-06-12 12:32] LABS: Anti Nuclear Antibody Screen POSITIVE (NEGATIVE); Anti Nuclear Antibody Titer 1:40 titer
== END 2025-06-02 08:50 | disposition home or self-care (01) ==
LOC: HO.LAB 08:49
PROVIDERS: Nurse Practitioner; Absent Provider Internal Medicine Nephrology; PCP Internal Medicine; Visit Provider Internal Medicine
DX: Z01.818 Encounter for other preprocedural examination (principal); R30.0 Dysuria; I10 Essential (primary) hypertension; C64.1 Malignant neoplasm of right kidney, except renal pelvis; E78.00 Pure hypercholesterolemia, unspecified; M25.50 Pain in unspecified joint; E55.9 Vitamin D deficiency, unspecified; R77.8 Other specified abnormalities of plasma proteins; D64.9 Anemia, unspecified; R74.01 Elevation of levels of liver transaminase levels; I25.10 Atherosclerotic heart disease of native coronary artery without angina pectoris; R79.89 Other specified abnormal findings of blood chemistry; K22.70 Barrett's esophagus without dysplasia; R91.1 Solitary pulmonary nodule; K59.00 Constipation, unspecified; M47.812 Spondylosis without myelopathy or radiculopathy, cervical region; M47.814 Spondylosis without myelopathy or radiculopathy, thoracic region; M47.816 Spondylosis without myelopathy or radiculopathy, lumbar region; M19.111 Post-traumatic osteoarthritis, right shoulder; N52.9 Male erectile dysfunction, unspecified; F41.9 Anxiety disorder, unspecified; F31.30 Bipolar disorder, current episode depressed, mild or moderate severity, unspecified; E66.9 Obesity, unspecified; Z68.33 Body mass index [BMI] 33.0-33.9, adult; Z79.899 Other long term (current) drug therapy
CPT/HCPCS: 36415; 80051; 80053; 80061; 81003; 82306; 82310; 82565; 82570; 82728; 83036; 84156; 84165; 84443; 84520; 85025; 85652; 86038; 86039; 86140; 86431; 96127; 99212

== ENCOUNTER 2025-06-02 10:58 | Outpatient (AMB) | payer OTHER, SELFPAY ==
[2025-06-02 11:01] VITALS: BP 142/92; PULSE 78; TEMP 36.3; O2SAT 98; BMI 33.5
--- NOTE | 2025-06-02 11:01 | A.OFFPC_ITS ---
Vital Signs 06/02/25 11:01 06/02/25 11:37 Height 5 ft 11 in Weight 240 lb 2 oz BMI 33.5 BP 142/92 H 138/86 Blood Pressure Location Rt brachial Lt brachial Position Sitting Sitting Pulse 78 Pulse Source Pulse Oximeter Temp 97.3 F Temp Source Temporal Artery Scan Pulse Oximetry (%) 98 Oxygen Delivery Method Room Air Intake Visit Reasons: 4mth f/u Allergies lorazepam (From ATIVAN) Allergy (Severe, Verified 06/02/25 11:28) ANAPHYLAXIS milk (Milk) Allergy (Intermediate, Verified 06/02/25 11:28) GI DISTRESS Peanut Butter Allergy (Intermediate, Verified 06/02/25 11:28) sore throat, hoarsensss atorvastatin Adverse Reaction (Severe, Verified 06/02/25 11:28) elevated LFTs pravastatin Adverse Reaction (Intermediate, Verified 06/02/25 11:28) ?diarrhea? Medication List - Last Reconciled 06/02/25 by Gonzalez Roman MD lisinopril 5 mg PO DAILY pantoprazole 40 mg PO DAILY Tobacco use date assessed: 06/02/25 Dental Screening Dental Screen Date: 06/02/25 Did you have a dental visit in the last 12 months?: Yes Did you have a dental problem in the last 6 months where you did not have access to dental care?: No Was dental information given to patient?: Patient has dentist HPI 4mth f/u HPI Details Patient comes in today for his follow-up visit States that he feels okay He denies any headaches or dizziness Denies any chest pains, no increased shortness of breath No nausea/vomiting, no abdominal pain No change in bowel habits noted States that he stopped taking all of his anxiety medications recently as he was concerned that staying on them they may jeopardize his job - reports that he started working at his new job a couple of months ago States that he has been doing well so far since he stopped taking his medica tions but would like to know he can take hydroxyzine for anxiety as needed if his anxiety starts to get worse States that he has also been experiencing some problems sleeping at night since he stopped taking all of his psychiatric medications but he recently tried taking some OTC melatonin and finds that it helps a lot Relates that was also advised recently at his employment physical that he has p roteins noted in his urinalysis has been advised to see his PCP to get this checked out further Adds that he has been experiencing some problems with erectile dysfunction wants to know if he can get some prescription for sildenafil that he can take as needed He had his follow-up labs done earlier this morning - to discuss his results [facility] Medical History (Updated 06/03/25 @ 01:01 by Gonzalez Roman MD) Erectile dysfunction Left forearm pain Bilateral arm pain Flank pain Irritable bowel syndrome with diarrhea Elevated LFTs Lumbar spondylosis Pain of both elbows Renal mass Low back pain Lumbar back pain Lower abdominal pain Odynophagia Status post fall Back pain Neck pain LUQ pain Abdominal pain Mucus in stool Irritation of right eye Right inguinal pain Pleuritis Left-sided chest pain Abdominal bloating Foreign body of left eye Right renal mass Tendinitis Family history of amyloidosis History of transitional cell carcinoma of kidney Adult general medical exam Supraumbilical hernia Thoracic spondylosis Cervical spondylosis Renal cell carcinoma of right kidney Benign essential hypertension Overweight (BMI 25.0-29.9) Paresthesia of right upper extremity Polysubstance abuse Smoker Anxiety Schizophrenia Bipolar disorder Obesity (BMI 30-39.9) Degenerative joint disease of right shoulder Pure hypercholesterolemia Atrophy of muscle of right shoulder Anterior to posterior tear of superior glenoid labrum of right shoulder Surgical History History of umbilical hernia repair (~05/06/24) H/O hand surgery History of partial nephrectomy History of esophagogastroduodenoscopy (EGD) H/O colonoscopy History of surgery on arm History of cataract removal with insertion of prosthetic lens History of hernia surgery (1998) Family History Father Amyloidosis Mother Alive and well Maternal Uncle Prostate cancer Social History Household Members: Friend(s) Household Members Other:: roomates/friends Housing: Apartment Are you a primary restorative care technician to a significant other at home: No Do you presently have visiting nurse or other home services: No Alcohol intake: current Alcohol intake frequency: does not drink Patient Tobacco Use Status: Former Tobacco user Tobacco use type: Cigarette Cigarette Packs Per Day: 0.5 Cigarettes Per Day: 10.0 Years Smoked: 30yrs, Quit 08/2022. e-Cigarette/Vaping Use: Never Used Second Hand Smoke Exposure: No service: No Current occupational status: unemployed Cognitive needs: No Hearing needs: No Vision needs: No Questionnaire PHQ-9 Over the last 2 weeks, how often have you been bothered by any of the following problems? 1. Little interest or pleasure in doing things: several days 2. Feeling down, depressed, or hopeless: several days 3. Trouble falling or staying asleep, or sleeping too much: several days 4. Feeling tired or having little energy: more than half the days 5. Poor appetite or overeating: not at all 6. Feeling bad about yourself - or that you are a failure or have let yourself or your family down: several days 7. Trouble concentrating on things, such as reading the newspaper or watching television: several days 8. Moving or speaking so slowly that other people could have noticed. Or the opposite - being so fidgety or restless that you have been moving around a lot more than usual: several days 9. Thoughts that you would be better off or of hurting yourself in some way: not at all Total score: 8 Depression Screening Interpretation: Positive Depression Screening Follow-up: Follow-up Visit Requested and Declines treatment Depression Screening Done: Yes 10306 - PHQ-9 Billing: Yes Source: Developed by Drs. Jp Oropeza, Poly Infante, Brayden De La Fuente and colleagues, with an educational sera from [employer]. Thrive Questionnaire Date Thrive assessed: 06/02/25 I am a: Patient What is your living situation today?: I choose not to answer this question Within the past 12 months, did the food you bought not last and you didn't have the money to get more?: I choose not to answer this question Within the past 12 months, did you worry whether your food would run out before you got money to buy more?: I choose not to answer this question Do you have trouble paying for medicines?: I choose not to answer this question Do you have trouble getting transportation to medical appointments?: I choose not to answer this question Do you have trouble paying your heating and electricity bill?: I choose not to answer this question Do you have trouble taking care of your child, family member or friend?: I choose not to answer this question Do you have trouble with day-to-day activities such as bathing, preparing meals, shopping, managing finances, etc.?: I choose not to answer this question Are you currently unemployed and looking for a job?: I choose not to answer this question Are you interested in more education?: I choose not to answer this question Please select the resources that you would like help with: Housing/Alf and None Currently or been in a relationship where the following occur: I choose not to answer THRIVE Score: 0 AUDIT C Alcohol Use Questionnaire (AUDIT-C) 1. How often do you have a drink containing alcohol?: Never 3. How often do you have six or more drinks on one occasion?: Never Total Score: 0 Score Reviewed/Action Taken: Yes PORTER-7 AMB Questionnaire PORTER-7 Date PORTER - 7 assessed: 01/25/25 Feeling nervous, anxious, or on edge: 1 = Several days Not being able to stop or control worryin = Several days Worrying too much about different things: 1 = Several days Trouble relaxin = Several days Being so restless that it is hard to sit still: 0 = Not at all Becoming easily annoyed or irritable: 1 = Several days Feeling afraid as if something awful might happen: 0 = Not at all Total PORTER-7 score (0-4 normal; 5-9 mild; 10-14 moderate; 15-21 severe): 5 Source: Developed by Drs. Jp Oropeza, Poly Infante, Brayden De La Fuente and colleagues, with an educational sera from [employer]. Review of Systems Const Denies chills, Reports difficulty sleeping (OTC Melatonin helps), Denies fatigue, Denies fever(s) and Denies headache(s) ENT Denies dysphagia, Denies dizziness, Denies otalgia, Denies headache(s), Denies neck pain, Denies odynophagia and Denies sore throat Card Denies chest pain, Denies palpitations and Denies dyspnea Resp Denies chest congestion, Denies cough and Denies dyspnea GI Denies abdominal pain, Reports constipation (increased lately), Denies dysphagia, Denies heartburn, Denies diarrhea, Denies nausea, Denies odynophagia and Denies vomiting Denies difficulty urinating, Reports erectile dysfunction, Denies dysuria, Denies nocturia and Denies urinary frequency Musc Reports back pain (on and off over his lower back), Reports arthralgias (on and off over the right shoulder, over both elbows and left forearm ) and Denies neck pain Skin/Breast Denies rash Neuro Denies dizziness and Denies headache(s) Psych Reports anxiety Endo Denies fatigue and Denies palpitations Physical exam (Primary Care) Vital Signs: Last Vital Signs Temp 97.3 F 06/02/25 11:01 Pulse 78 06/02/25 11:01 BP 138/86 06/02/25 11:37 Pulse Ox 98 06/02/25 11:01 Oxygen Delivery Method Room Air 06/02/25 11:01 BMI result Body Mass Index 33.5 Tobacco/Smoking Status: Tobacco use Status Tobacco use date assessed 06/02/25 06/02/25 11:07 Patient Tobacco Use Status Former Tobacco user 06/02/25 11:07 Tobacco use type Cigarette 06/02/25 11:07 e-Cigarette/Vaping Use Never Used 06/02/25 11:07 PHQ-9: PHQ-9 Score PHQ-9: Total score 8 06/02/25 11:31 Depression Screening Interpretation: Positive Depression Screening Follow-up: Follow-up Visit Requested and Declines treatment Thrive Assessment: Date of Thrive Assessment Date Thrive assessed 06/02/25 06/02/25 11:31 Currently or been in a relationship where the following occur: I choose not to answer Const General: no acute distress and alert HENMT Ears: TM's normal bilaterally and EAC's normal Throat: Yes posterior oropharynx normal and Yes tonsils normal (no TP congestion) Neck Neck: Yes supple and No lymphadenopathy Thyroid: Thyroid normal Resp Auscultation: clear to auscultation bilaterally, no rales and no wheezes Cardio Rate: regular rate Rhythm: regular rhythm Heart sounds: no murmurs GI Palpation (GI): Soft to palpation and nontender Auscultation: normal bowel sounds General: Yes no CVA tenderness Back/Spine/Pelvis Back: no CVA tenderness Thoracic/Lumbar Spine: No lumbar spinal tenderness Skin Rashes: no rashes Extrem General: Yes no clubbing, cyanosis or edema Results Reviewed Results Reviewed: Laboratory Tests 06/02/25 06/02/25 08:55 09:17 WBC 5.1 Hgb 13.4 L Hct 37.2 L Plt Count 233 Sodium 141 Potassium 4.1 Creatinine 0.89 Estimated GFR > 60 Fasting Glucose 99 Hemoglobin A1c % 5.4 Calcium 9.3 Ferritin 81 AST 39 H ALT 46 H C-Reactive Protein 0.39 Triglycerides 141 Cholesterol 252 H LDL Cholesterol, Calc 187 H HDL Cholesterol 37 L 25-OH Vitamin D Total 31.3 TSH 1.54 Ur Specific [place] 1.020 Urine Protein Negative Urine Glucose (UA) Negative Urine Blood Negative Urine Nitrite Negative Ur Leukocyte Esterase Negative Rheumatoid Factor < 13.0 Coding Level of Care Code Est Pt Level 4 (94743) Diagnoses Renal cell carcinoma of right kidney C64.1 Pure hypercholesterolemia E78.00 Coronary artery calcification seen on computed tomography I25.10 Elevated LFTs R79.89 Benign essential hypertension I10 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 K22.70 Pulmonary nodule R91.1 Constipation, unspecified constipation type K59.00 Constipation type: unspecified constipation type Cervical spondylosis M47.812 Thoracic spondylosis M47.814 Lumbar spondylosis M47.816 Post-traumatic osteoarthritis of right shoulder M19.111 Osteoarthritis type: post-traumatic Erectile dysfunction, unspecified erectile dysfunction type N52.9 Erectile dysfunction type: unspecified Anxiety F41.9 Bipolar affective disorder, current episode depressed, current episode severity unspecified F31.30 Active/Remission status: currently active Current bipolar episode type: depressed Current episode severity: unspecified Obesity (BMI 30-39.9) E66.9 Additional Codes PHQ-9 - 05654 - PHQ-9 Billing: Yes ([id number]) Assessment & Plan Assessment & Plan (1) Renal cell carcinoma of right kidney: Code(s): C64.1 - Malignant neoplasm of right kidney, except renal pelvis Category: Medical Plan: S/P laparoscopic right partial nephrectomy by urology (Dr. Paez) at [facility] in August 2023 Patient had nuclear imaging/whole body bone scan done prior to his surgery that revealed NO evidence of osteoblastic metastatic disease He used to see urology in [place] but has since requested for a referral to go to another urology group as he felt that the urologist he used to see was not listening to his complaints; he did not want to go to [facility] He is now seeing Dr. Charles christiansen in [place], [place] for urology follow up regularly (2) Pure hypercholesterolemia: Code(s): E78.00 - Pure hypercholesterolemia, unspecified Category: Medical Plan: Results of his labs done earlier today reviewed and discussed with patient - have advised him that his cholesterol levels have improved slightly previous but her still elevated Reinforced low-cholesterol diet He was taken off Atorvastatin last year when his LFTs went up significantly and previously did not wish to be started on any other cholesterol Rx but is now agreeable to start back on Rx Will try starting him on Rosuvastatin 5 mg every other day for now Will have him recheck his labs and fasting lipids in 4 months for follow up (3) Coronary artery calcification seen on computed tomography: Code(s): I25.10 - Atherosclerotic heart disease of ione coronary artery without angina pectoris Category: Medical Plan: Three-vessel coronary artery calcifications were noted on his chest CT done last year, which (per cardiology) was unusual for his age Reinforced that he should continue working on lowering his cholesterol level and reducing his risks for cardiac disease He may need additional cardiac workup if he starts experiencing symptoms of recurrent dyspnea and/or chest pains Follow up with cardiology as scheduled (4) Elevated LFTs: Code(s): R79.89 - Other specified abnormal findings of blood chemistry Category: Medical Plan: His LFTs were elevated in the past although they have been back to normal since November 2023 but were slightly elevated again on his labs done back in September 2024 Abdominal US with liver elastography done back on 05/12/23 revealed (+) echogenic liver suggestive of fatty infiltration and borderline elevated liver stiffness Patient states that he does not drink alcohol; is again reminded to avoid taking medications containing Tylenol or Acetaminophen Will continue to monitor his LFTs regularly (5) Benign essential hypertension: Code(s): I10 - Essential (primary) hypertension Category: Medical Plan: Reinforced low sodium diet - goal is systolic BP of at least 120 mm or less Continue Lisinopril 5 mg QD (6) 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: Comment: EGD 12/2021 - repeat in 3 years Code(s): K22.70 - Vigil's esophagus without dysplasia Category: Medical Plan: Dietary restrictions reinforced Continue Pantoprazole 40 mg QD Follow up with GI as scheduled for continuing surveillance - will need repeat EGD for follow up and states that this is now being scheduled by GI (7) Pulmonary nodule: Code(s): R91.1 - Solitary pulmonary nodule Category: Medical Plan: His chest CT done in October 2022 revealed a 5 x 3 mm polyclonal nodule along the right minor fissure - this was likely an intra fissural lymph node Chest CT was otherwise normal with no acute pulmonary disease According to the updated 2017 Fleischner Society recommendations, due to patient's significant history of smoking, optional CT can be done in 12 months for follow-up and he requests to have this ordered He did have a repeat chest CT done back on 05/04/2023 that showed the presence of bilateral nonspecific pulmonary nodules measuring up to 5 mm with no adenopathy in the chest Chest CT was again repeated in January 2024, which showed stable pulmonary nodules with no significant interval change Follow-up with pulmonary as scheduled (8) Constipation: Code(s): K59.00 - Constipation, unspecified Category: Medical Qualifiers: Constipation type: unspecified constipation type Qualified Code(s): K59.00 - Constipation, unspecified Plan: Reinforced increase his oral fluid and dietary fiber intake Continue Colace 100 mg QD PRN (9) Cervical spondylosis: Code(s): M47.812 - Spondylosis without myelopathy or radiculopathy, cervical region Category: Medical Plan: Cervical spine x-rays done in November 2021 revealed (+) cervical spondylosis with moderate C6-C7 disc degeneration Will consider referring him to pain management and/or physical therapy if his neck symptoms get worse (10) Thoracic spondylosis: Code(s): M47.814 - Spondylosis without myelopathy or radiculopathy, thoracic region Category: Medical Plan: Thoracic spine x-rays done back in November 2021 revealed (+) mild thoracic spondylosis Will consider referral to physical therapy if his back pain gets worse (11) Lumbar spondylosis: Code(s): M47.816 - Spondylosis without myelopathy or radiculopathy, lumbar region Category: Medical Plan: Lumbar spine x-rays done in March 2024 revealed (+) mild spondylosis of the lumbar spine, similar to findings in his cervical and thoracic spine previously Will consider referring him to PT if his back pain persists or progresses (12) Degenerative joint disease of right shoulder: Comment: MRI of the shoulder done in July 2020 revealed (+) moderate acromioclavicular osteoarthritis; the previously demostrated superior labral tear is much less conspicuous on this MRI Code(s): M19.011 - Primary osteoarthritis, right shoulder Category: Medical Qualifiers: Osteoarthritis type: post-traumatic Qualified Code(s): M19.111 - Post- traumatic osteoarthritis, right shoulder Plan: Will consider referring him to orthopedics for further evaluation and management if his shoulder symptoms get worse Patient states that his shoulder pains have been mostly tolerable and his shoulder ROM is grossly normal - he would like to continue to hold off on referral or any surgical intervention for his shoulder at this time (13) Erectile dysfunction: Code(s): N52.9 - Male erectile dysfunction, unspecified Category: Medical Qualifiers: Erectile dysfunction type: unspecified Qualified Code(s): N52.9 - Male erectile dysfunction, unspecified Plan: Per request, will start him on a trial of Sildenafil 50 mg PRN (14) Anxiety: Code(s): F41.9 - Anxiety disorder, unspecified Category: Medical Plan: Patient admitted to stop taking his Latuda 20 mg QD a while back as he was concerned that his medications may jeopardize 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 He requested to be started back on Hydroxyzine 25 mg Q HS PRN but states that he will not take this unless absolutely necessary (15) Bipolar disorder: Code(s): F31.9 - Bipolar disorder, unspecified Category: Medical Qualifiers: Active/Remission status: currently active Current bipolar episode type: depressed Current episode severity: unspecified Qualified Code(s): F31.30 - Bipolar disorder, current episode depressed, mild or moderate severity, unspecified Plan: He admitted to stop taking both his Latuda 20 mg QD and Oxcarbazepine 600 mg BID a while back, as he was concerned that taking these psychiatric Rx may affect his current employment States that he has been doing well so far with no increases symptoms since he stopped taking his Rx Follow up with psychiatry as scheduled (16) Obesity (BMI 30-39.9): Code(s): E66.9 - Obesity, unspecified Category: Medical Plan: Reinforced diet/exercise as tolerated/lose weight Plan Follow up in 4 months Orders: Orders Complete Blood Count Auto Diff 4 Months D64.9 - Anemia, unspecified Comprehensive [place]. Panel Fast 4 Months E78.00 - Pure hypercholesterolemia, unspecified UA CC w/rflx Micro + Cult 4 Months R30.0 - Dysuria Lipid Panel 4 Months E78.00 - Pure hypercholesterolemia, unspecified TSH reflex Free T4 4 Months E78.00 - Pure hypercholesterolemia, unspecified Vitamin D 25-OH Total 4 Months E55.9 - Vitamin D deficiency, unspecified Medications: New rosuvastatin 5 mg PO DAILY 30 tabs 3RF 30 days sildenafil (Viagra) administer 30 minutes to 4 hours before activity 50 mg PO DAILY PRN 10 tabs 0RF sexual activity Changed From hydroxyzine HCl 25 mg PO TID 10 days PRN 30 tabs 0RF anxiety To hydroxyzine HCl 25 mg PO BEDTIME PRN 30 tabs 0RF anxiety 30 days
[2025-06-02 11:37] VITALS: BP 138/86
== END 2025-06-02 11:46 | disposition home or self-care (01) ==
LOC: HO.HMCH 10:59
PROVIDERS: PCP Internal Medicine; Visit Provider Internal Medicine
DX: I25.10 Atherosclerotic heart disease of native coronary artery without angina pectoris (principal); C64.1 Malignant neoplasm of right kidney, except renal pelvis; F31.30 Bipolar disorder, current episode depressed, mild or moderate severity, unspecified; E78.00 Pure hypercholesterolemia, unspecified; R79.89 Other specified abnormal findings of blood chemistry; I10 Essential (primary) hypertension; K22.70 Barrett's esophagus without dysplasia; R91.1 Solitary pulmonary nodule; K59.00 Constipation, unspecified; M47.812 Spondylosis without myelopathy or radiculopathy, cervical region; M47.814 Spondylosis without myelopathy or radiculopathy, thoracic region; M47.816 Spondylosis without myelopathy or radiculopathy, lumbar region

== ENCOUNTER 2025-06-15 16:14 | Outpatient (AMB) | payer OTHER, SELFPAY ==
--- NOTE | 2025-06-15 16:07 | HO.NEPHOV_ITS ---
Intake Visit Reasons: Yonatan dennison/ -Lab results-[facility] Computer Numerical Control Grinder Required: No Accompanied by: Self / Same As Patient Allergies lorazepam (From ATIVAN) Allergy (Severe, Verified 06/15/25 16:12) ANAPHYLAXIS milk (Milk) Allergy (Intermediate, Verified 06/15/25 16:12) GI DISTRESS Peanut Butter Allergy (Intermediate, Verified 06/15/25 16:12) sore throat, hoarsensss atorvastatin Adverse Reaction (Severe, Verified 06/15/25 16:12) elevated LFTs pravastatin Adverse Reaction (Intermediate, Verified 06/15/25 16:12) ?diarrhea? HPI Comments Details: Rajeev was seen in follow [facility] for H/O renal cell cancer on a back drop of hypertension. His last MRI did not show any malignancy. He is on ACEI. He has H/O laparoscopic partial nephrectomy done in the past for his renal cell cancer . He denies any fever, headaches or dizziness, night sweats, weight loss, fever, hematuria, chest pains, no shortness of breath, nausea/ vomiting. He has no PND, orthopnea, pedal edema or orthostatic symptoms. He has no new bone or back pain. He takes Trileptal. He avoids excessive NSAID's and tries to maintain good hydration. He has H/O cocaine use but claims that he has not used it for a few years. His renal functions are normal [facility] Medical History (Updated 06/03/25 @ 01:01 by Gonzalez Roman MD) Erectile dysfunction Left forearm pain Bilateral arm pain Flank pain Irritable bowel syndrome with diarrhea Elevated LFTs Lumbar spondylosis Pain of both elbows Renal mass Low back pain Lumbar back pain Lower abdominal pain Odynophagia Status post fall Back pain Neck pain LUQ pain Abdominal pain Mucus in stool Irritation of right eye Right inguinal pain Pleuritis Left-sided chest pain Abdominal bloating Foreign body of left eye Right renal mass Tendinitis Family history of amyloidosis History of transitional cell carcinoma of kidney Adult general medical exam Supraumbilical hernia Thoracic spondylosis Cervical spondylosis Renal cell carcinoma of right kidney Benign essential hypertension Overweight (BMI 25.0-29.9) Paresthesia of right upper extremity Polysubstance abuse Smoker Anxiety Schizophrenia Bipolar disorder Obesity (BMI 30-39.9) Degenerative joint disease of right shoulder Pure hypercholesterolemia Atrophy of muscle of right shoulder Anterior to posterior tear of superior glenoid labrum of right shoulder Surgical History History of umbilical hernia repair (~05/06/24) H/O hand surgery History of partial nephrectomy History of esophagogastroduodenoscopy (EGD) H/O colonoscopy History of surgery on arm History of cataract removal with insertion of prosthetic lens History of hernia surgery (1998) Family History Father Amyloidosis Mother Alive and well Maternal Uncle Prostate cancer Social History Household Members: Friend(s) Household Members Other:: roomates/friends Housing: Apartment Are you a primary aged or disabled care worker to a significant other at home: No Do you presently have visiting nurse or other home services: No Alcohol intake: current Alcohol intake frequency: does not drink Patient Tobacco Use Status: Former Tobacco user Tobacco use type: Cigarette Cigarette Packs Per Day: 0.5 Cigarettes Per Day: 10.0 Years Smoked: 30yrs, Quit 08/2022. e-Cigarette/Vaping Use: Never Used Second Hand Smoke Exposure: No service: No Current occupational status: unemployed Cognitive needs: No Hearing needs: No Vision needs: No Review of Systems Const All systems reviewed & are unremarkable except as noted in HPI and below Telehealth Telehealth Telehealth Platform: Telephone Location of provider rendering services: practice address Location of patient: address on file Patient Identification confirmed using: Name, : Yes Telehealth method: voice only Patient verbally consented to treatment: Yes Patient verbally consented to billing insurance company: Yes Patient informed of any privacy concerns related to visit: No Minutes spent on Phone/Video with Pt.: 10 Results Reviewed Nephrology Results: Hgb, (14.0-18.0) 13.4 g/dl L 06/02/25 WBC, (4.8-10.8) 5.1 X10*3/uL 06/02/25 Plt Count, (160-400) 233 X10*3/uL 06/02/25 Sodium, (135-145) 141 mmol/L 06/02/25 Potassium, (3.3-5.1) 4.1 mmol/L 06/02/25 Chloride, (96-108) 108 mmol/L 06/02/25 Carbon Dioxide, (22-29) 26 mmol/L 06/02/25 BUN, (9-16) 12 mg/dL 06/02/25 Creatinine, (0.5-1.4) 0.89 mg/dL 06/02/25 Calcium, (8.4-10.2) 9.3 mg/dL 06/02/25 Urine Protein, (Neg-Trace) Negative mg/dL 06/02/25 Urine Creatinine 185.83 mg/dL 06/02/25 Protein/Creatinin Ratio, (<0.2) 0.06 06/02/25 Renal US 02/12/24 Assessment & Plan Assessment & Plan (1) Benign essential hypertension: Code(s): I10 - Essential (primary) hypertension Category: Medical Plan His renal functions are at baseline. He had H/O partial nephrectomy and had follow up USS / CT/ MRI. He has no hematuria, night sweats , fever or weight loss. He has no significant proteinuria. His BP has been at goal. He is tolerating ACEI. He should avoid NSAID's and maintain good hydration. He claims that he has not used any cocaine for couple of years. He needs regular follow up with Urology. Answered all questions. Orders: Orders Protein Creatinine Ratio, Ur 10 Months I10 - Essential (primary) hypertension Calcium 10 Months I10 - Essential (primary) hypertension Blood Urea Nitrogen 10 Months I10 - Essential (primary) hypertension Electrolytes 10 Months I10 - Essential (primary) hypertension Creatinine 10 Months I10 - Essential (primary) hypertension Coding Level of Care Code Tele Est Pt Level 4 (07381) Diagnoses Benign essential hypertension I10
--- OUTSIDE RECORDS SUMMARY | 2025-06-15 18:54 | XMS_ITS | Clinical Summary ---
Author Organization [facility] Address [address] [address] Phone Care Team Providers Care Clinical Data Research Name Role Phone Pcp, Unknown Primary Care [...] Description 05/02/2025 1:15 PM EDT Occupational Health [facility] at [address] [address] Darci Arboleda PA-C 04/27/2025 12:30 PM EDT Office Visit [facility] at [address] [address] Whitney Cody, Aidee Goetz PA-C Acute bronchitis, [...] HEPATITIS C SCREENING 1994 HIV ONE-TIME SCREENING (18-65 YEARS) 1994 SCREENING FOR DIABETES 2011 COLOGUARD 2021 COLONOSCOPY 2021 COLORECTAL CANCER SCREENING 2021 FIT TEST 2021 FOBT 2021 SIGMOIDOSCOPY 2021 VIRTUAL COLONOSCOPY 2021 INFLUENZA VACCINE (#1) 2025 , 09/01/2022, 08/06/2021, Additional history exists COVID-19 VACCINE ( - season) 2025 02/03/2021 Adult Td,Tdap Booster 07/04/2026 07/04/2016, 015 HEPATITIS A VACCINES Aged Out No long [...] (0-49 years) Aged Out No longer eligible based on patient's age to complete this topic Medical Devices Not on file Procedures Procedure Name Priority Date/Time Associated Diagnosis Comments POCT COVID-19 RT-PCR/INFLUENZA A & B/RSV CEPHEID Routine 04/27/2025 12:46 PM EDT from Last 3 Months Results * POCT COVID-19 RT-PCR/Influenza A & B/RSV (Cepheid) (04/27/2025 12:46 PM EDT) [facility] RSV PCR Negative Negative [facility] SARS-CoV-2 (COVID-19) Negative Negative [facility] POC Influenza A PCR Negative Negative [facility] Influenza B PCR Negative Negative [facility] 04/27/2025 12:4 6 PM EDT 04/27/2025 1:26 PM EDT Aidee Perez PA-C POINT OF CARE TEST ORDERABL ES Final Result [facility] [place] [address], [facility] from Last 3 Months Insurance [facility] MEDICARE REPLACEMENT [address] [address] [address] [place] [address] [employer] MEDICARE REPLACEMENT Care Teams Clinical Data Research Relationship Specialty Start Date End Date Pcp, Unknown PCP - General 04/27/25 Pcp, Unknown 04/27/25 Additional Source Comments The information contained in this document represents components of the legal health record. It is not the complete legal health record.[facility]
--- OUTSIDE RECORDS SUMMARY | 2025-06-15 18:54 | XMS_ITS | Patient Health Record ---
Author Organization [facility] Address [address] [place] [address] Care Team Providers Care Frothing Machine Operator Name Role Phone Jp Pelletier Unavailable [phone] Reason For Referral No Information Plan Of Treatment No Information
== END 2025-06-16 10:21 | disposition home or self-care (01) ==
LOC: HO.HKAS 16:14
PROVIDERS: PCP Internal Medicine; Visit Provider Internal Medicine Nephrology
DX: I10 Essential (primary) hypertension (principal)
CPT/HCPCS: 99214

== ENCOUNTER → 2025-08-18 08:47 | Day surgery (SDC) | payer OTHER, SELFPAY ==
--- OUTSIDE RECORDS SUMMARY | 2025-07-20 08:33 | XMS_ITS | Clinical Summary ---
Author Organization [facility] Address [address] [address] Phone Care Team Providers Care Director Of Child Welfare Services Name Role Phone Pcp, Unknown Primary Care [...] Description 05/02/2025 1:15 PM EDT Occupational Health [facility] at [address] [address] Darci Arboleda PA-C 04/27/2025 12:30 PM EDT Office Visit [facility] at [address] [address] Whitney Cody, Aidee Goetz PA-C Acute bronchitis, [...] & B/RSV (Cepheid) (04/27/2025 12:46 PM EDT) [facility] RSV PCR Negative Negative [facility] SARS-CoV-2 (COVID-19) Negative Negative [facility] Influenza A PCR Negative Negative [facility] Influenza B PCR Negative Negative [facility] 04/27/2025 12:4 6 PM EDT 04/27/2025 1:26 PM EDT Aidee Perez PA-C POINT OF CARE TEST ORDERABL ES Final Result [facility] [place] [address], [facility] from Last 3 Months Insurance [facility] MEDICARE [place] [address] [place] [address] [place] [address] [employer] MEDICARE REPLACEMENT Care Teams Director Of Child Welfare Services Relationship Specialty Start Date End Date Pcp, Unknown PCP - General 04/27/25 Pcp, Unknown 04/27/25 Additional Source Comments The information contained in this document represents components of the legal health record. It is not the complete legal health record.[facility]
--- OUTSIDE RECORDS SUMMARY | 2025-07-20 08:33 | XMS_ITS | Patient Health Record ---
Author Organization [facility] Address [address] [place] [address] Care Team Providers Care Acoustic Intelligence Specialist Name Role Phone Jp Pelletier Unavailable [phone] Reason For Referral No Information Plan Of Treatment No Information
--- NOTE | 2025-08-15 10:34 | HO.ANESPROP2 ---
HPI - Anesthesia Eval Consult details Narrative: 50yo M for Upper Endoscopy Renal ca s/p partial nephrectomy PMFSH Active Problems Active Problems: All Active Problems Erectile dysfunction (Acute) History of renal cell carcinoma (Acute) Constipation (Acute) Metallic taste (Acute) Lumbar spondylosis (Acute) Pre-op examination (Acute) Bilateral elbow joint pain (Acute) Transaminitis (Acute) Erosive gastritis (Acute) Inguinal pain of both sides (Acute) Coronary artery calcification seen on computed tomography (Acute) Pulmonary nodule (Acute) Chronic sore throat (Acute) Dyspnea (Acute) Weight loss (Acute) Internal derangement of left shoulder (Acute) Toenail fungus (Acute) Low vitamin D level (Acute) Colon cancer screening (Acute) 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 (Acute) Atrophy of trapezius muscle (Acute) Labral tear of long head of biceps tendon (Acute) Lipoma (Acute) Multiple environmental allergies (Acute) Elevated lipase (Acute) Supraumbilical hernia (Acute) Thoracic spondylosis (Acute) Cervical spondylosis (Acute) Renal cell carcinoma of right kidney (Acute) Benign essential hypertension (Acute) Overweight (BMI 25.0-29.9) (Acute) Paresthesia of right upper extremity (Acute) Smoker (Acute) Anxiety (Acute) Schizophrenia (Acute) Bipolar disorder (Acute) Obesity (BMI 30-39.9) (Acute) Degenerative joint disease of right shoulder (Acute) Pure hypercholesterolemia (Acute) Atrophy of muscle of right shoulder (Acute) Anterior to posterior tear of superior glenoid labrum of right shoulder (Acute) Past Medical History Medical History (Updated 06/03/25 @ 01:01 by Gonzalez Roman MD) Erectile dysfunction Left forearm pain Bilateral arm pain Flank pain Irritable bowel syndrome with diarrhea Elevated LFTs Lumbar spondylosis Pain of both elbows Renal mass Low back pain Lumbar back pain Lower abdominal pain Odynophagia Status post fall Back pain Neck pain LUQ pain Abdominal pain Mucus in stool Irritation of right eye Right inguinal pain Pleuritis Left-sided chest pain Abdominal bloating Foreign body of left eye Right renal mass Tendinitis Family history of amyloidosis History of transitional cell carcinoma of kidney Adult general medical exam Supraumbilical hernia Thoracic spondylosis Cervical spondylosis Renal cell carcinoma of right kidney Benign essential hypertension Overweight (BMI 25.0-29.9) Paresthesia of right upper extremity Polysubstance abuse Smoker Anxiety Schizophrenia Bipolar disorder Obesity (BMI 30-39.9) Degenerative joint disease of right shoulder Pure hypercholesterolemia Atrophy of muscle of right shoulder Anterior to posterior tear of superior glenoid labrum of right shoulder Family History Family History Father Amyloidosis Mother Alive and well Maternal Uncle Prostate cancer Family history of problems with anesthesia: No Surgical History Surgical History History of umbilical hernia repair (~05/06/24) H/O hand surgery History of partial nephrectomy History of esophagogastroduodenoscopy (EGD) H/O colonoscopy History of surgery on arm History of cataract removal with insertion of prosthetic lens History of hernia surgery (1998) History of Problems with Anesthesia: No Social History Social History Household Members: Friend(s) Household Members Other:: roomates/friends Housing: Apartment Are you a primary women's health care nurse practitioner to a significant other at home: No Do you presently have visiting nurse or other home services: No Alcohol intake: current Alcohol intake frequency: does not drink Patient Tobacco Use Status: Former Tobacco user Tobacco use type: Cigarette Cigarette Packs Per Day: 0.5 Cigarettes Per Day: 10.0 Years Smoked: 30yrs, Quit 08/2022. e-Cigarette/Vaping Use: Never Used Second Hand Smoke Exposure: No service: No Current occupational status: unemployed Cognitive needs: No Hearing needs: No Vision needs: No Meds Allergies Allergy/AdvReac Type Severity Reaction Status Date / Time lorazepam (From ATIVAN) Allergy Severe ANAPHYLAXIS Verified 06/15/25 16:12 milk (Milk) Allergy Intermediate GI DISTRESS Verified 06/15/25 16:12 Peanut Butter Allergy Intermediate sore Verified 06/15/25 16:12 throat, hoarsensss atorvastatin AdvReac Severe elevated Verified 06/15/25 16:12 LFTs pravastatin AdvReac Intermediate ?diarrhea? Verified 06/15/25 16:12 Exam Pertinent Lab Results Pertinent Lab Results: Laboratory Tests 02/05/24 06/02/25 08:42 09:17 WBC 4.6 L 5.1 Hgb 13.5 L 13.4 L Hct 38.8 L 37.2 L Plt Count 250 233 Sodium 140 141 Potassium 3.9 4.1 Chloride 106 108 Carbon Dioxide 25 26 BUN 18 H 12 Creatinine 0.92 0.89 Assessment and Plan Assessment Anesthesia Assessment: Chart Reviewed Final Anesthetic Review Family History of Problems with Anesthesia: No History of Problems with Anesthesia: No
[2025-08-16 13:55] VITALS: BMI 34.0
== END ==
LOC: HO.SSS 08:48
PROVIDERS: PCP Internal Medicine; Visit Provider Internal Medicine Gastroenterology
DX: K29.60 Other gastritis without bleeding (principal); Z53.8 Procedure and treatment not carried out for other reasons; K22.70 Barrett's esophagus without dysplasia

== ENCOUNTER 2025-09-22 14:08 | Outpatient (AMB) | payer OTHER, SELFPAY ==
[2025-09-22 14:10] VITALS: BP 136/92; PULSE 78; O2SAT 98; BMI 33.2
--- NOTE | 2025-09-22 14:10 | A.OFFPC_ITS ---
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 Medication List - Last Reconciled 09/22/25 by Gonzalez Roman MD hydroxyzine HCl 25 mg PO BEDTIME PRN 30 days lisinopril 5 mg PO DAILY pantoprazole 40 mg PO DAILY rosuvastatin 5 mg PO DAILY sildenafil (Viagra) 50 mg PO DAILY PRN Tobacco use date assessed: 09/22/25 Dental Screening Dental Screen Date: 09/22/25 Did you have a dental visit in the last 12 months?: Yes Did you have a dental problem in the last 6 months where you did not have access to dental care?: No Was dental information given to patient?: Patient has dentist HPI hyperlipidemia, HTN, anxiety HPI Details Patient comes in today for his follow-up visit States that he feels okay He denies any headaches or dizziness Denies any chest pains, no increased shortness of breath No nausea/vomiting, no abdominal pain No change in bowel habits noted States that he is currently doing well on Hydroxyzine PRN for his anxiety alone and notes that he does not take this too often and just when really needed He has not been on any other Rx for his anxiety/mood since he stopped taking all of his anxiety medications a few months ago as he was concerned that staying on them they may jeopardize his job - he started working at his new job a few months ago He was not able to get his follow up labs done prior to his appointment today - states that he will try to go and get these done [place] in the next few days REPLACED BY [facility] Medical History Erectile dysfunction Left forearm pain Bilateral arm pain Flank pain Irritable bowel syndrome with diarrhea Elevated LFTs Lumbar spondylosis Pain of both elbows Renal mass Low back pain Lumbar back pain Lower abdominal pain Odynophagia Status post fall Back pain Neck pain LUQ pain Abdominal pain Mucus in stool Irritation of right eye Right inguinal pain Pleuritis Left-sided chest pain Abdominal bloating Foreign body of left eye Right renal mass Tendinitis Family history of amyloidosis History of transitional cell carcinoma of kidney Supraumbilical hernia Thoracic spondylosis Cervical spondylosis Renal cell carcinoma of right kidney Benign essential hypertension Overweight (BMI 25.0-29.9) Paresthesia of right upper extremity Polysubstance abuse Smoker Anxiety Schizophrenia Bipolar disorder Obesity (BMI 30-39.9) Degenerative joint disease of right shoulder Pure hypercholesterolemia Atrophy of muscle of right shoulder Anterior to posterior tear of superior glenoid labrum of right shoulder Surgical History History of umbilical hernia repair (~05/06/24) H/O hand surgery History of partial nephrectomy History of esophagogastroduodenoscopy (EGD) H/O colonoscopy History of surgery on arm History of cataract removal with insertion of prosthetic lens History of hernia surgery (1998) Family History Father Amyloidosis Mother Alive and well Maternal Uncle Prostate cancer Social History Household Members: Friend(s) Household Members Other:: roomates/friends Housing: Apartment Are you a primary account executive healthcare to a significant other at home: No Do you presently have visiting nurse or other home services: No Alcohol intake: current Alcohol intake frequency: does not drink Patient Tobacco Use Status: Former Tobacco user Tobacco use type: Cigarette Cigarette Packs Per Day: 0.5 Cigarettes Per Day: 10.0 Years Smoked: 30yrs, Quit 08/2022. e-Cigarette/Vaping Use: Never Used Second Hand Smoke Exposure: No service: No Current occupational status: unemployed Cognitive needs: No Hearing needs: No Vision needs: No Questionnaire PHQ-9 Over the last 2 weeks, how often have you been bothered by any of the following problems? 1. Little interest or pleasure in doing things: several days 2. Feeling down, depressed, or hopeless: several days 3. Trouble falling or staying asleep, or sleeping too much: several days 4. Feeling tired or having little energy: more than half the days 5. Poor appetite or overeating: not at all 6. Feeling bad about yourself - or that you are a failure or have let yourself or your family down: several days 7. Trouble concentrating on things, such as reading the newspaper or watching television: several days 8. Moving or speaking so slowly that other people could have noticed. Or the opposite - being so fidgety or restless that you have been moving around a lot more than usual: several days 9. Thoughts that you would be better off or of hurting yourself in some way: not at all Total score: 8 Depression Screening Interpretation: Positive Depression Screening Follow-up: Existing condition, In treatment and Follow-up Visit Requested Depression Screening Done: Yes 97061 - PHQ-9 Billing: Yes Source: Developed by Drs. Jp Oropeza, Poly Infante, Brayden De La Fuente and colleagues, with an educational sera from [employer]. Thrive Questionnaire Date Thrive assessed: 09/22/25 I am a: Patient What is your living situation today?: I choose not to answer this question Within the past 12 months, did the food you bought not last and you didn't have the money to get more?: I choose not to answer this question Within the past 12 months, did you worry whether your food would run out before you got money to buy more?: I choose not to answer this question Do you have trouble paying for medicines?: I choose not to answer this question Do you have trouble getting transportation to medical appointments?: I choose not to answer this question Do you have trouble paying your heating and electricity bill?: I choose not to answer this question Do you have trouble taking care of your child, family member or friend?: I choose not to answer this question Do you have trouble with day-to-day activities such as bathing, preparing meals, shopping, managing finances, etc.?: I choose not to answer this question Are you currently unemployed and looking for a job?: I choose not to answer this question Are you interested in more education?: I choose not to answer this question Currently or been in a relationship where the following occur: I choose not to answer THRIVE Score: 0 AUDIT C Alcohol Use Questionnaire (AUDIT-C) 1. How often do you have a drink containing alcohol?: Never 3. How often do you have six or more drinks on one occasion?: Never Total Score: 0 Score Reviewed/Action Taken: Yes PORTER-7 AMB Questionnaire PORTER-7 Date PORTER - 7 assessed: 09/22/25 Feeling nervous, anxious, or on edge: 1 = Several days Not being able to stop or control worryin = Several days Worrying too much about different things: 1 = Several days Trouble relaxin = Several days Being so restless that it is hard to sit still: 0 = Not at all Becoming easily annoyed or irritable: 1 = Several days Feeling afraid as if something awful might happen: 0 = Not at all Total PORTER-7 score (0-4 normal; 5-9 mild; 10-14 moderate; 15-21 severe): 5 Source: Developed by Drs. Jp Oropeza, Poly Infante, Brayden De La Fuente and colleagues, with an educational sera from [employer]. Review of Systems Const Denies chills, Reports difficulty sleeping (OTC Melatonin helps), Denies fatigue, Denies fever(s) and Denies headache(s) ENT Denies dysphagia, Denies dizziness, Denies otalgia, Denies headache(s), Denies neck pain, Denies odynophagia and Denies sore throat Card Denies chest pain, Denies palpitations and Denies dyspnea Resp Denies chest congestion, Denies cough and Denies dyspnea GI Denies abdominal pain, Reports constipation (increased lately), Denies dysphagia, Denies heartburn, Denies diarrhea, Denies nausea, Denies odynophagia and Denies vomiting Denies difficulty urinating, Reports erectile dysfunction, Denies dysuria, Denies nocturia and Denies urinary frequency Musc Reports back pain (on and off over his lower back), Reports arthralgias (on and off over the right shoulder, over both elbows and left forearm ) and Denies neck pain Skin/Breast Denies rash Neuro Denies dizziness and Denies headache(s) Psych Reports anxiety Endo Denies fatigue and Denies palpitations Physical exam (Primary Care) Vital Signs: Last Vital Signs Pulse 78 09/22/25 14:10 BP 128/86 09/22/25 14:58 Pulse Ox 98 09/22/25 14:10 Oxygen Delivery Method Room Air 09/22/25 14:10 BMI result Body Mass Index 33.2 Tobacco/Smoking Status: Tobacco use Status Tobacco use date assessed 09/22/25 09/22/25 14:16 Patient Tobacco Use Status Former Tobacco user 09/22/25 14:16 Tobacco use type Cigarette 09/22/25 14:16 e-Cigarette/Vaping Use Never Used 09/22/25 14:16 PHQ-9: PHQ-9 Score PHQ-9: Total score 8 09/22/25 14:58 Depression Screening Interpretation: Positive Depression Screening Follow-up: Existing condition, In treatment and Follow-up Visit Requested Thrive Assessment: Date of Thrive Assessment Date Thrive assessed 09/22/25 09/22/25 14:16 Currently or been in a relationship where the following occur: I choose not to answer Const General: no acute distress and alert HENMT Ears: TM's normal bilaterally and EAC's normal Throat: Yes posterior oropharynx normal and Yes tonsils normal (no TP congestion) Neck Neck: Yes supple and No lymphadenopathy Thyroid: Thyroid normal Resp Auscultation: clear to auscultation bilaterally, no rales and no wheezes Cardio Rate: regular rate Rhythm: regular rhythm Heart sounds: no murmurs GI Palpation (GI): Soft to palpation and nontender Auscultation: normal bowel sounds General: Yes no CVA tenderness Back/Spine/Pelvis Back: no CVA tenderness Thoracic/Lumbar Spine: No lumbar spinal tenderness Skin Rashes: no rashes Extrem General: Yes no clubbing, cyanosis or edema Coding Level of Care Code Est Pt Level 4 (92993) Diagnoses Renal cell carcinoma of right kidney C64.1 Pure hypercholesterolemia E78.00 Coronary artery calcification seen on computed tomography I25.10 Elevated LFTs R79.89 Benign essential hypertension I10 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 K22.70 Pulmonary nodule R91.1 Constipation, unspecified constipation type K59.00 Constipation type: unspecified constipation type Cervical spondylosis M47.812 Thoracic spondylosis M47.814 Lumbar spondylosis M47.816 Post-traumatic osteoarthritis of right shoulder M19.111 Osteoarthritis type: post-traumatic Erectile dysfunction, unspecified erectile dysfunction type N52.9 Erectile dysfunction type: unspecified Anxiety F41.9 Bipolar affective disorder, current episode depressed, current episode severity unspecified F31.30 Active/Remission status: currently active Current bipolar episode type: depressed Current episode severity: unspecified Obesity (BMI 30-39.9) E66.9 Additional Codes PHQ-9 - 68231 - PHQ-9 Billing: Yes ([id number]) Assessment & Plan Assessment & Plan (1) Renal cell carcinoma of right kidney: Code(s): C64.1 - Malignant neoplasm of right kidney, except renal pelvis Category: Medical Plan: S/P laparoscopic right partial nephrectomy by urology (Dr. Paez) at [facility] in August 2023 Patient had nuclear imaging/whole body bone scan done prior to his surgery that revealed NO evidence of osteoblastic metastatic disease He used to see urology in [place] but has since requested for a referral to go to another urology group as he felt that the urologist he used to see was not listening to his complaints; he did not want to go to [facility] He is now seeing Dr. Charles christiansen in [place], [place] for urology follow up regularly and for continuing surveillance (2) Pure hypercholesterolemia: Code(s): E78.00 - Pure hypercholesterolemia, unspecified Category: Medical Plan: He was not able to get his follow up labs done prior to his appointment today - states that he will try to go and get these done [place] in the next few days Reinforced low-cholesterol diet He was taken off Atorvastatin last year when his LFTs went up significantly and previously did not wish to be started on any other cholesterol Rx but agreed to start back on Rx at his last visit - he was then started on Rosuvastatin 5 mg every other day Will have him recheck his labs and fasting lipids again in 4 months for follow up (3) Coronary artery calcification seen on computed tomography: Code(s): I25.10 - Atherosclerotic heart disease of resighini coronary artery without angina pectoris Category: Medical Plan: Three-vessel coronary artery calcifications were noted on his chest CT done last year, which (per cardiology) was unusual for his age Reinforced that he should continue working on lowering his cholesterol level and reducing his risks for cardiac disease He may need additional cardiac workup if he starts experiencing symptoms of recurrent dyspnea and/or chest pains Follow up with cardiology as scheduled (4) Elevated LFTs: Code(s): R79.89 - Other specified abnormal findings of blood chemistry Category: Medical Plan: His LFTs were elevated in the past although they have been back to normal since November 2023 but were slightly elevated again on his labs done back in September 2024 They were against slightly elevated back in May 2025 but patient did not get his follow-up labs done prior to his appointment today Abdominal US with liver elastography done back on 05/12/23 revealed (+) echogenic liver suggestive of fatty infiltration and borderline elevated liver stiffness Patient states that he does not drink alcohol; is again reminded to avoid taking medications containing Tylenol or Acetaminophen Will continue to monitor his LFTs regularly (5) Benign essential hypertension: Code(s): I10 - Essential (primary) hypertension Category: Medical Plan: Reinforced low sodium diet - goal is systolic BP of at least 120 mm or less Continue Lisinopril 5 mg QD (6) 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: Comment: EGD 12/2021 - repeat in 3 years Code(s): K22.70 - Vigil's esophagus without dysplasia Category: Medical Plan: Dietary restrictions reinforced Continue Pantoprazole 40 mg QD Follow up with GI as scheduled for continuing surveillance - will need repeat EGD for follow up and states that this is now being scheduled by GI (7) Pulmonary nodule: Code(s): R91.1 - Solitary pulmonary nodule Category: Medical Plan: His chest CT done in October 2022 revealed a 5 x 3 mm polyclonal nodule along the right minor fissure - this was likely an intra fissural lymph node Chest CT was otherwise normal with no acute pulmonary disease According to the updated 2017 Fleischner Society recommendations, due to patient's significant history of smoking, optional CT can be done in 12 months for follow-up and he requests to have this ordered He did have a repeat chest CT done back on 05/04/2023 that showed the presence of bilateral nonspecific pulmonary nodules measuring up to 5 mm with no adenopathy in the chest Chest CT was again repeated in January 2024, which showed stable pulmonary nodules with no significant interval change Follow-up with pulmonary as scheduled (8) Constipation: Code(s): K59.00 - Constipation, unspecified Category: Medical Qualifiers: Constipation type: unspecified constipation type Qualified Code(s): K59.00 - Constipation, unspecified Plan: Reinforced increase his oral fluid and dietary fiber intake Continue Colace 100 mg QD PRN (9) Cervical spondylosis: Code(s): M47.812 - Spondylosis without myelopathy or radiculopathy, cervical region Category: Medical Plan: Cervical spine x-rays done in November 2021 revealed (+) cervical spondylosis with moderate C6-C7 disc degeneration Will consider referring him to pain management and/or physical therapy if his neck symptoms get worse (10) Thoracic spondylosis: Code(s): M47.814 - Spondylosis without myelopathy or radiculopathy, thoracic region Category: Medical Plan: Thoracic spine x-rays done back in November 2021 revealed (+) mild thoracic spondylosis Will consider referral to physical therapy if his back pain gets worse - patient states that most of his joint pains and cervical, thoracic and lumbar spine pains have been mostly manageable lately (11) Lumbar spondylosis: Code(s): M47.816 - Spondylosis without myelopathy or radiculopathy, lumbar region Category: Medical Plan: Lumbar spine x-rays done in March 2024 revealed (+) mild spondylosis of the lumbar spine, similar to findings in his cervical and thoracic spine previously Will consider referring him to PT if his back pain persists or progresses (12) Degenerative joint disease of right shoulder: Comment: MRI of the shoulder done in July 2020 revealed (+) moderate acromioclavicular osteoarthritis; the previously demostrated superior labral tear is much less conspicuous on this MRI Code(s): M19.011 - Primary osteoarthritis, right shoulder Category: Medical Qualifiers: Osteoarthritis type: post-traumatic Qualified Code(s): M19.111 - Post- traumatic osteoarthritis, right shoulder Plan: Will consider referring him to orthopedics for further evaluation and management if his shoulder symptoms get worse Patient states that his shoulder pains have been mostly tolerable and his shoulder ROM is grossly normal - he would like to continue to hold off on referral or any surgical intervention for his shoulder at this time (13) Erectile dysfunction: Code(s): N52.9 - Male erectile dysfunction, unspecified Category: Medical Qualifiers: Erectile dysfunction type: unspecified Qualified Code(s): N52.9 - Male erectile dysfunction, unspecified Plan: Continue Sildenafil 50 mg PRN (14) Anxiety: Code(s): F41.9 - Anxiety disorder, unspecified Category: Medical Plan: Patient stopped taking his Latuda 20 mg QD a while back as he was concerned that his medications may jeopardize 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 He requested to be started back on Hydroxyzine 25 mg Q HS PRN and states that he takes this only when absolutely necessary (15) Bipolar disorder: Code(s): F31.9 - Bipolar disorder, unspecified Category: Medical Qualifiers: Active/Remission status: currently active Current bipolar episode type: depressed Current episode severity: unspecified Qualified Code(s): F31.30 - Bipolar disorder, current episode depressed, mild or moderate severity, unspecified Plan: He stopped taking both his Latuda 20 mg QD and Oxcarbazepine 600 mg BID a few months ago, as he was concerned that taking these psychiatric Rx may affect his current employment States that he has been doing well so far with no increased symptoms since he stopped taking his Rx Follow up with psychiatry as scheduled (16) Obesity (BMI 30-39.9): Code(s): E66.9 - Obesity, unspecified Category: Medical Plan: Reinforced diet/exercise as tolerated/lose weight Plan Follow up in 4 months Orders: Orders Lipid Panel 4 Months E78.00 - Pure hypercholesterolemia, unspecified Comprehensive [place]. Panel Fast 4 Months E78.00 - Pure hypercholesterolemia, unspecified TSH reflex Free T4 4 Months E78.00 - Pure hypercholesterolemia, unspecified UA CC w/rflx Micro + Cult 4 Months R30.0 - Dysuria Complete Blood Count Auto Diff 4 Months D64.9 - Anemia, unspecified Vitamin D 25-OH Total 4 Months E55.9 - Vitamin D deficiency, unspecified
[2025-09-22 14:58] VITALS: BP 128/86
--- OUTSIDE RECORDS SUMMARY | 2025-09-22 15:43 | XMS_ITS | Clinical Summary ---
Author Organization [facility] Address [address] [address] Phone Care Team Providers Care Ice Cream Machine Operator Name Role Phone Pcp, Unknown Primary Care [...] Active Active Problems No known active problems Social History Tobacco Use Types Packs/Day Years [...] 08/06/2021, Additional history exists COVID-19 VACCINE ( season) 2025 02/03/2021 Adult Td,Tdap Booster 07/04/2026 [...] this topic Medical Devices Not on file Insurance [facility] MEDICARE REPLACEMENT Member Subscriber Plan / Payer (Ef fective 2020-Present) Name:Rajeev Davies Relation to Subscriber:Self Name:Rajeev Davies Payer ID:[id number] (NAIC) Group ID:[id number] Type:Medicare Address: [address] MEDICARE REPLACEMENT [facility] MEDICARE REPLACEMENT Care Teams Ice Cream Machine Operator Relationship Specialty Start Date End Date Pcp, Unknown PCP - General 04/27/25 Pcp, Unknown 04/27/25 Additional Source Comments The information contained in this document represents components of the legal health record. It is not the complete legal health record.[facility]
--- OUTSIDE RECORDS SUMMARY | 2025-09-22 15:43 | XMS_ITS | Patient Health Record ---
Author Organization [facility] Address [address] [place] [address] Care Team Providers Care Yeast Supervisor Name Role Phone Jp Pelletier Unavailable [phone] Reason For Referral No Information Plan Of Treatment No Information
--- OUTSIDE RECORDS SUMMARY | 2025-09-22 15:43 | XMS_ITS | Data Portability ---
Author Organization [place] - [facility], Allergy Address [address] [place] [id number] Care Team Providers Care Brick Layer Name Role Phone CONY HAIR Primary Care [...] Imaging MRI, brain, w/wo contrast 2024 025 [facility] [address] [place], [address], 14:37:06 Medication Orders None recorded. Patient TargetsNo targets recorded. Patient InstructionsNo instructions recorded. Reason for Referral None Reported. Results Created Date Observation Date Name Description Value Unit Range Abnormal Flag Note LastModifiedBy Organization Detail LastModifiedTime 01/21/20 25 01/17/2025 MRI, brain , w/wo contr ast No observ ation record ed. BARCODE [facility] ([facility] [address] [place], [address], 01/20/2025 15:26:08 Result Notes None recorded. 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 Procedures Surgical History Date Name Laterality Status Provider Name and Address Organization Details Recorded Time 01/05/2025 NasalEndos copy_DP completed Handy Hwang MA [facility] 01/05/2025 12:12:00 Imaging Results None recorded. Procedure Notes None recorded. Medical Equipment None Reported. Medications Name Sig Start Date Stop Date Status Note LastModified by Organization Details LastModified Time atorvasta tin 40 mg tablet 01/05 completed Medicati on ID: [id number] B rand Name: atorvast atin Sen d Method: E-Prescr ibed Sub s Allowed: subs OK Medic ationGen ericName : atorvast atin Not Available Not Available Not Available methocarb lupe 500 mg tablet 01/05 completed Medicati on ID: [id number] B rand Name: methocar bamol Se nd Method: E-Prescr ibed Sub s Allowed: subs OK Medic ationGen ericName : methocar bamol Not Available Not Available Not Available nystatin 100,000 unit/mL oral suspensio n 01/05 completed Medicati on ID: [id number] B rand Name: nystatin Send Method: E-Prescr ibed Sub s Allowed: subs OK Medic ationGen ericName : nystatin Not Available Not Available Not Available valacyclo vir 1 gram tablet 01/05 completed Medicati on ID: [id number] B rand Name: valacycl ovir Sen d Method: E-Prescr ibed Sub s Allowed: subs OK Medic ationGen ericName : valacycl ovir Not Available Not Available Not Available amoxicill in 500 mg tablet TAKE 1 TABLET BY MOUTH EVERY 8 HOURS FOR 7 DAYS active Not Available Not Available No t Available pantopraz ole 20 mg tablet,de layed release active Medicati on ID: [id number] B rand Name: pantopra zole Sen d Method: E-Prescr ibed Sub s Allowed: subs OK Medic ationGen ericName : pantopra zole Not Available Not Available Not Available amoxicill in 875 mg tablet 01/05 completed Medicati on ID: [id number] B rand Name: amoxicil gayla Send Method: E-Prescr ibed Sub s Allowed: subs OK Medic ationGen ericName : amoxicil gayla Not Available Not Available Not Available prednisol one acetate 1 % eye drops,mellissa pension 01/05 completed Medicati on ID: [id number] B rand Name: predniso lone acetate Send [...] mg tablet 01/05 completed Medicati on ID: [id number] B rand Name: predniso ne Send Method: E-Prescr ibed Sub s Allowed: subs OK Medic ationGen ericName : predniso ne Not Available Not Available Not Available oxcarbaze pine 600 mg tablet TAKE 1 TABLET BY MOUTH EVERYDAY AT BEDTIME active Not Available Not Available No t Available hydroxyzi ne HCl 25 mg tablet 01/05 completed Medicati on ID: [id number] B rand Name: hydroxyz ine HCl Send [...] a day 01/05 completed Medicati on ID: [id number] D uration Value: 14 Brand Name: mupiroci n Send Method: E-Prescr ibed Sub s Allowed: subs OK Medic ationGen ericName : mupiroci n Not Available Not Available Not Available olanzapin e 20 mg tablet 01/05 completed Medicati on ID: [id number] B rand Name: olanzapi ne Send Method: E-Prescr ibed Sub s Allowed: subs OK Medic ationGen ericName : olanzapi ne Not Available Not Available Not Available amoxicill in 875 mg-potass ium clavulana te 125 mg tablet 01/05 completed Medicati on ID: [id number] B rand Name: amoxicil gayla-pot clavulan ate Send Method: E-Prescr ibed Sub s Allowed: subs OK Medic ationGen ericName : amoxicil gayla-pot clavulan ate Not Available Not Available Not Available cholecalc iferol (vitamin D3) 25 mcg (1,000 unit) tablet 01/05 completed Medicati on ID: [id number] B rand Name: cholecal ciferol (vitamin D3) [...] Updated DateTime 01/05/2025 180.34 cm 33.5 kg/m2 781503.17 g Winnie Gutierrez [place] [facility] 01/05/2025 11:08:35 Social History None recorded. Functional Status None recorded. Mental Status None recorded. Family History Nothing Reported. Medical History No medical history recorded. Past Encounters Encounter ID Performer Location Encounter Start Date Encounter Closed Date Diagnosis/Indication Diagnosis SNOMED-CT Code Diagnosis ICD10 Code Diagnosis IMO Codes Diagnosis Note [id number] HANDY HWANG PA-C [facility] [address] [place] [address] 01/05/2025 09:44:26 01/05/2025 15:52:05 Unusual smell in nose 680168800 R43.1 Health Concerns Section Related Observation LastModified by Organization Detai ls LastModified Time None Recorded Concern Status LastModified by Organization Details LastModified Time None Recorded Advance Directives Directive None Recorded Payers Insurance Date Sequence Insurance Name Policy Number Policy Brian Covered Member ID Brian Member ID Guarantor Name 02/13/2025 1 [employer] - [facility] [place] ([place]/AD VANTAGE - HMO) Rajeev Davies Jr [id number] Rajeev Davies Jr 01/16/2025 2 [place] [employer] Rajeev Davies Jr [id number] Rajeev Davies Jr 02/13/2025 1 [facility] - DOS ON OR AFTER 2023 - [employer] (MEDICARE REPLACEMENT/AD VANTAGE - HMO) Rajeev Davies Jr [id number] Rajeev Davies Jr Notes Date Note Type Note Provider Name and Address Organization Details Recorded Time 01/05/2025 text/html ROS as noted in the HPI 49 year old male presents with altered [...] resolved on its own. ONOFRE WAN MD [address] [place] [address], [place], [phone], [place] [facility] 01/05/2025 16:36:06
== END 2025-09-22 15:56 | disposition home or self-care (01) ==
LOC: HO.HMCH 14:09
PROVIDERS: PCP Internal Medicine; Visit Provider Internal Medicine
DX: C64.1 Malignant neoplasm of right kidney, except renal pelvis (principal); E78.00 Pure hypercholesterolemia, unspecified; I25.10 Atherosclerotic heart disease of native coronary artery without angina pectoris; R79.89 Other specified abnormal findings of blood chemistry; I10 Essential (primary) hypertension; K22.70 Barrett's esophagus without dysplasia; R91.1 Solitary pulmonary nodule; K59.00 Constipation, unspecified; M47.812 Spondylosis without myelopathy or radiculopathy, cervical region; M47.814 Spondylosis without myelopathy or radiculopathy, thoracic region; M47.816 Spondylosis without myelopathy or radiculopathy, lumbar region; F31.30 Bipolar disorder, current episode depressed, mild or moderate severity, unspecified; M19.111 Post-traumatic osteoarthritis, right shoulder; N52.9 Male erectile dysfunction, unspecified; F41.9 Anxiety disorder, unspecified; E66.9 Obesity, unspecified

== ENCOUNTER → 2025-09-22 14:08 | Outpatient (BNVA) | payer OTHER, SELFPAY | PROVIDERS: PCP Internal Medicine; Visit Provider Internal Medicine | DX: I10 Essential (primary) hypertension (principal); C64.1 Malignant neoplasm of right kidney, except renal pelvis; E78.00 Pure hypercholesterolemia, unspecified; I25.10 Atherosclerotic heart disease of native coronary artery without angina pectoris; R79.89 Other specified abnormal findings of blood chemistry; K22.70 Barrett's esophagus without dysplasia; K59.00 Constipation, unspecified; M47.812 Spondylosis without myelopathy or radiculopathy, cervical region; M47.814 Spondylosis without myelopathy or radiculopathy, thoracic region; M47.816 Spondylosis without myelopathy or radiculopathy, lumbar region; M19.111 Post-traumatic osteoarthritis, right shoulder; N52.9 Male erectile dysfunction, unspecified; F31.30 Bipolar disorder, current episode depressed, mild or moderate severity, unspecified; F41.9 Anxiety disorder, unspecified; E66.9 Obesity, unspecified; Z13.31 Encounter for screening for depression; Z13.39 Encounter for screening examination for other mental health and behavioral disorders | CPT/HCPCS: 96127; 99212 ==